=== PATIENT | male | born 1950 | race Caucasian/White ===

== ENCOUNTER 2019-12-26 14:22 | Outpatient (CLI) | payer MEDICARE, SELFPAY | END 2019-12-26 14:23 | disposition home or self-care (01) | LOC: RADWPI 14:38 | PROVIDERS: Family Provider Nurse Practitioner Family; PCP Family Medicine; Visit Provider Nurse Practitioner | DX: Z01.89 Encounter for other specified special examinations (principal) ==

== ENCOUNTER 2020-06-17 12:49 | Outpatient (CLI) | payer MEDICARE, SELFPAY ==
--- NOTE | 2020-06-17 12:54 | USCV_ITS ---
Phil Palumob Age: 70 Gender: M : 1950 Exam Date: 06/17/2020 12:53 Ordering Phys: Melissa Boswell MD Technologist: Bernardo Ayers Exam Location: [facility] [place] Indication: PVD RIGHT LEFT Brachial 134.00 mmHg Brachial 136.00 mmHg Pressure (mmHg) Waveform Pressure (mmHg) Waveform 121.00 LAB ANIMAL TECHNOLOGIST 136.00 112.00 DPA 131.00 0.89 Ankle/Brachial Index 1.00 78.00 Pre-Exercise Toe Pressure 89.00 0.57 Pre-Exercise Toe/Brachial Index 0.65 FINDINGS See measurements listed above. Normal resting LEENA on the left side with slightly diminished resting LEENA on the right side Mildly diminished resting TBI bilaterally CONCLUSIONS Mild peripheral artery disease on the left side. Mild peripheral artery disease, involving the distal vessels on the left side Dr Malika Souza MD [facility] (Electronically Signed) Final Date: 17 June 2020 19:01 S
== END 2020-06-17 12:50 | disposition home or self-care (01) ==
LOC: US 12:52
PROVIDERS: PCP Family Medicine; Visit Provider Family Medicine
DX: I73.89 Other specified peripheral vascular diseases (principal)
CPT/HCPCS: 93922

== ENCOUNTER 2020-07-02 14:39 | Outpatient (CLI) | payer MEDICARE, SELFPAY ==
--- NOTE | 2020-07-02 14:43 | XR_ITS ---
WS: [id number] DEXA (DUAL ENERGY X-RAY ABSORPTIOMETRY) Bone mineral density was performed using a Pict machine. HISTORY: AGE-RELATED OSTEOPOROSIS WITHOUT CURRENT PATHOLOGICAL FRACTURE, 70-YEAR-OLD MALE. COMPARISON: 09/01/2017 Lumbar spine BMD (L1-L4): 1.450 g/cm2 T score: 1.9 Z score: 2.7 Total hip BMD: Left: 0.793 g/cm2. T score: -2.1 Z score: -1.3 Right: 0.771 g/cm2. T score: -2.3 Z score: -1.5 10 year probability of a major osteoporotic fracture is 26%. Compared to the prior study from 09/01/2017. Lumbar spine bone mineral density has increased by 16.2%. Suspect falsely elevated due to scler osis. Bilateral hips bone mineral density has increased by 0.3%. XR/XR DEXA axial skeleton* [id number] IMPRESSION: OSTEOPENIA. Patient has significant increased risk for fracture. Compared to the prior study there is been a significant increase in bone minera l density of the lumbar spine. Suspect this is falsely elevated due to sclerosi s in the vertebral bodies and scoliosis. More accurate depiction of the bone mi neral density involves the hips consistent with osteopenia. Probably no signifi cant change.
== END 2020-07-02 14:40 | disposition home or self-care (01) ==
LOC: RADWPI 14:42
PROVIDERS: PCP Family Medicine; Visit Provider Nurse Practitioner
DX: M81.0 Age-related osteoporosis without current pathological fracture (principal)
CPT/HCPCS: 77080

== ENCOUNTER 2020-10-21 12:54 | Outpatient (CLI) | payer MEDICARE, SELFPAY | END 2020-10-21 12:55 | disposition home or self-care (01) | LOC: WOUND 12:55 | PROVIDERS: PCP Family Medicine; Visit Provider Nurse Practitioner Family | DX: E11.621 Type 2 diabetes mellitus with foot ulcer (principal); L97.511 Non-pressure chronic ulcer of other part of right foot limited to breakdown of skin | CPT/HCPCS: 11042; 87070; 87077; 87106; 87176; 87186; 87205; G0463; L3260 ==

== ENCOUNTER 2020-10-28 13:07 | Outpatient (CLI) | payer MEDICARE, SELFPAY | END 2020-10-28 13:08 | disposition home or self-care (01) | LOC: WOUND 13:07 | PROVIDERS: PCP Family Medicine; Visit Provider Thoracic Surgery (Cardiothoracic Vascular Surgery) | DX: E11.621 Type 2 diabetes mellitus with foot ulcer (principal); L97.518 Non-pressure chronic ulcer of other part of right foot with other specified severity | CPT/HCPCS: 11042 ==

== ENCOUNTER 2020-11-15 18:46 | Emergency (ER) | payer MEDICARE, SELFPAY ==
[2020-11-15 19:13] VITALS: BP 144/78; PULSE 70; RESP 14; TEMP 37; O2SAT 97; BMI 23.7
--- NOTE | 2020-11-15 19:51 | XR_ITS ---
WS: [id number] CHEST XRAY TECHNIQUE: Portable chest. CLINICAL INFORMATION: rib pain COMPARISON: July 12, 2015 FINDINGS: Heart: Normal cardiac silhouette. Tortuous thoracic aorta. Lungs: Moderate chronic emphysematous changes. Hyperinflation. No acute pulmonary infiltrates. No foc al pneumonia. Bones: Normal visualized bony structures. XR/XR chest 1V portable [id number] IMPRESSION: No acute chest findings
--- NOTE | 2020-11-15 19:51 | CTR_ITS ---
PROCEDURE INFORMATION: Exam: CT Head Without Contrast Exam date and time: 11/15/2020 8:55 PM Age: 70 years old Clinical indication: Injury or trauma; Blunt trauma (contusions or hematomas); Consciousness not specified; Patient HX: C/O frequent falls - abrasion to forehead; Additional info: Fall TECHNIQUE: Imaging protocol: Computed tomography of the head without contrast. Radiation optimization: All CT scans at this facility use at least one of these dose optimization techniques: automated exposure control; mA and/or kV adjustment per patient size (includes targeted exams where dose is matched to clinical indication); or iterative reconstruction. COMPARISON: No relevant prior studies available. RADIATION DOSE METRICS: Total DLP (mGy-cm): 736.4 FINDINGS: Brain: Mild diffuse white matter disease likely reflecting chronic microvascular ischemic changes. Benign bilateral basal ganglia calcifications. Cerebral ventricles: No ventriculomegaly. Bones/joints: Unremarkable. No acute fracture. Paranasal sinuses: Visualized sinuses are unremarkable. No fluid levels. Mastoid air cells: Visualized mastoid air cells are well aerated. Soft tissues: Unremarkable. CT/CT head wo con* [id number] IMPRESSION: Negative for intracranial hemorrhage or mass effect. Radiation Dose CTDIVOL = (mGy): DLP = 736.4 (mGy-cm)
--- NOTE | 2020-11-15 19:51 | ECG_ITS ---
[facility] Test Date: 2020-11-15 Pat Name: Phil Palumbo Department: Room: Gender: Male Legal File Clerk: : 1950 Requested By: Roberto Fajardo Order Number: [id number] Reading MD: SCOOTER NUNEZ Measurements Intervals Klemme Rate: 71 P: 57 NV: 130 QRS: 22 QRSD: 97 T: 78 QT: 405 QTc: 442 Interpretive Statements SINUS RHYTHM SEPTAL MYOCARDIAL INFARCTION , OF INDETERMINATE AGE [40+ ms Q WAVE IN V1/V2] POSSIBLE LATERAL MYOCARDIAL INFARCTION , OF INDETERMINATE AGE [30 ms Q WAVE IN I/aVL/V5/V6] Compared to ECG 07/12/2015 10:51:56 Short NV interval no longer present Left-axis deviation no longer present Myocardial infarct finding still present Electronically Signed On 11-16-2020 18:36:45 [employer] by SCOOTER NUNEZ [id number]
--- NOTE | 2020-11-15 20:11 | ED_ITS ---
HPI - Fall General: Chief Complaint: Fall Stated Complaint: FELL .18/SORE RIBS, SWELLING LEGS Time Seen by Provider: 11/15/20 20:04 Source: patient Mode of arrival: ambulatory Limitations: no limitations History of Present Illness: HPI Narrative: 70-year-old male that is concerned he may be taking too much of his oxycodone. States she has had a couple falls last fall happening Monday. He struck his right ribs and does have bruising to his right abdomen and ribs from that fall on Monday. He states he has pain in his ribs and abdomen he rates a 4 out of 10. He states he struck his head but had no loss consciousness. Patient is able answer all my questions appropriately here. Denies any worsening improving factors. Associated symptoms-after fall: Reports abdominal pain; Denies chest pain, headache(s) or neck pain Review of Systems Const: Denies: fever(s), chills, body aches or change in appetite Eyes: Denies: blurry vision or eye discomfort ENMT: Denies: throat pain or dental pain Card: Denies: chest pain Resp: Denies: dyspnea GI: Reports: abdominal pain; Denies: nausea, vomiting or diarrhea : Denies: dysuria Musc: Denies: neck pain or back pain Skin/Breast: Denies: rash Neuro: Denies: headache(s) Psych: Denies: depression Austin/Lymph: Denies: easy bruising All/Imm: Denies: urticaria Physical Exam Const: COMMON NORMALS: no acute distress, patient oriented x3 and healthy appearing HENMT: COMMON NORMALS: normocephalic and atraumatic HEAD & SCALP: normocephalic and atraumatic Eye: COMMON NORMALS: Equal, round and reactive pupils present and EOMs intact bilaterally PUPIL: Yes Equal, round and reactive pupils present Neck/C-Spine: COMMON NORMALS: full ROM and supple Chest: COMMONS NORMALS: normal inspection of the chest OTHER: Tenderness and bruising of her right chest Resp: COMMON NORMALS: normal respiratory effort, No retractions, No use of accessory muscles and clear to auscultation bilaterally AUSCULTATION: clear to auscultation bilaterally Cardio: COMMON NORMALS: regular rate, regular rhythm and No murmurs present (Cardio) RATE: regular rate RHYTHM: regular rhythm GI: COMMON NORMALS: Soft to palpation and no masses PALPATION: Yes Soft to palpation OTHER: Tenderness over right abdomen with bruising Extremity: COMMON NORMALS: normal to inspection and full ROM Neuro: COMMON NORMALS: patient oriented x3, moves all extremities and no focal motor deficits Psych: COMMON NORMALS: mental status grossly normal, Normal thought process present and cooperative THOUGHT PROCESS: Normal thought process present Skin: COMMON NORMALS: no rashes or lesions noted and no wounds GENERAL SKIN EXAM: no rashes or lesions noted Course Vital Signs: Vital signs: Vital Signs Temperature 98.6 F 11/15/20 19:13 Pulse Rate 74 11/15/20 22:46 Respiratory Rate 18 11/15/20 22:46 Blood Pressure 135/96 11/15/20 22:46 Pulse Oximetry 94 11/15/20 22:46 MDM - Fall MDM Narrative: Medical decision making narrative: Patient presents here after a fall. He does have a rib fracture but no signs of any major injuries. His head CT here is normal. He is awake and alert and able answer my questions appropriately. I did inform him his BUN and creatinine were high and he is likely dehydrated. Patient was given 1 L IV fluid here. I recommended more IV fluids be states he feels improved and he wants to go home now. I informed him he needs to drink plenty of water and follow-up his primary care doctor within a week to have his kidney levels rechecked. If he has any worsening symptoms he is to return immediately. He understands and agrees to this plan. Lab Data: Labs: Lab Results 11/15/20 11/15/20 Range/Units 20:20 20:20 WBC 5.4 (4.0-10.0) 10^3/ uL RBC 3.64 L (4.1-5.3) 10^6/u L Hgb 10.7 L (11.7-16.6) g/dL Hct 34.4 L (42.0-52.0) % MCV 94.5 H (80-94) fL MCH 29.4 (28.0-34.0) pg MCHC 31.1 (30.0-36.0) g/dL RDW 14.1 (12.1-15.1) % Plt Count 238 (130-400) 10^3/c mm MPV 10.3 (7.4-10.4) fL Neut % (Auto) 74.2 % Lymph % (Auto) 18.5 % Terrell % (Auto) 6.1 % Eos % (Auto) 0.2 % Baso % (Auto) 0.6 % Neut # (Auto) 4.02 (1.8-7.7) 10^3/u L Lymph # (Auto) 1.0 (0.8-4.8) 10^3/u L Terrell # (Auto) 0.3 (0.2-0.9) 10^3/u L Eos # (Auto) 0.0 (0.0-0.8) 10^3/u L Baso # (Auto) 0.0 (0.0-0.1) 10^3/u L Nucleated RBC % (a uto) 0 % Nucleated RBCs # 0.0 /100WBC Sodium 137 (136-145) mmol/L Potassium 4.2 (3.5-5.1) mmol/L Chloride 101 (98-107) mmol/L Carbon Dioxide 28 (22-29) mmol/L Anion Gap 12.2 (5-19) BUN 62 H (8-23) mg/dL Creatinine 2.5 H (0.7-1.2) mg/dL GFR Calculation 25.8 L (90-130) mL/min Glucose 166 H (65-115) mg/dL Calculated Osmolal ity 305 H (285-295) mOsm/k g Calcium 8.9 (8.5-10.5) mg/dL Total Bilirubin 0.3 (0.15-1.2) mg/dL AST 49 H (0-40) U/L ALT 39 (0-41) U/L Alkaline Phosphata se 162 H (40-130) IU/L Total Protein 6.2 L (6.6-8.7) g/dL Albumin 2.7 L (3.5-5.2) g/dL Globulin 3.5 (1.3-4.6) g/dL Imaging Data^: CT Head: Radiologist's impression: [address] [address] [address] Scan Report Signed Patient: Phil Palumbo Unit #: [id number] : 1950 Age/Sex: 70 / M ADM Date: 11/15/20 Loc: ER Room/Bed: Attending Dr: Ordering Provider/Ordering MD: Roberto Fajardo MD Date of Service: 11/15/20 Procedure(s): CT head wo con* [id number] Accession Number(s): [id number] Report Number: [id number] PROCEDURE INFORMATION: Exam: CT Head Without Contrast Exam date and time: 11/15/2020 8:55 PM Age: 70 years old Clinical indication: Injury or trauma; Blunt trauma (contusions or hematomas); Consciousness not specified; Patient HX: C/O frequent falls - abrasion to forehead; Additional info: Fall TECHNIQUE: Imaging protocol: Computed tomography of the head without contrast. Radiation optimization: All CT scans at this facility use at least one of these dose optimization techniques: automated exposure control; mA and/or kV adjustment per patient size (includes targeted exams where dose is matched to clinical indication); or iterative reconstruction. COMPARISON: No relevant prior studies available. RADIATION DOSE METRICS: Total DLP (mGy-cm): 736.4 FINDINGS: Brain: Mild diffuse white matter disease likely reflecting chronic microvascular ischemic changes. Benign bilateral basal ganglia calcifications. Cerebral ventricles: No ventriculomegaly. Bones/joints: Unremarkable. No acute fracture. Paranasal sinuses: Visualized sinuses are unremarkable. No fluid levels. Mastoid air cells: Visualized mastoid air cells are well aerated. Soft tissues: Unremarkable. CT/CT head wo con* [id number] IMPRESSION: Negative for intracranial hemorrhage or mass effect. CT Abd/Pel: Radiologist's impression: [address] [address] [address] Scan Report Signed Patient: Phil Palumbo Unit #: [id number] : 1950 Age/Sex: 70 / M ADM Date: 11/15/20 Loc: ER Room/Bed: Attending Dr: Ordering Provider/Ordering MD: Roberto Fajardo MD Date of Service: 11/15/20 Procedure(s): CT chest abd pel wo con Accession Number(s): [id number] Report Number: [id number] PROCEDURE INFORMATION: Exam: CT Chest Without Contrast; Diagnostic Exam date and time: 11/15/2020 8:55 PM Age: 70 years old Clinical indication: Injury or trauma; Generalized; Blunt trauma (contusions or hematomas); Patient HX: C/O R cp/rib/flank pain adter fall 8 days ago TECHNIQUE: Imaging protocol: Diagnostic computed tomography of the chest without contrast. Radiation optimization: All CT scans at this facility use at least one of these dose optimization techniques: automated exposure control; mA and/or kV adjustment per patient size (includes targeted exams where dose is matched to clinical indication); or iterative reconstruction. COMPARISON: CR XR chest 1V portable [id number] 11/15/2020 8:26 PM RADIATION DOSE METRICS: Total DLP (mGy-cm): 1272.71 FINDINGS: Lungs: There is moderate bilateral centrilobular emphysema with upper lobe predominance. There is some dependent atelectasis at the lung bases. Pleural space: There is a small right pleural effusion or hemothorax. No pneumothorax is identified. Heart: There is severe atherosclerotic calcification of the coronary arteries. Aorta: Unremarkable. No aortic aneurysm. Lymph nodes: There is no evidence of lymphadenopathy. Bones/joints: There is comminuted displaced fracture of the posterior right 12th rib and mildly displaced fracture of the posterior right 11th rib there is also nondisplaced fracture of the lateral aspect of the right 11th rib. There is mild compression of the superior endplate of L1 which is of uncertain age. There is severe compression deformity of the superior endplate of T12 with what appears to be recent transverse fracture. There is some retropulsion of posterior aspect of the vertebral body.The lumbar spine demonstrates moderate degenerative changes at multiple levels. Soft tissues: Unremarkable. Other findings: Correlation with clinical findings is suggested. IMPRESSION: 1. Right rib fractures. 2. Small right pleural effusion or hemothorax. 3. T12 compression fracture, likely recent. PROCEDURE INFORMATION: Exam: CT Abdomen And Pelvis Without Contrast Exam date and time: 11/15/2020 8:55 PM Age: 70 years old Clinical indication: Injury or trauma; Generalized; Blunt trauma (contusions or hematomas); Patient HX: C/O R cp/rib/flank pain adter fall 8 days ago TECHNIQUE: Imaging protocol: Computed tomography of the abdomen and pelvis without contrast. Radiation optimization: All CT scans at this facility use at least one of these dose optimization techniques: automated exposure control; mA and/or kV adjustment per patient size (includes targeted exams where dose is matched to clinical indication); or iterative reconstruction. COMPARISON: CR XR chest 1V portable [id number] 11/15/2020 8:26 PM RADIATION DOSE METRICS: Total DLP (mGy-cm): 1272.71 FINDINGS: Limitations: The absence of intravenous contrast lessens the sensitivity of this study for solid organ abnormalities. Liver: There is no focal abnormality within the liver. Gallbladder and bile ducts: The gallbladder is normal. Common bile duct is mildly dilated measuring 9-10 mm. Pancreas: The pancreas is normal. The pancreas is normal. Spleen: The spleen is normal. Adrenal glands: The adrenal glands are normal. Kidneys and ureters: There are calcifications in both kidneys which more likely represent vascular calcifications and stones. There is no evidence of hydronephrosis. There is no stone along the course of either ureter. Stomach and bowel: There is no evidence of colitis/diverticulitis. Appendix: A normal appendix is identified. Intraperitoneal space: There is no evidence of free intraperitoneal fluid. Vasculature: The aorta demonstrates severe atherosclerotic calcification with ectasia. There is no evidence of an abdominal aortic aneurysm. Lymph nodes: Unremarkable. No enlarged lymph nodes. Urinary bladder: Unremarkable as visualized. Reproductive: Unremarkable as visualized. Bones/joints: There is moderate S-shaped scoliosis of the thoracolumbar spine. Soft tissues: Unremarkable. CT/CT chest abd pel wo con IMPRESSION: No acute findings in the abdomen or pelvis. Radiation Dose CTDIVOL = (mGy): DLP = 1272.71 1272.71 (mGy-cm EKG Data^: EKG 1: Attestation: I personally reviewed and interpreted this EKG as follows: EKG interpretation date: 11/15/20 EKG interpretation time: 20:21 Interpretation: nsr hr [address] or t wave abnormalities qrs 97 qtc 428 Discharge Plan Discharge Patient Disposition: Home Clinical Impression: Fall, Dehydration Right rib fracture Qualifiers: Encounter type: initial encounter Rib fracture type: single rib Fracture type: closed Qualified Code(s): S22.31XA - Fracture of one rib, right side, initial encounter for closed fracture Condition: Stable Discharge Orders: Discharge ED (Routine); Ordered 11/15/20 Ordered By: Roberto Fajardo Referrals: Melissa Boswell MD [Primary Care Provider] - Discharge Diet: Advance as tolerated Discharge Activity: Resume usual activity Patient Instructions: Dehydration (ED), Rib Fracture (ED) Coding Level of Care Code ED Career Services Representative for Chg Fwd Exam Comprehensive
[2020-11-15 20:36] LABS: Basophils % 0.6 %; Eosinophils % 0.2 %; Hematocrit 34.4 % (42.0-52.0); Hemoglobin 10.7 g/dL (11.7-16.6); Lymphocytes % 18.5 %; Mean Corpuscular HGB Conc 31.1 g/dL (30.0-36.0); Mean Corpuscular Hemoglobin 29.4 pg (28.0-34.0); Mean Corpuscular Volume 94.5 fL (80-94); Mean Platelet Volume 10.3 fL (7.4-10.4); Monocytes # 0.3 10^3/uL (0.2-0.9); Monocytes % 6.1 %; Neutrophils # 4.02 10^3/uL (1.8-7.7); Neutrophils % 74.2 %; Nucleated Red Blood Cells % 0 %; Platelet Count 238 10^3/cmm (130-400); Red Blood Count 3.64 10^6/uL (4.1-5.3); Red Cell Distribution Width 14.1 % (12.1-15.1); White Blood Count 5.4 10^3/uL (4.0-10.0)
[2020-11-15 20:47] LABS: Alanine Aminotransferase 39 U/L (0-41); Albumin Level 2.7 g/dL (3.5-5.2); Alkaline Phosphatase 162 IU/L (40-130); Anion Gap 12.2 (5-19); Aspartate Amino Transferase 49 U/L (0-40); Blood Urea Nitrogen 62 mg/dL (8-23); Calcium 8.9 mg/dL (8.5-10.5); Carbon Dioxide 28 mmol/L (22-29); Chloride 101 mmol/L (98-107); Globulin 3.5 g/dL (1.3-4.6); Glomerular Filtration Rate 25.8 mL/min (90-130); Glucose 166 mg/dL (65-115); Osmolality Calculated 305 mOsm/kg (285-295); Potassium 4.2 mmol/L (3.5-5.1); Sodium 137 mmol/L (136-145); Total Bilirubin 0.3 mg/dL (0.15-1.2); Total Protein 6.2 g/dL (6.6-8.7)
[2020-11-15] MEDS: sodium chloride 0.9% 1,000 ML 999 ML IV (21:57)
[2020-11-15 22:46] VITALS: BP 135/96; PULSE 74; RESP 18; O2SAT 94
== END 2020-11-15 22:47 | disposition home or self-care (01) ==
PROVIDERS: Emergency Provider Emergency Medicine; PCP Family Medicine
DX: S22.31XA Fracture of one rib, right side, initial encounter for closed fracture (principal); E86.0 Dehydration; W19.XXXA Unspecified fall, initial encounter
CPT/HCPCS: 12345; 70450; 71045; 71250; 74176; 80053; 85025; 93005; 96360; 99283; J7030

== ENCOUNTER 2020-12-31 14:18 | Outpatient (CLI) | payer MEDICARE, SELFPAY | END 2020-12-31 14:19 | disposition home or self-care (01) | LOC: WOUND 14:19 | PROVIDERS: PCP Family Medicine; Visit Provider Thoracic Surgery (Cardiothoracic Vascular Surgery) | DX: E11.621 Type 2 diabetes mellitus with foot ulcer (principal); L97.512 Non-pressure chronic ulcer of other part of right foot with fat layer exposed | CPT/HCPCS: 11042; G0463 ==

== ENCOUNTER 2021-01-14 14:12 | Outpatient (CLI) | payer MEDICARE, SELFPAY ==
--- NOTE | 2021-01-14 15:31 | XR_ITS ---
WS: [id number] Exam: XR foot RT min 3V* [id number] Date/Time of Exam: 01/14/2021 3:59 PM Reason For Exam: RIGHT FOOT ULCER No fracture or dislocation. No bone destruction noted. There is soft tissue swelling along the latera l margin of the fifth MP joint. Mild degenerative changes of the foot. No soft tissue foreign bodies. XR/XR foot RT min 3V* [id number] IMPRESSION: 1. No fracture or dislocation. No bone destruction. 2. Mild degenerative changes. 3. Soft tissue swelling along the lateral margin of the fifth MP joint.
== END 2021-01-14 14:13 | disposition home or self-care (01) ==
PROVIDERS: PCP Family Medicine; Visit Provider Nurse Practitioner Family
DX: E11.621 Type 2 diabetes mellitus with foot ulcer (principal); L97.512 Non-pressure chronic ulcer of other part of right foot with fat layer exposed
CPT/HCPCS: 11042; 73630

== ENCOUNTER 2021-01-21 13:12 | Outpatient (CLI) | payer MEDICARE, SELFPAY | END 2021-01-21 13:13 | disposition home or self-care (01) | LOC: WOUND 13:13 | PROVIDERS: PCP Family Medicine; Visit Provider Thoracic Surgery (Cardiothoracic Vascular Surgery) | DX: E11.621 Type 2 diabetes mellitus with foot ulcer (principal); L97.512 Non-pressure chronic ulcer of other part of right foot with fat layer exposed; F17.210 Nicotine dependence, cigarettes, uncomplicated | CPT/HCPCS: 11042 ==

== ENCOUNTER 2021-02-03 14:18 | Outpatient (CLI) | payer MEDICARE, SELFPAY | END 2021-02-03 14:19 | disposition home or self-care (01) | LOC: WOUND 14:19 | PROVIDERS: PCP Family Medicine; Visit Provider Nurse Practitioner Family | DX: E11.621 Type 2 diabetes mellitus with foot ulcer (principal); L97.512 Non-pressure chronic ulcer of other part of right foot with fat layer exposed | CPT/HCPCS: 11042 ==

== ENCOUNTER 2021-05-05 08:12 | Observation (INO) | payer MEDICARE, SELFPAY ==
[2021-05-05] VITALS (8 sets, daily range): BP systolic 126–161; BP diastolic 69–78; PULSE 59–87; RESP 12–20; TEMP 36.7–37.1; O2SAT 92–98; BMI 19.5
--- NOTE | 2021-05-05 08:44 | CT_ITS ---
WS: [id number] CT ABDOMEN PELVIS TECHNIQUE: Noncontrast CT of the abdomen and pelvis with coronal and sagittal reformatted images. CLINICAL INFORMATION: L lower abdominal pain; N/V COMPARISON: November 15, 2020 DLP: 829.[address] scans at [facility] use at least one of these dose optimization techniques: automat ed exposure control; mA and/or kV adjustment per patient size (includes targeted exams where dose is matched to clinical indication); or iterative reconstruction. FINDINGS: Noncontrast liver is normal. Normal gallbladder. Noncontrast spleen is normal. Normal GE junction. Ch ronic emphysematous changes in the lung bases. Fibrosis in the right middle lobe. Fibrotic appearing infiltrates in the lingula. Multiple chronic posterior rib fractures with callus formation. Glands are normal. Tortuous slightly ectatic infrarenal abdominal aorta measuring 3.0 x 3.2 CM. AP by transverse. Adrenal glands are normal. No hydronephrosis in either kidney. Sigmoid constipation. Sigmoid colon ot herwise appears normal. Urine distended bladder. Prostate calcification. Air distended loops of dacia l caliber small bowel. Air-fluid level in the stomach. No evidence of high-grade obstruction. Bowel p attern is similar to previous. Chronic compression of anterior wedging T12 vertebral body. CT/CT abdomen pelvis wo con [id number] IMPRESSION: 1. No acute abdominal or pelvic findings. 2. Mild sigmoid constipation. 3. Air distended loops of normal caliber small and large bowel. No evidence of high-grade obstruction. Bowel gas pattern is similar to previous. 4. Air-fluid level in the stomach. 5. Slightly ectatic infrarenal abdominal aorta measuring 3.0 x 3.2 cm AP by tr ansverse. 6. No other significant changes from previous
--- NOTE | 2021-05-05 08:44 | ED_ITS ---
Documented by User: CONSTANTIN Mora 05/05/21 12:40 HPI - Abdominal Pain General: Chief Complaint: Abdominal Pain Stated Complaint: N/V, L leg pain Time Seen by Provider: 05/05/21 08:14 Source: patient Mode of arrival: ambulatory Limitations: no limitations History of Present Illness: HPI narrative: Patient is a 71-year-old male who presents to ED today with a complaint of nausea and vomiting every time I try to eat . He states symptoms have been present over the past 2 to 3 weeks. States he has now gotten to the point where he doesn't want to eat anything in fear of vomiting it up. He is complaining of some left lower abdominal pain. Notes a few episodes of non-bloody diarrhea. He has not been running fevers. States he seems to be urinating normally. MD elicited complaint: abdominal pain Pertinent past history: none Onset (ago): week(s) Pain Consistency: constant Location: LLQ Severity: moderate Quality: sharp Radiation: none Migration to: no migration Exacerbating factors: eating Relieving factors: nothing Associated Symptoms: Reports diarrhea, nausea and vomiting; Denies chills, coffee ground emesis, constipation, dysuria, fever(s), heartburn, hematochezia, hematemesis and melena Review of Systems Const: Denies: fever(s), chills, body aches, fatigue or malaise Eyes: Denies: change in vision ENMT: Denies: throat pain or odynophagia Card: Denies: chest pain Resp: Denies: dyspnea GI: Reports: abdominal pain, nausea, vomiting and diarrhea; Denies: hematemesis, coffee ground emesis, dysphagia, heartburn, constipation, pain on defecation, hematochezia or melena : Denies: flank pain, difficulty urinating, dysuria, urinary frequency, urinary urgency or urinary hesitancy Musc: Denies: neck pain, back pain, extremity pain or joint pain Skin/Breast: Denies: rash Neuro: Denies: headache(s) PFSH ED PFSH: Medical History Benign prostatic hyperplasia CHF (congestive heart failure) 2014, EF 40% with 2/4 diastolic dysfunction Chronic kidney disease Coronary artery disease Depression Diabetes mellitus Diabetic neuropathy Hyperlipidemia Hypertension Peripheral artery disease Tobacco dependency Surgical History History of angioplasty Family History Other CAD (coronary artery disease) Social History Smoking and tobacco status: current every day smoker Alcohol intake: never Physical Exam Const: COMMON NORMALS: no acute distress, patient oriented x3, no limitations and alert GENERAL APPEARANCE: cooperative and frail appearing ORIENTATI ON/CONSCIOUSNESS: Yes awake, Yes oriented to person, Yes oriented to place and Yes oriented to time HENMT: COMMON NORMALS: normocephalic and atraumatic HEAD & SCALP: normocephalic and atraumatic Resp: COMMON NORMALS: normal respiratory effort and clear to auscultation bilaterally AUSCULTATION: clear to auscultation bilaterally Cardio: COMMON NORMALS: regular rate and regular rhythm RATE: regular rate RHYTHM: regular rhythm GI: COMMON NORMALS: Normal to inspection, nondistended, normoactive bowel sounds present, Soft to palpation, No hepatosplenomegaly present and no masses AUSCULTATION: Yes normoactive bowel sounds PALPATION: Yes Soft to palpation, Yes Tenderness to palpation present (GI) (LLQ), No Guarding due to palpation present (GI), No Rigid due to palpation and Yes No hepatosplenomegaly present : PENIS: normal penis SCROTUM: Yes testes descended bilaterally OTHER: has rash to L inguinal fold; small tick noted to R scrotal tissue that was removed Extremity: COMMON NORMALS: normal to inspection Neuro: COMMON NORMALS: patient oriented x3 SENSORIUM/ORIENTATION: Yes alert, Yes oriented to person, Yes oriented to place and Yes oriented to time Course Vital Signs: Vital signs: Vital Signs Temperature 98.3 F 05/05/21 13:57 Pulse Rate 70 05/05/21 13:57 Respiratory Rate 16 05/05/21 13:57 Blood Pressure 130/73 05/05/21 13:57 Pulse Oximetry 98 05/05/21 13:57 MDM - Abdominal Pain MDM Narrative: Medical decision making narrative: Patient here with complaints of left lower abdominal pain, nausea, and vomiting. His vital signs are stable. CT scan showing no acute findings. He does have air distended loops of small and large bowel as well as an air-fluid level in the stomach but no evidence of high-grade obstruction. Kidney functions today appear worse than baseline. Mild elevations to LFTs that have been present previously. No evidence for hepatic or biliary disease on his CT scan. Spoke to Dr. De Los Santos for admission. Lab Data: Labs: Lab Results 05/05/21 05/05/21 05/05/21 Range/Units 08:52 08:52 08:52 WBC 3.5 L (4.0-10.0) 10^3/ uL RBC 3.85 L (4.1-5.3) 10^6/u L Hgb 11.3 L (11.7-16.6) g/dL Hct 35.7 L (42.0-52.0) % MCV 92.7 (80-94) fL MCH 29.4 (28.0-34.0) pg MCHC 31.7 (30.0-36.0) g/dL RDW 14.8 (12.1-15.1) % Plt Count 151 (130-400) 10^3/c mm MPV 10.1 (7.4-10.4) fL Neut % (Auto) 73.2 % Lymph % (Auto) 18.8 % [place] % (Auto) 7.4 % Eos % (Auto) 0.0 % Baso % (Auto) 0.3 % Neut # (Auto) 2.58 (1.8-7.7) 10^3/u L Lymph # (Auto) 0.7 L (0.8-4.8) 10^3/u L [place] # (Auto) 0.3 (0.2-0.9) 10^3/u L Eos # (Auto) 0.0 (0.0-0.8) 10^3/u L Baso # (Auto) 0.0 (0.0-0.1) 10^3/u L Nucleated RBC % (a uto) 0 % Nucleated RBCs # 0.0 /100WBC Sodium 137 (136-145) mmol/L Potassium 4.3 (3.5-5.1) mmol/L Chloride 99 (98-107) mmol/L Carbon Dioxide 23 (22-29) mmol/L Anion Gap 19.3 H (5-19) BUN 83 H* (8-23) mg/dL Creatinine 3.3 H (0.7-1.2) mg/dL GFR Calculation 18.7 L (90-130) mL/min Glucose 131 H (65-115) mg/dL Calculated Osmolal ity 311 H (285-295) mOsm/k g Calcium 8.2 L (8.5-10.5) mg/dL Total Bilirubin 0.3 (0.15-1.2) mg/dL AST 89 H (0-40) U/L ALT 60 H (0-41) U/L Alkaline Phosphata se 138 H (40-130) IU/L Creatine Kinase 502 H* (39-308) U/L Total Protein 6.9 (6.6-8.7) g/dL Albumin 3.1 L (3.5-5.2) g/dL Globulin 3.8 (1.3-4.6) g/dL Lipase 65 H (13-60) U/L TSH 1.13 (0.27-4.20) uIU/ mL Urine Color (Yellow) Urine Appearance (CLEAR) Urine pH (5-7) Ur Specific Gravit y (1.005-1.030) Urine Protein (Negative) Urine Glucose (UA) (Normal) Urine Ketones (Negative) Urine Blood (Negative) Urine Nitrate (Negative) Urine Bilirubin (Negative) Urine Urobilinogen (Negative) mg/dL Ur Leukocyte Anika ase (Negative) Urine RBC (0-2) /hpf Urine WBC (0-5) /hpf Ur Squamous Epith Cells (0-5) /hpf Amorphous Sediment Urine Bacteria (NONE) /hpf Hepatitis A IgM Ab (Nonreactive) Hep B Core IgM Ab (Nonreactive) 05/05/21 05/05/21 Range/Units 08:52 09:18 WBC (4.0-10.0) 10^3/ uL RBC (4.1-5.3) 10^6/u L Hgb (11.7-16.6) g/dL Hct (42.0-52.0) % MCV (80-94) fL MCH (28.0-34.0) pg MCHC (30.0-36.0) g/dL RDW (12.1-15.1) % Plt Count (130-400) 10^3/c mm MPV (7.4-10.4) fL Neut % (Auto) % Lymph % (Auto) % [place] % (Auto) % Eos % (Auto) % Baso % (Auto) % Neut # (Auto) (1.8-7.7) 10^3/u L Lymph # (Auto) (0.8-4.8) 10^3/u L [place] # (Auto) (0.2-0.9) 10^3/u L Eos # (Auto) (0.0-0.8) 10^3/u L Baso # (Auto) (0.0-0.1) 10^3/u L Nucleated RBC % (a uto) % Nucleated RBCs # /100WBC Sodium (136-145) mmol/L Potassium (3.5-5.1) mmol/L Chloride (98-107) mmol/L Carbon Dioxide (22-29) mmol/L Anion Gap (5-19) BUN (8-23) mg/dL Creatinine (0.7-1.2) mg/dL GFR Calculation (90-130) mL/min Glucose (65-115) mg/dL Calculated Osmolal ity (285-295) mOsm/k g Calcium (8.5-10.5) mg/dL Total Bilirubin (0.15-1.2) mg/dL AST (0-40) U/L ALT (0-41) U/L Alkaline Phosphata se (40-130) IU/L Creatine Kinase (39-308) U/L Total Protein (6.6-8.7) g/dL Albumin (3.5-5.2) g/dL Globulin (1.3-4.6) g/dL Lipase (13-60) U/L TSH (0.27-4.20) uIU/ mL Urine Color Yellow (Yellow) Urine Appearance Clear (CLEAR) Urine pH 5 (5-7) Ur Specific Gravit y 1.020 (1.005-1.030) Urine Protein 1+ H (Negative) Urine Glucose (UA) Norm (Normal) Urine Ketones Negative (Negative) Urine Blood 3+ H (Negative) Urine Nitrate Negative (Negative) Urine Bilirubin Neg (Negative) Urine Urobilinogen Norm (Negative) mg/dL Ur Leukocyte Anika ase Negative (Negative) Urine RBC 10-15 H (0-2) /hpf Urine WBC 0-4 H (0-5) /hpf Ur Squamous Epith Cells 10-15 H (0-5) /hpf Amorphous Sediment Not Reportable Urine Bacteria None (NONE) /hpf Hepatitis A IgM Ab Non-reactive (Nonreactive) Hep B Core IgM Ab Non-reactive (Nonreactive) Imaging Data ^: CT Abd/Pel: Radiologist's impression: [address] [id number] Scan ReportSigned Patient: Phil Palumboit #: [id number]: 1950cct#:[id number]/Sex: 71 / MADM Date: 05/05/21Loc: ERRoom/Bed:Attending Dr: Ordering Provider/Ordering MD: Marilyn Campos Date of Service: 05/05/21 Procedure(s): CT abdomen pelvis wo con [id number] Accession Number(s): [id number] Report Number: [id number] WS: [id number] CT ABDOMEN PELVIS TECHNIQUE: Noncontrast CT of the abdomen and pelvis with coronal and sagittal reformatted images. CLINICAL INFORMATION: L lower abdominal pain; N/V COMPARISON: November 15, 2020 DLP: 829.[address] scans at [facility] use at least one of these dose optimization techniques: automated exposure control; mA and/or kV adjustment per patient size (includes targeted exams where dose is matched to clinical indication); or iterative reconstruction. FINDINGS: Noncontrast liver is normal. Normal gallbladder. Noncontrast spleen is normal. Normal GE junction. Chronic emphysematous changes in the lung bases. Fibrosis in the right middle lobe. Fibrotic appearing infiltrates in the lingula. Multiple chronic posterior rib fractures with callus formation. Glands are normal. Tortuous slightly ectatic infrarenal abdominal aorta measuring 3.0 x 3.2 CM. AP by transverse. Adrenal glands are normal. No hydronephrosis in either kidney. Sigmoid constipation. Sigmoid colon otherwise appears normal. Urine distended bladder. Prostate calcification. Air distended loops of normal caliber small bowel. Air- fluid level in the stomach. No evidence of high-grade obstruction. Bowel pattern is similar to previous. Chronic compression of anterior wedging T12 vertebral body. CT/CT abdomen pelvis wo con [id number] IMPRESSION: 1. No acute abdominal or pelvic findings. 2. Mild sigmoid constipation. 3. Air distended loops of normal caliber small and large bowel. No evidence of high-grade obstruction. Bowel gas pattern is similar to previous. 4. Air-fluid level in the stomach. 5. Slightly ectatic infrarenal abdominal aorta measuring 3.0 x 3.2 cm AP by transverse. 6. No other significant changes from previous Dictated By:Thomas Cary MDSigned By:Thomas Cary MDSigned Date/Time:05/05/21 0958DD/ 0950 Discharge Plan Discharge Patient Disposition: Admitted As Inpatient Admit Provider: Sen Barnes Clinical Impression: Nausea & vomiting, Acute on chronic kidney failure, Bladder outlet obstruction, Benign prostatic hyperplasia, Diabetes mellitus, Diabetic gastroparesis Condition: Stable Coding Level of Care Code ED Wheel Braider for Chg Fwd Exam Detailed Documented by User: Arpit De Los Santos DO 05/05/21 16:45 HPI - Abdominal Pain General: Chief Complaint: Abdominal Pain Stated Complaint: N/V, L leg pain Time Seen by Provider: 05/05/21 08:14 History of Present Illness: HPI narrative: Patient initially seen by CONSTANTIN Mora. Agree with assessment and plan I seen the patient myself is in persistent nausea vomiting for the last several months with weight loss. He is diabetic. He denies any hematochezia melena hematemesis coffee-ground emesis. MD elicited complaint: abdominal pain Quality: cramping Exacerbating factors: nothing Relieving factors: nothing Associated Symptoms: Reports GI cramping, poor appetite and vomiting; Denies anorexia, belching, bloating, change in bowel habits, change in stool character, chills, coffee ground emesis, constipation, diarrhea, dyspepsia, dysuria, excessive flatus, fever(s), heartburn, hematochezia, hematuria, hematemesis, fecal incontinence, loose stools, melena, nausea and syncope Review of Systems Const: Denies: fever(s) or chills ENMT: Denies: throat pain, ear or mastoid pain, nasal discharge or nasal congestion Card: Denies: syncope Resp: Denies: dyspnea, productive cough or non-productive cough GI: Reports: vomiting and GI cramping; Denies: nausea, hematemesis, coffee ground emesis, heartburn, diarrhea, constipation, bloating, belching, excessive flatus, fecal incontinence, change in bowel habits, change in stool character, hematochezia or melena : Denies: dysuria or hematuria Skin/Breast: Denies: rash or pruritus PFSH ED PFSH: Medical History Benign prostatic hyperplasia CHF (congestive heart failure) 2014, EF 40% with 2/4 diastolic dysfunction Chronic kidney disease Coronary artery disease Depression Diabetes mellitus Diabetic neuropathy Hyperlipidemia Hypertension Peripheral artery disease Tobacco dependency Surgical History History of angioplasty Family History Other CAD (coronary artery disease) Social History Smoking and tobacco status: current every day smoker Alcohol intake: never Physical Exam Const: COMMON NORMALS: no acute distress GENERAL APPEARANCE: cooperative and comfortable ORIENTATION/CONSCIOUSNESS: Yes awake, Yes oriented to person, Yes oriented to place and Yes oriented to time HENMT: COMMON NORMALS: normocephalic and atraumatic HEAD & SCALP: normocephalic and atraumatic Neck/C-Spine: COMMON NORMALS: no JVD Resp: COMMON NORMALS: normal respiratory effort, No retractions, No use of accessory muscles and clear to auscultation bilaterally AUSCULTATION: clear to auscultation bilaterally Cardio: COMMON NORMALS: no JVD, regular rate, regular rhythm and No murmurs present (Cardio) RATE: regular rate RHYTHM: regular rhythm GI: COMMON NORMALS: No hepatosplenomegaly present AUSCULTATION: Yes normoactive bowel sounds PALPATION: Yes Tenderness to palpation present (GI), No Guarding due to palpation present (GI) and Yes No hepatosplenomegaly present Extremity: COMMON NORMALS: normal to inspection, capillary refill normal, no clubbing, cyanosis or edema, no calf tenderness and no pedal edema Neuro: SENSORIUM/ORIENTATION: Yes oriented to person, Yes oriented to place and Yes oriented to time Skin: COMMON NORMALS: no rashes or lesions noted GENERAL SKIN EXAM: no rashes or lesions noted Course Vital Signs: Vital signs: Vital Signs Temperature 98.3 F 05/05/21 13:57 Pulse Rate 70 05/05/21 13:57 Respiratory Rate 16 05/05/21 13:57 Blood Pressure 130/73 05/05/21 13:57 Pulse Oximetry 98 05/05/21 13:57 MDM - Abdominal Pain MDM Narrative: Medical decision making narrative: Reviewed the nurse practitioner seen the patient myself orders written discussed Dr. Dennis. Lab Data: Labs: Lab Results 05/05/21 05/05/21 05/05/21 Range/Units 08:52 08:52 08:52 WBC 3.5 L (4.0-10.0) 10^3/ uL RBC 3.85 L (4.1-5.3) 10^6/u L Hgb 11.3 L (11.7-16.6) g/dL Hct 35.7 L (42.0-52.0) % MCV 92.7 (80-94) fL MCH 29.4 (28.0-34.0) pg MCHC 31.7 (30.0-36.0) g/dL RDW 14.8 (12.1-15.1) % Plt Count 151 (130-400) 10^3/c mm MPV 10.1 (7.4-10.4) fL Neut % (Auto) 73.2 % Lymph % (Auto) 18.8 % [place] % (Auto) 7.4 % Eos % (Auto) 0.0 % Baso % (Auto) 0.3 % Neut # (Auto) 2.58 (1.8-7.7) 10^3/u L Lymph # (Auto) 0.7 L (0.8-4.8) 10^3/u L [place] # (Auto) 0.3 (0.2-0.9) 10^3/u L Eos # (Auto) 0.0 (0.0-0.8) 10^3/u L Baso # (Auto) 0.0 (0.0-0.1) 10^3/u L Nucleated RBC % (a uto) 0 % Nucleated RBCs # 0.0 /100WBC Sodium 137 (136-145) mmol/L Potassium 4.3 (3.5-5.1) mmol/L Chloride 99 (98-107) mmol/L Carbon Dioxide 23 (22-29) mmol/L Anion Gap 19.3 H (5-19) BUN 83 H* (8-23) mg/dL Creatinine 3.3 H (0.7-1.2) mg/dL GFR Calculation 18.7 L (90-130) mL/min Glucose 131 H (65-115) mg/dL Calculated Osmolal ity 311 H (285-295) mOsm/k g Calcium 8.2 L (8.5-10.5) mg/dL Total Bilirubin 0.3 (0.15-1.2) mg/dL AST 89 H (0-40) U/L ALT 60 H (0-41) U/L Alkaline Phosphata se 138 H (40-130) IU/L Creatine Kinase 502 H* (39-308) U/L Total Protein 6.9 (6.6-8.7) g/dL Albumin 3.1 L (3.5-5.2) g/dL Globulin 3.8 (1.3-4.6) g/dL Lipase 65 H (13-60) U/L TSH 1.13 (0.27-4.20) uIU/ mL Urine Color (Yellow) Urine Appearance (CLEAR) Urine pH (5-7) Ur Specific Gravit y (1.005-1.030) Urine Protein (Negative) Urine Glucose (UA) (Normal) Urine Ketones (Negative) Urine Blood (Negative) Urine Nitrate (Negative) Urine Bilirubin (Negative) Urine Urobilinogen (Negative) mg/dL Ur Leukocyte Anika ase (Negative) Urine RBC (0-2) /hpf Urine WBC (0-5) /hpf Ur Squamous Epith Cells (0-5) /hpf Amorphous Sediment Urine Bacteria (NONE) /hpf Hepatitis A IgM Ab (Nonreactive) Hep B Core IgM Ab (Nonreactive) 05/05/21 05/05/21 Range/Units 08:52 09:18 WBC (4.0-10.0) 10^3/ uL RBC (4.1-5.3) 10^6/u L Hgb (11.7-16.6) g/dL Hct (42.0-52.0) % MCV (80-94) fL MCH (28.0-34.0) pg MCHC (30.0-36.0) g/dL RDW (12.1-15.1) % Plt Count (130-400) 10^3/c mm MPV (7.4-10.4) fL Neut % (Auto) % Lymph % (Auto) % [place] % (Auto) % Eos % (Auto) % Baso % (Auto) % Neut # (Auto) (1.8-7.7) 10^3/u L Lymph # (Auto) (0.8-4.8) 10^3/u L [place] # (Auto) (0.2-0.9) 10^3/u L Eos # (Auto) (0.0-0.8) 10^3/u L Baso # (Auto) (0.0-0.1) 10^3/u L Nucleated RBC % (a uto) % Nucleated RBCs # /100WBC Sodium (136-145) mmol/L Potassium (3.5-5.1) mmol/L Chloride (98-107) mmol/L Carbon Dioxide (22-29) mmol/L Anion Gap (5-19) BUN (8-23) mg/dL Creatinine (0.7-1.2) mg/dL GFR Calculation (90-130) mL/min Glucose (65-115) mg/dL Calculated Osmolal ity (285-295) mOsm/k g Calcium (8.5-10.5) mg/dL Total Bilirubin (0.15-1.2) mg/dL AST (0-40) U/L ALT (0-41) U/L Alkaline Phosphata se (40-130) IU/L Creatine Kinase (39-308) U/L Total Protein (6.6-8.7) g/dL Albumin (3.5-5.2) g/dL Globulin (1.3-4.6) g/dL Lipase (13-60) U/L TSH (0.27-4.20) uIU/ mL Urine Color Yellow (Yellow) Urine Appearance Clear (CLEAR) Urine pH 5 (5-7) Ur Specific Gravit y 1.020 (1.005-1.030) Urine Protein 1+ H (Negative) Urine Glucose (UA) Norm (Normal) Urine Ketones Negative (Negative) Urine Blood 3+ H (Negative) Urine Nitrate Negative (Negative) Urine Bilirubin Neg (Negative) Urine Urobilinogen Norm (Negative) mg/dL Ur Leukocyte Anika ase Negative (Negative) Urine RBC 10-15 H (0-2) /hpf Urine WBC 0-4 H (0-5) /hpf Ur Squamous Epith Cells 10-15 H (0-5) /hpf Amorphous Sediment Not Reportable Urine Bacteria None (NONE) /hpf Hepatitis A IgM Ab Non-reactive (Nonreactive) Hep B Core IgM Ab Non-reactive (Nonreactive) Discharge Plan Discharge Patient Disposition: Admitted As Inpatient Admit Provider: Sen Barnes Clinical Impression: Nausea & vomiting, Acute on chronic kidney failure, Bladder outlet obstruction, Benign prostatic hyperplasia, Diabetes mellitus, Diabetic gastroparesis Condition: Stable Coding Level of Care Code ED Wheel Braider for Chg Fwd Exam Detailed
[2021-05-05 09:02] LABS: Basophils % 0.3 %; Hematocrit 35.7 % (42.0-52.0); Hemoglobin 11.3 g/dL (11.7-16.6); Lymphocytes # 0.7 10^3/uL (0.8-4.8); Lymphocytes % 18.8 %; Mean Corpuscular HGB Conc 31.7 g/dL (30.0-36.0); Mean Corpuscular Hemoglobin 29.4 pg (28.0-34.0); Mean Corpuscular Volume 92.7 fL (80-94); Mean Platelet Volume 10.1 fL (7.4-10.4); Monocytes # 0.3 10^3/uL (0.2-0.9); Monocytes % 7.4 %; Neutrophils # 2.58 10^3/uL (1.8-7.7); Neutrophils % 73.2 %; Nucleated Red Blood Cells % 0 %; Platelet Count 151 10^3/cmm (130-400); Red Blood Count 3.85 10^6/uL (4.1-5.3); Red Cell Distribution Width 14.8 % (12.1-15.1); White Blood Count 3.5 10^3/uL (4.0-10.0)
[2021-05-05 09:21] LABS: Alanine Aminotransferase 60 U/L (0-41); Albumin Level 3.1 g/dL (3.5-5.2); Alkaline Phosphatase 138 IU/L (40-130); Anion Gap 19.3 (5-19); Aspartate Amino Transferase 89 U/L (0-40); Calcium 8.2 mg/dL (8.5-10.5); Carbon Dioxide 23 mmol/L (22-29); Chloride 99 mmol/L (98-107); Globulin 3.8 g/dL (1.3-4.6); Glomerular Filtration Rate 18.7 mL/min (90-130); Glucose 131 mg/dL (65-115); Lipase 65 U/L (13-60); Osmolality Calculated 311 mOsm/kg (285-295); Potassium 4.3 mmol/L (3.5-5.1); Sodium 137 mmol/L (136-145); Total Bilirubin 0.3 mg/dL (0.15-1.2); Total Protein 6.9 g/dL (6.6-8.7)
[2021-05-05 09:26] LABS: Blood Urea Nitrogen 83 mg/dL (8-23)
[2021-05-05 10:14] LABS: Urine Appearance Clear (CLEAR); Urine Color Yellow (Yellow); pH Urine 5 (5-7)
[2021-05-05 10:15] LABS: Add Urine Microscopic? YES; Bilirubin Urine Neg (Negative); Blood Urine 3+ (Negative); Glucose Urine UA Norm (Normal); Ketones Urine Negative (Negative); Leukocyte Esterase Urine Negative (Negative); Nitrate Urine Negative (Negative); Protein Urine 1+ (Negative); Urobilinogen Urine Norm (Negative); WBC Urine 0-4 /hpf (0-5)
[2021-05-05] MEDS: sodium chloride 0.9% 1,000 ML 999 ML IV (10:20)
--- NOTE | 2021-05-05 10:35 | PC.PHAR ---
PT UNABLE TO VERIFY MEDICATIONS-PT STATES HIS TAKES CARE OF HIS MEDICATIONS-NO ANSWER [phone] SHAKILA/-MEDICATIONS ENTERED ARE MEDS THAT SHOW HAVE BEEN FILLED RECENTLY ON EXT MED HISTORY
--- NOTE | 2021-05-05 12:52 | P.HP_ITS ---
Providers/Chief Complaint Admitting Physician: Sen Barnes MD Primary Care Provider: Melissa Boswell MD Chief Complaint: N/V, L leg pain History of Present Illness Phil Palumbo is a 71 year old male who presents to the emergency department with lower abdominal discomfort, nausea, intermittent dry heaves, diminished food intake for the last 3 to 4 weeks. He denies any chest pain, shortness of breath, significant cough, fever. He reports he will occasionally have cons tipation but did have a bowel movement yesterday. States he urinates only a very small amount, frequently. He has a history of catheterization in the past where catheter had to be left for several weeks. Review of Systems General: Reports: 10 or more systems reviewed and unremarkable except in HPI and below Const: Reports: fatigue; Denies: fever(s) or chills Eyes: Denies: change in vision ENMT: Denies: throat pain Card: Denies: chest pain Resp: Denies: dyspnea GI: Reports: abdominal pain, nausea and vomiting : Denies: flank pain Musc: Denies: neck pain Skin/Breast: Denies: rash Neuro: Denies: headache(s) Psych: Denies: anxiety or depression Endo: Denies: polyuria [place]/Lymph: Denies: easy bruising All/Imm: Denies: urticaria Medications/Allergies Home Medications Medication Instructions Recorded Confirmed Last Taken Type atorvastatin 40 mg PO QPM 05/05/21 05/05/21 Unknown History citalopram 20 mg PO DAILY 05/05/21 05/05/21 Unknown History finasteride 5 mg PO DAILY 05/05/21 05/05/21 Unknown History insulin degludec [Tresiba 24 unit SUBCUT DAILY 05/05/21 05/05/21 Unknown History FlexTouch U-100] isosorbide mononitrate 30 mg PO QAM 05/05/21 05/05/21 Unknown History losartan 50 mg PO DAILY 05/05/21 05/05/21 Unknown History metoprolol tartrate 25 mg PO BID 05/05/21 05/05/21 Unknown History oxycodone-acetaminophen 1 tab PO Q4H PRN 05/05/21 05/05/21 Unknown History pramipexole 1.5 mg PO TID 05/05/21 05/05/21 Unknown History tamsulosin 0.4 mg PO DAILY 05/05/21 05/05/21 Unknown History torsemide 10 mg PO DAILY 05/05/21 05/05/21 Unknown History Allergies Allergy/AdvReac Type Severity Reaction Status Date / Time No Known Allergies Allergy Verified 05/05/21 08:44 PFSH Acute PFSH: Medical History (Updated 05/05/21 @ 13:01 by Sen Barnes MD) Benign prostatic hyperplasia CHF (congestive heart failure) 2014, EF 40% with 2/4 diastolic dysfunction Chronic kidney disease Coronary artery disease Depression Diabetes mellitus Diabetic neuropathy Hyperlipidemia Hypertension Peripheral artery disease Tobacco dependency Surgical History (Updated 05/05/21 @ 12:57 by Sen Barnes MD) History of angioplasty Family History (Updated 05/05/21 @ 12:58 by Sen Barnes MD) Other CAD (coronary artery disease) Social History (Updated 05/05/21 @ 12:58 by Sen Barnes MD) Smoking and tobacco status: current every day smoker Alcohol intake: never Vitals/I&O/Wt Last Vital Signs Temp 98.8 F 05/05/21 08:35 Pulse 87 05/05/21 12:40 Resp 16 05/05/21 12:40 BP 143/74 05/05/21 12:40 Pulse Ox 94 05/05/21 12:40 05/04/21 05/05/21 05/05/21 22:59 06:59 14:59 Intake Total 1000 / 1000 Balance 1000 / 1000 Weight last 48 hrs Weight 63.503 kg Physical Exam Narrative: EXAM NARRATIVE: General exam is a white male, conversant but hard of hearing. No distress HEENT: Atraumatic and normocephalic. Pupils equally round. Oropharynx clear. Neck is supple no lymphadenopathy or thyromegaly Cardiovascular regular rate and rhythm without murmur, no S3 or S4 Lungs are clear but with diminished breath sounds bilaterally Abdomen is soft nontender with positive bowel sounds. No obvious organomegaly exam is deferred Extremities no cyanosis clubbing or edema, cap refill brisk. Right great toe healing ulcer is noted with no evidence of surrounding erythema or drainage Skin see above Neuro no obvious focal deficits other than left facial palsy, minor and chronic Data : 05/05/21 08:52 05/05/21 08:52 A&P Assessment and plan (1) Acute on chronic kidney failure: May be secondary to decreased p.o. intake, or bladder outlet obstruction. Fluids, cautiously at 75 cc an hour monitoring for any fluid overload He has a distended bladder on CT scan. Place Riddle catheter. Continue Flomax, finasteride No evidence of hydroureters on CT Hold ARB, diuretic Check CK Avoid renal toxic medications. Status: Acute (2) Urinary retention: Place Riddle catheter Continue Flomax, finasteride Status: Acute (3) Anemia: Mild, continue to monitor Status: Acute (4) Transaminitis: Check hepatitis panel Repeat enzymes in the morning Status: Acute (5) Constipation: Suppository Stool softeners when p.o. initiated Status: Acute (6) CHF (congestive heart failure): Last EF 40% with diastolic dysfunction. Give fluids cautiously Consistent with chronic systolic heart failure. No acute component. This is secondary to ischemic heart disease and will continue his beta-alissa, statin, nitrate. Does not appear to be on aspirin at home but considering his renal dysfunction and GI symptomatology I will not initiate currently Status: Acute (7) Tobacco dependency: Counseling occurred, 3 to 5 minutes Status: Acute (8) Diabetes mellitus: Sliding scale insulin Status: Acute Additional A&P Information Nausea and vomiting. This could be due to renal dysfunction. Air-fluid level was noted in the stomach. Will address constipation, renal dysfunction, and then reinitiate feeding to see if problems persist. If so could consider EGD. Pepcid IV for now. TSH on blood in lab Multiple other medical problems as outlined in past medical history History of left facial palsy Full code Heparin for DVT prophylaxis PT consultation Attestations Medical Necessity Statement*: Will need greater than 2 midnight stay secondary to acute renal failure, urinary retention Time Spent in Patient Care: Greater than 35 minutes Coding Level of Care Code Acute College Scouting Coordinator for g Fwd Diagnoses Acute on chronic kidney failure N17.9; N18.9 Urinary retention R33.9 Anemia D64.9 Transaminitis R74.01 Constipation K59.00 CHF (congestive heart failure) I50.9 Tobacco dependency F17.200 Diabetes mellitus E11.9
--- NOTE | 2021-05-05 14:00 | PC.NURSE ---
elmore catheter placed using 18fr coude due to difficulty with 16fr elmore cath, aseptic technique used. patient tolerated fairly.
[2021-05-05 15:41] LABS: Thyroid Stimulating Hormone 1.13 uIU/mL (0.27-4.20)
[2021-05-05] MEDS: famotidine 20 mg/2 mL INJ IVP (15:47)
[2021-05-05] MEDS: heparin 5,000 unit/mL INJ 1 mL 5000 UNIT SUBCUT (15:47)
[2021-05-05] MEDS: glycerin adult supp 1 EACH PR (15:47)
[2021-05-05] MEDS: sodium chloride 0.9% 1,000 ML 75 ML IV (15:48)
[2021-05-05 15:52] LABS: Creatine Phosphokinase 502 U/L (39-308)
[2021-05-05 16:24] LABS: Hepatitis A Antibody IgM Non-Reactive (Nonreactive); Hepatitis B Core IgM Non-Reactive (Nonreactive)
[2021-05-05 17:15] LABS: Glucose Point of Care 113 mg/dL (70-110)
[2021-05-05] MEDS: atorvastatin 40 mg Tablet PO (17:30)
[2021-05-05] MEDS: metoprolol tartrate 25 mg Tablet PO (17:30)
[2021-05-05 20:39] LABS: Hepatitis C Virus Antibody Non-Reactive (Nonreactive)
[2021-05-05 20:53] LABS: Glucose Point of Care 97 mg/dL (70-110)
[2021-05-05 21:11] LABS: Hepatitis B Surface Antigen Non-Reactive (Nonreactive)
[2021-05-06] VITALS (9 sets, daily range): BP systolic 115–147; BP diastolic 64–77; PULSE 50–82; RESP 16–20; TEMP 36–37.8; O2SAT 92–96
[2021-05-06] MEDS: acetaminophen 325 mg Tablet 650 MG PO ×2 (01:08→06:32)
[2021-05-06] MEDS: heparin 5,000 unit/mL INJ 1 mL 5000 UNIT SUBCUT ×2 (01:09→13:38)
[2021-05-06] MEDS: famotidine 20 mg/2 mL INJ IVP ×2 (01:12→13:38)
[2021-05-06] MEDS: sodium chloride 0.9% 1,000 ML 75 ML IV ×3 (05:11→19:54)
[2021-05-06] MEDS: isosorbide mononitrate ER 30 mg Tablet PO (05:12)
[2021-05-06 06:34] LABS: Glucose Point of Care 83 mg/dL (70-110)
--- NOTE | 2021-05-06 06:39 | PC.NURSE ---
shift note patient slept most of this shift, requested pain med around 0100, continued monitoring, patient continue to rest with eyes closed, when awakened around 0630, patient c/o pain to left hip and requested pain meds that was given earlier, pain med administered. elmore patent with clear drainage pale yellow in color, scabs to bilat LE, none open, abrasion to left mid back, patient denied pain to area
[2021-05-06 07:18] LABS: Basophils % 0.3 %; Hematocrit 37.1 % (42.0-52.0); Hemoglobin 11.5 g/dL (11.7-16.6); Lymphocytes # 0.9 10^3/uL (0.8-4.8); Lymphocytes % 27.9 %; Mean Corpuscular Hemoglobin 28.6 pg (28.0-34.0); Mean Corpuscular Volume 92.3 fL (80-94); Mean Platelet Volume 10.3 fL (7.4-10.4); Monocytes # 0.2 10^3/uL (0.2-0.9); Monocytes % 5.6 %; Neutrophils # 2.22 10^3/uL (1.8-7.7); Neutrophils % 65.9 %; Nucleated Red Blood Cells % 0 %; Platelet Count 146 10^3/cmm (130-400); Red Blood Count 4.02 10^6/uL (4.1-5.3); Red Cell Distribution Width 14.6 % (12.1-15.1); White Blood Count 3.4 10^3/uL (4.0-10.0)
[2021-05-06 07:30] LABS: Alanine Aminotransferase 50 U/L (0-41); Albumin Level 2.4 g/dL (3.5-5.2); Alkaline Phosphatase 108 IU/L (40-130); Anion Gap 15.1 (5-19); Aspartate Amino Transferase 75 U/L (0-40); Blood Urea Nitrogen 64 mg/dL (8-23); Calcium 7.7 mg/dL (8.5-10.5); Carbon Dioxide 23 mmol/L (22-29); Chloride 106 mmol/L (98-107); Globulin 3.4 g/dL (1.3-4.6); Glucose 80 mg/dL (65-115); Osmolality Calculated 307 mOsm/kg (285-295); Potassium 4.1 mmol/L (3.5-5.1); Sodium 140 mmol/L (136-145); Total Bilirubin 0.2 mg/dL (0.15-1.2); Total Protein 5.8 g/dL (6.6-8.7)
[2021-05-06] MEDS: tamsulosin 0.4 mg Capsule PO (07:45)
[2021-05-06] MEDS: citalopram 20 mg Tablet PO (07:46)
[2021-05-06] MEDS: metoprolol tartrate 25 mg Tablet PO (07:46)
[2021-05-06] MEDS: finasteride 5 mg Tablet PO (07:46)
[2021-05-06 07:48] LABS: Magnesium 2.2 mg/dL (1.7-2.3)
[2021-05-06 07:51] LABS: Creatine Phosphokinase 463 U/L (39-308)
[2021-05-06 07:58] LABS: Slide Review Slide Review Perform
[2021-05-06] MEDS: oxyCODONE 5 mg IR Tab/Cap PO ×2 (08:47→13:41)
--- NOTE | 2021-05-06 11:27 | PC.CHAP ---
Pastoral Care Encounter/Spiritual Assessment Type of Contact [] Declined engine repairer production visit [] Patient/Family/Request visit [] Outpatient visit [] Follow-up visit [] Physician referral [] Code/Alert [] Routine visit [] Staff referral [] Actively dying [] Patient sleeping [] Family support [] [] Out of room [] Palliative care [] [] Receiving care in room [] Pre-surgical visit [] Trauma [] Long length of stay [] ICU visit [x] Other: he was not cohearant or able to communicate Relational/Emotional Strength [] Patient feels connected with others/family/visitors/staff [] Distress [] Loneliness/isolation [] Abandonment Spirituality of Patient [] Person of [place] [] Attends L[employer] of their [place] [] Believes in Prayer [] Reads Bible or Denominational materials [] There are Spiritual issues to be addressed Business Planning Analyst Interventions [] Prayer [] Active listening [] Non-anxious presence [] Spiritual/emotional support [] Crisis/trauma care [] Spiritual counseling [] Bereavement support [] Provided bereavement packet [] Provided Bible/devotional materials [] Provided toy/stuffed animal, coloring book to patient or family member [] Provided Communion [] Anointing/[place] [] Salvation [] Completed spiritual assessment [] Other: Impact on Illness or Injury [] Angry [] Fearful [] Anxious [] Often cries [] Exhaustion [] Unable to work [] Unable to attend baptism [] Unable to walk/stand [] Unable to read [] Unable to drive [] Unable to eat/drink [] Unable to sleep [] Unable to be with family [] Patient intubated [] Other: Summary he was not cohearant or able to communicate Time spent with patient 5 mins
[2021-05-06 11:46] LABS: Glucose Point of Care 356 mg/dL (70-110)
--- NOTE | 2021-05-06 14:13 | P.PN_ITS ---
Subjective Subjective: Interval history: Veryl reports he feels much better today. He wants to eat. Abdominal pain is gone away with placement of urinary catheter. From what nursing tells me there was about 500 cc of residual urine in his bladder. Medications: Reviewed: Yes Vitals/I&O/Wt Last Vital Signs Temp 96.8 F L 05/06/21 11:39 Pulse 50 L 05/06/21 11:39 Resp 18 05/06/21 13:41 BP 120/64 05/06/21 11:39 Pulse Ox 94 05/06/21 11:39 05/05/21 05/06/21 05/06/21 22:59 06:59 14:59 Intake Total 1000 / 2000 690 / 690 Output Total 775 / 775 Balance 225 / 1225 690 / 690 Weight last 48 hrs Weight 63.321 kg Weight 63.503 kg Physical Exam Narrative: EXAM NARRATIVE: General exam is a white male, no distress Neck is supple no lymphadenopathy or thyromegaly Cardiovascular regular rate and rhythm without murmur, no S3 or S4 Lungs are clear but with diminished breath sounds bilaterally Abdomen is soft nontender with positive bowel sounds. No obvious organomegaly exam Riddle Extremities no cyanosis clubbing or edema, cap refill brisk. Urinary Catheter Management^: Riddle: Cath Placed During This Visit: yes Reason for Continuing Indwelling Catheter: Other Urinary Catheter Date of Insertion: 05/05/21 Urinary Catheter Time of Insertion: 16:00 Data : 05/06/21 06:21 05/06/21 06:21 A&P Assessment and plan (1) Acute on chronic kidney failure: May be secondary to decreased p.o. intake, or bladder outlet obstruction. Renal function improved. Continue fluids Continue Riddle catheter. Continue Flomax, finasteride No evidence of hydroureters on CT Hold ARB, diuretic Has mild rhabdomyolysis. But CK improved. Statin on hold Avoid renal toxic medications. Status: Acute (2) Urinary retention: Continue Riddle catheter Continue Flomax, finasteride Status: Acute (3) Anemia: Mild, continue to monitor Status: Acute (4) Transaminitis: Hepatitis panel negative. LFTs slightly improved. Statin on hold Status: Acute (5) Constipation: Suppository given yesterday Initiate stool softeners Status: Acute (6) CHF (congestive heart failure): Last EF 40% with diastolic dysfunction. Give fluids cautiously Consistent with chronic systolic heart failure. No acute component. This is secondary to ischemic heart disease and will continue his beta-alissa, statin, nitrate. Does not appear to be on aspirin at home but considering his renal dysfunction and GI symptomatology I will not initiate currently Status: Acute (7) Tobacco dependency: Counseling occurred, 3 to 5 minutes Status: Acute (8) Diabetes mellitus: Sliding scale insulin Status: Acute Additional A&P Information Nausea and vomiting. This could be due to renal dysfunction. Air-fluid level was noted in the stomach. Will address constipation, renal dysfunction, and then reinitiate feeding to see if problems persist. If so could consider EGD. Change Pepcid to Protonix. TSH was checked and normal. Start diet today to see if he can tolerate it. Multiple other medical problems as outlined in past medical history History of left facial palsy Full code Heparin for DVT prophylaxis PT consultation Attestations Medical Necessity Statement*: Needs continued hospitalization for further hydration, close monitoring of acute kidney injury and rhabdomyolysis Coding Level of Care Code Acute Business Process Analyst for Chg Fwd Diagnoses Acute on chronic kidney failure N17.9; N18.9 Urinary retention R33.9 Anemia D64.9 Transaminitis R74.01 Constipation K59.00 CHF (congestive heart failure) I50.9 Tobacco dependency F17.200 Diabetes mellitus E11.9
[2021-05-06 16:46] LABS: Glucose Point of Care 70 mg/dL (70-110)
[2021-05-06] MEDS: pantoprazole DR 40 mg Tablet PO (17:16)
[2021-05-06] MEDS: polyethylene glycol 3350 Pkt 17 gm PO (17:21)
[2021-05-06 19:01] LABS: Glucose Point of Care 170 mg/dL (70-110)
--- NOTE | 2021-05-06 19:13 | PC.NURSE ---
PM NOTE NOTED SCATTERED ABRASIONS TO BLE - APPEAR TO BE HEALING - NO DRAINAGE NOTED TO ANY AREA -WILL MONITOR
[2021-05-06 20:27] LABS: Glucose Point of Care 132 mg/dL (70-110)
[2021-05-06] MEDS: ondansetron 2 mg/ML SDV 2 mL 4 MG IVP (20:44)
--- NOTE | 2021-05-06 22:25 | PC.NURSE ---
CONFUSION PT SITTING ON SIDE OF BED HOLDING IV TUBING THAT HE HAS SNAPPED IN HALF - BLOOD DRIPPING ONTO FLOOR AND PATIENT - PATIENT STATES WHERE IS MY CAR - IM GOING HOME ATTEMPTED REORIENTATION PER THIS NURSE - PT REPEATEDLY STATED IM IN THE HOSPITAL?' - RETURNED TO BED - BED CHECK SET - WILL MONITOR
--- NOTE | 2021-05-06 23:29 | PC.NURSE ---
OXYGEN 2330 VITAL SIGNS TAKEN - NOTED PT TO HAVE O2 SAT AT 88-89% - ENCOURAGED COUGH AND DEEP BREATH - SATS REMAIN AT 88% - 02 PLACED ON PT AT 2LNC - SATS UP TO 91-92% - PT AGAIN CONFUSED AND ATTEMPTING TO GET OUT OF BED PRIOR TO STARTING VITAL SIGNS - ATTEMPTED REORIENTATION - BED CHECK SET
[2021-05-07] MEDS: heparin 5,000 unit/mL INJ 1 mL 5000 UNIT SUBCUT (00:08)
[2021-05-07 03:09] VITALS: RESP 18
[2021-05-07] MEDS: oxyCODONE 5 mg IR Tab/Cap PO (03:09)
[2021-05-07 03:29] LABS: Glucose Point of Care 137 mg/dL (70-110)
[2021-05-07 03:51] VITALS: BP 150/74; PULSE 78; RESP 18; TEMP 36.9; O2SAT 91
--- NOTE | 2021-05-07 04:25 | PC.NURSE ---
END OF SHIFT SUMMARY PT HAS REMAINED CONFUSED MOST OF THIS SHIFT - ATTEMPTING TO GET OUT OF BED MULTIPLE TIMES THROUGHOUT THE SHIFT - PT REPEATEDLY STATES IM GOING HOME - WHERE IS MY CAR - IV REMAINS PATENT VIA PUMP TO LEFT AC - VSS - BED CHECK ON - WILL CONTINUE TO MONITOR
[2021-05-07] MEDS: sodium chloride 0.9% 1,000 ML 75 ML IV (05:36)
[2021-05-07] MEDS: isosorbide mononitrate ER 30 mg Tablet PO (05:37)
[2021-05-07 06:18] LABS: Glucose Point of Care 129 mg/dL (70-110)
[2021-05-07 06:48] LABS: Basophils % 0.2 %; Hemoglobin 11.7 g/dL (11.7-16.6); Lymphocytes # 0.7 10^3/uL (0.8-4.8); Lymphocytes % 15.6 %; Mean Corpuscular HGB Conc 31.6 g/dL (30.0-36.0); Mean Corpuscular Volume 91.8 fL (80-94); Monocytes # 0.2 10^3/uL (0.2-0.9); Monocytes % 4.5 %; Neutrophils # 3.36 10^3/uL (1.8-7.7); Neutrophils % 79.2 %; Nucleated Red Blood Cells % 0 %; Platelet Count 144 10^3/cmm (130-400); Red Blood Count 4.03 10^6/uL (4.1-5.3); Red Cell Distribution Width 14.5 % (12.1-15.1); White Blood Count 4.2 10^3/uL (4.0-10.0)
[2021-05-07 07:09] LABS: Alanine Aminotransferase 55 U/L (0-41); Albumin Level 2.7 g/dL (3.5-5.2); Alkaline Phosphatase 125 IU/L (40-130); Anion Gap 12.4 (5-19); Aspartate Amino Transferase 82 U/L (0-40); Blood Urea Nitrogen 57 mg/dL (8-23); Calcium 7.7 mg/dL (8.5-10.5); Carbon Dioxide 24 mmol/L (22-29); Chloride 109 mmol/L (98-107); Globulin 3.5 g/dL (1.3-4.6); Glomerular Filtration Rate 28.3 mL/min (90-130); Glucose 126 mg/dL (65-115); Osmolality Calculated 309 mOsm/kg (285-295); Potassium 4.4 mmol/L (3.5-5.1); Sodium 141 mmol/L (136-145); Total Bilirubin 0.3 mg/dL (0.15-1.2); Total Protein 6.2 g/dL (6.6-8.7)
[2021-05-07 08:00] VITALS: BP 138/71; PULSE 75; RESP 17; TEMP 37; O2SAT 90
--- NOTE | 2021-05-07 09:08 | PM.DCS ---
Discharge Providers Date of Admission: 05/05/21 11:31 Date of Discharge: May 07, 2021 Attending Provider at Admission: Sen Barnes MD Attending Provider at Discharge: Sen Barnes MD Primary Care Provider: Melissa Boswell MD Diagnoses at Discharge Discharge Diagnosis (1) Acute on chronic kidney failure: Status: Acute (2) Urinary retention: Status: Acute (3) Anemia: Status: Acute (4) Transaminitis: Status: Acute (5) Constipation: Status: Acute (6) CHF (congestive heart failure): Status: Acute Permanent problem details: 2014, EF 40% with 2/4 diastolic dysfunction (7) Tobacco dependency: Status: Acute (8) Diabetes mellitus: Status: Acute Reason for Visit Reason for Visit: N/V, L leg pain Hospital Course Hospital Course Phil presented to the hospital with nausea and vomiting, difficulty urinating, lower abdominal discomfort. He was found to be in acute on chronic renal failure. There was some air-fluid level noted in his stomach on CT scan. There was no evidence of hydronephrosis, but distended urinary bladder was noted. Presenting BUN and creatinine were 83 and 3.3 respectively. He was admitted to the hospital and IV fluids were started. ARB was held. A Riddle catheter was placed with approximately 500 cc of residual urine noted. No evidence of infection was present. Constipation was noted that was treated with MiraLAX. CK was checked and mildly elevated, decreasing the next day consistent with mild rhabdomyolysis. With the above treatment he greatly improved. Renal function returned to baseline with a creatinine of 2.3. He was able to eat without any nausea or vomiting. He wished to go home on May 07, and home health will be set up on discharge. Interestingly, he had some evidence of transaminitis on his laboratory. Acute hepatitis panel was negative. CT demonstrated no liver pathology but this will need to be rechecked as an outpatient. His statin will be held on discharge, pending follow-up. Physical Exam Narrative: EXAM NARRATIVE: General exam no apparent distress Neck is supple no lymphadenopathy or thyromegaly Cardiovascular regular rate and rhythm without murmur Lungs clear Abdomen is soft with positive bowel sounds Extremities no cyanosis clubbing or edema Urinary Catheter Management^: Riddle: Cath Placed During This Visit: yes Reason for Continuing Indwelling Catheter: Other Urinary Catheter Date of Insertion: 05/05/21 Urinary Catheter Time of Insertion: 16:00 Discharge Data Data Completed and Pending: Completed Studies During Hospitalization Category Date Time Status CT abdomen pelvis wo con [id number] Urge nt Cat Scan 05/05/21 08:44 Completed Labs from last 24 hours 05/07/21 05/07/21 05/07/21 06:12 06:12 06:07 WBC 4.2 RBC 4.03 L Hgb 11.7 Hct 37.0 L MCV 91.8 MCH 29.0 MCHC 31.6 RDW 14.5 Plt Count 144 MPV 10.0 Neut % (Auto) 79.2 Lymph % (Auto) 15.6 [place] % (Auto) 4.5 Eos % (Auto) 0.0 Baso % (Auto) 0.2 Neut # (Auto) 3.36 Lymph # (Auto) 0.7 L [place] # (Auto) 0.2 Eos # (Auto) 0.0 Baso # (Auto) 0.0 Nucleated RBC % (a uto) 0 Nucleated RBCs # 0.0 Sodium 141 Potassium 4.4 Chloride 109 H Carbon Dioxide 24 Anion Gap 12.4 BUN 57 H Creatinine 2.3 H GFR Calculation 28.3 L Glucose 126 H POC Glucose 129 H Calculated Osmolal ity 309 H Calcium 7.7 L Total Bilirubin 0.3 AST 82 H ALT 55 H Alkaline Phosphata se 125 Total Protein 6.2 L Albumin 2.7 L Globulin 3.5 05/07/21 05/06/21 05/06/21 03:08 20:22 18:45 WBC RBC Hgb Hct MCV MCH MCHC RDW Plt Count MPV Neut % (Auto) Lymph % (Auto) [place] % (Auto) Eos % (Auto) Baso % (Auto) Neut # (Auto) Lymph # (Auto) [place] # (Auto) Eos # (Auto) Baso # (Auto) Nucleated RBC % (a uto) Nucleated RBCs # Sodium Potassium Chloride Carbon Dioxide Anion Gap BUN Creatinine GFR Calculation Glucose POC Glucose 137 H 132 H 170 H Calculated Osmolal ity Calcium Total Bilirubin AST ALT Alkaline Phosphata se Total Protein Albumin Globulin 05/06/21 05/06/21 16:42 11:34 WBC RBC Hgb Hct MCV MCH MCHC RDW Plt Count MPV Neut % (Auto) Lymph % (Auto) [place] % (Auto) Eos % (Auto) Baso % (Auto) Neut # (Auto) Lymph # (Auto) [place] # (Auto) Eos # (Auto) Baso # (Auto) Nucleated RBC % (a uto) Nucleated RBCs # Sodium Potassium Chloride Carbon Dioxide Anion Gap BUN Creatinine GFR Calculation Glucose POC Glucose 70 356 H Calculated Osmolal ity Calcium Total Bilirubin AST ALT Alkaline Phosphata se Total Protein Albumin Globulin Vitals: Last Vital Signs Temp 98.6 F 05/07/21 08:00 Pulse 75 05/07/21 08:00 Resp 17 05/07/21 08:00 BP 138/71 05/07/21 08:00 Pulse Ox 90 05/07/21 08:00 Discharge Plan Discharge Patient Disposition: Home Health Service Condition: Stable Prescriptions: New pantoprazole 40 mg Tablet,Delayed Release (Dr/Ec) 40 mg PO DAILY Qty: 30 RF: 0 polyethylene glycol 3350 17 gram Powder In Packet 17 g PO BID Qty: 100 RF: 0 Continued isosorbide mononitrate 30 mg tablet extended release 24 hr 30 mg PO QAM RF: 0 torsemide 10 mg tablet 10 mg PO DAILY RF: 0 citalopram 20 mg tablet 20 mg PO DAILY RF: 0 oxycodone-acetaminophen 10-325 mg tablet 1 tab PO Q4H PRN (Reason: Pain) RF: 0 tamsulosin 0.4 mg capsule 0.4 mg PO DAILY RF: 0 pramipexole 1.5 mg tablet 1.5 mg PO TID RF: 0 finasteride 5 mg tablet 5 mg PO DAILY RF: 0 metoprolol tartrate 25 mg tablet 25 mg PO BID RF: 0 Tresiba FlexTouch U-100 100 unit/mL (3 mL) insulin pen 24 unit SUBCUT DAILY RF: 0 Discontinued losartan 50 mg tablet 50 mg PO DAILY RF: 0 atorvastatin 40 mg tablet 40 mg PO QPM RF: 0 Discharge Orders: Discharge Order (Routine); Ordered 05/07/21 Ordered By: Sen Barnes Referrals: Dakota Almazan MD [Physician] - 7-10 days (Urinary retention, follow-up after Riddle catheter placement) Melissa Boswell MD [Primary Care Provider] - 4-7 days (CMP on follow-up Follow-up for transaminitis. CT scan did not demonstrate any liver or gallbladder problems and hepatitis panel was negative) Patient Instructions: Opioid Safety Activity Restrictions/Additional Instructions: Leave Riddle catheter in at discharge Note that your losartan has been discontinued Keep follow-up with your primary care provider for recheck of your renal function and liver function Discharge Attestations Time Spent in Discharge Care*: greater than 30 min Quality Metrics Clinical Quality Measures During this hospital stay, did patient experience: None Coding Level of Care Code Acute Chg FW DC note Diagnoses Acute on chronic kidney failure N17.9; N18.9 Urinary retention R33.9 Anemia D64.9 Transaminitis R74.01 Constipation K59.00 CHF (congestive heart failure) I50.9 Tobacco dependency F17.200 Diabetes mellitus E11.9
[2021-05-07] MEDS: polyethylene glycol 3350 Pkt 17 gm PO (09:19)
[2021-05-07] MEDS: pantoprazole DR 40 mg Tablet PO (09:19)
[2021-05-07] MEDS: tamsulosin 0.4 mg Capsule PO (09:19)
[2021-05-07] MEDS: finasteride 5 mg Tablet PO (09:19)
[2021-05-07] MEDS: metoprolol tartrate 25 mg Tablet PO (09:20)
[2021-05-07] MEDS: citalopram 20 mg Tablet PO (09:20)
[2021-05-07 12:35] VITALS: BP 138/71; PULSE 75; RESP 17; TEMP 37; O2SAT 90
--- NOTE | 2021-05-10 18:38 | PC.RESP ---
SMOKING CESSATION INFORMATION SENT TO PATIENT.
== END 2021-05-07 12:15 | disposition home health service (06) ==
LOC: ER 11:24 → MEDSURG 13:36
PROVIDERS: Physician Assistant; Admitting Provider Internal Medicine; Emergency Provider Family Medicine; PCP Family Medicine; Visit Provider Internal Medicine
DX: N17.9 Acute kidney failure, unspecified (principal); N18.9 Chronic kidney disease, unspecified; R33.9 Retention of urine, unspecified; D64.9 Anemia, unspecified; R74.01 Elevation of levels of liver transaminase levels; K59.00 Constipation, unspecified; I50.9 Heart failure, unspecified; F17.210 Nicotine dependence, cigarettes, uncomplicated; E11.9 Type 2 diabetes mellitus without complications; N40.0 Benign prostatic hyperplasia without lower urinary tract symptoms; E11.42 Type 2 diabetes mellitus with diabetic polyneuropathy; E11.22 Type 2 diabetes mellitus with diabetic chronic kidney disease; I13.0 Hypertensive heart and chronic kidney disease with heart failure and stage 1 through stage 4 chronic kidney disease, or unspecified chronic kidney disease; I25.10 Atherosclerotic heart disease of native coronary artery without angina pectoris; E78.5 Hyperlipidemia, unspecified; Z82.49 Family history of ischemic heart disease and other diseases of the circulatory system
CPT/HCPCS: 36415; 36416; 51702; 74176; 80053; 80074; 81001; 82550; 82962; 83690; 83735; 84443; 85025; 96360; 96372; 97161; 97165; 97530; 99285; G0378; J1644; J1815; J2405; J3490; J7030

== ENCOUNTER 2021-05-15 17:11 | Emergency (ER) | payer MEDICARE, SELFPAY ==
--- NOTE | 2021-05-15 17:30 | XRR_ITS ---
PROCEDURE INFORMATION: Exam: XR Chest Exam date and time: 05/15/2021 5:30 PM Age: 71 years old Clinical indication: Cough and dyspnea; Additional info: Dyspnea/cough TECHNIQUE: Imaging protocol: XR of the chest. Views: 1 view. Total images: 2 COMPARISON: CT chest abd pel wo con 11/15/2020 9:01 PM FINDINGS: Lungs: No visible active interstitial or alveolar airspace disease. Advanced bullous emphysema. Mild senile fibrosis. Pleural spaces: No pleural effusion. No pneumothorax. Heart/Mediastinum: Cardiomegaly with arteriosclerosis. Tortuous thoracic aorta which can be seen in hypertensive cardiovascular disease. Bones/joints: Scoliosis. XR/XR chest 1V portable [id number] IMPRESSION: Nonacute.
[2021-05-15 17:44] VITALS: BP 164/81; PULSE 77; RESP 19; TEMP 37.2; O2SAT 96; BMI 18.8
--- NOTE | 2021-05-15 19:14 | ED_ITS ---
HPI - General Adult General: Chief complaint: General Medical Stated complaint: Cough/Congestion/Covid Exposure Time Seen by Provider: 05/15/21 19:12 History of Present Illness: HPI narrative: 71-year-old male patient comes in the emergency room for complaints of general malaise. Patient has a history of chronic kidney disease, diabetes mellitus, and urinary retention. Patient does have a indwelling catheter in place. Patient was released from the hospital on 07 May for a acute on chronic renal failure diagnosis. Patient is very hard of hearing and a poor historian. Patient appears chronically ill but not toxic. Patient appears in no pain. Triage had reported patient felt like he had the flu with body aches for 3 days. Associated symptoms: Reports malaise Review of Systems General: Reports: 10 or more systems reviewed and unremarkable except in HPI and below Const: Reports: malaise [facility] ED PFSH: Medical History Benign prostatic hyperplasia CHF (congestive heart failure) 2014, EF 40% with 2/4 diastolic dysfunction Chronic kidney disease Coronary artery disease Depression Diabetes mellitus Diabetic neuropathy Hyperlipidemia Hypertension Peripheral artery disease Tobacco dependency Surgical History History of angioplasty Family History Other CAD (coronary artery disease) Social History Smoking and tobacco status: current every day smoker Alcohol intake: never Physical Exam Const: COMMON NORMALS: no acute distress and patient oriented x3 GENERAL APPEARANCE: cooperative HENMT: COMMON NORMALS: normocephalic, TM's normal bilaterally and Normal external nose present HEAD & SCALP: normal to inspection and normocephalic NOSE: Normal external nose present TYMPANIC MEMBRANE: TM's normal bilaterally MOUTH: Normal oral and palatal mucosa present THROAT: posterior oropharynx normal Eye: GENERAL EYE: appearance normal, both eyes and all related structures Neck/C-Spine: COMMON NORMALS: full ROM Lymph: LYMPHATIC: no lymphadenopathy noted Chest: COMMONS NORMALS: normal inspection of the chest Resp: COMMON NORMALS: normal respiratory effort EFFORT & INSPECTION: Yes able to speak in complete sentences Cardio: COMMON NORMALS: regular rate and regular rhythm RATE: regular rate RHYTHM: regular rhythm GI: COMMON NORMALS: Soft to palpation and non-tender PALPATION: Yes Soft to palpation : COMMON NORMALS: Yes no CVA tenderness BLADDER/KIDNEY EXAM: Yes no CVA tenderness OTHER: Draining catheter with cloudy yellow urine. Back/Pelvis: COMMON NORMALS: no CVA tenderness and thoracic and lumbar spine normal to inspection Extremity: COMMON NORMALS: normal to inspection Neuro: COMMON NORMALS: patient oriented x3 and moves all extremities Psych: COMMON NORMALS: mental status grossly normal and cooperative Skin: COMMON NORMALS: no rashes or lesions noted GENERAL SKIN EXAM: no rashes or lesions noted Course Vital Signs: Vital signs: Vital Signs Temperature 99.0 F 05/15/21 17:44 Pulse Rate 70 05/15/21 20:30 Respiratory Rate 18 05/15/21 20:30 Blood Pressure 165/88 05/15/21 20:30 Pulse Oximetry 95 05/15/21 20:30 MDM - General Adult MDM Narrative: Medical decision making narrative: 71-year-old male patient comes in for feeling poorly. Patient reports general body aches and not feeling well for about 3 days. On exam patient is alert and oriented but very hard of hearing. Abdomen soft nontender. Bowel sounds are present. Lungs are clear to auscultation but decreased in the bases. Vital signs are normal except for some mild elevation in blood pressure with a systolic to 164. Differential diagnosis includes but not limited to urinary tract infection, chronic kidney disease, pneumonia, COVID-19. COVID-19 is negative. Chest x-ray was normal. Urinalysis had a large amount of white blood cells and nitrites. Remainder of labs were unremarkable when compared to previous labs. Believe the patient probably has a urinary tract infection. Patient was given 1 g of ceftriaxone IM and will be continued on cephalexin. I reviewed this with family who agreed to plan of care and need for follow-up or return to the ER for worsening symptoms. Lab Data: Labs: Lab Results 05/15/21 05/15/21 05/15/21 Range/Units 20:25 20:25 20:25 WBC 5.7 (4.0-10.0) 10^3/ uL RBC 3.70 L (4.1-5.3) 10^6/u L Hgb 10.8 L (11.7-16.6) g/dL Hct 33.5 L (42.0-52.0) % MCV 90.5 (80-94) fL MCH 29.2 (28.0-34.0) pg MCHC 32.2 (30.0-36.0) g/dL RDW 14.2 (12.1-15.1) % Plt Count 280 (130-400) 10^3/c mm MPV 9.9 (7.4-10.4) fL Neut % (Auto) 72.0 % Lymph % (Auto) 19.6 % [place] % (Auto) 6.5 % Eos % (Auto) 0.9 % Baso % (Auto) 0.5 % Neut # (Auto) 4.07 (1.8-7.7) 10^3/u L Lymph # (Auto) 1.1 (0.8-4.8) 10^3/u L [place] # (Auto) 0.4 (0.2-0.9) 10^3/u L Eos # (Auto) 0.1 (0.0-0.8) 10^3/u L Baso # (Auto) 0.0 (0.0-0.1) 10^3/u L Nucleated RBC % (a uto) 0 % Nucleated RBCs # 0.0 /100WBC Sodium 136 (136-145) mmol/L Potassium 4.3 (3.5-5.1) mmol/L Chloride 103 (98-107) mmol/L Carbon Dioxide 23 (22-29) mmol/L Anion Gap 14.3 (5-19) BUN 51 H (8-23) mg/dL Creatinine 1.8 H (0.7-1.2) mg/dL GFR Calculation 37.6 L (90-130) mL/min Glucose 164 H (65-115) mg/dL Calculated Osmolal ity 299 H (285-295) mOsm/k g Lactic Acid 0.8 (0.5-2.2) mmol/L Calcium 8.0 L (8.5-10.5) mg/dL Total Bilirubin 0.2 (0.15-1.2) mg/dL AST 38 (0-40) U/L ALT 49 H (0-41) U/L Alkaline Phosphata se 186 H (40-130) IU/L Total Protein 6.6 (6.6-8.7) g/dL Albumin 2.7 L (3.5-5.2) g/dL Globulin 3.9 (1.3-4.6) g/dL Urine Color (Yellow) Urine Appearance (CLEAR) Urine pH (5-7) Ur Specific Gravit y (1.005-1.030) Urine Protein (Negative) Urine Glucose (UA) (Normal) Urine Ketones (Negative) Urine Blood (Negative) Urine Nitrate (Negative) Urine Bilirubin (Negative) Urine Urobilinogen (Negative) mg/dL Ur Leukocyte Anika ase (Negative) Urine RBC (0-2) /hpf Urine WBC (0-5) /hpf Ur Squamous Epith Cells (0-5) /hpf Amorphous Sediment Urine Bacteria (NONE) /hpf SARS-CoV-2 Ag (Rap id) (Negative) 05/15/21 05/15/21 Range/Units 20:25 20:25 WBC (4.0-10.0) 10^3/ uL RBC (4.1-5.3) 10^6/u L Hgb (11.7-16.6) g/dL Hct (42.0-52.0) % MCV (80-94) fL MCH (28.0-34.0) pg MCHC (30.0-36.0) g/dL RDW (12.1-15.1) % Plt Count (130-400) 10^3/c mm MPV (7.4-10.4) fL Neut % (Auto) % Lymph % (Auto) % [place] % (Auto) % Eos % (Auto) % Baso % (Auto) % Neut # (Auto) (1.8-7.7) 10^3/u L Lymph # (Auto) (0.8-4.8) 10^3/u L [place] # (Auto) (0.2-0.9) 10^3/u L Eos # (Auto) (0.0-0.8) 10^3/u L Baso # (Auto) (0.0-0.1) 10^3/u L Nucleated RBC % (a uto) % Nucleated RBCs # /100WBC Sodium (136-145) mmol/L Potassium (3.5-5.1) mmol/L Chloride (98-107) mmol/L Carbon Dioxide (22-29) mmol/L Anion Gap (5-19) BUN (8-23) mg/dL Creatinine (0.7-1.2) mg/dL GFR Calculation (90-130) mL/min Glucose (65-115) mg/dL Calculated Osmolal ity (285-295) mOsm/k g Lactic Acid (0.5-2.2) mmol/L Calcium (8.5-10.5) mg/dL Total Bilirubin (0.15-1.2) mg/dL AST (0-40) U/L ALT (0-41) U/L Alkaline Phosphata se (40-130) IU/L Total Protein (6.6-8.7) g/dL Albumin (3.5-5.2) g/dL Globulin (1.3-4.6) g/dL Urine Color Straw (Yellow) Urine Appearance Cloudy (CLEAR) Urine pH 6 (5-7) Ur Specific Gravit y 1.010 (1.005-1.030) Urine Protein 2+ H (Negative) Urine Glucose (UA) Norm (Normal) Urine Ketones Negative (Negative) Urine Blood 3+ H (Negative) Urine Nitrate Positive H (Negative) Urine Bilirubin Neg (Negative) Urine Urobilinogen Norm (Negative) mg/dL Ur Leukocyte Anika ase 2+ H (Negative) Urine RBC 10-15 H (0-2) /hpf Urine WBC 40-55 H (0-5) /hpf Ur Squamous Epith Cells 0-4 H (0-5) /hpf Amorphous Sediment Not Reportable Urine Bacteria 4+ H (NONE) /hpf SARS-CoV-2 Ag (Rap id) Negative (Negative) Discharge Plan Discharge Patient Disposition: Home Clinical Impression: Acute UTI CKD (chronic kidney disease) Qualifiers: Chronic kidney disease stage: unspecified stage Qualified Code(s): N18.9 - Chronic kidney disease, unspecified Condition: Stable Prescriptions: New cephalexin 500 mg capsule 500 mg PO BID 7 Days Qty: 14 RF: 0 No Action isosorbide mononitrate 30 mg tablet extended release 24 hr 30 mg PO QAM RF: 0 torsemide 10 mg tablet 10 mg PO DAILY RF: 0 citalopram 20 mg tablet 20 mg PO DAILY RF: 0 oxycodone-acetaminophen 10-325 mg tablet 1 tab PO Q4H PRN (Reason: Pain) RF: 0 tamsulosin 0.4 mg capsule 0.4 mg PO DAILY RF: 0 pramipexole 1.5 mg tablet 1.5 mg PO TID RF: 0 finasteride 5 mg tablet 5 mg PO DAILY RF: 0 metoprolol tartrate 25 mg tablet 25 mg PO BID RF: 0 Tresiba FlexTouch U-100 100 unit/mL (3 mL) insulin pen 24 unit SUBCUT DAILY RF: 0 polyethylene glycol 3350 17 gram Powder In Packet 17 g PO BID Qty: 100 RF: 0 pantoprazole 40 mg Tablet,Delayed Release (Dr/Ec) 40 mg PO DAILY Qty: 30 RF: 0 Discharge Orders: Discharge ED (Routine); Ordered 05/15/21 Ordered By: Jerry Velásquez Referrals: Melissa Boswell MD [Primary Care Provider] - Discharge Diet: Usual diet Discharge Activity: Increase activity as tolerated Patient Instructions: Urinary Tract Infection in Men (ED), Opioid Safety Activity Restrictions/Additional Instructions: Encourage fluids to the recommended amount daily, unless otherwise restricted 1.5 L a day. Follow-up with primary care in 1 week for recheck. Return to the emergency department for worsening symptoms or new care. Outstanding COVID-19 PCR test is pending. COVID-19 antigen test was negative. Coding Level of Care Code ED Electric Sealing Machine Operator for Elisabeth Fwd Exam Comprehensive
[2021-05-15 20:00] VITALS: BP 160/83; PULSE 102; RESP 20; O2SAT 96
[2021-05-15 20:30] VITALS: BP 165/88; PULSE 70; RESP 18; O2SAT 95
[2021-05-15 21:03] LABS: Basophils % 0.5 %; Eosinophils # 0.1 10^3/uL (0.0-0.8); Eosinophils % 0.9 %; Hematocrit 33.5 % (42.0-52.0); Hemoglobin 10.8 g/dL (11.7-16.6); Lymphocytes # 1.1 10^3/uL (0.8-4.8); Lymphocytes % 19.6 %; Mean Corpuscular HGB Conc 32.2 g/dL (30.0-36.0); Mean Corpuscular Hemoglobin 29.2 pg (28.0-34.0); Mean Corpuscular Volume 90.5 fL (80-94); Mean Platelet Volume 9.9 fL (7.4-10.4); Monocytes # 0.4 10^3/uL (0.2-0.9); Monocytes % 6.5 %; Neutrophils # 4.07 10^3/uL (1.8-7.7); Nucleated Red Blood Cells % 0 %; Platelet Count 280 10^3/cmm (130-400); Red Cell Distribution Width 14.2 % (12.1-15.1); White Blood Count 5.7 10^3/uL (4.0-10.0)
[2021-05-15 21:21] LABS: Add Urine Microscopic? YES; Bilirubin Urine Neg (Negative); Blood Urine 3+ (Negative); Glucose Urine UA Norm (Normal); Ketones Urine Negative (Negative); Lactic Sepsis W/Reflex 0.8 mmol/L (0.5-2.2); Leukocyte Esterase Urine 2+ (Negative); Nitrate Urine Positive (Negative); Protein Urine 2+ (Negative); SARS Covid-2 Antigen Negative (Negative); Urine Appearance Cloudy (CLEAR); Urine Color Straw (Yellow); Urobilinogen Urine Norm (Negative); pH Urine 6 (5-7)
[2021-05-15 21:22] LABS: Alanine Aminotransferase 49 U/L (0-41); Albumin Level 2.7 g/dL (3.5-5.2); Alkaline Phosphatase 186 IU/L (40-130); Anion Gap 14.3 (5-19); Aspartate Amino Transferase 38 U/L (0-40); Bacteria Urine 4+ /hpf; Blood Urea Nitrogen 51 mg/dL (8-23); Carbon Dioxide 23 mmol/L (22-29); Chloride 103 mmol/L (98-107); Globulin 3.9 g/dL (1.3-4.6); Glomerular Filtration Rate 37.6 mL/min (90-130); Glucose 164 mg/dL (65-115); Osmolality Calculated 299 mOsm/kg (285-295); Potassium 4.3 mmol/L (3.5-5.1); Sodium 136 mmol/L (136-145); Squamous Epithelial Cell Urine 0-4 /hpf (0-5); Total Bilirubin 0.2 mg/dL (0.15-1.2); Total Protein 6.6 g/dL (6.6-8.7); WBC Urine 40-55 /hpf (0-5)
[2021-05-15 21:23] LABS: Add Urine Culture? Yes
[2021-05-15] MEDS: cefTRIAXone 1,000 MG in lidocaine 1% 2.1 ML 1 MG IM (21:31)
--- NOTE | 2021-05-15 21:36 | PC.NURSE ---
rocephin was given IM as ordered.
[2021-05-15 22:32] VITALS: BP 164/97; PULSE 80; RESP 16; O2SAT 99
[2021-05-18 08:29] LABS: Quest SARS-CoV-2 RNA DETECTED (NOT DETECTED)
--- NOTE | 2021-05-19 07:51 | PC.NURSE ---
attempted to give covid results via telephone. no answer
--- NOTE | 2021-05-20 12:42 | PC.NURSE ---
attempted to notify pt of positive covid results. no answer. letter sent
== END 2021-05-15 22:34 | disposition home or self-care (01) ==
PROVIDERS: Emergency Provider Nurse Practitioner Family; PCP Family Medicine
DX: N39.0 Urinary tract infection, site not specified (principal); I13.0 Hypertensive heart and chronic kidney disease with heart failure and stage 1 through stage 4 chronic kidney disease, or unspecified chronic kidney disease; N18.9 Chronic kidney disease, unspecified; I50.30 Unspecified diastolic (congestive) heart failure; E11.22 Type 2 diabetes mellitus with diabetic chronic kidney disease; E11.51 Type 2 diabetes mellitus with diabetic peripheral angiopathy without gangrene; E11.40 Type 2 diabetes mellitus with diabetic neuropathy, unspecified; I25.10 Atherosclerotic heart disease of native coronary artery without angina pectoris; E78.5 Hyperlipidemia, unspecified; F17.200 Nicotine dependence, unspecified, uncomplicated
CPT/HCPCS: 71045; 80053; 81001; 83605; 85025; 87077; 87086; 87186; 87426; 87635; 96372; 99283; J0696

== ENCOUNTER 2021-10-01 10:19 | Outpatient (CLI) | payer MEDICARE, SELFPAY | END 2021-10-01 10:20 | disposition home or self-care (01) | LOC: WOUND 10:20 | PROVIDERS: PCP Family Medicine; Visit Provider Nurse Practitioner Family | DX: I96 Gangrene, not elsewhere classified (principal); E11.621 Type 2 diabetes mellitus with foot ulcer; L97.512 Non-pressure chronic ulcer of other part of right foot with fat layer exposed; F17.210 Nicotine dependence, cigarettes, uncomplicated; M79.89 Other specified soft tissue disorders | CPT/HCPCS: 11042; 73630; G0463 ==

== ENCOUNTER 2021-10-01 11:52 | Outpatient (CLI) | payer MEDICARE, SELFPAY ==
--- NOTE | 2021-10-01 12:01 | XR_ITS ---
WS: [id number] Exam: XR foot RT min 3V* [id number] Date/Time of Exam: 10/01/2021 12:01 PM Reason For Exam: TYPE 2 DM W/FOOT ULCER Comparison 01/14/2021. No fracture or bone destruction noted. Degenerative changes at the first MP joint and the midfoot chato nts. There may be a skin ulceration along the plantar surface of the forefoot. XR/XR foot RT min 3V* [id number] IMPRESSION: 1. No fracture or bone destruction. Degenerative changes. 2. Soft tissue swelling and questionable skin ulceration along the plantar aspe ct of the forefoot.
== END 2021-10-01 11:53 | disposition home or self-care (01) ==
PROVIDERS: PCP Family Medicine; Visit Provider Nurse Practitioner Family
DX: E11.621 Type 2 diabetes mellitus with foot ulcer (principal); M79.89 Other specified soft tissue disorders
CPT/HCPCS: 73630

== ENCOUNTER 2021-10-08 10:00 | Outpatient (CLI) | payer MEDICARE, SELFPAY | END 2021-10-08 10:01 | disposition home or self-care (01) | LOC: WOUND 10:01 | PROVIDERS: PCP Family Medicine; Visit Provider Surgery | DX: I96 Gangrene, not elsewhere classified (principal); E11.621 Type 2 diabetes mellitus with foot ulcer; L97.514 Non-pressure chronic ulcer of other part of right foot with necrosis of bone; F17.210 Nicotine dependence, cigarettes, uncomplicated | CPT/HCPCS: 11044; 36415; 80053; 83036; 84134; 85025 ==

== ENCOUNTER 2021-10-08 10:56 | Outpatient (CLI) | payer MEDICARE, SELFPAY ==
[2021-10-08 12:00] LABS: Basophils % 0.6 %; Eosinophils # 0.1 10^3/uL (0.0-0.8); Eosinophils % 1.8 %; Hematocrit 33.2 % (42.0-52.0); Hemoglobin 10.6 g/dL (11.7-16.6); Lymphocytes # 1.1 10^3/uL (0.8-4.8); Lymphocytes % 21.6 %; Mean Corpuscular HGB Conc 31.9 g/dL (30.0-36.0); Mean Corpuscular Hemoglobin 28.3 pg (28.0-34.0); Mean Corpuscular Volume 88.8 fl (80-94); Mean Platelet Volume 10.3 fL (7.4-10.4); Monocytes # 0.4 10^3/uL (0.2-0.9); Monocytes % 7.1 %; Neutrophils # 3.49 10^3/uL (1.8-7.7); Neutrophils % 68.5 %; Nucleated Red Blood Cells % 0 %; Platelet Count 207 10^3/cmm (130-400); Red Blood Count 3.74 10^6/uL (4.1-5.3); Red Cell Distribution Width 14.7 % (12.1-15.1); White Blood Count 5.1 10^3/uL (4.0-10.0)
[2021-10-08 12:12] LABS: Alanine Aminotransferase 27 U/L (0-41); Albumin Level 2.9 g/dL (3.5-5.2); Alkaline Phosphatase 150 IU/L (40-130); Aspartate Amino Transferase 24 U/L (0-40); Blood Urea Nitrogen 71 mg/dL (8-23); Calcium 7.8 mg/dL (8.5-10.5); Carbon Dioxide 21 mmol/L (22-29); Chloride 105 mmol/L (98-107); Glomerular Filtration Rate 25.7 mL/min (90-130); Glucose 176 mg/dL (65-115); Osmolality Calculated 311 mOsm/kg (285-295); Sodium 138 mmol/L (136-145); Total Bilirubin 0.2 mg/dL (0.15-1.2); Total Protein 6.9 g/dL (6.6-8.7)
[2021-10-08 12:14] LABS: Prealbumin 15.1 mg/dL (20-40)
[2021-10-08 12:35] LABS: Estmated Average Glucose 183
== END 2021-10-08 10:57 | disposition home or self-care (01) ==
LOC: LAB 10:59
PROVIDERS: PCP Family Medicine; Visit Provider Surgery
DX: E11.621 Type 2 diabetes mellitus with foot ulcer (principal)
CPT/HCPCS: 36415; 80053; 83036; 84134; 85025

== ENCOUNTER 2021-10-14 13:19 | Outpatient (CLI) | payer MEDICARE, SELFPAY | END 2021-10-14 13:20 | disposition home or self-care (01) | LOC: WOUND 13:19 | PROVIDERS: PCP Family Medicine; Visit Provider Nurse Practitioner Family | DX: E11.621 Type 2 diabetes mellitus with foot ulcer (principal); L97.512 Non-pressure chronic ulcer of other part of right foot with fat layer exposed; F17.210 Nicotine dependence, cigarettes, uncomplicated | CPT/HCPCS: 11042 ==

== ENCOUNTER 2021-10-21 13:24 | Outpatient (CLI) | payer MEDICARE, SELFPAY | END 2021-10-21 13:25 | disposition home or self-care (01) | LOC: WOUND 13:26 | PROVIDERS: PCP Family Medicine; Visit Provider Nurse Practitioner Family | DX: E11.621 Type 2 diabetes mellitus with foot ulcer (principal); L97.519 Non-pressure chronic ulcer of other part of right foot with unspecified severity; F17.210 Nicotine dependence, cigarettes, uncomplicated | CPT/HCPCS: 99212 ==

== ENCOUNTER 2021-10-23 08:57 | Inpatient (IN) | payer MEDICARE, SELFPAY ==
[2021-10-23] VITALS (14 sets, daily range): BP systolic 122–169; BP diastolic 59–93; PULSE 61–159; RESP 17–28; TEMP 36.8–37.2; O2SAT 86–98; BMI 20.2
--- NOTE | 2021-10-23 09:16 | ED_ITS ---
HPI - SOB/Dyspnea General: Chief Complaint: Shortness of Breath/Dyspnea Stated Complaint: DIFF BREATHING Time Seen by Provider: 10/23/21 08:58 History of Present Illness: HPI Narrative: 71-year-old male presents emergency room complaining difficulty breathing. Patient has a longstanding history of smoking.Patient has untreated COPD. He does not usually use oxygen. He is 88 to 89% on room air. When he first arrived to have him on 4 L by nasal cannula. Concerned he was retaining CO2 so we took him on room air to establish room air O2 sat he dropped down to 8089% he was restarted on 1 L and he is holding in the upper 90s at this point. Patient does continue to smoke he denies any chest pain. He is also extremely kyphotic. Patient has had and April 2021. MD elicited complaint: shortness of breath and cough Pertinent past history: COPD Onset (ago): hour(s) Timing: constant Severity: moderate Exacerbating factors: exertion and coughing Relieving factors: oxygen and rest Known history of: COPD Associated symptoms: Reports chest congestion and cough; Deny abdominal pain, chest pain, diaphoresis, dizziness, extremity pain, fever(s), hemoptysis, lightheadedness, myalgias, nausea, orthopnea, palpitations, paresthesias, polydipsia, polyuria, rash, sense of impending doom, syncope or vomiting Treatment prior to arrival: oxygen Review of Systems Const: Denies: fever(s) or diaphoresis ENMT: Denies: throat pain, ear or mastoid pain, nasal discharge or nasal congestion Card: Denies: chest pain, palpitations, lightheadedness, syncope or orthopnea Resp: Reports: dyspnea, non-productive cough and chest congestion; Denies: hemoptysis GI: Denies: abdominal pain, nausea or vomiting : Denies: flank pain, dysuria, urinary frequency or urinary urgency Musc: Denies: extremity pain Skin/Breast: Denies: rash or pruritus Neuro: Denies: dizziness Endo: Denies: polyuria or polydipsia PFS ED PFSH: Medical History (Updated 10/25/21 @ 08:29 by Arpit De Los Santos DO) BPH loc w urin obs/LUTS CHF (congestive heart failure) 2014, EF 40% with 2/4 diastolic dysfunction Chronic kidney disease Coronary artery disease Depression Diabetes mellitus Diabetic gastroparesis Diabetic neuropathy Hyperlipidemia Hypertension Peripheral artery disease Tobacco dependency Surgical History History of angioplasty Family History Mother , in her 80's Parkinsons Father , at age 71 Epilepsy Other CAD (coronary artery disease) Social History Alcohol intake: never Marital status: Current occupational status: retired History of recent travel: No Physical Exam Const: GENERAL APPEARANCE: cooperative and comfortable ORIENTATION/CONSCIOUSNESS: Yes awake, Yes oriented to person, Yes oriented to place and Yes oriented to time HENMT: COMMON NORMALS: normocephalic, atraumatic and hearing grossly normal bilaterally HEAD & SCALP: normocephalic and atraumatic Neck/C-Spine: COMMON NORMALS: no JVD Resp: AUSCULTATION: rhonchi and wheezes Cardio: COMMON NORMALS: no JVD, regular rate, regular rhythm and No murmurs present (Cardio) RATE: regular rate RHYTHM: regular rhythm GI: COMMON NORMALS: Soft to palpation and No hepatosplenomegaly present AUSCULTATION: Yes normoactive bowel sounds PALPATION: Yes Soft to palpation, No Tenderness to palpation present (GI), No Guarding due to palpation present (GI) and Yes No hepatosplenomegaly present Extremity: COMMON NORMALS: normal to inspection, capillary refill normal, no clubbing, cyanosis or edema, no calf tenderness and no pedal edema Neuro: SENSORIUM/ORIENTATION: Yes oriented to person, Yes oriented to place and Yes oriented to time Skin: COMMON NORMALS: no rashes or lesions noted GENERAL SKIN EXAM: no rash es or lesions noted Course Vital Signs: Vital signs: Vital Signs Temperature 97.9 F 10/25/21 07:29 Pulse Rate 63 10/25/21 07:29 Respiratory Rate 16 10/25/21 07:29 Blood Pressure 119/62 10/25/21 07:29 Pulse Oximetry 94 10/25/21 07:29 MDM - SOB/Dyspnea MDM Narrative: Medical decision making narrative: Labs imaging and EKGs reviewed. Patient has multifactorial issues he has some underlying COPD and believe he is an acute pneumonia as well as some can history of heart failure is contributing to his issues as well. His chronic kidney disease which will make managing his heart failure somewhat difficult. Discussed with hospitalist orders written Lab Data: Labs: Lab Results 10/23/21 10/23/21 10/23/21 09:25 09:25 09:25 WBC 7.2 10^3/uL 10^3/ uL (4.0-10.0) RBC 4.16 10^6/uL 10^6 /uL (4.1-5.3) Hgb 11.5 g/dL L g/dL (11.7-16.6) Hct 37.1 % L % (42.0-52.0) MCV 89.2 fl fl (80-94) MCH 27.6 pg L pg (28.0-34.0) MCHC 31.0 g/dL g/dL (30.0-36.0) RDW 15.0 % % (12.1-15.1) Plt Count 227 10^3/cmm 10^3 /cmm (130-400) MPV 10.1 fL fL (7.4-10.4) Neut % (Auto) 69.9 % % Lymph % (Auto) 18.1 % % [place] % (Auto) 7.8 % % Eos % (Auto) 3.3 % % Baso % (Auto) 0.6 % % Neut # (Auto) 5.04 10^3/uL 10^3 /uL (1.8-7.7) Lymph # (Auto) 1.3 10^3/uL 10^3/ uL (0.8-4.8) [place] # (Auto) 0.6 10^3/uL 10^3/ uL (0.2-0.9) Eos # (Auto) 0.2 10^3/uL 10^3/ uL (0.0-0.8) Baso # (Auto) 0.0 10^3/uL 10^3/ uL (0.0-0.1) Nucleated RBC % (a uto) 0 % % Nucleated RBCs # 0.0 /100WBC /100W BC Specimen Type Sample Site ABG pH ABG pCO2 ABG pO2 ABG HCO3 ABG O2 Saturation ABG Base Excess Andrey Test A-a O2 Gradient Hematocrit Hgb O2 Saturation Carboxyhemoglobin Methemoglobin Total Hemoglobin Ionized Calcium O2 Delivery Device FiO2 Wireless Field Technician ID Sodium 136 mmol/L mmol/L (136-145) Potassium 4.8 mmol/L mmol/L (3.5-5.1) Chloride 101 mmol/L mmol/L (98-107) Carbon Dioxide 22 mmol/L mmol/L (22-29) Anion Gap 17.8 (5-19) BUN 59 mg/dL H mg/dL (8-23) Creatinine 2.3 mg/dL H mg/dL (0.7-1.2) GFR Calculation 28.3 mL/min L mL/ min (90-130) Glucose 199 mg/dL H mg/dL (65-115) Estimat Average Gl ucose Hemoglobin A1c Calculated Osmolal ity 304 mOsm/kg H mOs m/kg (285-295) Calcium 7.8 mg/dL L mg/dL (8.5-10.5) Magnesium 1.8 mg/dL mg/dL (1.7-2.3) Troponin T Baselin e 140 ng/L H* ng/L (0-15) NT-Pro-B Natriuret Pep 10/23/21 10/23/21 10/23/21 09:25 09:25 09:38 WBC RBC Hgb Hct MCV MCH MCHC RDW Plt Count MPV Neut % (Auto) Lymph % (Auto) [place] % (Auto) Eos % (Auto) Baso % (Auto) Neut # (Auto) Lymph # (Auto) [place] # (Auto) Eos # (Auto) Baso # (Auto) Nucleated RBC % (a uto) Nucleated RBCs # Specimen Type Arterial Sample Site Radial, left ABG pH 7.40 (7.35-7.45) ABG pCO2 39.0 mmHg mmHg (35-45) ABG pO2 58.9 mmHg L mmHg (80.0-100.0) ABG HCO3 24.3 mmol/L mmol/ L (22-26) ABG O2 Saturation 91.8 ABG Base Excess -0.3 mmol/L mmol/ L (-2.0-2.0) Andrey Test Pos A-a O2 Gradient 5.3 mmHg mmHg (5-10) Hematocrit 34.6 % L % (42-52) Hgb O2 Saturation 89.1 % L % (95-100) Carboxyhemoglobin 2.1 %THgb %THgb (0.4-20.1) Methemoglobin 0.9 % % (0.4-1.5) Total Hemoglobin 11.3 g/dL L g/dL (14-18) Ionized Calcium 1.2 mmol/L mmol/L (1.1-1.4) O2 Delivery Device Room air FiO2 21.0 % % Wireless Field Technician ID Monro Sodium 139.0 mmol/L mmol /L (131-143) Potassium 4.6 mmol/L mmol/L (3.5-5.0) Chloride Carbon Dioxide Anion Gap BUN Creatinine GFR Calculation Glucose 191.0 mg/dL H mg/ dL (70-115) Estimat Average Gl ucose 189 Hemoglobin A1c 8.2 % H % (4.0-6.0) Calculated Osmolal ity Calcium Magnesium Troponin T Baselin e NT-Pro-B Natriuret Pep 3067 pg/mL H pg/m L (0-125) Discharge Plan Discharge Patient Disposition: Admitted As Inpatient Admit Provider: Malik Donis Clinical Impression: Acute on chronic systolic heart failure, Chronic kidney disease, COPD exacer bation, CAD (coronary artery disease), Pneumonia, Diabetes mellitus Condition: Stable Coding Level of Care Code ED Nursing Educator for Chg Fwd Exam Comprehensive
--- NOTE | 2021-10-23 09:17 | XRR_ITS ---
PROCEDURE INFORMATION: Exam: XR Chest Exam date and time: 10/23/2021 9:17 AM Age: 71 years old Clinical indication: Pain; Other: Cough, SOB; Additional info: Dyspnea/cough TECHNIQUE: Imaging protocol: XR of the chest. Views: 1 view. Total images: 1 COMPARISON: CR XR chest 1V portable [id number] 05/15/2021 7:27 PM FINDINGS: Lungs: Nonspecific bibasilar opacities, favoring atelectasis or pneumonia. Pleural spaces: Unremarkable. No pleural effusion. No pneumothorax. Heart/Mediastinum: Heart size is stable when compared to the prior exam. Bones/joints: Osseous structures are unchanged from the prior exam. XR/XR chest 1V portable [id number] IMPRESSION: Nonspecific bibasilar opacities, favoring atelectasis or pneumonia.
--- NOTE | 2021-10-23 09:17 | ECG_ITS ---
[facility] Test Date: 2021-10-23 Pat Name: Phil Palumbo Department: Room: Gender: Male Branch Library Clerk: : 1950 Requested By: Arpit Garibay Order Number: [id number] Wes MD: Malika Souza M.D. Measurements Intervals [place] Rate: 74 P: 47 IN: 147 QRS: -45 QRSD: 92 T: 73 QT: 381 QTc: 424 Interpretive Statements SINUS RHYTHM LEFT ANTERIOR FASCICULAR BLOCK [QRS AXIS <= -45, QR IN I, RS IN II] ANTEROSEPTAL MYOCARDIAL INFARCTION , OF INDETERMINATE AGE [40+ ms Q WAVE IN V1-V4] Compared to ECG 11/15/2020 20:21:43 Left anterior fascicular block now present Myocardial infarct finding still present Electronically Signed On 10-23-2021 14:58:38 BOAT CLEANING SUPERVISOR by Malika Souza M.D. [id number]
[2021-10-23 09:39] LABS: Basophils % 0.6 %; Eosinophils # 0.2 10^3/uL (0.0-0.8); Eosinophils % 3.3 %; Hematocrit 37.1 % (42.0-52.0); Hemoglobin 11.5 g/dL (11.7-16.6); Lymphocytes # 1.3 10^3/uL (0.8-4.8); Lymphocytes % 18.1 %; Mean Corpuscular Hemoglobin 27.6 pg (28.0-34.0); Mean Corpuscular Volume 89.2 fl (80-94); Mean Platelet Volume 10.1 fL (7.4-10.4); Monocytes # 0.6 10^3/uL (0.2-0.9); Monocytes % 7.8 %; Neutrophils # 5.04 10^3/uL (1.8-7.7); Neutrophils % 69.9 %; Nucleated Red Blood Cells % 0 %; Platelet Count 227 10^3/cmm (130-400); Red Blood Count 4.16 10^6/uL (4.1-5.3); White Blood Count 7.2 10^3/uL (4.0-10.0)
[2021-10-23 09:51] LABS: Blood Gas Allen Test Pos; Blood Gas Operator Identificat MONRO; Blood Gas Sample Type Arterial; Carboxyhemoglobin 2.1 %THgb (0.4-20.1); Ionized Calcium Level - ABG 1.2 mmol/L (1.1-1.4); Methemoglobin 0.9 % (0.4-1.5); Oxygen Device ROOM AIR; Potassium Level - ABG 4.6 mmol/L (3.5-5.0)
[2021-10-23 09:53] LABS: Alveolar-Arterial Oxygen Gradi 5.3 mmHg (5-10); Arterial Blood Gas Hematocrit 34.6 % (42-52); Base Excess ABG -0.3 mmol/L (-2.0-2.0); Blood Gas Sample Site Radial, left; HCO3 ABG 24.3 mmol/L (22-26); HGB O2 Sat 89.1 % (95-100); Oxygen Saturation ABG 91.8; PO2 ABG 58.9 mmHg (80.0-100.0); Total Hemoglobin 11.3 g/dL (14-18)
[2021-10-23] MEDS: dexamethasone 10 mg/mL INJ IVP (10:15)
[2021-10-23] MEDS: ipratropium-albuterol 3 mL Neb INHALATION ×3 (11:10→19:23)
[2021-10-23] MEDS: levofloxacin-dextrose 5 % 750 MG/150 ML PREMIX 100 MG IV (11:32)
[2021-10-23 11:51] LABS: Anion Gap 17.8 (5-19); Blood Urea Nitrogen 59 mg/dL (8-23); Calcium 7.8 mg/dL (8.5-10.5); Carbon Dioxide 22 mmol/L (22-29); Chloride 101 mmol/L (98-107); Glomerular Filtration Rate 28.3 mL/min (90-130); Glucose 199 mg/dL (65-115); Magnesium 1.8 mg/dL (1.7-2.3); Osmolality Calculated 304 mOsm/kg (285-295); Potassium 4.8 mmol/L (3.5-5.1); Sodium 136 mmol/L (136-145)
--- NOTE | 2021-10-23 14:03 | PM.HP ---
Providers/Chief Complaint Primary Care Provider: Melissa Boswell MD Chief Complaint: DIFF BREATHING History of Present Illness Phil Palumbo is a 71 year old male with a past medical history of CAD, CHF systolic and diastolic, insulin-dependent type 2 diabetes mellitus, hypertension, hyperlipidemia, smoker, BPH, COPD, who presents to [facility] for increased shortness of breath, productive cough. Patient tells me that he is not been vaccinated for Covid. Has received flu vaccine. Denies any fevers. Denies any known exposure to COVID-19. He tells me that he has been experiencing increasingly short of breath, having increasingly productive cough, no chest pain, palpitations, lightheaded, dizziness. He has been smoking since he is 21 years old. Does not use any inhalers at home, denies any chest pain, he had a stent placed roughly 7 years ago, is not on any blood thinner, does not take a baby aspirin. Denies any lower extremity edema, denies any orthopnea, no paroxysmal nocturnal dyspnea Review of Systems Const: Reports: fatigue and malaise; Denies: fever(s), chills or body aches Eyes: Denies: change in vision or blurry vision ENMT: Denies: throat pain or nasal congestion Card: Denies: chest pain, edema, lightheadedness or syncope Resp: Reports: dyspnea, productive cough and wheezing; Denies: non-productive cough GI: Denies: abdominal pain, nausea, vomiting, hematemesis, diarrhea, constipation, hematochezia or melena : Denies: flank pain, difficulty urinating, dysuria or urinary frequency Musc: Denies: neck pain or back pain Skin/Breast: Denies: rash Neuro: Denies: headache(s), dizziness or vertigo Medications/Allergies Home Medications Medication Instructions Recorded Confirmed Last Taken Type Tresiba FlexTouch U-100 24 unit SUBCUT DAILY 05/05/21 10/23/21 Unknown History citalopram 20 mg PO DAILY 05/05/21 10/23/21 Unknown History finasteride 5 mg PO DAILY 05/05/21 10/23/21 Unknown History isosorbide mononitrate 30 mg PO QAM 05/05/21 10/23/21 Unknown History metoprolol tartrate 25 mg PO BID 05/05/21 10/23/21 Unknown History pramipexole 1.5 mg PO TID 05/05/21 10/23/21 Unknown History tamsulosin 0.4 mg PO DAILY 05/05/21 10/23/21 Unknown History torsemide 10 mg PO DAILY 05/05/21 10/23/21 Unknown History pantoprazole 40 mg PO DAILY #30 tab 05/07/21 10/23/21 Unknown Rx polyethylene glycol 3350 17 g PO BID #100 ea 05/07/21 10/23/21 Unknown Rx atorvastatin 40 mg PO DAILY 10/23/21 10/23/21 Unknown History oxycodone 5 mg PO Q6H PRN 10/23/21 10/23/21 Unknown History Allergies Allergy/AdvReac Type Severity Reaction Status Date / Time No Known Allergies Allergy Verified 05/24/21 09:03 PFSH Acute PFSH: Medical History BPH loc w urin obs/LUTS CHF (congestive heart failure) 2014, EF 40% with 2/4 diastolic dysfunction Chronic kidney disease Coronary artery disease Depression Diabetes mellitus Diabetic gastroparesis Diabetic neuropathy Hyperlipidemia Hypertension Peripheral artery disease Tobacco dependency Surgical History History of angioplasty Family History Mother , in her 80's Parkinsons Father , at age 71 Epilepsy Other CAD (coronary artery disease) Social History Alcohol intake: never Marital status: Current occupational status: retired History of recent travel: No Vitals/I&O/Wt Last Vital Signs Temp 98.6 F 10/23/21 09:10 Pulse 74 10/23/21 12:50 Resp 21 H 10/23/21 12:50 BP 147/75 10/23/21 12:50 Pulse Ox 91 10/23/21 12:50 Weight last 48 hrs Weight 65.771 kg Physical Exam Const: COMMON NORMALS: no acute distress and patient oriented x3 GENERAL APPEARANCE: cooperative and comfortable HENMT: COMMON NORMALS: normocephalic HEAD & SCALP: normocephalic Eye: COMMON NORMALS: Equal, round and reactive pupils present and EOMs intact bilaterally GENERAL EYE: appearance normal, both eyes and all related structures PUPIL: Yes Equal, round and reactive pupils present Neck/C-Spine: COMMON NORMALS: full ROM and no lymphadenopathy THYROID: Thyroid normal Lymph: LYMPHATIC: no lymphadenopathy noted Resp: COMMON NORMALS: normal respiratory effort, No retractions, No use of accessory muscles and clear to auscultation bilaterally AUSCULTATION: wheezes Cardio: COMMON NORMALS: regular rate, regular rhythm, S1 normal heart sound present, S2 normal heart sound present, No gallops present (Cardio), No clicks present (Cardio) and No murmurs present (Cardio) RATE: regular rate RHYTHM: regular rhythm HEART SOUNDS: S1 normal heart sound present and S2 normal heart sound present GI: COMMON NORMALS: Normal to inspection, nondistended, normoactive bowel sounds present, Soft to palpation, non-tender and No hepatosplenomegaly present PALPATION: Yes Soft to palpation and Yes No hepatosplenomegaly present Extremity: COMMON NORMALS: normal to inspection, full ROM and no pedal edema Neuro: COMMON NORMALS: patient oriented x3, CN's II-XII intact bilaterally, moves all extremities and no focal motor deficits Psych: COMMON NORMALS: mental status grossly normal, Normal thought process present and cooperative THOUGHT PROCESS: Normal thought process present Data : 10/23/21 09:25 10/23/21 09:25 Micro: Microbiology 10/23/21 11:36 Blood Culture - Preliminary Blood SPECIMEN COLLECTED 10/23/21 11:37 Blood Culture - Preliminary Blood SPECIMEN COLLECTED A&P Assessment and plan (1) COPD exacerbation: -Wheezing on exam, requiring 1 L, chest x-ray showing bilateral pneumonia lower lobe -Will start on Rocephin and azithromycin -Solu-Medrol 40 every 8 hours -Follow blood cultures, sputum cultures, Covid PCR, rapid flu -Monitor respiratory status closely -Continue DuoNeb Type 2 diabetes mellitus, Levemir 10 units twice daily, moderate dose sliding scale CAD, no chest pain complaints, BMP, serial troponin, serial EKGs CKD, creatinine at baseline at 2.3, does not look fluid overloaded, BMP pending Status: Acute (2) CHF (congestive heart failure): Status: Acute (3) Chronic kidney disease: Status: Acute (4) Diabetes mellitus: Status: Acute (5) CAD (coronary artery disease): Status: Acute (6) Pneumonia: Status: Acute Attestations Medical Necessity Statement*: Patient requires hospitalization, outpatient with observation, for COPD exacerbation, pneumonia Coding Level of Care Code Acute Access Clinician for [facility] Diagnoses COPD exacerbation J44.1 CHF (congestive heart failure) I50.9 Chronic kidney disease N18.9 Diabetes mellitus E11.9 CAD (coronary artery disease) I25.10 Pneumonia J18.9
[2021-10-23 15:11] LABS: NT Pro B Type Natriuretic Pept 3067 pg/mL (0-125)
[2021-10-23 15:49] LABS: Troponin(5th) Baseline 140 ng/L (0-15)
--- NOTE | 2021-10-23 16:20 | CTR_ITS ---
PROCEDURE INFORMATION: Exam: CT Chest Without Contrast; Diagnostic Exam date and time: 10/23/2021 4:20 PM Age: 71 years old Clinical indication: Shortness of breath; Additional info: SOB TECHNIQUE: Imaging protocol: Diagnostic computed tomography of the chest without contrast. Radiation optimization: All CT scans at this facility use at least one of these dose optimization techniques: automated exposure control; mA and/or kV adjustment per patient size (includes targeted exams where dose is matched to clinical indication); or iterative reconstruction. COMPARISON: CT chest abd pel wo con 11/15/2020 9:01 PM RADIATION DOSE METRICS: Total DLP (mGy-cm): 566.34 FINDINGS: Lungs: There is severe upper lung predominant centrilobular emphysema. 7 mm right lower lobe nodule on axial series 3 image 34. There is subsegmental atelectasis in the lung bases. Pleural spaces: There are trace bilateral pleural effusions. Heart: There is severe coronary artery calcification. Heart size is normal. There is left ventricular apical calcification suggesting sequelae of remote infarct. There is no pericardial effusion. Aorta: There is moderate aortic atherosclerotic disease. Lymph nodes: There is no mediastinal or hilar lymphadenopathy. Pancreas: There are scattered calcifications in the pancreatic parenchyma consistent with chronic pancreatitis. Bones/joints: There are chronic ununited fractures of the bilateral posterior 11th and right 12th ribs. Convex right upper lumbar and lower thoracic scoliosis. Comminuted T10 superior endplate compression fracture and nondisplaced pedicle fracture is new since 11/15/2020. There is a moderate T12 and mild L1 superior endplate compression fracture, stable since 11/15/2020. Soft tissues: Unremarkable. CT/CT chest wo con [id number] IMPRESSION: 1. No acute pulmonary abnormality. 2. Centrilobular emphysema. 3. Trace bilateral pleural effusions. 4. Fractures at T10 are new since 11/15/2020. 5. Stable T12 and L1 compression fractures. 6. 7 mm right lower lobe pulmonary nodule. For patients at low risk (minimal or absent history of smoking and of other known risk factors), recommend CT Chest at 6-12 months, then consider CT Chest at 18-24 months. For patients at high risk (history of smoking or of other known risk factors), recommend CT Chest at 6-12 months, then CT Chest at 18-24 months. (Reference: Abeba) 7. Incidental findings above. REFERENCES: Abeba Graham, et al. Guidelines for Management of Incidental Pulmonary Nodules Detected on CT Images: From the Fleischner Society 2017. Radiology. 2017;284(1):228-243.
--- NOTE | 2021-10-23 16:20 | ECG_ITS ---
[facility] Test Date: 2021-10-23 Pat Name: Phil Palumbo Department: Room: 253 Gender: Male Senior Microstrategy Developer: : 1950 Requested By: Malik Donis Order Number: [id number] Wes MD: Malika Souza M.D. Measurements Intervals [place] Rate: 74 P: 47 AZ: 151 QRS: -46 QRSD: 91 T: 78 QT: 410 QTc: 457 Interpretive Statements SINUS RHYTHM LEFT ANTERIOR FASCICULAR BLOCK [QRS AXIS <= -45, QR IN I, RS IN II] ANTEROSEPTAL MYOCARDIAL INFARCTION , OF INDETERMINATE AGE [40+ ms Q WAVE IN V1-V4] Compared to ECG 10/23/2021 09:34:37 No significant changes Electronically Signed On 10-24-2021 20:21:50 SERVICE BAR CASHIER by Malika Souza M.D. [id number]
[2021-10-23 17:29] LABS: Estmated Average Glucose 189; Hemoglobin A1C 8.2 % (4.0-6.0)
[2021-10-23 17:54] LABS: Influenza A by IFA Negative (Negative); Influenza B by IFA Negative (Negative)
[2021-10-23] MEDS: azithromycin 500 MG in sodium chloride 0.9% 250 ML 250 MG IV (19:02)
[2021-10-23] MEDS: FUROsemide 10 mg/mL SDV 4mL 40 MG IVP (19:03)
[2021-10-23] MEDS: metoprolol tartrate 25 mg Tablet PO (19:03)
[2021-10-23] MEDS: aspirin 81 mg EC Tablet PO (19:03)
[2021-10-23] MEDS: docusate sodium 100 mg Capsule PO (19:03)
[2021-10-23] MEDS: enoxaparin 100 mg/mL Syringe 70 MG SUBCUT (19:04)
[2021-10-23 19:10] LABS: Thyroid Stimulating Hormone 0.48 uIU/mL (0.27-4.20)
[2021-10-23 19:14] LABS: Troponin(5th) Baseline 135 ng/L (0-15)
[2021-10-23 19:23] LABS: Adenovirus Not Detected (NOT DETECT); Chlamydia Pneumoniae Not Detected (NOT DETECT); Coronavirus 229E,HKU1,NL63,OC4 Not Detected (NOT DETECT); Human Metapneumovirus Not Detected (NOT DETECT); Human Rhinovirus/Enterovirus Not Detected (NOT DETECT); Influenza A Not Detected (NOT DETECT); Influenza A H1 Not Detected (NOT DETECT); Influenza A H1-2009 Not Detected (NOT DETECT); Influenza A H3 Not Detected (NOT DETECT); Influenza B Not Detected (NOT DETECT); Mycoplasma Pneumoniae Not Detected (NOT DETECT); Parainfluenza Virus Type 1 Not Detected (NOT DETECT); Parainfluenza Virus Type 2 Not Detected (NOT DETECT); Parainfluenza Virus Type 3 Not Detected (NOT DETECT); Parainfluenza Virus Type 4 Not Detected (NOT DETECT); Respiratory Syncytial Virus A Not Detected (NOT DETECT); Respiratory Syncytial Virus B Not Detected (NOT DETECT); SARS-COV-2 Not Detected (NOT DETECT)
[2021-10-23] MEDS: budesonide 0.5 mg/2 mL Neb INHALATION (19:23)
[2021-10-23 19:35] LABS: Glucose Point of Care 335 mg/dL (70-110)
--- NOTE | 2021-10-23 19:59 | ECG_ITS ---
[facility] Test Date: 2021-11-16 Pat Name: Phil Palumbo Department: Room: 253 Gender: Male Lead Mechanic: : 1950 Requested By: Malik Donis Order Number: [id number] Wes MD: Rhonda Olea M.D. Measurements Intervals [place] Rate: 88 P: 65 VA: 188 QRS: 80 QRSD: 86 T: 86 QT: 335 QTc: 406 Interpretive Statements SINUS RHYTHM LOW QRS VOLTAGE IN EXTREMITY LEADS [QRS DEFLECTION < 0.5 mV IN LIMB LEADS] Compared to ECG 10/23/2021 16:27:35 Low QRS voltage now present ST (T wave) deviation now present Left anterior fascicular block no longer present Myocardial infarct finding still present Electronically Signed On 11-18-2021 22:37:52 COATING TECHNICIAN by Rhonda Olea M.D. [id number]
[2021-10-23 21:12] LABS: Glucose Point of Care 364 mg/dL (70-110)
[2021-10-23] MEDS: pramipexole 0.25 mg Tablet 1.5 MG PO (22:10)
[2021-10-23] MEDS: insulin lispro 100 unit/1 mL SUBCUT (22:10)
[2021-10-24] VITALS (14 sets, daily range): BP systolic 94–135; BP diastolic 53–68; PULSE 60–89; RESP 16–19; TEMP 36.5–37; O2SAT 90–100
[2021-10-24 00:54] LABS: Troponin 5 6HR Delta 10.7 ng/L (0-12)
[2021-10-24 01:03] LABS: Troponin 5 6HR 145.7 ng/L (0-15)
[2021-10-24 01:48] LABS: Glucose Point of Care 79 mg/dL (70-110)
[2021-10-24 02:26] LABS: Glucose Point of Care 104 mg/dL (70-110)
[2021-10-24 05:16] LABS: Basophils % 0.5 %; Eosinophils % 0.3 %; Hematocrit 31.9 % (42.0-52.0); Lymphocytes # 0.9 10^3/uL (0.8-4.8); Mean Corpuscular HGB Conc 31.3 g/dL (30.0-36.0); Mean Corpuscular Hemoglobin 27.4 pg (28.0-34.0); Mean Corpuscular Volume 87.4 fl (80-94); Mean Platelet Volume 10.3 fL (7.4-10.4); Monocytes # 0.5 10^3/uL (0.2-0.9); Monocytes % 8.3 %; Neutrophils # 4.57 10^3/uL (1.8-7.7); Neutrophils % 75.6 %; Nucleated Red Blood Cells % 0 %; Platelet Count 210 10^3/cmm (130-400); Red Blood Count 3.65 10^6/uL (4.1-5.3); Red Cell Distribution Width 14.6 % (12.1-15.1); White Blood Count 6.1 10^3/uL (4.0-10.0)
[2021-10-24 05:35] LABS: Magnesium 1.9 mg/dL (1.7-2.3)
[2021-10-24] MEDS: isosorbide mononitrate ER 30 mg Tablet PO (05:40)
[2021-10-24] MEDS: enoxaparin 100 mg/mL Syringe 70 MG SUBCUT ×2 (05:40→15:13)
[2021-10-24 05:42] LABS: NT Pro B Type Natriuretic Pept 5210 pg/mL (0-125)
[2021-10-24 05:54] LABS: Anion Gap 18.8 (5-19); Blood Urea Nitrogen 59 mg/dL (8-23); Calcium 7.2 mg/dL (8.5-10.5); Carbon Dioxide 20 mmol/L (22-29); Chloride 103 mmol/L (98-107); Glucose 104 mg/dL (65-115); Osmolality Calculated 301 mOsm/kg (285-295); Potassium 4.8 mmol/L (3.5-5.1); Sodium 137 mmol/L (136-145)
[2021-10-24 06:31] LABS: Glucose Point of Care 109 mg/dL (70-110)
[2021-10-24] MEDS: metoprolol tartrate 25 mg Tablet PO ×2 (08:21→17:39)
[2021-10-24] MEDS: finasteride 5 mg Tablet PO (08:21)
[2021-10-24] MEDS: docusate sodium 100 mg Capsule PO ×2 (08:21→17:39)
[2021-10-24] MEDS: polyethylene glycol 3350 Pkt 17 gm PO (08:21)
[2021-10-24] MEDS: pantoprazole DR 40 mg Tablet PO (08:22)
[2021-10-24] MEDS: cefTRIAXone 1,000 MG in sodium chloride 0.9% (plus) 50 ML 100 MG IV (08:22)
[2021-10-24] MEDS: citalopram 20 mg Tablet PO (08:22)
[2021-10-24] MEDS: aspirin 81 mg EC Tablet PO (08:22)
[2021-10-24] MEDS: tamsulosin 0.4 mg Capsule PO (08:22)
[2021-10-24] MEDS: atorvastatin 40 mg Tablet PO (08:22)
[2021-10-24] MEDS: budesonide 0.5 mg/2 mL Neb INHALATION ×2 (08:31→20:39)
[2021-10-24] MEDS: ipratropium-albuterol 3 mL Neb INHALATION ×3 (08:31→20:39)
[2021-10-24] MEDS: pramipexole 0.25 mg Tablet 1.5 MG PO ×3 (09:40→20:17)
[2021-10-24 11:19] LABS: Glucose Point of Care 223 mg/dL (70-110)
[2021-10-24] MEDS: insulin lispro 100 unit/1 mL SUBCUT ×3 (11:24→22:07)
--- NOTE | 2021-10-24 14:33 | PM.PN ---
Subjective Subjective: Interval history: Patient was seen this morning, denies any chest pain, shortness of breath, is feeling better, currently on 2 L Vitals/I&O/Wt Last Vital Signs Temp 98.6 F 10/24/21 12:20 Pulse 74 10/24/21 12:20 Resp 16 10/24/21 12:20 BP 94/59 10/24/21 12:20 Pulse Ox 96 10/24/21 12:20 10/23/21 10/24/21 10/24/21 22:59 06:59 14:59 Intake Total 820 / 820 1570 / 2390 290 / 290 Output Total 401 / 401 800 / 1201 375 / 375 Balance 419 / 419 770 / 1189 -85 / -85 Weight last 48 hrs Weight 65.771 kg Physical Exam Const: COMMON NORMALS: no acute distress and patient oriented x3 Resp: COMMON NORMALS: normal respiratory effort, No retractions, No use of accessory muscles and clear to auscultation bilaterally AUSCULTATION: clear to auscultation bilaterally Cardio: COMMON NORMALS: regular rate, regular rhythm, S1 normal heart sound present and S2 normal heart sound present RATE: regular rate RHYTHM: regular rhythm HEART SOUNDS: S1 normal heart sound present and S2 normal heart sound present GI: COMMON NORMALS: Normal to inspection, nondistended, normoactive bowel sounds present, Soft to palpation and non-tender PALPATION: Yes Soft to palpation Extremity: COMMON NORMALS: no pedal edema Neuro: COMMON NORMALS: patient oriented x3 Psych: COMMON NORMALS: mental status grossly normal Data : 10/24/21 04:33 10/24/21 04:33 Micro: Microbiology 10/23/21 11:36 Blood Culture - Preliminary Blood NEGATIVE TO DATE 10/23/21 11:37 Blood Culture - Preliminary Blood NEGATIVE TO DATE 10/23/21 17:00 MRSA Culture - Final Nose A&P Assessment and plan (1) COPD exacerbation: COPD exacerbation -Wheezing on exam, requiring 2 L , chest x-ray showing bilateral pneumonia lower lobe - coutinue Rocephin and azithromycin -Solu-Medrol 40 every 12 hours -Follow blood cultures, sputum cultures, Covid PCR, rapid flu -Monitor respiratory status closely -Continue DuoNeb Type 2 diabetes mellitus, Levemir 10 units twice daily, moderate dose sliding scale Diastolic CHF exacerbation, possible systolic -Elevated BNP, crackles on exam -Daily dose Lasix, creatinine 2.4 CAD, NSTEMI -No chest pain complaints -EKG shows left anterior fascicular block, Q waves in V1 to V4 -Baseline troponin 135 -6-hour 145, delta 10.7 -BNP over 5000 -Continue aspirin, statin, therapeutic Lovenox -Cardiac echocardiogram pending -Cardiology consulted CKD, creatinine at baseline at 2.3, does not look fluid overloaded, BMP pending Status: Acute (2) CHF (congestive heart failure): Status: Acute (3) Chronic kidney disease: Status: Acute (4) Diabetes mellitus: Status: Acute (5) CAD (coronary artery disease): Status: Acute (6) Pneumonia: Status: Acute (7) NSTEMI (non-ST elevated myocardial infarction): Status: Acute Attestations Medical Necessity Statement*: Patient requires hospitalization, inpatient, greater than 2 midnights for COPD exacerbation, NSTEMI, elevated troponins, shortness of breath CHF exacerbation Coding Level of Care Code Acute Rubber Boots And Shoes Repairer for [facility] Diagnoses COPD exacerbation J44.1 CHF (congestive heart failure) I50.9 Chronic kidney disease N18.9 Diabetes mellitus E11.9 CAD (coronary artery disease) I25.10 Pneumonia J18.9 NSTEMI (non-ST elevated myocardial infarction) I21.4
[2021-10-24] MEDS: azithromycin 500 MG in sodium chloride 0.9% 250 ML 250 MG IV (15:15)
--- NOTE | 2021-10-24 16:27 | USCV_ITS ---
Phil Palumbo Age: 71 Gender: M : 1950 Exam Date: 10/24/2021 08:48 Ordering Phys: Malik Donis MD Technologist: Rachel Foley [place] [facility] [place]: NSTEMI BP: 115 / 53 HR: 72 Rhythm: Sinus Technical Quality: Adequate MEASUREMENTS (Male / Female) Normal Values 2D ECHO LV Diastolic Diameter PLAX 4.9 cm 4.2 - 5.9 / 3.9 - 5.3 cm LV Systolic Diameter PLAX 2.8 cm LV Chamber Size 5.9 cm IVS Diastolic Thickness 1.2 cm 0.6 - 1.0 / 0.6 - 0.9 cm IVS Systolic Thickness 1.3 cm LVPW Diastolic Thickness 1.6 cm 0.6 - 1.0 / 0.6 - 0.9 cm LVPW Systolic Thickness 2.1 cm RV Chamber Size 4.5 cm LVOT Diameter 2.1 cm LV Ejection Fraction 2D Teich 72.9 % LA Diameter 3.6 cm LA Width 3.0 cm LA Height 4.7 cm RA Width 3.6 cm RA Height 5.3 cm Aorta at Sinotubular Diameter 3.9 cm M-MODE Aortic Annulus Diameter 4.2 cm LA Ao Ratio MM 0.9 DOPPLER AV Peak Velocity 125.0 cm/s LVOT Peak Velocity 89.0 cm/s AV Area Cont Eq vti 2.8 cm squared AV Area Cont Eq pk 2.5 cm squared MV Area PHT 4.6 cm squared Mitral E to A Ratio 1.1 MV E' Velocity 44.5 cm/s Mitral E to MV E' Ratio 12.2 Mitral E to LV E' Lateral Ratio 13.3 Mitral E to LV E' Septal Ratio 11.2 TR Peak Velocity 295.6 cm/s TR Peak Gradient 35.0 mmHg TR Mean Velocity 216.0 cm/s TR Mean Gradient 21.8 mmHg TR Velocity Time Integral 86.7 cm TV Peak E Velocity 52.0 cm/s Right Atrial Pressure 3.0 mmHg Pulmonary Artery Systolic Pressu 38.0 mmHg PV Peak Velocity 59.0 cm/s RV Acceleration Time 0.1 s RV Ejection Time 0.3 s RV AcT/ET 0.4 FINDINGS Left Ventricle Normal LV size with diminished ejection fraction of 45%. Diffuse hypokinesia of the mid and apical anteroseptal segments. Hypokinetic LV apex.mild left ventricular hypertrophy. Right Ventricle Normal right ventricular size and systolic function. Right Atrium The right atrium is normal in size. Left Atrium The left atrium is normal in size. Mitral Valve Thickened mitral valve. Mild mitral annular calcification. Systolic anterior motion of the mitral leaflet Aortic Valve Thickened aortic valve. Tricuspid Valve Trace to mild tricuspid valve regurgitation. Pulmonic Valve No gross abnormalities noted Pericardium No pericardial effusion. Aorta Normal aortic annulus size. CONCLUSIONS The size of the diminished ejection fraction of 45%.. Multiple wall motion normalities as mentioned above.Thickened mitral valve. Mild mitral annular calcification. Systolic anterior motion of the mitral leaflet. Trace to mild tricuspid valve regurgitation. Thickened aortic valve. There is no pericardial effusion. Estimated pulmonary artery peak systolic pressure 38 mmHg There is no pericardial effusion. Compared to the study from 06/19/2015, the left ventricular ejection fraction has slightly increased from 40 to 45% Dr Malika Souza MD [facility] (Electronically Signed) Final Date: 24 October 2021 18:06 S
--- NOTE | 2021-10-24 16:29 | USCV_ITS ---
Phil Palumbo Age: 71 Gender: M : 1950 Exam Date: 10/24/2021 12:40 Ordering Phys: Malik Donis MD Technologist: Rachel Foley Exam Location: [facility] [place] Indication: DVT HISTORY: Difficulty breathing PROCEDURES: The venous duplex Doppler examination of both lower extremities was performed in the standard fashion. The following venous structures were evaluated: common femoral vein, profunda vein, proximal portion of the greater saphenous vein, superficial femoral vein, and the popliteal vein. In addition, the posterior tibial and peroneal trunk were evaluated. Serial compression, augmentation maneuvers, and spectral Doppler flow evaluation were performed. FINDINGS: No DVT seen in any vessel examined There is wall debris at the Prox Rt. SFV junction. It is bright. The veins were found to be easily compressible with spontaneous blood flow. Non pulsatile flow pattern. CONCLUSIONS No evidence of DVT in the above-mentioned identifiable veins. 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
[2021-10-24 17:05] LABS: Glucose Point of Care 299 mg/dL (70-110)
--- NOTE | 2021-10-24 17:20 | PM.CONSULT ---
Providers/Reason For Consult Consulting Physician/Specialty*: Anu Souza MD/cardiology Reason for Consult*: Patient with evidence of heart failure and elevated troponin T Attending Physician: Malik Donis MD Primary Care Provider: Melissa Boswell MD History of Present Illness History of Present Illness Phil Palumbo is a 71 year old male with a history of coronary disease, status post PCI, COPD, presenting with increasing shortness of breath. He was found to have features of COPD exacerbation and possible bilateral pneumonia. He also was found to have elevated BNP and troponin T. He was started on IV diuretics and antibiotics. Symptomatically he is improving. Cardiology consult is requested for further cardiac evaluation recommendations. This patient is known to have coronary artery disease. In May 2015, he presented with acute history of myocardial infarction. He had a cardiac catheterization followed by primary PCI of the LAD. Following which, he had an episode of heart failure. He was treated with IV diuretics and other symptomatic measures. His LV ejection fraction was around 40% by echocardiogram in 2015. Since this event, he has generally been doing okay. He has not had any recent chest pain or any decompensated heart failure. He has a longstanding history of COPD and smoking abuse. For the last 2 months or so, he been having increasing shortness of breath and a cough. Did not have any fever or chills. No abdominal pain or dysuria. No other associated symptoms. He has a history of ventricular arrhythmia. He is not on any antiarrhythmic agents. Denies any other specific complaints. No hemoptysis. No chest pain or palpitations. No syncopal episodes. Patient has a history of diabetes, high blood pressure, dyslipidemia, chronic kidney disease, anemia and peripheral artery disease. He has a nonhealing ulcer on the plantar aspect of the right big toe. He is being followed up at the wound care clinic. Review of Systems Narrative: CONSTITUTIONAL: No fever or chills. EYES: No blurring of vision or other visual disturbances lately. ENT: No hoarseness of voice, auditory disturbances or sore throat. CARDIOVASCULAR: As mentioned above. RESPIRATORY: Shortness of breath and cough GASTROINTESTINAL: No hematemesis or melena. GENITOURINARY: History of chronic kidney disease INTEGUMENTARY: No skin rashes or history of skin cancer. NEURO: No transient ischemic attacks or amaurosis. PSYCHIATRIC: No history of psychosis or major depression. HEMATOLOGIC: No bleeding disorders or significant anemia. ENDOCRINE: History of type 2 diabetes MUSCULOSKELETAL: No recent joint pain or swelling. ALLERGY/IMMUNOLOGY: As mentioned above. Meds/Allergies Home Medications and Allergies Home Medications Medication Instructions Recorded Confirmed Last Taken Type Tresiba FlexTouch U-100 24 unit SUBCUT DAILY 05/05/21 10/23/21 Unknown History citalopram 20 mg PO DAILY 05/05/21 10/23/21 Unknown History finasteride 5 mg PO DAILY 05/05/21 10/23/21 Unknown History isosorbide mononitrate 30 mg PO QAM 05/05/21 10/23/21 Unknown History metoprolol tartrate 25 mg PO BID 05/05/21 10/23/21 Unknown History pramipexole 1.5 mg PO TID 05/05/21 10/23/21 Unknown History tamsulosin 0.4 mg PO DAILY 05/05/21 10/23/21 Unknown History torsemide 10 mg PO DAILY 05/05/21 10/23/21 Unknown History pantoprazole 40 mg PO DAILY #30 tab 05/07/21 10/23/21 Unknown Rx polyethylene glycol 3350 17 g PO BID #100 ea 05/07/21 10/23/21 Unknown Rx atorvastatin 40 mg PO DAILY 10/23/21 10/23/21 Unknown History oxycodone 5 mg PO Q6H PRN 10/23/21 10/23/21 Unknown History Allergies Allergy/AdvReac Type Severity Reaction Status Date / Time No Known Allergies Allergy Verified 05/24/21 09:03 Current Medications Current Medications Generic Name Dose Route Start Last Admin Trade Name Freq PRN Reason Stop Dose Admin Albuterol/Ipratropium 3 ml 10/23/21 16:20 10/24/21 15:04 Ipratropium-Albuterol 3 Ml Neb INHALATION 3 ml QID.RESPIRATORY ALAN Administration Aspirin 81 mg 10/23/21 16:30 10/24/21 08:22 Aspirin 81 Mg Ec Tablet PO 81 mg DAILY ALAN Administration Atorvastatin Calcium 40 mg 10/24/21 09:00 10/24/21 08:22 Atorvastatin 40 Mg Tablet PO 40 mg DAILY ALAN Administration Budesonide 0.5 mg 10/23/21 20:00 10/24/21 08:31 Budesonide 0.5 Mg/2 Ml Neb INHALATION 0.5 mg BID.RESPIRATORY ALAN Administration Citalopram Hydrobromide 20 mg 10/24/21 09:00 10/24/21 08:22 Citalopram 20 Mg Tablet PO 20 mg DAILY ALAN Administration Docusate Sodium 100 mg 10/23/21 18:00 10/24/21 08:21 Docusate Sodium 100 Mg Capsule PO 100 mg BID ALAN Administration Enoxaparin Sodium 70 mg 10/23/21 16:30 10/24/21 15:13 Enoxaparin 100 Mg/Ml Syringe 1 mg/kg (70 mg) 70 mg SUBCUT Administration Q12H ALAN Finasteride 5 mg 10/24/21 09:00 10/24/21 08:21 Finasteride 5 Mg Tablet PO 5 mg DAILY ALAN Administration Ceftriaxone Sodium 1,000 mg/ 50 mls @ 100 mls/hr 10/24/21 08:00 10/24/21 09:17 Sodium Chloride IV Infused Q24H ALAN Infusion Protocol Azithromycin 500 mg/ Sodium 250 mls @ 250 mls/hr 10/23/21 16:20 10/24/21 16:24 Chloride IV Infused Q24H ALAN Infusion Protocol Insulin Human Lispro 0 unit 10/23/21 18:00 10/24/21 11:24 Insulin Lispro 100 Unit/1 Ml SUBCUT 8 unit WM&BEDTIME ALAN Administration Protocol Isosorbide Mononitrate 30 mg 10/24/21 06:00 10/24/21 05:40 Isosorbide Mononitrate Er 30 Mg Tablet PO 30 mg QAM ALAN Administration Methylprednisolone Sodium Succinate 40 mg 10/24/21 14:30 10/24/21 15:06 Methylprednisolone Sod Succ 40 Mg/Ml Inj IVP 40 mg Q12H ALAN Administration Metoprolol Tartrate 25 mg 10/23/21 18:00 10/24/21 08:21 Metoprolol Tartrate 25 Mg Tablet PO 25 mg BID ALAN Administration Pantoprazole Sodium 40 mg 10/24/21 09:00 10/24/21 08:[address] 40 Mg Tablet PO 40 mg DAILY ALAN Administration Polyethylene Glycol 17 gm 10/23/21 18:00 10/24/21 08:21 Polyethylene Glycol 3350 Pkt 17 Gm PO 17 gm BID ALAN Administration Pramipexole Dihydrochloride 1.5 mg 10/23/21 21:00 10/24/21 14:07 Pramipexole 0.25 Mg Tablet PO 1.5 mg TID ALAN Administration Tamsulosin HCl 0.4 mg 10/24/21 09:00 10/24/21 08:22 Tamsulosin 0.4 Mg Capsule PO 0.4 mg DAILY ALAN Administration PFSH Acute PFSH: Medical History (Updated 10/24/21 @ 20:07 by Malika Souza MD) BPH loc w urin obs/LUTS CHF (congestive heart failure) 2014, EF 40% with 2/4 diastolic dysfunction Chronic kidney disease Coronary artery disease Depression Diabetes mellitus Diabetic gastroparesis Diabetic neuropathy Hyperlipidemia Hypertension Peripheral artery disease Tobacco dependency Surgical History History of angioplasty Family History Mother , in her 80's Parkinsons Father , at age 71 Epilepsy Other CAD (coronary artery disease) Social History Alcohol intake: never Marital status: Current occupational status: retired History of recent travel: No Vitals/I&O/Wt Last Vital Signs Temp 97.9 F 10/24/21 15:17 Pulse 70 10/24/21 15:17 Resp 16 10/24/21 15:17 BP 112/57 10/24/21 15:17 Pulse Ox 92 10/24/21 15:17 10/24/21 10/24/21 10/24/21 06:59 14:59 22:59 Intake Total 1570 / 2390 290 / 290 250 / 540 Output Total 800 / 1201 375 / 375 Balance 770 / 1189 -85 / -85 250 / 165 Weight last 48 hrs Weight 145 lb Physical Exam Narrative: EXAM NARRATIVE: GENERAL: The patient is alert and oriented times three. Not in any acute distress. Patient is very hard of hearing. Generalized wasting. According to him, he may have lost 100 pounds in the last 3 years HEENT: No significant pallor, icterus or lymphadenopathy. The pupils are reactant to light. Oral cavity: There are no mucous membrane lesions. Funduscopic examination: The disk margins appear to be sharp with no exudates or hemorrhages. NECK: Trachea appears to be central. No masses noted. No JVD or thyromegaly appreciated. No carotid bruit. RESPIRATORY: Chest is symmetrical. No intercostals muscle retraction or any accessory muscle activation. There is no chest wall tenderness. Breath sounds are heard bilaterally. Diminished intensity of breath sounds in the bases. BREASTS: Deferred. HEART: The PMI is in the 5th left intercostals space just inside the midclavicular line. No palpable precordial events. S1 and S2 are normal. No S3 or S4 heard. No pericardial rub or any click heard. ABDOMEN: No vessel pulsations or distention. No tenderness. No organomegaly appreciated. No abdominal bruit. Bowel sounds are normally heard. : Deferred. RECTAL: Deferred. LYMPHATIC: No lymphadenopathy noted in the neck or groin. EXTREMITIES: No edema or cyanosis. No clubbing. There is generalized wasting of muscles in both legs. The peripheral pulses are palpable but very weak bilaterally MUSCULOSKELETAL: No acute joint deformities or swelling SKIN: There are no significant scars or skin rash noted. There is ulceration in the plantar aspect of the right big toe with a fat layer of exposure NEUROPSYCHIATRIC: The patient is alert and oriented x3. Appears to be in a good mood. The higher functions are grossly within normal limits. No tremors or rigidity noted. Data Micro: Micro: Microbiology 10/23/21 11:36 Blood Culture - Pr eliminary Blood NEGATIVE TO ADRYAN E 10/23/21 11:37 Blood Culture - Pr eliminary Blood NEGATIVE TO ADRYAN E 10/23/21 17:00 MRSA Culture - Fin al Nose A&P Assessment and plan (1) Acute on chronic systolic heart failure: Patient seems to be getting compensated. May continue on careful IV diuresis. Also may need to optimize the afterload reducing agents Status: Acute (2) Atherosclerosis of coronary artery of [place] heart without angina pectoris: Possibility of coronary ischemia causing heart failure and non-ST relation myocardial infarction is a consideration. For further evaluation of the coronary status, a myocardial perfusion imaging would be appropriate. This was discussed with the patient detail which is understood well and consented to proceed. Status: Acute Qualifiers: Coronary Disease-Associated Artery/Lesion type: [place] artery Qualified Code(s): I25.10 - Atherosclerotic heart disease of [place] coronary artery without angina pectoris (3) Elevated troponin: Most likely type II [place]. A type I [place] also is a consideration. After reviewing the myocardial perfusion imaging, further recommendations will be made. Status: Acute (4) COPD exacerbation: Possibly precipitate the heart failure and? Pneumonia Status: Acute (5) Pneumonia: Management as per the primary care Status: Acute Qualifiers: Pneumonia type: due to unspecified organism Laterality: bilateral Lung location: lower lobe of lung Qualified Code(s): J18.9 - Pneumonia, unspecified organism (6) Tobacco dependency: Strongly advised to quit smoking Status: Acute (7) Peripheral artery disease: Clinically seems to be stable Status: Acute (8) Hyperlipidemia: May continue on the current medications. Status: Acute Qualifiers: Hyperlipidemia type: mixed hyperlipidemia Qualified Code(s): E78.2 - Mixed hyperlipidemia (9) Chronic kidney disease: Kidney function need to be closely monitored. Status: Acute Qualifiers: Chronic kidney disease stage: stage 3 (moderate) Chronic kidney disease stage 3 subtype: stage 3b (GFR 30-44) Qualified Code(s): N18.32 - Chronic kidney disease, stage 3b (10) Diabetes mellitus: Aggressive management of diabetes would be appropriate. Status: Acute Qualifiers: Diabetes mellitus type: type 2 Diabetes mellitus residential insulin use: without termite treater helper use Diabetes mellitus complication status: with hyperglycemia Qualified Code(s): E11.65 - Type 2 diabetes mellitus with hyperglycemia Additional A&P Information Based on the patient's clinical progress on the results of the above, further recommendations will be made. Thank you for the opportunity to evaluate this patient make these recommendations Consult Attestations Medical Necessity Statement: Deferred to the primary Coding Level of Care Code Acute Engine Builder for Kimberlymicheal Fwbirgit History Detailed Exam Detailed Medical Decision Making High Complexity Diagnoses Acute on chronic systolic heart failure I50.23 Atherosclerosis of coronary artery of [place] heart without angina pectoris I25.10 Coronary Disease-Associated Artery/Lesion type: [place] artery Elevated troponin R77.8 COPD exacerbation J44.1 Pneumonia J18.9 Pneumonia type: due to unspecified organism Laterality: bilateral Lung location: lower lobe of lung Tobacco dependency F17.200 Peripheral artery disease I73.9 Hyperlipidemia E78.2 Hyperlipidemia type: mixed hyperlipidemia Chronic kidney disease N18.32 Chronic kidney disease stage: stage 3 (moderate) Chronic kidney disease stage 3 subtype: stage 3b (GFR 30-44) Diabetes mellitus E11.65 Diabetes mellitus type: type 2 Diabetes mellitus residential insulin use: without termite treater helper use Diabetes mellitus complication status: with hyperglycemia
--- NOTE | 2021-10-24 19:30 | ECG_ITS ---
[facility] Test Date: 2021-10-25 Pat Name: Phil Palumbo Department: Room: 253 Gender: Male Artificial Teeth Inspector: Cassidy Lloyd : 1950 Requested By: Malika Souza Order Number: [id number] Wes MD: Malika Souza M.D. Interpretive Statements NAME OF STUDY: LEXISCAN SESTAMIBI STRESS TEST INDICATION: Sob/elevated trop, PROCEDURE: At the baseline, the EKG revealed normal sinus rhythm with a heart rate of 70 bpm. Poor R wave progression suggesting old anteroseptal myocardial infarction. Left axis deviation. Normal QRS duration. The baseline blood pressure was 119/91 mm Hg with a heart rate of 70 beats/min. Lexiscan was infused over a period of 20 seconds. A total of 0.4 milligrams of Lexiscan was infused. The stress phase was continued for a total of 5 minutes. Heart rate at the end of the stress phase was 84 with a blood pressure 121/82. The EKG at the peak infusion revealed no significant changes. Sestamibi was injected 20 seconds after the Lexiscan infusion. Blood pressure at the end of the recovery phase was 128/68 with a heart rate of 83 per minute. CONCLUSION: 1. No significant EKG changes with the LexiScan infusion 2. No LexiScan induced chest pain or cardiac arrhythmia 3. Normal blood pressure and heart rate response 4. Sestamibi/sestamibi perfusion scan pending; see separate report. Electronically Signed On 10-27-2021 23:55:55 STEEL SHOT HEADER OPERATOR by Malika Souza M.D. [id number]
[2021-10-24 21:16] LABS: Glucose Point of Care 279 mg/dL (70-110)
[2021-10-25] VITALS (14 sets, daily range): BP systolic 108–136; BP diastolic 50–72; PULSE 59–83; RESP 16–17; TEMP 36.5–36.9; O2SAT 90–98
[2021-10-25] MEDS: enoxaparin 100 mg/mL Syringe 70 MG SUBCUT (06:27)
[2021-10-25] MEDS: isosorbide mononitrate ER 30 mg Tablet PO (06:27)
[2021-10-25 06:47] LABS: Glucose Point of Care 140 mg/dL (70-110)
[2021-10-25 06:56] LABS: Basophils % 0.1 %; Hematocrit 34.3 % (42.0-52.0); Hemoglobin 10.5 g/dL (11.7-16.6); Lymphocytes # 0.6 10^3/uL (0.8-4.8); Lymphocytes % 7.2 %; Mean Corpuscular HGB Conc 30.6 g/dL (30.0-36.0); Mean Corpuscular Hemoglobin 27.6 pg (28.0-34.0); Mean Corpuscular Volume 90.3 fl (80-94); Mean Platelet Volume 10.4 fL (7.4-10.4); Monocytes # 0.2 10^3/uL (0.2-0.9); Monocytes % 2.3 %; Neutrophils # 7.06 10^3/uL (1.8-7.7); Neutrophils % 89.8 %; Nucleated Red Blood Cells % 0 %; Platelet Count 197 10^3/cmm (130-400); Red Cell Distribution Width 14.6 % (12.1-15.1); White Blood Count 7.9 10^3/uL (4.0-10.0)
[2021-10-25 07:15] LABS: Alanine Aminotransferase 25 U/L (0-41); Albumin Level 2.7 g/dL (3.5-5.2); Alkaline Phosphatase 150 IU/L (40-130); Anion Gap 15.4 (5-19); Aspartate Amino Transferase 27 U/L (0-40); Blood Urea Nitrogen 64 mg/dL (8-23); Calcium 7.2 mg/dL (8.5-10.5); Carbon Dioxide 22 mmol/L (22-29); Chloride 106 mmol/L (98-107); Globulin 3.8 g/dL (1.3-4.6); Glomerular Filtration Rate 24.6 mL/min (90-130); Glucose 125 mg/dL (65-115); Osmolality Calculated 308 mOsm/kg (285-295); Potassium 4.4 mmol/L (3.5-5.1); Sodium 139 mmol/L (136-145); Total Bilirubin 0.2 mg/dL (0.15-1.2); Total Protein 6.5 g/dL (6.6-8.7)
[2021-10-25 07:24] LABS: NT Pro B Type Natriuretic Pept 3260 pg/mL (0-125)
[2021-10-25] MEDS: regadenoson 0.4 Mg/5 ml Syringe IVP (08:39)
[2021-10-25] MEDS: aspirin 81 mg EC Tablet PO (10:19)
[2021-10-25] MEDS: citalopram 20 mg Tablet PO (10:19)
[2021-10-25] MEDS: docusate sodium 100 mg Capsule PO ×2 (10:19→17:26)
[2021-10-25] MEDS: finasteride 5 mg Tablet PO (10:19)
[2021-10-25] MEDS: pramipexole 0.25 mg Tablet 1.5 MG PO ×3 (10:19→21:52)
[2021-10-25] MEDS: metoprolol tartrate 25 mg Tablet PO ×2 (10:19→17:26)
[2021-10-25] MEDS: tamsulosin 0.4 mg Capsule PO (10:19)
[2021-10-25] MEDS: atorvastatin 40 mg Tablet PO (10:20)
[2021-10-25] MEDS: polyethylene glycol 3350 Pkt 17 gm PO (10:20)
[2021-10-25] MEDS: pantoprazole DR 40 mg Tablet PO (10:20)
[2021-10-25] MEDS: cefTRIAXone 1,000 MG in sodium chloride 0.9% (plus) 50 ML 100 MG IV (10:20)
[2021-10-25 11:40] LABS: Glucose Point of Care 191 mg/dL (70-110)
[2021-10-25] MEDS: insulin lispro 100 unit/1 mL SUBCUT ×2 (12:47→21:52)
[2021-10-25] MEDS: ipratropium-albuterol 3 mL Neb INHALATION ×3 (13:08→20:42)
--- NOTE | 2021-10-25 14:40 | PM.PN ---
Subjective Subjective: Interval history: Patient was seen and examined this morning, denies any shortness of breath, chest pain , palpitations.His other vitals and labs have been reviewed. Medications: Medication Review Details: Generic Name Dose Route Start Last Admin Trade Name Radha PRN Reason Stop Dose Admin Albuterol/Ipratrop ium 3 ml 10/23/21 16:20 10/25/21 16:16 Ipratropium-Albu terol 3 Ml Neb INHALATION Not Given QID.RESPIRATORY S CH Aspirin 81 mg 10/23/21 16:30 10/25/21 10:19 Aspirin 81 Mg Ec Tablet PO 81 mg DAILY ALAN Administration Atorvastatin Calci um 40 mg 10/24/21 09:00 10/25/21 10:20 Atorvastatin 40 Mg Tablet PO 40 mg DAILY ALAN Administration Budesonide 0.5 mg 10/23/21 20:00 10/25/21 16:16 Budesonide 0.5 M g/2 Ml Neb INHALATION Not Given BID.RESPIRATORY S CH Citalopram Hydrobr omide 20 mg 10/24/21 09:00 10/25/21 10:19 Citalopram 20 Mg Tablet PO 20 mg DAILY ALAN Administration Docusate Sodium 100 mg 10/23/21 18:00 10/25/21 17:26 Docusate Sodium 100 Mg Capsule PO 100 mg BID ALAN Administration Finasteride 5 mg 10/24/21 09:00 10/25/21 10:19 Finasteride 5 Mg Tablet PO 5 mg DAILY ALAN Administration Ceftriaxone Sodium 1,000 mg/ 50 mls @ 100 mls/ hr 10/24/21 08:00 10/25/21 10:52 Sodium Chloride IV Infused Q24H ALAN Infusion Protocol Azithromycin 500 m g/ Sodium 250 mls @ 250 mls /hr 10/23/21 16:20 10/25/21 17:08 Chloride IV Infused Q24H ALAN Infusion Protocol Insulin Detemir 15 unit 10/24/21 21:00 10/25/21 10:19 Insulin Detemir 100 Units/1 Ml SUBCUT 15 unit Q12H ALAN Administration Insulin Human Lisp ro 0 unit 10/23/21 18:00 10/25/21 17:20 Insulin Lispro 1 00 Unit/1 Ml SUBCUT Not Given WM&BEDTIME ALAN Protocol Isosorbide Mononit rate 30 mg 10/24/21 06:00 10/25/21 06:27 Isosorbide Rowe itrate Er 30 Mg Ta blet PO 30 mg QAM ALAN Administration Methylprednisolone Sodium Succinate 40 mg 10/24/21 14:30 10/25/21 12:47 Methylprednisolo ne Sod Succ 40 Mg/ Ml Inj IVP 40 mg Q12H ALAN Administration Metoprolol Tartrat e 25 mg 10/23/21 18:00 10/25/21 17:26 Metoprolol Tartr ate 25 Mg Tablet PO 25 mg BID [facility] Administration Pantoprazole Sodiu m 40 mg 10/24/21 09:00 10/25/21 10:[address] 40 Mg Tablet PO 40 mg DAILY [facility] Administration Polyethylene Glyco l 17 gm 10/23/21 18:00 10/25/21 17:26 Polyethylene Gly col 3350 Pkt 17 Gm PO Not Given BID [facility] Pramipexole Dihydr ochloride 1.5 mg 10/23/21 21:00 10/25/21 14:52 Pramipexole 0.25 Mg Tablet PO 1.5 mg TID [facility] Administration Tamsulosin HCl 0.4 mg 10/24/21 09:00 10/25/21 10:19 Tamsulosin 0.4 M g Capsule PO 0.4 mg DAILY [facility] Administration Vitals/I&O/Wt Last Vital Signs Temp 98.0 F 10/25/21 11:52 Pulse 70 10/25/21 13:13 Resp 16 10/25/21 13:13 BP 121/66 10/25/21 11:52 Pulse Ox 97 10/25/21 13:13 10/24/21 10/25/21 10/25/21 22:59 06:59 14:59 Intake Total 490 / 780 290 / 290 Output Total 200 / 575 900 / 1475 Balance 290 / 205 -900 / -695 290 / 290 Physical Exam Const: COMMON NORMALS: patient oriented x3 HENMT: COMMON NORMALS: normocephalic and atraumatic HEAD & SCALP: normocephalic and atraumatic Chest: CHEST: Yes Symmetrical chest wall rise Resp: COMMON NORMALS: clear to auscultation bilaterally EFFORT & INSPECTION: Yes symmetric chest movement AUSCULTATION: clear to auscultation bilaterally Cardio: COMMON NORMALS: regular rate, regular rhythm, S1 normal heart sound present, S2 normal heart sound present, No gallops present (Cardio), No murmurs present (Cardio), No rub (Cardio) and Peripheral pulses 2+ throughout RATE: regular rate RHYTHM: regular rhythm HEART SOUNDS: S1 normal heart sound present and S2 normal heart sound present PERIPHERAL PULSES: Peripheral pulses 2+ throughout GI: COMMON NORMALS: Normal to inspection, nondistended, normoactive bowel sounds present, Soft to palpation, non-tender, No hepatosplenomegaly present and no masses AUSCULTATION: Yes normoactive bowel sounds PALPATION: Yes Soft to palpation and Yes No hepatosplenomegaly present RECTAL EXAM: Yes deferred : COMMON NORMALS: Yes no CVA tenderness BLADDER/KIDNEY EXAM: Yes no CVA tenderness Back/Pelvis: COMMON NORMALS: no CVA tenderness Extremity: COMMON NORMALS: no clubbing, cyanosis or edema and no pedal edema Neuro: COMMON NORMALS: patient oriented x3 Data : 10/25/21 06:36 10/25/21 06:36 Micro: Microbiology 10/23/21 11:36 Blood Culture - Preliminary Blood NEGATIVE TO DATE 10/23/21 11:37 Blood Culture - Preliminary Blood NEGATIVE TO DATE 10/23/21 17:00 MRSA Culture - Final Nose A&P Assessment and plan (1) COPD exacerbation: COPD exacerbation -Wheezing on exam, requiring 2 L , chest x-ray showing bilateral pneumonia lower lobe - coutinue Rocephin and azithromycin -Solu-Medrol 40 every 12 hours -Follow blood cultures, sputum cultures, Covid PCR, rapid flu -Monitor respiratory status closely -Continue DuoNeb Type 2 diabetes mellitus, Levemir 10 units twice daily, moderate dose sliding scale Diastolic CHF exacerbation, possible systolic -Elevated BNP, crackles on exam -Lasix as needed. CAD, NSTEMI -No chest pain complaints -EKG shows left anterior fascicular block, Q waves in V1 to V4 -Baseline troponin 135 -6-hour 145, delta 10.7 -BNP over 5000 -Continue aspirin, statin, therapeutic Lovenox -Cardiac echocardiogram pending -Awaiting stress test -Cardiology consulted CKD, creatinine at baseline at 2.3 Monitor BMP Status: Acute (2) CHF (congestive heart failure): Status: Acute (3) Chronic kidney disease: Status: Acute (4) Diabetes mellitus: Status: Acute (5) CAD (coronary artery disease): Status: Acute (6) Pneumonia: Status: Acute (7) NSTEMI (non-ST elevated myocardial infarction): Status: Acute Attestations Medical Necessity Statement*: Still in hospital for management of NSTEMI. Coding Level of Care Code Acute Tire Groover for g Fwd Exam Comprehensive Diagnoses COPD exacerbation J44.1 CHF (congestive heart failure) I50.9 Chronic kidney disease N18.9 Diabetes mellitus E11.9 CAD (coronary artery disease) I25.10 Pneumonia J18.9 NSTEMI (non-ST elevated myocardial infarction) I21.4
[2021-10-25] MEDS: azithromycin 500 MG in sodium chloride 0.9% 250 ML 250 MG IV (16:07)
[2021-10-25 17:21] LABS: Glucose Point of Care 122 mg/dL (70-110)
--- NOTE | 2021-10-25 19:30 | NMCV_ITS ---
NM cr perf SPECT r/s* [id number] Phil Palumbo Age: 71 Gender: M : 1950 Exam Date: 10/25/2021 07:07 Ordering Phys: Malika Souza MD ([email or web address]) Technologist: GOYO Shabazz Exam Location: [facility] Indications: DIFF BREATHING STRESS TEST Please see separate stress test report in [facility] for full findings IMAGE PROTOCOL Rest/Stress 1 Lexiscan Day Radiopharmaceutical Dose (mCi) Administration Site Administered by Rest: Tc-99m 10.8 IV GOYO Lundberg Sestamibi Stress:Tc-99m 32.9 IV GOYO Shabazz Sestamicristhian Rest: 25-Oct-2021 60 Discovery 630 Stress: 25-Oct-2021 30 Discovery 630 0.4mg Lexiscan. Supine position only as patient was unable to lay prone. SPECT RESULTS Technical Quality: Good Raw Data Analysis: Normal Image Corrections: No attenuation or motion correction applied Summed Stress Score: 14 Summed Rest Score: 15 Summed Difference Score: 0 PERFUSION FINDINGS Moderate area of moderately decreased tracer uptake was noted in the basal, mid and apical inferior region, with no significant reversibility. Areas of severely decreased tracer uptake was noted in the apical septal, anterior, lateral and apex. No significant reversibility was noted in these regions. FUNCTIONAL RESULTS (calculated via Gated SPECT) Stress Image LV EF (%): 41 Stress EDV (mL):177 TID: 0.91 Stress ESV (mL):104 FUNCTIONAL FINDINGS: LV wall motion analysis revealing severe diffuse hypokinesis of the LV apex with mild hypokinesia of the inferior wall and the septum. IMPRESSIONS 1. Areas of persistent decreasesed tracer uptake in the inferior wall and apical segments suggesting myocardial scarring in the distribution of all the 3 coronary arteries with no significant ischemia. 2. Initial ejection fraction of 41%. 3. Multiple wall motion abnormalities as mentioned above. 4. Moderately dilated LV cavity with an end-systolic volume of 104 mL. No similar previous studies are available for comparison Dr Malika Souza MD [facility] (Electronically Signed) Final Date: 25 October 2021 13:44 S
--- NOTE | 2021-10-25 19:38 | P.PN_ITS ---
Subjective Subjective: Interval history: Patient is feeling better. He had a myocardial perfusion imaging today. He was found to have mild to moderate area of fixed defect in the apex and apical lateral region with a subtle area of reversibility.in the apex. Patient has no chest pain. No unusual shortness of breath. No other specific complaints. Medications: Reviewed: Yes Medication Review Details: Current Medications Acetaminophen (Acetaminophen 325 Mg Tablet) 650 mg PO Q6H PRN PRN Reason: Mild/Mod Pain Or Temp >/= 101 Albuterol/Ipratropium (Ipratropium-Albuterol 3 Ml Neb) 3 ml INHALATION QID.RESPIRATORY [facility] Last Admin: 10/25/21 16:16 Dose: Not Given Documented by: Aminophylline (Aminophylline 25 Mg/Ml Sdv 10 Ml) 25 mg IVP Q2M PRN PRN Reason: see dose instructions Stop: 10/26/21 06:36 Aspirin (Aspirin 81 Mg Ec Tablet) 81 mg PO DAILY [facility] Last Admin: 10/25/21 10:19 Dose: 81 mg Documented by: Atorvastatin Calcium (Atorvastatin 40 Mg Tablet) 40 mg PO DAILY [facility] Last Admin: 10/25/21 10:20 Dose: 40 mg Documented by: Budesonide (Budesonide 0.5 Mg/2 Ml Neb) 0.5 mg INHALATION BID.RESPIRATORY [facility] Last Admin: 10/25/21 16:16 Dose: Not Given Documented by: Citalopram Hydrobromide (Citalopram 20 Mg Tablet) 20 mg PO DAILY [facility] Last Admin: 10/25/21 10:19 Dose: 20 mg Documented by: Dextrose (Dextrose 50% Syringe 50 Ml) 25 ml IVP ONCE PRN; Protocol PRN Reason: hypoglycemia protocol Dextrose (Dextrose 50% Syringe 50 Ml) 50 ml IVP PRN PRN; Protocol PRN Reason: hypoglycemia protocol Docusate Sodium (Docusate Sodium 100 Mg Capsule) 100 mg PO BID [facility] Last Admin: 10/25/21 17:26 Dose: 100 mg Documented by: Enoxaparin Sodium (Enoxaparin 100 Mg/Ml Syringe) 70 mg 1 mg/kg (70 mg) SUBCUT Q24H [facility] Finasteride (Finasteride 5 Mg Tablet) 5 mg PO DAILY [facility] Last Admin: 10/25/21 10:19 Dose: 5 mg Documented by: Glucagon (Glucagon 1 Mg/Ml Inj 1 Ml) 1 mg IM ONCE PRN; Protocol PRN Reason: Adult Acute Hypoglycemia Prot. Ceftriaxone Sodium 1,000 mg/ (Sodium Chloride) 50 mls @ 100 mls/hr IV Q24H [facility]; Protocol Last Infusion: 10/25/21 10:52 Dose: Infused Documented by: Azithromycin 500 mg/ Sodium (Chloride) 250 mls @ 250 mls/hr IV Q24H [facility]; P rotocol Last Infusion: 10/25/21 17:08 Dose: Infused Documented by: Dextrose (D5w) 500 mls @ 100 mls/hr IV ONCE PRN; Protocol PRN Reason: Adult Acute Hypoglycemia Prot Insulin Detemir (Insulin Detemir 100 Units/1 Ml) 15 unit SUBCUT Q12H [facility] Last Admin: 10/25/21 10:19 Dose: 15 unit Documented by: Insulin Human Lispro (Insulin Lispro 100 Unit/1 Ml) 0 unit SUBCUT WM&BEDTIME [facility]; Protocol Last Admin: 10/25/21 17:20 Dose: Not Given Documented by: Isosorbide Mononitrate (Isosorbide Mononitrate Er 30 Mg Tablet) 30 mg PO QAM [facility] Last Admin: 10/25/21 06:27 Dose: 30 mg Documented by: Lactulose (Lactulose Oral Liq 20 Gm/30 Ml Udc) 10 gm PO DAILY PRN; Protocol PRN Reason: Constipation (see protocol) Methylprednisolone Sodium Succinate (Methylprednisolone Sod Succ 40 Mg/Ml Inj) 40 mg IVP Q12H [facility] Last Admin: 10/25/21 12:47 Dose: 40 mg Documented by: Metoprolol Tartrate (Metoprolol Tartrate 25 Mg Tablet) 25 mg PO BID [facility] Last Admin: 10/25/21 17:26 Dose: 25 mg Documented by: Naloxone HCl (Naloxone 0.4 Mg/Ml Sdv) 0.1 mg IVP Q2M PRN PRN Reason: OPIATERV Nitroglycerin (Nitroglycerin 0.4 Mg Sublingual Tablet) 0.4 mg SUBLINGUAL Q5M PRN PRN Reason: CHEST PAIN Stop: 10/26/21 06:36 Ondansetron HCl (Ondansetron 2 Mg/Ml Sdv 2 Ml) 4 mg IVP Q6H PRN PRN Reason: NAUSEA AND VOMITING Ondansetron HCl (Ondansetron 2 Mg/Ml Sdv 2 Ml) 4 mg IVP Q2M PRN PRN Reason: NAUSEA Oxycodone HCl (Oxycodone 5 Mg Ir Tab/Cap) 5 mg PO Q6H PRN PRN Reason: PAIN Pantoprazole Sodium (Pantoprazole Dr 40 Mg Tablet) 40 mg PO DAILY [facility] Last Admin: 10/25/21 10:20 Dose: 40 mg Documented by: Polyethylene Glycol (Polyethylene Glycol 3350 Pkt 17 Gm) 17 gm PO BID [facility] Last Admin: 10/25/21 17:26 Dose: Not Given Documented by: Pramipexole Dihydrochloride (Pramipexole 0.25 Mg Tablet) 1.5 mg PO TID [facility] Last Admin: 10/25/21 14:52 Dose: 1.5 mg Documented by: Tamsulosin HCl (Tamsulosin 0.4 Mg Capsule) 0.4 mg PO DAILY [facility] Last Admin: 10/25/21 10:19 Dose: 0.4 mg Documented by: Vitals/I&O/Wt Last Vital Signs Temp 98.5 F 10/25/21 15:43 Pulse 70 10/25/21 16:22 Resp 16 10/25/21 16:22 BP 108/50 10/25/21 15:43 Pulse Ox 96 10/25/21 16:22 10/25/21 10/25/21 10/25/21 06:59 14:59 22:59 Intake Total 290 / 290 490 / 780 Output Total 900 / 1475 Balance -900 / -695 290 / 290 490 / 780 Physical Exam Narrative: EXAM NARRATIVE: GENERAL: The patient is alert and oriented times three. Not in any acute distress. Patient is very hard of hearing. Generalized wasting. According to him, he may have lost 100 pounds in the last 3 years HEENT: No significant pallor, icterus or lymphadenopathy. Oral cavity: There are no mucous membrane lesions. NECK: Trachea appears to be central. No masses noted. No JVD or thyromegaly appreciated. No carotid bruit. RESPIRATORY: Chest is symmetrical. No intercostals muscle retraction or any accessory muscle activation. There is no chest wall tenderness. Breath sounds are heard bilaterally. Diminished intensity of breath sounds in the bases. BREASTS: Deferred. HEART: The PMI is in the 5th left intercostals space just in the midclavicular line. No palpable precordial events. S1 and S2 are normal. No S3 or S4 heard. No pericardial rub or any click heard. ABDOMEN: No vessel pulsations or distention. No tenderness. No organomegaly appreciated. No abdominal bruit. Bowel sounds are normally heard. : Deferred. RECTAL: Deferred. LYMPHATIC: No lymphadenopathy noted in the neck or groin. EXTREMITIES: No edema or cyanosis. No clubbing. MUSCULOSKELETAL: No acute joint deformities or swelling SKIN: There are no significant scars or skin rash noted. There is ulceration in the plantar aspect of the right big toe with a fat layer of exposure NEUROPSYCHIATRIC: The patient is alert and oriented x3. Appears to be in a good mood. The higher functions are grossly within normal limits. No tremors or rigidity noted. Data : 10/25/21 06:36 10/25/21 06:36 A&P Assessment and plan (1) Acute on chronic systolic heart failure: Patient seems to be getting compensated. The patient may benefit from Entresto. However since her kidney function is getting worse, I may hold off on this for the time being. I may discontinue the IV Lasix. Start him on torsemide 40 mg p.o. daily Status: Acute (2) Atherosclerosis of coronary artery of [place] heart without angina pectoris: The implications of the myocardial perfusion imaging results are discussed with the patient in detail. Since the area of ischemia is very small, and also in the absence of any chest pain, he may not require any cardiac catheterization at this point. We will try to optimize medical treatment. Status: Acute Qualifiers: Coronary Disease-Associated Artery/Lesion type: [place] artery Qualified Code(s): I25.10 - Atherosclerotic heart disease of [place] coronary artery without angina pectoris (3) Elevated troponin: Most likely type II [place]. May continue on the current medications for the time being. I may discontinue the Lovenox at this time. Keep him on prophylactic dose of Lovenox for DVT. Status: Acute (4) COPD exacerbation: Possibly precipitate the heart failure and? Pneumonia Status: Acute (5) Pneumonia: Management as per the primary care Status: Acute (6) Tobacco dependency: Strongly advised to quit smoking Status: Acute (7) Peripheral artery disease: Clinically seems to be stable Status: Acute (8) Hyperlipidemia: May continue on the current medications. Status: Acute Qualifiers: Hyperlipidemia type: mixed hyperlipidemia Qualified Code(s): E78.2 - Mixed hyperlipidemia (9) Chronic kidney disease: Kidney function need to be closely monitored. Status: Acute (10) Diabetes mellitus: Aggressive management of diabetes would be appropriate. Status: Acute Additional A&P Information Discontinue the therapeutic dose of Lovenox. Lovenox 40 mg subcu daily. Torsemide 40 mg daily Potassium 8 mEq daily Discontinue IV Lasix The patient continues remain stable, possible discharge home tomorrow Attestations Medical Necessity Statement*: Patient requires continued hospital stay for close monitoring and further management Coding Level of Care Code Acute Silo Filler for Kimberlyg Fwd History Detailed Exam Detailed Medical Decision Making Moderate Complexity Diagnoses Acute on chronic systolic heart failure I50.23 Atherosclerosis of coronary artery of teller heart without angina pectoris I25.10 Coronary Disease-Associated Artery/Lesion type: [place] artery Elevated troponin R77.8 COPD exacerbation J44.1 Pneumonia J18.9 Tobacco dependency F17.200 Peripheral artery disease I73.9 Hyperlipidemia E78.2 Hyperlipidemia type: mixed hyperlipidemia Chronic kidney disease N18.9 Diabetes mellitus E11.9
[2021-10-25] MEDS: budesonide 0.5 mg/2 mL Neb INHALATION (20:42)
[2021-10-25 21:27] LABS: Glucose Point of Care 258 mg/dL (70-110)
[2021-10-25 21:36] LABS: Potassium 4.9 mmol/L (3.5-5.1)
[2021-10-25] MEDS: enoxaparin 30 mg/0.3 mL Syringe SUBCUT (21:52)
[2021-10-26] VITALS (9 sets, daily range): BP systolic 126–147; BP diastolic 68–79; PULSE 60–89; RESP 16; TEMP 36.6–36.7; O2SAT 85–93
[2021-10-26] MEDS: isosorbide mononitrate ER 30 mg Tablet PO (05:31)
[2021-10-26 06:03] LABS: Basophils % 0.1 %; Hematocrit 31.2 % (42.0-52.0); Hemoglobin 9.9 g/dL (11.7-16.6); Lymphocytes # 0.5 10^3/uL (0.8-4.8); Lymphocytes % 7.4 %; Mean Corpuscular HGB Conc 31.7 g/dL (30.0-36.0); Mean Corpuscular Volume 88.4 fl (80-94); Mean Platelet Volume 10.2 fL (7.4-10.4); Monocytes # 0.2 10^3/uL (0.2-0.9); Monocytes % 2.9 %; Neutrophils # 6.47 10^3/uL (1.8-7.7); Neutrophils % 88.9 %; Nucleated Red Blood Cells % 0 %; Platelet Count 176 10^3/cmm (130-400); Red Blood Count 3.53 10^6/uL (4.1-5.3); Red Cell Distribution Width 14.8 % (12.1-15.1); White Blood Count 7.3 10^3/uL (4.0-10.0)
[2021-10-26 06:42] LABS: Alanine Aminotransferase 30 U/L (0-41); Albumin Level 2.6 g/dL (3.5-5.2); Alkaline Phosphatase 131 IU/L (40-130); Anion Gap 15.3 (5-19); Aspartate Amino Transferase 32 U/L (0-40); Blood Urea Nitrogen 58 mg/dL (8-23); Calcium 7.1 mg/dL (8.5-10.5); Carbon Dioxide 21 mmol/L (22-29); Chloride 105 mmol/L (98-107); Globulin 3.5 g/dL (1.3-4.6); Glomerular Filtration Rate 28.3 mL/min (90-130); Glucose 57 mg/dL (65-115); Osmolality Calculated 298 mOsm/kg (285-295); Potassium 4.3 mmol/L (3.5-5.1); Sodium 137 mmol/L (136-145); Total Bilirubin 0.2 mg/dL (0.15-1.2); Total Protein 6.1 g/dL (6.6-8.7)
[2021-10-26 06:44] LABS: Magnesium 2.1 mg/dL (1.7-2.3); Phosphorus 2.5 mg/dL (2.5-4.5)
[2021-10-26 06:45] LABS: Glucose Point of Care 90 mg/dL (70-110)
[2021-10-26 06:46] LABS: NT Pro B Type Natriuretic Pept 3773 pg/mL (0-125)
[2021-10-26] MEDS: ipratropium-albuterol 3 mL Neb INHALATION ×2 (08:18→13:00)
[2021-10-26] MEDS: budesonide 0.5 mg/2 mL Neb INHALATION (08:18)
[2021-10-26] MEDS: pramipexole 0.25 mg Tablet 1.5 MG PO ×2 (08:20→16:02)
[2021-10-26] MEDS: docusate sodium 100 mg Capsule PO (08:20)
[2021-10-26] MEDS: finasteride 5 mg Tablet PO (08:20)
[2021-10-26] MEDS: TORSEmide 20 mg Tablet 40 MG PO (08:20)
[2021-10-26] MEDS: metoprolol tartrate 25 mg Tablet PO (08:20)
[2021-10-26] MEDS: atorvastatin 40 mg Tablet PO (08:20)
[2021-10-26] MEDS: citalopram 20 mg Tablet PO (08:20)
[2021-10-26] MEDS: aspirin 81 mg EC Tablet PO (08:20)
[2021-10-26] MEDS: tamsulosin 0.4 mg Capsule PO (08:20)
[2021-10-26] MEDS: cefTRIAXone 1,000 MG in sodium chloride 0.9% (plus) 50 ML 100 MG IV (08:21)
[2021-10-26] MEDS: potassium chloride ER 10 mEq Tablet PO (08:22)
[2021-10-26] MEDS: pantoprazole DR 40 mg Tablet PO (08:22)
--- NOTE | 2021-10-26 09:20 | PC.SOCIAL ---
IMM Update pg 2 of IMM updated and reviewed w/ patient. Copy provided.
--- NOTE | 2021-10-26 09:35 | P.PN_ITS ---
Subjective Subjective: Interval history: The patient is feeling okay. No chest pain or chest tightness. No shortness of breath. Vital signs remained stable. The kidney function also seems to be stable. Medications: Reviewed: Yes Medication Review Details: Current Medications Acetaminophen (Acetaminophen 325 Mg Tablet) 650 mg PO Q6H PRN PRN Reason: Mild/Mod Pain Or Temp >/= 101 Albuterol/Ipratropium (Ipratropium-Albuterol 3 Ml Neb) 3 ml INHALATION QID.RESPIRATORY [facility] Last Admin: 10/25/21 20:42 Dose: 3 ml Documented by: Aspirin (Aspirin 81 Mg Ec Tablet) 81 mg PO DAILY [facility] Last Admin: 10/26/21 08:20 Dose: 81 mg Documented by: Atorvastatin Calcium (Atorvastatin 40 Mg Tablet) 40 mg PO DAILY [facility] Last Admin: 10/26/21 08:20 Dose: 40 mg Documented by: Budesonide (Budesonide 0.5 Mg/2 Ml Neb) 0.5 mg INHALATION BID.RESPIRATORY [facility] Last Admin: 10/25/21 20:42 Dose: 0.5 mg Documented by: Citalopram Hydrobromide (Citalopram 20 Mg Tablet) 20 mg PO DAILY [facility] Last Admin: 10/26/21 08:20 Dose: 20 mg Documented by: Dextrose (Dextrose 50% Syringe 50 Ml) 25 ml IVP ONCE PRN; Protocol PRN Reason: hypoglycemia protocol Dextrose (Dextrose 50% Syringe 50 Ml) 50 ml IVP PRN PRN; Protocol PRN Reason: hypoglycemia protocol Docusate Sodium (Docusate Sodium 100 Mg Capsule) 100 mg PO BID [facility] Last Admin: 10/26/21 08:20 Dose: 100 mg Documented by: Enoxaparin Sodium (Enoxaparin 30 Mg/0.3 Ml Syringe) 30 mg SUBCUT Q24H [facility] Last Admin: 10/25/21 21:52 Dose: 30 mg Documented by: Finasteride (Finasteride 5 Mg Tablet) 5 mg PO DAILY [facility] Last Admin: 10/26/21 08:20 Dose: 5 mg Documented by: Glucagon (Glucagon 1 Mg/Ml Inj 1 Ml) 1 mg IM ONCE PRN; Protocol PRN Reason: Adult Acute Hypoglycemia Prot. Ceftriaxone Sodium 1,000 mg/ (Sodium Chloride) 50 mls @ 100 mls/hr IV Q24H [facility]; Protocol Last Infusion: 10/26/21 08:52 Dose: Infused Documented by: Azithromycin 500 mg/ Sodium (Chloride) 250 mls @ 250 mls/hr IV Q24H [facility]; Protocol Last Infusion: 10/25/21 17:08 Dose: Infused Documented by: Dextrose (D5w) 500 mls @ 100 mls/hr IV ONCE PRN; Protocol PRN Reason: Adult Acute Hypoglycemia Prot Insulin Detemir (Insulin Detemir 100 Units/1 Ml) 15 unit SUBCUT Q12H [facility] Last Admin: 10/26/21 08:21 Dose: 15 unit Documented by: Insulin Human Lispro (Insulin Lispro 100 Unit/1 Ml) 0 unit SUBCUT WM&BEDTIME [facility]; Protocol Last Admin: 10/26/21 07:32 Dose: Not Given Documented by: Isosorbide Mononitrate (Isosorbide Mononitrate Er 30 Mg Tablet) 30 mg PO QAM [facility] Last Admin: 10/26/21 05:31 Dose: 30 mg Documented by: Lactulose (Lactulose Oral Liq 20 Gm/30 Ml Udc) 10 gm PO DAILY PRN; Protocol PRN Reason: Constipation (see protocol) Methylprednisolone Sodium Succinate (Methylprednisolone Sod Succ 40 Mg/Ml Inj) 40 mg IVP Q12H [facility] Last Admin: 10/26/21 01:45 Dose: 40 mg Documented by: Metoprolol Tartrate (Metoprolol Tartrate 25 Mg Tablet) 25 mg PO BID [facility] Last Admin: 10/26/21 08:20 Dose: 25 mg Documented by: Naloxone HCl (Naloxone 0.4 Mg/Ml Sdv) 0.1 mg IVP Q2M PRN PRN Reason: OPIATERV Ondansetron HCl (Ondansetron 2 Mg/Ml Sdv 2 Ml) 4 mg IVP Q6H PRN PRN Reason: NAUSEA AND VOMITING Ondansetron HCl (Ondansetron 2 Mg/Ml Sdv 2 Ml) 4 mg IVP Q2M PRN PRN Reason: NAUSEA Oxycodone HCl (Oxycodone 5 Mg Ir Tab/Cap) 5 mg PO Q6H PRN PRN Reason: PAIN Pantoprazole Sodium (Pantoprazole Dr 40 Mg Tablet) 40 mg PO DAILY [facility] Last Admin: 10/26/21 08:22 Dose: 40 mg Documented by: Polyethylene Glycol (Polyethylene Glycol 3350 Pkt 17 Gm) 17 gm PO BID [facility] Last Admin: 10/26/21 08:22 Dose: Not Given Documented by: Potassium Chloride (Potassium Chloride Er 10 Meq Tablet) 10 meq PO DAILY [facility] Last Admin: 10/26/21 08:22 Dose: 10 meq Documented by: Pramipexole Dihydrochloride (Pramipexole 0.25 Mg Tablet) 1.5 mg PO TID [facility] Last Admin: 10/26/21 08:20 Dose: 1.5 mg Documented by: Tamsulosin HCl (Tamsulosin 0.4 Mg Capsule) 0.4 mg PO DAILY [facility] Last Admin: 10/26/21 08:20 Dose: 0.4 mg Documented by: Torsemide (Torsemide 20 Mg Tablet) 40 mg PO 0800 [facility] Last Admin: 10/26/21 08:20 Dose: 40 mg Documented by: Vitals/I&O/Wt Last Vital Signs Temp 97.9 F 10/26/21 07:37 Pulse 68 10/26/21 07:37 Resp 16 10/26/21 07:37 BP 129/70 10/26/21 07:37 Pulse Ox 92 10/26/21 07:37 10/25/21 10/26/21 10/26/21 22:59 06:59 14:59 Intake Total 810 / 1100 480 / 1580 290 / 290 Output Total 420 / 420 760 / 1180 400 / 400 Balance 390 / 680 -280 / 400 -110 / -110 Physical Exam Narrative: EXAM NARRATIVE: GENERAL: The patient is alert and oriented times three. Not in any acute distress. Patient is very hard of hearing. Generalized wasting. According to him, he may have lost 100 pounds in the last 3 years HEENT: No significant pallor, icterus or lymphadenopathy. Oral cavity: There are no mucous membrane lesions. NECK: Trachea appears to be central. No masses noted. No JVD or thyromegaly appreciated. No carotid bruit. RESPIRATORY: Chest is symmetrical. No intercostals muscle retraction or any accessory muscle activation. There is no chest wall tenderness. Breath sounds are heard bilaterally. Diminished intensity of breath sounds in the bases. BREASTS: Deferred. HEART: The PMI is in the 5th left intercostals space just in the midclavicular line. No palpable precordial events. S1 and S2 are normal. No S3 or S4 heard. No pericardial rub or any click heard. ABDOMEN: No vessel pulsations or distention. No tenderness. No organomegaly appreciated. No abdominal bruit. Bowel sounds are normally heard. : Deferred. RECTAL: Deferred. LYMPHATIC: No lymphadenopathy noted in the neck or groin. EXTREMITIES: No edema or cyanosis. No clubbing. MUSCULOSKELETAL: No acute joint deformities or swelling SKIN: There are no significant scars or skin rash noted. There is ulceration in the plantar aspect of the right big toe with a fat layer of exposure NEUROPSYCHIATRIC: The patient is alert and oriented x3. Appears to be in a good mood. The higher functions are grossly within normal limits. No tremors or rigidity noted. Data : 10/26/21 04:51 10/26/21 04:51 Other Labs: Laboratory Last Values WBC 7.3 10^3/uL (4.0-10.0) 10/26/21 04:51 RBC 3.53 10^6/uL (4.1-5.3) L 10/26/21 04:51 Hgb 9.9 g/dL (11.7-16.6) L 10/26/21 04:51 Hct 31.2 % (42.0-52.0) L 10/26/21 04:51 MCV 88.4 fl (80-94) 10/26/21 04:51 MCH 28.0 pg (28.0-34.0) 10/26/21 04:51 MCHC 31.7 g/dL (30.0-36.0) 10/26/21 04:51 RDW 14.8 % (12.1-15.1) 10/26/21 04:51 Plt Count 176 10^3/cmm (130-400) 10/26/21 04:51 MPV 10.2 fL (7.4-10.4) 10/26/21 04:51 Neut % (Auto) 88.9 % 10/26/21 04:51 Lymph % (Auto) 7.4 % 10/26/21 04:51 [place] % (Auto) 2.9 % 10/26/21 04:51 Eos % (Auto) 0.0 % 10/26/21 04:51 Baso % (Auto) 0.1 % 10/26/21 04:51 Neut # (Auto) 6.47 10^3/uL (1.8-7.7) 10/26/21 04:51 Lymph # (Auto) 0.5 10^3/uL (0.8-4.8) L 10/26/21 04:51 [place] # (Auto) 0.2 10^3/uL (0.2-0.9) 10/26/21 04:51 Eos # (Auto) 0.0 10^3/uL (0.0-0.8) 10/26/21 04:51 Baso # (Auto) 0.0 10^3/uL (0.0-0.1) 10/26/21 04:51 Nucleated RBC % (auto) 0 % 10/26/21 04:51 Nucleated RBCs # 0.0 /100WBC 10/26/21 04:51 Specimen Type Arterial 10/23/21 09:38 Sample Site Radial, left 10/23/21 09:38 ABG pH 7.40 (7.35-7.45) 10/23/21 09:38 ABG pCO2 39.0 mmHg (35-45) 10/23/21 09:38 ABG pO2 58.9 mmHg (80.0-100.0) L 10/23/21 09:38 ABG HCO3 24.3 mmol/L (22-26) 10/23/21 09:38 ABG O2 Saturation 91.8 10/23/21 09:38 ABG Base Excess -0.3 mmol/L (-2.0-2.0) 10/23/21 09:38 Andrey Test Pos 10/23/21 09:38 A-a O2 Gradient 5.3 mmHg (5-10) 10/23/21 09:38 Hematocrit 34.6 % (42-52) L 10/23/21 09:38 Hgb O2 Saturation 89.1 % (95-100) L 10/23/21 09:38 Carboxyhemoglobin 2.1 %THgb (0.4-20.1) 10/23/21 09:38 Methemoglobin 0.9 % (0.4-1.5) 10/23/21 09:38 Total Hemoglobin 11.3 g/dL (14-18) L 10/23/21 09:38 Sodium 139.0 mmol/L (131-143) 10/23/21 09:38 Potassium 4.6 mmol/L (3.5-5.0) 10/23/21 09:38 Glucose 191.0 mg/dL (70-115) H 10/23/21 09:38 Ionized Calcium 1.2 mmol/L (1.1-1.4) 10/23/21 09:38 O2 Delivery Device Room air 10/23/21 09:38 FiO2 21.0 % 10/23/21 09:38 Branch Director ID [place] 10/23/21 09:38 Sodium 137 mmol/L (136-145) 10/26/21 04:51 Potassium 4.3 mmol/L (3.5-5.1) 10/26/21 04:51 Chloride 105 mmol/L (98-107) 10/26/21 04:51 Carbon Dioxide 21 mmol/L (22-29) L 10/26/21 04:51 Anion Gap 15.3 (5-19) 10/26/21 04:51 BUN 58 mg/dL (8-23) H 10/26/21 04:51 Creatinine 2.3 mg/dL (0.7-1.2) H 10/26/21 04:51 GFR Calculation 28.3 mL/min (90-130) L 10/26/21 04:51 Glucose 57 mg/dL (65-115) L 10/26/21 04:51 POC Glucose 90 mg/dL (70-110) 10/26/21 06:32 Estimat Average Glucose 189 10/23/21 09:25 Hemoglobin A1c 8.2 % (4.0-6.0) H 10/23/21 09:25 Calculated Osmolality 298 mOsm/kg (285-295) H 10/26/21 04:51 Calcium 7.1 mg/dL (8.5-10.5) L 10/26/21 04:51 Phosphorus 2.5 mg/dL (2.5-4.5) 10/26/21 04:51 Magnesium 2.1 mg/dL (1.7-2.3) 10/26/21 04:51 Total Bilirubin 0.2 mg/dL (0.15-1.2) 10/26/21 04:51 AST 32 U/L (0-40) 10/26/21 04:51 ALT 30 U/L (0-41) 10/26/21 04:51 Alkaline Phosphatase 131 IU/L (40-130) H 10/26/21 04:51 Troponin T Baseline 135 ng/L (0-15) H* 10/23/21 18:03 Troponin T 120 Minute 126.0 ng/L (0-15) H 10/23/21 20:07 Delta Troponin T -9.0 ABS# (0-10) L 10/23/21 20:07 Troponin T Hi Sens 6Hr 145.7 ng/L (0-15) H 10/24/21 00:20 Troponin T Hi Sens 6Hr Delta 10.7 ng/L (0-12) 10/24/21 00:20 NT-Pro-B Natriuret Pep 3773 pg/mL (0-125) H 10/26/21 04:51 Total Protein 6.1 g/dL (6.6-8.7) L 10/26/21 04:51 Albumin 2.6 g/dL (3.5-5.2) L 10/26/21 04:51 Globulin 3.5 g/dL (1.3-4.6) 10/26/21 04:51 Procalcitonin 0.10 ng/mL (0-0.5) 10/24/21 04:33 TSH 0.48 uIU/mL (0.27-4.20) 10/23/21 18:03 Coronavirus 229E (PCR) Not detected (NOT DETECT) 10/23/21 17:00 Influenza Type A Ag Negative (Negative) 10/23/21 17:00 Influenza Type B Ag Negative (Negative) 10/23/21 17:00 SARS-CoV-2 (PCR) Not detected (NOT DETECT) 10/23/21 17:00 A&P Assessment and plan (1) Acute on chronic systolic heart failure: Patient seems to be getting compensated. The patient may benefit from Entresto. However since his kidney function is getting worse, I may hold off on this for the time being. Patient may be cut back on the dose of torsemide to 20 mg p.o. daily Status: Acute (2) Atherosclerosis of coronary artery of [place] heart without angina pectoris: The implications of the myocardial perfusion imaging results are discussed with the patient in detail. Since the area of ischemia is very small, and also in the absence of any chest pain, he may not require any cardiac catheterization at this point. We will try to optimize medical treatment. Status: Acute Qualifiers: Coronary Disease-Associated Artery/Lesion type: [place] artery Qualified Code(s): I25.10 - Atherosclerotic heart disease of [place] coronary artery without angina pectoris (3) Elevated troponin: Most likely type II [place]. May continue on the current medications for the time being. I may discontinue the Lovenox at this time. Keep him on prophylactic dose of Lovenox for DVT. Status: Acute (4) COPD exacerbation: Possibly precipitate the heart failure and? Patient is afebrile. May benefit from home O2 evaluation. Status: Acute (5) Pneumonia: Management as per the primary care Status: Acute (6) Tobacco dependency: Strongly advised to quit smoking Status: Acute (7) Peripheral artery disease: Clinically seems to be stable Status: Acute (8) Hyperlipidemia: May continue on the current medications. Status: Acute Qualifiers: Hyperlipidemia type: mixed hyperlipidemia Qualified Code(s): E78.2 - Mixed hyperlipidemia (9) Chronic kidney disease: The BUN/creatinine level seems to be getting stabilized. Status: Acute (10) Diabetes mellitus: Aggressive management of diabetes would be appropriate. Status: Acute Additional A&P Information Discontinue the therapeutic dose of Lovenox. Lovenox 40 mg subcu daily. Torsemide 40 mg daily Potassium 8 mEq daily Discontinue IV Lasix The patient continues remain stable, possible discharge home tomorrow Attestations Medical Necessity Statement*: The patient continues remain stable, may be discharged home today. Appointment the [facility] to be seen by nurse practitioner next week. Appointment with me in the office in [address] Peck Coding Level of Care Code Acute Lumber Buyer for Elisabeth Krishnamurthy History Detailed Exam Detailed Medical Decision Making Moderate Complexity Diagnoses Acute on chronic systolic heart failure I50.23 Atherosclerosis of coronary artery of [place] heart without angina pectoris I25.10 Coronary Disease-Associated Artery/Lesion type: [place] artery Elevated troponin R77.8 COPD exacerbation J44.1 Pneumonia J18.9 Tobacco dependency F17.200 Peripheral artery disease I73.9 Hyperlipidemia E78.2 Hyperlipidemia type: mixed hyperlipidemia Chronic kidney disease N18.9 Diabetes mellitus E11.9
[2021-10-26 11:00] LABS: Glucose Point of Care 284 mg/dL (70-110)
--- NOTE | 2021-10-26 11:35 | PM.DCS ---
Discharge Providers Date of Admission: 10/23/21 12:36 Date of Discharge: October 26, 2021 Attending Provider at Admission: Malik Donis MD Attending Provider at Discharge: Henry Peck MD Primary Care Provider: Melissa Boswell MD Diagnoses at Discharge Discharge Diagnosis (1) Acute on chronic systolic heart failure: Status: Acute (2) Atherosclerosis of coronary artery of [place] heart without angina pectoris: Status: Acute Qualifiers: Coronary Disease-Associated Artery/Lesion type: [place] artery Qualified Code(s): I25.10 - Atherosclerotic heart disease of [place] coronary artery without angina pectoris (3) Elevated troponin: Status: Acute (4) COPD exacerbation: Status: Acute (5) Pneumonia: Status: Acute (6) Tobacco dependency: Status: Acute (7) Peripheral artery disease: Status: Acute (8) Hyperlipidemia: Status: Acute Qualifiers: Hyperlipidemia type: mixed hyperlipidemia Qualified Code(s): E78.2 - Mixed hyperlipidemia (9) Chronic kidney disease: Status: Acute (10) Diabetes mellitus: Status: Acute Reason for Visit Reason for Visit: DIFF BREATHING Hospital Course Hospital Course 71 year old male with a past medical history of CAD, CHF systolic and diastolic, insulin-dependent type 2 diabetes mellitus, hypertension, hyperlipidemia, smoker, BPH, COPD, who presents to [facility] for increased shortness of breath, productive cough. During the hospital stay he was managed for COPD exacerbation, NSTEMI type II, decompensated heart failure, As well as pneumonia. He was kept on IV antibiotics, IV steroids , IV diuresis, aspirin statin and therapeutic anticoagulation, duo nebs, supplemental oxygen as needed, 2D echo was done during the hospital stay: Which showed, Normal LV size with diminished ejection fraction of 45%. Diffuse hypokinesia of the mid and apical anteroseptal segments. Hypokinetic LV apex.mild left ventricular hypertrophy.Mild mitral annular calcification. Systolic anterior motion of the mitral leaflet. Trace to mild tricuspid valve regurgitation. Thickened aortic valve. There is no pericardial effusion. Estimated pulmonary artery peak systolic pressure 38 mmHg. Patient also underwent nuclear stress test: LV wall motion analysis revealing severe diffuse hypokinesis of the LV apex with mild hypokinesia of the inferior wall and the septum.Areas of persistent decreasesed tracer uptake in the inferior wall and apical segments suggesting myocardial scarring in the distribution of all the 3 coronary arteries with no significant ischemia. Initial ejection fraction of 41%. Moderately dilated LV cavity with an end-systolic volume of 104 mL. Cardiology was on board, patient was chest pain-free during the hospital stay, plan is to continue with optimum medical management.lower Extremity Doppler vein was also done during the hospital stay to rule out DVT. CT chest without contrast done: During the hospital stay: Showed:No acute pulmonary abnormality. Centrilobular emphysema. Trace bilateral pleural effusions. 7 mm right lower lobe pulmonary nodule. Blood cultures were negative, MRSA culture was negative, at the time of discharge patient qualified for 2 L home oxygen on exertion, he was discharged on prednisone 40 mg p.o. daily for additional 7 days, torsemide 20 mg p.o. daily, albuterol and Advair inhaler has been started. Patient will follow with cardiology as well as, primary care and pulmonary medicine as an outpatient. Patient responded well to above medical management and is being discharged in stable condition to home. Physical Exam Const: COMMON NORMALS: patient oriented x3 HENMT: COMMON NORMALS: normocephalic and atraumatic HEAD & SCALP: normocephalic and atraumatic Chest: CHEST: Yes Symmetrical chest wall rise Resp: COMMON NORMALS: clear to auscultation bilaterally EFFORT & INSPECTION: Yes symmetric chest movement AUSCULTATION: clear to auscultation bilaterally Cardio: COMMON NORMALS: regular rate, regular rhythm, S1 normal heart sound present, S2 normal heart sound present, No gallops present (Cardio), No murmurs present (Cardio), No rub (Cardio) and Peripheral pulses 2+ throughout RATE: regular rate RHYTHM: regular rhythm HEART SOUNDS: S1 normal heart sound present and S2 normal heart sound present PERIPHERAL PULSES: Peripheral pulses 2+ throughout GI: COMMON NORMALS: Normal to inspection, nondistended, normoactive bowel sounds present, Soft to palpation, non-tender, No hepatosplenomegaly present and no masses AUSCULTATION: Yes normoactive bowel sounds PALPATION: Yes Soft to palpation and Yes No hepatosplenomegaly present RECTAL EXAM: Yes deferred : COMMON NORMALS: Yes no CVA tenderness BLADDER/KIDNEY EXAM: Yes no CVA tenderness Back/Pelvis: COMMON NORMALS: no CVA tenderness Extremity: COMMON NORMALS: no clubbing, cyanosis or edema and no pedal edema Neuro: COMMON NORMALS: patient oriented x3 Discharge Data Data Completed and Pending: Completed Studies During Hospitalization Category Date Time Status CT chest wo con 7 [id number] Urgent Cat Scan 10/23/21 16:20 Completed Sestamibi Stress Test Request Routi ne Exams 10/24/21 19:30 Draft XR chest 1V cesar ble [id number] Stat Exams 10/23/21 09:17 Completed NM cr perf SPECT r/s* [id number] Routin e Nuc Med 10/25/21 19:30 [place] [id number] Routin e Ultrasound 10/24/21 16:29 Completed CV. echo complete * [id number] Routine Ultrasound 10/24/21 16:27 Completed Pending at discharge Category Date Time Status Blood Culture Sta t Lab 10/23/21 11:36 Results Complete Blood Co unt w/Auto AM LABS Lab 10/27/21 04:00 Ordered Comprehensive Met abolic Panel AM LA BS Lab 10/27/21 04:00 Ordered Sputum Culture an d Gram Stain Stat Lab 10/23/21 10:46 Uncollected Labs from last 24 hours 10/26/21 10/26/21 10/26/21 10:54 06:32 04:51 WBC RBC Hgb Hct MCV MCH MCHC RDW Plt Count MPV Neut % (Auto) Lymph % (Auto) Early % (Auto) Eos % (Auto) Baso % (Auto) Neut # (Auto) Lymph # (Auto) Early # (Auto) Eos # (Auto) Baso # (Auto) Nucleated RBC % (a uto) Nucleated RBCs # Sodium Potassium Chloride Carbon Dioxide Anion Gap BUN Creatinine GFR Calculation Glucose POC Glucose 284 H 90 Calculated Osmolal ity Calcium Phosphorus Magnesium Total Bilirubin AST ALT Alkaline Phosphata se NT-Pro-B Natriuret Pep 3773 H Total Protein Albumin Globulin 10/26/21 10/26/21 10/26/21 04:51 04:51 04:51 WBC 7.3 RBC 3.53 L Hgb 9.9 L Hct 31.2 L MCV 88.4 MCH 28.0 MCHC 31.7 RDW 14.8 Plt Count 176 MPV 10.2 Neut % (Auto) 88.9 Lymph % (Auto) 7.4 Early % (Auto) 2.9 Eos % (Auto) 0.0 Baso % (Auto) 0.1 Neut # (Auto) 6.47 Lymph # (Auto) 0.5 L Early # (Auto) 0.2 Eos # (Auto) 0.0 Baso # (Auto) 0.0 Nucleated RBC % (a uto) 0 Nucleated RBCs # 0.0 Sodium 137 Potassium 4.3 Chloride 105 Carbon Dioxide 21 L Anion Gap 15.3 BUN 58 H Creatinine 2.3 H GFR Calculation 28.3 L Glucose 57 L POC Glucose Calculated Osmolal ity 298 H Calcium 7.1 L Phosphorus 2.5 Magnesium 2.1 Total Bilirubin 0.2 AST 32 ALT 30 Alkaline Phosphata se 131 H NT-Pro-B Natriuret Pep Total Protein 6.1 L Albumin 2.6 L Globulin 3.5 10/25/21 10/25/21 10/25/21 21:12 20:53 17:18 WBC RBC Hgb Hct MCV MCH MCHC RDW Plt Count MPV Neut % (Auto) Lymph % (Auto) Early % (Auto) Eos % (Auto) Baso % (Auto) Neut # (Auto) Lymph # (Auto) Early # (Auto) Eos # (Auto) Baso # (Auto) Nucleated RBC % (a uto) Nucleated RBCs # Sodium Potassium 4.9 Chloride Carbon Dioxide Anion Gap BUN Creatinine GFR Calculation Glucose POC Glucose 258 H 122 H Calculated Osmolal ity Calcium Phosphorus Magnesium Total Bilirubin AST ALT Alkaline Phosphata se NT-Pro-B Natriuret Pep Total Protein Albumin Globulin 10/25/21 11:35 WBC RBC Hgb Hct MCV MCH MCHC RDW Plt Count MPV Neut % (Auto) Lymph % (Auto) Early % (Auto) Eos % (Auto) Baso % (Auto) Neut # (Auto) Lymph # (Auto) Early # (Auto) Eos # (Auto) Baso # (Auto) Nucleated RBC % (a uto) Nucleated RBCs # Sodium Potassium Chloride Carbon Dioxide Anion Gap BUN Creatinine GFR Calculation Glucose POC Glucose 191 H Calculated Osmolal ity Calcium Phosphorus Magnesium Total Bilirubin AST ALT Alkaline Phosphata se NT-Pro-B Natriuret Pep Total Protein Albumin Globulin Vitals: Last Vital Signs Temp 97.9 F 10/26/21 07:37 Pulse 68 10/26/21 07:37 Resp 16 10/26/21 07:37 BP 129/70 10/26/21 07:37 Pulse Ox 92 10/26/21 07:37 Discharge Plan Discharge Patient Disposition: Home Condition: Stable Prescriptions: New potassium chloride 10 mEq Tablet Extended Release 10 meq PO DAILY 30 Days Qty: 30 RF: 1 prednisone 20 mg tablet 40 mg PO DAILY 7 Days Qty: 14 RF: 0 ProAir HFA 90 mcg/actuation HFA aerosol inhaler 1 inh inhalation Q6H PRN (Reason: shortness of breath or wheezing) Qty: 8.5 RF: 1 Advair HFA 115-21 mcg/actuation HFA aerosol inhaler 2 inh inhalation BID Qty: 12 RF: 1 Continued isosorbide mononitrate 30 mg tablet extended release 24 hr 30 mg PO QAM RF: 0 citalopram 20 mg tablet 20 mg PO DAILY RF: 0 tamsulosin 0.4 mg capsule 0.4 mg PO DAILY RF: 0 pramipexole 1.5 mg tablet 1.5 mg PO TID RF: 0 finasteride 5 mg tablet 5 mg PO DAILY RF: 0 metoprolol tartrate 25 mg tablet 25 mg PO BID RF: 0 Tresiba FlexTouch U-100 100 unit/mL (3 mL) insulin pen 24 unit SUBCUT DAILY RF: 0 polyethylene glycol 3350 17 gram Powder In Packet 17 g PO BID Qty: 100 RF: 0 pantoprazole 40 mg Tablet,Delayed Release (Dr/Ec) 40 mg PO DAILY Qty: 30 RF: 0 atorvastatin 40 mg Tablet 40 mg PO DAILY RF: 0 oxycodone 5 mg Tablet 5 mg PO Q6H PRN (Reason: PAIN) RF: 0 Changed torsemide 10 mg tablet 20 mg PO DAILY 30 Days Qty: 30 RF: 0 Discharge Orders: Discharge Order (Routine); Ordered 10/26/21 Ordered By: Henry Peck Other Ambulatory Orders: DME: Oxygen (Order) Location: None Selected Ordered By: Henry Peck Referrals: [facility] [Outside] DatarHilario MD [Physician] - 11/22/21 8:30 am Malika Souza MD [Physician] - 12/13/21 10:30 am Melissa Boswell MD [Primary Care Provider] - 11/02/21 8:45 am Discharge Diet: Cardiac Discharge Activity: Resume usual activity and Increase activity as tolerated Patient Instructions: Albuterol (By mouth), Prednisone (By mouth), Potassium Chloride (By mouth), Fluticasone/Salmeterol (By breathing), Opioid Safety Discharge Attestations Time Spent in Discharge Care*: less than 30 min Specific Discharge Activities: educating patient, educating and/or supporting family/caregiver, discussing with pcp/other providers, discussing with upper caser/social workers/dc planners, documenting/other paperwork and evaluating patient/reviewing data Time Spent in Smoking Cessation: more than 10 minutes Status at Discharge: Cognitive status at discharge: cognitively intact, Behavioral status at discharge: cooperative, Functional status at discharge: independent ambulation Overall status at discharge: patient is back to baseline Quality Metrics Clinical Quality Measures During this hospital stay, did patient experience: None Coding Level of Care Code Acute Chg FW DC note Diagnoses Acute on chronic systolic heart failure I50.23 Atherosclerosis of coronary artery of [place] heart without angina pectoris I25.10 Coronary Disease-Associated Artery/Lesion type: [place] artery Elevated troponin R77.8 COPD exacerbation J44.1 Pneumonia J18.9 Tobacco dependency F17.200 Peripheral artery disease I73.9 Hyperlipidemia E78.2 Hyperlipidemia type: mixed hyperlipidemia Chronic kidney disease N18.9 Diabetes mellitus E11.9
[2021-10-26] MEDS: insulin lispro 100 unit/1 mL SUBCUT (13:03)
[2021-10-26] MEDS: azithromycin 250 mg Tablet 500 MG PO (16:00)
[2021-10-26 17:16] LABS: Glucose Point of Care 157 mg/dL (70-110)
--- NOTE | 2021-10-26 18:13 | PC.NURSE ---
DISCHARGE INSTRUCTIONS REVIEWED WITH PATIENT AND BROTHER, BOTH VERBALIZED UNDERSTANDING. IV REMOVED, TIP INTACT, PATIENT TOLERATED WELL. PATIENT TAKEN TO PRIVATE VEHICLE IN ON PORTABLE OXYGEN .
== END 2021-10-26 17:30 | disposition home health service (06) | DRG 190 ==
LOC: ER 13:54 → MEDSURG 14:13
PROVIDERS: Internal Medicine Cardiovascular Disease; Admitting Provider Family Medicine; Emergency Provider Family Medicine; PCP Family Medicine; Visit Provider Internal Medicine
DX: J44.1 Chronic obstructive pulmonary disease with (acute) exacerbation (principal); I50.43 Acute on chronic combined systolic (congestive) and diastolic (congestive) heart failure; I21.A1 Myocardial infarction type 2; J18.9 Pneumonia, unspecified organism; I13.0 Hypertensive heart and chronic kidney disease with heart failure and stage 1 through stage 4 chronic kidney disease, or unspecified chronic kidney disease; J44.0 Chronic obstructive pulmonary disease with (acute) lower respiratory infection; N18.32 Chronic kidney disease, stage 3b; E11.22 Type 2 diabetes mellitus with diabetic chronic kidney disease; E11.65 Type 2 diabetes mellitus with hyperglycemia; F17.210 Nicotine dependence, cigarettes, uncomplicated; Z86.16 Personal history of COVID-19; N40.1 Benign prostatic hyperplasia with lower urinary tract symptoms; I25.10 Atherosclerotic heart disease of native coronary artery without angina pectoris; Z95.5 Presence of coronary angioplasty implant and graft; F32.A Depression, unspecified; E78.2 Mixed hyperlipidemia; D63.1 Anemia in chronic kidney disease; Z79.891 Long term (current) use of opiate analgesic; Z79.4 Long term (current) use of insulin; E11.621 Type 2 diabetes mellitus with foot ulcer; L97.519 Non-pressure chronic ulcer of other part of right foot with unspecified severity
CPT/HCPCS: 36415; 36416; 36600; 71045; 71250; 78452; 80048; 80051; 80053; 82330; 82805; 82962; 83036; 83735; 83880; 84100; 84132; 84145; 84443; 84484; 85025; 87040; 87635; 87641; 87804; 93005; 93017; 93306; 93970; 94640; 94664; 96365; 96372; 96375; 97116; 97161; 97165; 97530; 99212; 99285; A9500; J0456; J0696; J1100; J1650; J1815; J1940; J1956; J2785; J2920; J7050; J7626; Q0144

== ENCOUNTER → 2021-12-13 11:45 | Outpatient (BNVA) | payer MEDICARE, SELFPAY | PROVIDERS: PCP Family Medicine; Visit Provider Internal Medicine Cardiovascular Disease | DX: R06.02 Shortness of breath (principal); I50.23 Acute on chronic systolic (congestive) heart failure; I50.33 Acute on chronic diastolic (congestive) heart failure | CPT/HCPCS: 80048; 83880 ==

== ENCOUNTER → 2022-06-01 14:20 | Outpatient (BNVA) | payer MEDICARE, SELFPAY | PROVIDERS: PCP Family Medicine; Visit Provider Nurse Practitioner Family | DX: I11.0 Hypertensive heart disease with heart failure (principal); I50.23 Acute on chronic systolic (congestive) heart failure; I25.10 Atherosclerotic heart disease of native coronary artery without angina pectoris; R94.31 Abnormal electrocardiogram [ECG] [EKG]; R00.1 Bradycardia, unspecified | CPT/HCPCS: 80048; 83880; 85025; 93005; 99214 ==

== ENCOUNTER → 2022-06-20 14:33 | Outpatient (BNVA) | payer MEDICARE, SELFPAY | PROVIDERS: PCP Family Medicine; Visit Provider Internal Medicine Pulmonary Disease | DX: J43.9 Emphysema, unspecified (principal); Z09 Encounter for follow-up examination after completed treatment for conditions other than malignant neoplasm; R06.00 Dyspnea, unspecified; R91.1 Solitary pulmonary nodule; I25.10 Atherosclerotic heart disease of native coronary artery without angina pectoris; F17.210 Nicotine dependence, cigarettes, uncomplicated | CPT/HCPCS: 99214 ==

== ENCOUNTER 2022-06-29 08:12 | Outpatient (CLI) | payer MEDICARE, SELFPAY ==
--- NOTE | 2022-06-29 08:37 | US_ITS ---
WS: [id number] Limited abdomen ultrasound, LEFT lower quadrant. HISTORY: LEFT lower quadrant mass. COMPARISON: None. Ultrasound is directed to the LEFT lower quadrant by the patient. There is a large amount shadowing f rom GI tract content. No discrete mass or displacement of the bowel loops. No free fluid is identifie d. US/US abdomen limited [id number] IMPRESSION: Unremarkable LEFT lower quadrant ultrasound. No mass identified.
--- NOTE | 2022-06-29 09:50 | PFTS_ITS ---
Date of Study:06/29/22 Date of Dictation: MECHANICS: Forced vital capacity (FVC) is . Forced expiratory volume in one second (FEV1) is . FEV1/FVC is . FLOW VOLUME LOOP: . LUNG VOLUMES: Total lung capacity (TLC) is . Residual volume (RV) is . DIFFUSING CAPACITY FOR CARBON MONOXIDE: . INTERPRETATION: The pulmonary function tests are . mechanics and lung volumes. Gas exchange (DLCO) is . MTDD
== END 2022-06-29 08:13 | disposition home or self-care (01) ==
LOC: RAD 08:16
PROVIDERS: PCP Family Medicine; Visit Provider Internal Medicine Pulmonary Disease
DX: R19.00 Intra-abdominal and pelvic swelling, mass and lump, unspecified site (principal); J44.9 Chronic obstructive pulmonary disease, unspecified
CPT/HCPCS: 76705; 94060; 94618; J7611

== ENCOUNTER 2022-07-18 14:22 | Outpatient (CLI) | payer MEDICARE, SELFPAY ==
[2022-06-29 10:07] VITALS: BP 137/85; BP 138/89
--- NOTE | 2022-07-18 14:30 | CT_ITS ---
WS: [id number] CT CHEST WITHOUT INTRAVENOUS CONTRAST HISTORY: 6 month f/u lung nodule TECHNIQUE: Contiguous 5 mm axial imaging performed on the thorax. Coronal and sagittal reformats are submitted. All CT scans at [facility] use at least one of these dose optimization techniques: automated exposure control; mA and/or kV adjustment per patient size (includes targeted exams where dose is matched to clinical indication); or iterative reconstruction. CONTRAST: None DLP: 1289.46 mGy.cm COMPARISON: 10/23/2019 and 11/15/2020 Lungs and central airway: Moderate elevation of the LEFT hemidiaphragm. Study is limited by motion ar tifact. There is evidence for centrilobular emphysema. Poorly defined 6 mm nodule at the azygoesophag eal recess is reidentified. No change in size since 11/15/2020. Compressive atelectasis at the LEFT juancarlos ng base due to the elevated diaphragm. Pleura: No effusions. Heart and pericardium: Mild cardiomegaly with severe coronary artery calcifications. Mediastinum and shania: Lymph nodes would be difficult to exclude without IV contrast. Vessels: Moderate atherosclerosis aorta. Calcification continues into the proximal great vessels. Chest wall and lower neck: Mild substernal goiter. Upper abdomen: Elevated LEFT hemidiaphragm. Calcifications in the splenic artery and suprarenal aorta . Remote nonhealed rib fractures inferior lateral LEFT thorax. Severe RIGHT curvature thoracic spine. T 12 and L1 and T10 compression fractures. Progression of fracture at the T10 level. CT/CT chest wo con [id number] IMPRESSION: 1. No change in size of the 6 mm ill-defined nodule in the RIGHT azygoesophage al recess. Stable since 11/15/2020. Consider 12 month follow-up CT. 2. Chronic elevated LEFT hemidiaphragm. 3. Severe coronary artery calcifications. 4. Chronic emphysema. 5. Chronic compression fractures at T10, T12 and L1 with progression of the fr acture at T10.
== END 2022-07-18 14:23 | disposition home or self-care (01) ==
LOC: RAD 14:23
PROVIDERS: PCP Family Medicine; Visit Provider Internal Medicine Pulmonary Disease
DX: R91.1 Solitary pulmonary nodule (principal); J98.6 Disorders of diaphragm; I25.10 Atherosclerotic heart disease of native coronary artery without angina pectoris; J43.9 Emphysema, unspecified; S22.080A Wedge compression fracture of T11-T12 vertebra, initial encounter for closed fracture; S32.010A Wedge compression fracture of first lumbar vertebra, initial encounter for closed fracture; S22.070A Wedge compression fracture of T9-T10 vertebra, initial encounter for closed fracture; X58.XXXA Exposure to other specified factors, initial encounter
CPT/HCPCS: 71250; 94618

== ENCOUNTER 2022-07-27 14:51 | Outpatient (CLI) | payer MEDICARE, SELFPAY ==
--- NOTE | 2022-07-27 14:59 | XR_ITS ---
WS: [id number] DEXA (DUAL ENERGY X-RAY ABSORPTIOMETRY) Bone mineral density was performed using a [employer] machine. HISTORY: OSTEOPOROSIS W/O CURRENT PATHOLOGICAL FX COMPARISON: 07/02/2020 Lumbar spine BMD (L1-L4): 1.485 T score: 2.0 Z score: 3.1 Total hip BMD: Left: 0.738 g/cm2. T score: -2.5 Z score: -1.5 Right: 0.705 g/cm2. T score: -2.7 Z score: -1.7 10 year probability of a major osteoporotic fracture is 30%. Compared to the prior study from 07/02/2020. Lumbar spine bone mineral density has decrease by 1.5%. Bilateral hips bone mineral density has decreased by 7.7%. RIGHT curvature lumbar spine. XR/XR DEXA axial skeleton* [id number] IMPRESSION: OSTEOPOROSIS based upon the WHO classification for females. Significant decrease in bone mineral density within the hips since the prior .
== END 2022-07-27 14:52 | disposition home or self-care (01) ==
LOC: RAD 14:52
PROVIDERS: PCP Family Medicine; Visit Provider Nurse Practitioner
DX: M81.0 Age-related osteoporosis without current pathological fracture (principal)
CPT/HCPCS: 77080

== ENCOUNTER 2022-08-08 09:05 | Outpatient (CLI) | payer MEDICARE, SELFPAY ==
--- NOTE | 2022-08-08 09:30 | USCV_ITS ---
Phil Palumbo Age: 72 Gender: M : 1950 Exam Date: 08/08/2022 09:52 Ordering Phys: Nicole Villagomez Technologist: Edelmira Barry [place] [facility] [place]: Systolic CHF, worsening dyspnea BP: 129 / 82 HR: 59 Rhythm: Sinus Technical Quality: Adequate MEASUREMENTS (Male / Female) Normal Values 2D ECHO LV Diastolic Diameter PLAX 3.8 cm 4.2 - 5.9 / 3.9 - 5.3 cm LV Systolic Diameter PLAX 3.0 cm IVS Diastolic Thickness 1.3 cm 0.6 - 1.0 / 0.6 - 0.9 cm IVS Systolic Thickness 1.2 cm LVPW Diastolic Thickness 1.3 cm 0.6 - 1.0 / 0.6 - 0.9 cm LVPW Systolic Thickness 1.5 cm LVOT Diameter 2.2 cm LV Ejection Fraction 2D Teich 44.2 % LV Ejection Fraction MOD 2C 58.8 % LV Ejection Fraction 2C AL 58.6 % LA Diameter 2.6 cm LA Width 3.4 cm LA Height 4.8 cm RA Width 3.2 cm RA Height 4.7 cm Aorta at Sinotubular Diameter 3.4 cm IVC Diameter 1.1 cm DOPPLER AV Peak Velocity 86.0 cm/s LVOT Peak Velocity 69.0 cm/s AV Area Cont Eq vti 3.0 cm squared AV Area Cont Eq pk 3.0 cm squared MV Peak Velocity 110.0 cm/s MV Area PHT 2.4 cm squared Mitral E to A Ratio 0.5 MV E' Velocity 26.0 cm/s Mitral E to MV E' Ratio 13.1 Mitral E to LV E' Lateral Ratio 16.8 Mitral E to LV E' Septal Ratio 10.8 TR Peak Velocity 68.0 cm/s TR Peak Gradient 1.8 mmHg Right Atrial Pressure 3.0 mmHg Pulmonary Artery Systolic Pressu 4.8 mmHg PV Peak Velocity 78.0 cm/s RV Acceleration Time 0.1 s RV Ejection Time 0.3 s RV AcT/ET 0.3 FINDINGS Left Ventricle Normal left ventricular cavity size. Mildly decreased left ventricular systolic function. Left ventricular ejection fraction is estimated at 45%. There is hypokinesis of mid to apical anteroseptal, apical inferior and apical cote. Grade I diastolic dysfunction (abnormal relaxation filling pattern), normal to mildly elevated filling pressures. Right Ventricle Normal right ventricular size and systolic function. Right Atrium Normal right atrial size. Left Atrium Normal left atrial size. Mitral Valve Mild mitral annular calcification. Mildly thickened mitral valve. Redundant chordae. No mitral valve stenosis. Trace mitral valve regurgitation. Aortic Valve Mildly thickened trileaflet aortic valve. No aortic valve stenosis. No aortic valve regurgitation. Tricuspid Valve Structurally normal tricuspid valve. No tricuspid valve stenosis. Mild tricuspid valve regurgitation. Pulmonic Valve Pulmonic valve not well visualized. Pericardium No pericardial effusion. Aorta Normal size aortic root and proximal ascending aorta. IVC Normal IVC dimension with >50% respiratory change of the inferior vena cava. CONCLUSIONS 1. This is a technically difficult study. 2. Normal left ventricular cavity size. Mildly decreased left ventricular systolic function. Left ventricular ejection fraction is estimated at 45%. There is hypokinesis of mid to apical anteroseptal, apical inferior and apical cote. Grade I diastolic dysfunction (abnormal relaxation filling pattern), normal to mildly elevated filling pressures. 3. Mildly thickened mitral valve. Redundant chordae. Trace mitral valve regurgitation. 4. Mild tricuspid valve regurgitation. 5. There may not have been any significant change when compared to study dated 10/24/2021. Rhonda Olea MD (Electronically Signed) Final Date: 11 August 2022 13:28 S
== END 2022-08-08 09:06 | disposition home or self-care (01) ==
LOC: RAD 09:05
PROVIDERS: PCP Family Medicine; Visit Provider Nurse Practitioner Family
DX: I50.23 Acute on chronic systolic (congestive) heart failure (principal); I10 Essential (primary) hypertension; I25.10 Atherosclerotic heart disease of native coronary artery without angina pectoris; I08.1 Rheumatic disorders of both mitral and tricuspid valves
CPT/HCPCS: 93306

== ENCOUNTER 2022-09-22 16:13 | Inpatient (IN) | payer MEDICARE, SELFPAY ==
[2022-09-22] VITALS (11 sets, daily range): BP systolic 87–132; BP diastolic 54–78; PULSE 66–86; RESP 12–19; TEMP 36.5; O2SAT 86–100
[2022-09-22 18:16] LABS: Basophils % 0.4 %; Eosinophils % 0.4 %; Hematocrit 41.2 % (42.0-52.0); Hemoglobin 13.2 g/dL (11.7-16.6); Lymphocytes # 1.1 10^3/uL (0.8-4.8); Mean Corpuscular Volume 96.7 fl (80-94); Mean Platelet Volume 10.2 fL (7.4-10.4); Monocytes # 0.7 10^3/uL (0.2-0.9); Monocytes % 6.7 %; Neutrophils # 8.61 10^3/uL (1.8-7.7); Nucleated Red Blood Cells % 0 %; Platelet Count 144 10^3/cmm (130-400); Red Blood Count 4.26 10^6/uL (4.1-5.3); Red Cell Distribution Width 14.9 % (12.1-15.1); White Blood Count 10.5 10^3/uL (4.0-10.0)
[2022-09-22 18:36] LABS: Alanine Aminotransferase 32 U/L (0-41); Albumin Level 3.1 g/dL (3.5-5.2); Alkaline Phosphatase 123 U/L (40-130); Anion Gap 14.3 (5-19); Aspartate Amino Transferase 28 U/L (0-40); Calcium 10.3 mg/dL (8.5-10.5); Carbon Dioxide 27 mmol/L (22-29); Chloride 99 mmol/L (98-107); Globulin 4.3 g/dL (1.3-4.6); Glucose 126 mg/dL (65-115); Osmolality Calculated 310 mOsm/kg (285-295); Potassium 4.3 mmol/L (3.5-5.1); Sodium 136 mmol/L (136-145); Total Bilirubin 0.6 mg/dL (0.15-1.2); Total Protein 7.4 g/dL (6.6-8.7)
[2022-09-22 18:40] LABS: Blood Urea Nitrogen 87 mg/dL (8-23)
--- NOTE | 2022-09-22 18:53 | XRR_ITS ---
PROCEDURE INFORMATION: Exam: XR Chest Exam date and time: 09/22/2022 7:13 PM Age: 72 years old Clinical indication: Other: UTI; Additional info: Weakness TECHNIQUE: Imaging protocol: Radiologic exam of the chest. Views: 1 view. COMPARISON: CT chest con [id number] 07/18/2022 2:31 PM FINDINGS: Lungs: Lung volumes are low. There is mild fine reticular a platelike opacity in both lung bases, greater on the left. There is no consolidation. Pleural spaces: There is no pleural effusion or pneumothorax. Heart/Mediastinum: The cardiac silhouette is partially obscured by the left diaphragm. Diaphragm: There is mild asymmetric elevation of the left hemidiaphragm. Bones/joints: Bones are unremarkable. XR/XR chest 1V portable [id number] IMPRESSION: Opacity in the lung bases likely represents subsegmental atelectasis.
--- NOTE | 2022-09-22 19:07 | PC.NURSE ---
report given to sanjeev contreras assumed care.
--- NOTE | 2022-09-22 19:24 | ED_ITS ---
HPI - Weakness General: Chief complaint: Weakness Stated complaint: Bad UTI kidney is hurting Time Seen by Provider: 09/22/22 18:52 Source: patient Mode of arrival: ambulatory Limitations: no limitations History of Present Illness: 72-year-old is here with family states has been having increased urination along with some flank pain and generalized weakness. They are concerned that he may have a urinary tract infection believe that he is also dehydrated. He has had a decreased appetite has had no diarrhea he is afebrile here his pain has been cramping in nature. Associated symptoms: Denies chest pain, chills, dysuria, easy bruising, fever(s), headache(s), nausea or vomiting Review of Systems Const: Denies: fever(s), chills, body aches or change in appetite Eyes: Denies: blurry vision or eye discomfort ENMT: Denies: throat pain or dental pain Card: Denies: chest pain Resp: Denies: dyspnea GI: Denies: abdominal pain, nausea, vomiting or diarrhea : Denies: dysuria Musc: Denies: neck pain or back pain Skin/Breast: Denies: rash Neuro: Denies: headache(s) Psych: Denies: depression [place]/Lymph: Denies: easy bruising All/Imm: Denies: urticaria PFSH ED PFSH: Medical History Acute on chronic systolic heart failure Atherosclerosis of coronary artery of [place] heart without angina pectoris BPH loc w urin obs/LUTS CAD (coronary artery disease) CHF (congestive heart failure) 2014, EF 40% with 2/4 diastolic dysfunction Chronic kidney disease COPD exacerbation Coronary artery disease Depression Diabetes mellitus Diabetic gastroparesis Diabetic neuropathy Elevated troponin Hyperlipidemia Hypertension NSTEMI (non-ST elevated myocardial infarction) Peripheral artery disease Pneumonia Tobacco dependency Surgical History History of angioplasty Family History Mother , in her 80's Parkinsons Father , at age 71 Epilepsy Brother CAD (coronary artery disease) [place] x 2, early 60's Diabetes Lung disease Sister Dementia Diabetes Denies family history of Clotting disorder Chronic kidney disease (CKD) Suicide Anesthesia complication Bleeding disorder Cancer Hypertension Stroke Social History Smoking and tobacco status: current every day smoker cigarettes Packs smoked per day: 2 Years cigarettes smoked: 50 Alcohol intake: never Marital status: Current occupational status: retired History of recent travel: No Physical Exam Const: COMMON NORMALS: patient oriented x3 HENMT: COMMON NORMALS: normocephalic and atraumatic HEAD & SCALP: normocephalic and atraumatic Eye: COMMON NORMALS: Equal, round and reactive pupils present and EOMs intact bilaterally PUPIL: Yes Equal, round and reactive pupils present Neck/C-Spine: COMMON NORMALS: full ROM and supple Chest: COMMONS NORMALS: normal inspection of the chest and normal palpation of entire chest wall Resp: COMMON NORMALS: normal respiratory effort, No retractions, No use of accessory muscles and clear to auscultation bilaterally AUSCULTATION: clear to auscultation bilaterally Cardio: COMMON NORMALS: regular rate, regular rhythm and No murmurs present (Cardio) RATE: regular rate RHYTHM: regular rhythm GI: COMMON NORMALS: Normal to inspection, nondistended, normoactive bowel sounds present, Soft to palpation, non-tender and no masses PALPATION: Yes Soft to palpation Extremity: COMMON NORMALS: normal to inspection and full ROM Neuro: COMMON NORMALS: patient oriented x3, moves all extremities and no focal motor deficits Psych: COMMON NORMALS: mental status grossly normal, Normal thought process present and cooperative THOUGHT PROCESS: Normal thought process present Skin: COMMON NORMALS: no rashes or lesions noted and no wounds GENERAL SKIN EXAM: no rashes or lesions noted Course Vital Signs: Vital signs: Vital Signs Temperature 97.7 F 09/22/22 16:19 Pulse Rate 76 09/22/22 21:07 Respiratory Rate 16 09/22/22 21:07 Blood Pressure 123/71 09/22/22 21:07 Pulse Oximetry 100 09/22/22 21:07 Oxygen Delivery Me thod 09/22/22 21:07 Fraction of Inspir ed Oxygen 45 09/22/22 20:58 MDM - Weakness Medical Decision Making Patient presents here with weakness and confusion is found to have a urinary tract infection likely causing this he also has some hypercapnia on his ABG will place him on BiPAP spoke to the hospitalist and will admit here. Lab Data 09/22/22 18:05 09/22/22 18:05 Radiology Impressions Chest X-Ray 09/22/22 18:53 IMPRESSION: Opacity in the lung bases likely represents subsegmental atelectasis. Laboratory Results WBC 10.5 10^3/uL (4.0-10.0) H 09/22/22 18:05 RBC 4.26 10^6/uL (4.1-5.3) 09/22/22 18:05 Hgb 13.2 g/dL (11.7-16.6) 09/22/22 18:05 Hct 41.2 % (42.0-52.0) L 09/22/22 18:05 MCV 96.7 fl (80-94) H 09/22/22 18:05 MCH 31.0 pg (28.0-34.0) 09/22/22 18:05 MCHC 32.0 g/dL (30.0-36.0) 09/22/22 18:05 RDW 14.9 % (12.1-15.1) 09/22/22 18:05 Plt Count 144 10^3/cmm (130-400) 09/22/22 18:05 MPV 10.2 fL (7.4-10.4) 09/22/22 18:05 Neut % (Auto) 82.0 % 09/22/22 18:05 Lymph % (Auto) 10.0 % 09/22/22 18:05 [place] % (Auto) 6.7 % 09/22/22 18:05 Eos % (Auto) 0.4 % 09/22/22 18:05 Baso % (Auto) 0.4 % 09/22/22 18:05 Neut # (Auto) 8.61 10^3/uL (1.8-7.7) H 09/22/22 18:05 Lymph # (Auto) 1.1 10^3/uL (0.8-4.8) 09/22/22 18:05 [place] # (Auto) 0.7 10^3/uL (0.2-0.9) 09/22/22 18:05 Eos # (Auto) 0.0 10^3/uL (0.0-0.8) 09/22/22 18:05 Baso # (Auto) 0.0 10^3/uL (0.0-0.1) 09/22/22 18:05 Nucleated RBC % (auto) 0 % 09/22/22 18:05 Nucleated RBCs # 0.0 /100WBC 09/22/22 18:05 Specimen Type Arterial 09/22/22 20:26 Sample Site Radial, left 09/22/22 20:26 ABG pH 7.23 (7.35-7.45) L 09/22/22 20: ABG pCO2 59.2 mmHg (35-45) H 09/22/22 20: ABG pO2 33.5 mmHg (80.0-100.0) L* 09/22/22 20: ABG HCO3 25.4 mmol/L (22-26) 09/22/22: ABG Base Excess -2.8 mmol/L (-2.0-2.0) L 09/22/22 20:26 Andrey Test Pos 09/22/22 20:26 Hematocrit 35.8 % (42-52) L 09/22/22 20:26 O2 Delivery Device None 09/22/22 20:26 FiO2 21.0 % 09/22/22 20:26 Building Insulation Installer ID [place] 09/22/22 20:26 Sodium 136 mmol/L (136-145) 09/22/22 18:05 Potassium 4.3 mmol/L (3.5-5.1) 09/22/22 18:05 Chloride 99 mmol/L (98-107) 09/22/22 18:05 Carbon Dioxide 27 mmol/L (22-29) 09/22/22 18:05 Anion Gap 14.3 (5-19) 09/22/22 18:05 BUN 87 mg/dL (8-23) H* 09/22/22 18:05 Creatinine 3.1 mg/dL (0.7-1.2) H 09/22/22 18:05 GFR Calculation 20.0 mL/min (90-130) L 09/22/22 18:05 Glucose 126 mg/dL (65-115) H 09/22/22 18:05 Calculated Osmolality 310 mOsm/kg (285-295) H 09/22/22 18:05 Calcium 10.3 mg/dL (8.5-10.5) 09/22/22 18:05 Total Bilirubin 0.6 mg/dL (0.15-1.2) 09/22/22 18:05 AST 28 U/L (0-40) 09/22/22 18:05 ALT 32 U/L (0-41) 09/22/22 18:05 Alkaline Phosphatase 123 U/L (40-130) 09/22/22 18:05 Ammonia 20 umol/L (16-60) 09/22/22 19:27 Total Protein 7.4 g/dL (6.6-8.7) 09/22/22 18:05 Albumin 3.1 g/dL (3.5-5.2) L 09/22/22 18:05 Globulin 4.3 g/dL (1.3-4.6) 09/22/22 18:05 Urine Color Yellow (Yellow) 09/22/22 19:46 Urine Appearance Sl hazy (CLEAR) A 09/22/22 19:46 Urine pH 5 (5-7) 09/22/22 19:46 Ur Specific [place] 1.015 (1.005-1.030) 09/22/22 19:46 Urine Protein 1+ (Negative) H 09/22/22 19:46 Urine Glucose (UA) Norm (Normal) 09/22/22 19:46 Urine Ketones Negative (Negative) 09/22/22 19:46 Urine Blood 3+ (Negative) H 09/22/22 19:46 Urine Nitrate Negative (Negative) 09/22/22 19:46 Urine Bilirubin Neg (Negative) 09/22/22 19:46 Urine Urobilinogen Norm mg/dL (Negative) 09/22/22 19:46 Ur Leukocyte Esterase 2+ (Negative) H 09/22/22 19:46 Urine RBC Too numerous to cnt /hpf (0-2) H 09/22/22 19:46 Urine WBC Too numerous to cnt /hpf (0-5) H 09/22/22 19:46 Ur Squamous Epith Cells 0-4 /hpf (0-5) H 09/22/22 19:46 Amorphous Sediment Not Reportable 09/22/22 19:46 Urine Bacteria 2+ /hpf (NONE) H 09/22/22 19:46 Influenza Type A Ag negative (Negative) 09/22/22 19:42 Influenza Type B Ag negative (Negative) 09/22/22 19:42 Discharge Plan Discharge Patient Disposition: Admitted As Inpatient Clinical Impression: Acute cystitis without hematuria, Hypercapnia, Altered mental status Condition: Stable Prescriptions: No Action Trelegy Ellipta 100-62.5-25 mcg blister with device 1 inh inhalation DAILY Qty: 60 3RF fluticasone propionate [Flonase Allergy Relief] 50 mcg/actuation spray,suspension 2 spray intranasal DAILY Qty: 16 5RF Rx Instructions: administer into each nostril isosorbide mononitrate 30 mg tablet extended release 24 hr 30 mg PO QAM citalopram 20 mg tablet 20 mg PO DAILY tamsulosin 0.4 mg capsule 0.4 mg PO DAILY pramipexole 1.5 mg tablet 1.5 mg PO TID finasteride 5 mg tablet 5 mg PO DAILY metoprolol tartrate 25 mg tablet 25 mg PO BID Tresiba FlexTouch U-100 100 unit/mL (3 mL) insulin pen 24 unit SUBCUT DAILY polyethylene glycol 3350 17 gram Powder In Packet 17 g PO BID Qty: 100 0RF pantoprazole 40 mg Tablet,Delayed Release (Dr/Ec) 40 mg PO DAILY Qty: 30 0RF atorvastatin 40 mg Tablet 40 mg PO DAILY oxycodone 5 mg Tablet 5 mg PO Q6H PRN (Reason: PAIN) torsemide 10 mg tablet 20 mg PO DAILY 30 Days Qty: 30 0RF ProAir HFA 90 mcg/actuation HFA aerosol inhaler 1 inh inhalation Q6H PRN (Reason: shortness of breath or wheezing) Qty: 8.5 1RF Advair HFA 115-21 mcg/actuation HFA aerosol inhaler 2 inh inhalation BID Qty: 12 1RF Rx Instructions: administer with spacer Referrals: Melissa Boswell MD [Primary Care Provider] - Coding Level of Care Code ED [employer] for Chg Fwd Exam Comprehensive
[2022-09-22] MEDS: sodium chloride 0.9% 500 ML 999 ML IV ×2 (19:40→20:28)
[2022-09-22] MEDS: ondansetron 2 mg/ML SDV 2 mL 4 MG IVP (19:44)
[2022-09-22 20:02] LABS: Ammonia 20 umol/L (16-60)
[2022-09-22 20:15] LABS: Influenza A by IFA negative (Negative); Influenza B by IFA negative (Negative)
[2022-09-22 20:37] LABS: ABG PCO2 59.2 mmHg (35-45); Blood Gas Allen Test Pos; Blood Gas Operator Identificat WALCI; Blood Gas Sample Type Arterial
[2022-09-22 20:43] LABS: ABG PH Result 7.23 (7.35-7.45); Arterial Blood Gas Hematocrit 35.8 % (42-52); Base Excess ABG -2.8 mmol/L (-2.0-2.0); Blood Gas Sample Site Radial, left; HCO3 ABG 25.4 mmol/L (22-26); PO2 ABG 33.5 mmHg (80.0-100.0)
[2022-09-22 20:49] LABS: Urine Color Yellow (Yellow)
[2022-09-22 20:50] LABS: Add Urine Culture? Yes; Add Urine Microscopic? YES; Bacteria Urine 2+ /hpf; Bilirubin Urine Neg (Negative); Blood Urine 3+ (Negative); Glucose Urine UA Norm (Normal); Ketones Urine Negative (Negative); Leukocyte Esterase Urine 2+ (Negative); Nitrate Urine Negative (Negative); Protein Urine 1+ (Negative); RBC Urine TOO NUMEROUS TO CNT /hpf (0-2); Specific Gravity, Urine 1.015 (1.005-1.030); Squamous Epithelial Cell Urine 0-4 /hpf (0-5); Urine Appearance SL Hazy (CLEAR); Urobilinogen Urine Norm (Negative); WBC Urine TOO NUMEROUS TO CNT /hpf (0-5); pH Urine 5 (5-7)
--- NOTE | 2022-09-22 21:13 | PM.HP ---
Providers/Chief Complaint Primary Care Provider: Melissa Boswell MD Chief Complaint: Bad UTI kidney is hurting History of Present Illness Phil Palumbo is a 72 year old male who has multiple comorbid condition presented with chief complaint of generalized fatigue, UTI and confusion. Patient lives with his son, he was prescribed oxygen in the past for his COPD however he has been noncompliant, does smoke on and off, presented to the hospital for chief complaint of confusion and urinary incontinence. Son is stating that his symptoms started roughly a week ago with urinary incontinence and then he became very fatigued and lethargic and confused,. No recent falls but he has been complaining of neck pain and back pain however that is a chronic issue for him. Family has not noticed any fever, patient today after lunch started coughing aggressively and then had 1 episode of vomiting they are not sure whether he aspirated today. Patient has chronic kidney disease, his urine output has decreased in last few days because he has not eaten well because of confusion as per the family. In the ER he was diagnosed with UTI, fatigue lethargy hypercapnic respite failure left hemidiaphragm he is extremely fatigued and lethargic however able to comprehend and answer appropriately He is currently on BiPAP settings 14/6 FiO2 40% respiratory 12 He has received ceftriaxone in the ER along with IV fluid hydration Review of Systems Const: Reports: chills, body aches and fatigue Eyes: Denies: change in vision ENMT: Denies: throat pain Card: Denies: chest pain Resp: Reports: dyspnea and non-productive cough GI: Denies: abdominal pain : Denies: flank pain Musc: Denies: neck pain Skin/Breast: Denies: rash Neuro: Denies: headache(s) Psych: Reports: anxiety Endo: Denies: polyuria [place]/Lymph: Denies: easy bruising All/Imm: Denies: urticaria Medications/Allergies Home Medications Medication Instructions Recorded Confirmed Last Taken Type citalopram 20 mg tablet 20 mg PO DAILY 05/05/21 06/20/22 Unknown History finasteride 5 mg tablet 5 mg PO DAILY 05/05/21 06/20/22 Unknown History insulin degludec 100 unit/mL (3 24 unit SUBCUT DAILY 05/05/21 06/20/22 Unknown History mL) subcutaneous pen (Tresiba FlexTouch U-100 insulin) isosorbide mononitrate 30 mg 30 mg PO QAM 05/05/21 06/20/22 Unknown History tablet,extended release 24 hr metoprolol tartrate 25 mg tablet 25 mg PO BID 05/05/21 06/20/22 Unknown History pramipexole 1.5 mg tablet 1.5 mg PO TID 05/05/21 06/20/22 Unknown History tamsulosin 0.4 mg capsule 0.4 mg PO DAILY 05/05/21 06/20/22 Unknown History pantoprazole 40 mg tablet,delayed 40 mg PO DAILY #30 tabs 05/07/21 06/20/22 Unknown Rx release polyethylene glycol 3350 17 gram 17 g PO BID #100 ea 05/07/21 06/20/22 Unknown Rx oral powder packet atorvastatin 40 mg tablet 40 mg PO DAILY 10/23/21 06/20/22 Unknown History oxycodone 5 mg tablet 5 mg PO Q6H PRN PAIN 10/23/21 06/20/22 Unknown History albuterol sulfate 90 mcg/actuation 1 inh inhalation Q6H PRN shortness 10/26/21 06/20/22 Unknown Rx aerosol inhaler (ProAir HFA) of breath or wheezing #8.5 grams fluticasone propionate 115 2 inh inhalation BID #12 grams 10/26/21 06/20/22 Unknown Rx mcg-salmeterol 21 mcg/actuation HFA inhaler (Advair HFA) torsemide 10 mg tablet 20 mg PO DAILY 30 days #30 tabs 10/26/21 06/20/22 Unknown Rx fluticasone fur. 100 mcg-umeclid 1 inh inhalation DAILY #60 ea 11/22/21 06/20/22 Unknown Rx 62.5 mcg-vilant 25 mcg inhalat.powder (Trelegy Ellipta) fluticasone propionate 50 2 spray intranasal DAILY #16 grams 06/20/22 06/20/22 Unknown Rx mcg/actuation nasal spray,suspension (Flonase Allergy Relief) Allergies Allergy/AdvReac Type Severity Reaction Status Date / Time No Known Allergies Allergy Verified 06/20/22 14:38 PFSH Acute PFSH: Medical History Acute on chronic systolic heart failure Atherosclerosis of coronary artery of [place] heart without angina pectoris BPH loc w urin obs/LUTS CAD (coronary artery disease) CHF (congestive heart failure) 2014, EF 40% with 2/4 diastolic dysfunction Chronic kidney disease COPD exacerbation Coronary artery disease Depression Diabetes mellitus Diabetic gastroparesis Diabetic neuropathy Elevated troponin Hyperlipidemia Hypertension NSTEMI (non-ST elevated myocardial infarction) Peripheral artery disease Pneumonia Tobacco dependency Surgical History History of angioplasty Family History Mother , in her 80's Parkinsons Father , at age 71 Epilepsy Brother CAD (coronary artery disease) [place] x 2, early 60's Diabetes Lung disease Sister Dementia Diabetes Denies family history of Clotting disorder Chronic kidney disease (CKD) Suicide Anesthesia complication Bleeding disorder Cancer Hypertension Stroke Social History Smoking and tobacco status: current every day smoker cigarettes Packs smoked per day: 2 Years cigarettes smoked: 50 Alcohol intake: never Marital status: Current occupational status: retired History of recent travel: No Vitals/I&O/Wt Last Vital Signs Temp 97.7 F 09/22/22 16:19 Pulse 76 09/22/22 21:07 Resp 16 09/22/22 21:07 BP 123/71 09/22/22 21:07 Pulse Ox 100 09/22/22 21:07 O2 Del Method 09/22/22 21:07 FiO2 45 09/22/22 20:58 09/22/22 09/22/22 09/22/22 06:59 14:59 22:59 Intake Total 1000 / 1000 Balance 1000 / 1000 Weight last 48 hrs Weight 57.153 kg Physical Exam Narrative: Elderly male Cachectic, malnourished Nonfocal neuro exam Very hard of hearing Currently on BiPAP Hemodynamically stable Family at the bedside Abdomen soft Dorsum to no edema Multiple decub bruises on lower extremities Insulin injection site granulation noted Abdomen is soft Bilateral assisted breath sounds S1, S2 Data 09/22/22 18:05 09/22/22 18:05 A&P Assessment and plan (1) Hypercapnia: (2) Altered mental status: (3) COPD exacerbation: (4) Exertional dyspnea: (5) Smoker: (6) Emphysema lung: (7) Acute cystitis without hematuria: (8) BPH loc w urin obs/LUTS: Plan Metabolic encephalopathy related to UTI Hypercapnic respiratory failure Patient has history of COPD Left hemidiaphragm evident on chest x-ray Patient is complaining of neck pain as well To rule out phrenic nerve injury I will request MRI of cervical spine We will give him ceftriaxone for UTI at Possibility for aspiration pneumonia however he is afebrile no signs of sepsis Request PT evaluation, family is not sure whether they will opt for half-way placement if needed He is full code Currently on BiPAP Start consistent carb diet in the morning, check A1c level He looks lethargic, fatigued and malnourished Mild protein calorie malnourishment Chronic kidney disease: Creatinine seems around baseline he does history of bladder outlet obstruction, will do bladder scan on as needed basis Attestations Medical Necessity Statement*: Anticipating more than 2 midnights for management of metabolic encephalopathy related to UTI and hypercapnia Time Spent in Patient Care: 40 Coding Level of Care Code Acute Operating Theatre Technician for [facility] Fwd Diagnoses Hypercapnia R06.89 Altered mental status R41.82 COPD exacerbation J44.1 Exertional dyspnea R06.00 Smoker F17.200 Emphysema lung J43.9 Acute cystitis without hematuria N30.00 BPH loc w urin obs/LUTS N40.1
[2022-09-22] MEDS: cefTRIAXone 1,000 MG in sodium chloride 0.9% (plus) 50 ML 100 MG IV (21:14)
[2022-09-22 21:46] LABS: Procalcitonin 5.02 ng/mL (0-0.5)
[2022-09-22 21:57] LABS: Phosphorus 4.2 mg/dL (2.5-4.5)
--- NOTE | 2022-09-22 21:57 | PC.NURSE ---
gave report to Lucía Santos
[2022-09-22] MEDS: sodium chloride 0.9% 1,000 ML 999 ML IV (22:12)
[2022-09-22 22:29] LABS: D Dimer 2.61 ug/mIFEU (0-0.59)
[2022-09-22 23:14] LABS: Lactic Sepsis W/Reflex 0.7 mmol/L (0.5-2.2)
[2022-09-22 23:33] LABS: Estmated Average Glucose 151; Hemoglobin A1C 6.9 % (4.0-6.0)
--- NOTE | 2022-09-22 23:51 | PC.NURSE ---
Patient is currently on BIPAP, Respiratory therapist at bedside.
[2022-09-23] VITALS (16 sets, daily range): BP systolic 99–122; BP diastolic 57–66; PULSE 63–81; RESP 15–21; TEMP 36.4–37.4; O2SAT 91–100
[2022-09-23] MEDS: heparin 5,000 unit/mL INJ 1 mL 5000 UNIT SUBCUT ×3 (00:22→23:11)
--- NOTE | 2022-09-23 00:28 | PC.NURSE ---
contacted to clarify order of 500ml saline bolus order. Dr English wants the order discontinued.
[2022-09-23 01:01] LABS: Vitamin B12 867 pg/mL (232-1245)
[2022-09-23 03:43] LABS: ABG PCO2 49.5 mmHg (35-45); ABG PH Result 7.29 (7.35-7.45); Arterial Blood Gas Hematocrit 44.3 % (42-52); Base Excess ABG -3.6 mmol/L (-2.0-2.0); Blood Gas Allen Test Pos; Blood Gas Operator Identificat JB; Blood Gas Sample Site Brachial, right; Blood Gas Sample Type Arterial; HCO3 ABG 23.5 mmol/L (22-26); Oxygen Device BIPAP
[2022-09-23 04:51] LABS: Basophils % 0.2 %; Hematocrit 38.3 % (42.0-52.0); Hemoglobin 12.1 g/dL (11.7-16.6); Mean Corpuscular HGB Conc 31.6 g/dL (30.0-36.0); Mean Corpuscular Hemoglobin 31.2 pg (28.0-34.0); Mean Corpuscular Volume 98.7 fl (80-94); Mean Platelet Volume 10.6 fL (7.4-10.4); Monocytes # 0.5 10^3/uL (0.2-0.9); Monocytes % 5.8 %; Neutrophils # 6.85 10^3/uL (1.8-7.7); Neutrophils % 81.8 %; Nucleated Red Blood Cells % 0 %; Platelet Count 139 10^3/cmm (130-400); Red Blood Count 3.88 10^6/uL (4.1-5.3); White Blood Count 8.4 10^3/uL (4.0-10.0)
[2022-09-23 05:15] LABS: Anion Gap 11.4 (5-19); C Reactive Protein 246.3 mg/L (0.0-4.9); Calcium 9.7 mg/dL (8.5-10.5); Carbon Dioxide 27 mmol/L (22-29); Chloride 106 mmol/L (98-107); Glucose 78 mg/dL (65-115); Magnesium 2.4 mg/dL (1.7-2.3); Osmolality Calculated 314 mOsm/kg (285-295); Potassium 4.4 mmol/L (3.5-5.1); Sodium 140 mmol/L (136-145)
[2022-09-23] MEDS: isosorbide mononitrate ER 30 mg Tablet PO (05:38)
[2022-09-23 05:54] LABS: Blood Urea Nitrogen 84 mg/dL (8-23)
--- NOTE | 2022-09-23 05:57 | PC.NURSE ---
recieved critical lab: BUN [id number], reported to patients nurse KATHLEEN Santos.
[2022-09-23 06:31] LABS: Glucose Point of Care 75 mg/dL (70-110)
[2022-09-23] MEDS: azithromycin 250 mg Tablet 500 MG PO (09:01)
[2022-09-23] MEDS: sennosides-docusate Tablet 1 TAB PO (09:01)
[2022-09-23] MEDS: finasteride 5 mg Tablet PO (09:01)
[2022-09-23] MEDS: TORSEmide 20 mg Tablet PO (09:01)
[2022-09-23] MEDS: tamsulosin 0.4 mg Capsule PO (09:01)
--- NOTE | 2022-09-23 09:10 | PC.PHAR ---
pts tayla [phone] verified pts medications-states the pt uses tresiba flextouch u-100 18 units hs ext med history shows last filled 09/05/22 62d/s 24 units daily-notes are made in the pharmacy comments
[2022-09-23] MEDS: cefTRIAXone 1,000 MG in sodium chloride 0.9% (plus) 50 ML 100 MG IV (09:45)
[2022-09-23 09:53] LABS: ABG PCO2 53.1 mmHg (35-45); ABG PH Result 7.26 (7.35-7.45); Arterial Blood Gas Hematocrit 34.9 % (42-52); Base Excess ABG -3.6 mmol/L (-2.0-2.0); Blood Gas Operator Identificat AMH; Blood Gas Sample Site Brachial, right; Blood Gas Sample Type Arterial; Carboxyhemoglobin 1.6 %THgb (0.4-20.1); HCO3 ABG 23.8 mmol/L (22-26); HGB O2 Sat 92.3 % (95-100); Ionized Calcium Level - ABG 1.3 mmol/L (1.1-1.4); Oxygen Device BIPAP; Oxygen Saturation ABG 94.8; PO2 ABG 72.5 mmHg (80.0-100.0); Potassium Level - ABG 4.1 mmol/L (3.5-5.0); Total Hemoglobin 11.4 g/dL (14-18)
--- NOTE | 2022-09-23 10:25 | PC.CHAP ---
Pastoral Care Encounter/Spiritual Assessment Type of Contact [] Declined digital sales assistant visit [] Patient/Family/Request visit [] Outpatient visit [] Follow-up visit [] Physician referral [] Code/Alert [x] Routine visit [] Staff referral [] Actively dying [] Patient sleeping [] Family support [] [] Out of room [] Palliative care [] [x] Receiving care in room [] Pre-surgical visit [] Trauma [] Long length of stay [] ICU visit [] Other: Relational/Emotional Strength [] Patient feels connected with others/family/visitors/staff [] Distress [] Loneliness/isolation [] Abandonment Spirituality of Patient [x] Person of [place] [] Attends Latter Day of their [place] [x] Believes in Prayer [] Reads Bible or Jehovah'S Witness materials [] There are Spiritual issues to be addressed License Registration Examiner Interventions [x] Prayer [] Active listening [] Non-anxious presence [] Spiritual/emotional support [] Crisis/trauma care [] Spiritual counseling [] Bereavement support [] Provided bereavement packet [] Provided Bible/devotional materials [] Provided toy/stuffed animal, coloring book to patient or family member [] Provided Communion [] Anointing/[place] [] Salvation [x] Completed spiritual assessment [] Other: Impact on Illness or Injury [] Angry [] Fearful [] Anxious [] Often cries [] Exhaustion [] Unable to work [] Unable to attend advent [] Unable to walk/stand [] Unable to read [] Unable to drive [] Unable to eat/drink [] Unable to sleep [] Unable to be with family [] Patient intubated [] Other: Summary Time spent with patient 5 min
[2022-09-23 11:18] LABS: Glucose Point of Care 63 mg/dL (70-110)
--- NOTE | 2022-09-23 11:19 | CT_ITS ---
WS: [id number] CT CHEST, ABDOMEN, AND PELVIS TECHNIQUE: Noncontrast CT of the chest, abdomen, and pelvis with coronal and sagittal reformatted chris ges. CLINICAL INFORMATION: sob COMPARISON: None. DLP: 685.[address] scans at [facility] use at least one of these dose optimization techniques: automated e xposure control; mA and/or kV adjustment per patient size (includes targeted exams where dose is matc hed to clinical indication); or iterative reconstruction. CT CHEST, ABDOMEN, AND PELVIS: Chronic emphysematous changes. Small LEFT greater than RIGHT pleural effusions with bibasilar patchy infiltrates LEFT greater than RIGHT suspicious for pneumonia. Volume loss LEFT lower lobe with elevat ion LEFT hemidiaphragm. Marked thoracolumbar scoliosis. Mild aortic calcification. Normal caliber tho racic aorta. Coronary calcification. Fluid distended stomach with food products Multiple healing LEFT lower rib fractures with callus formation. This involves the LEFT 11th, 10th, 9 th, 8th ribs. Some of these are present on the prior CT July 18, 2022 with a more acute appearan ce at that time. Surrounding low-attenuation fluid collection in this region involving the LEFT later al abdominal wall musculature in the oblique muscles. This measures approximately 9.4 x 7.8 x 12.0 cm with encapsulated thick wall. Suggestion of a small amount of mineralization. This most likely repre sents partially liquefied hematoma. Infection less likely. Mild edema in the surrounding soft tissues . No intraluminal air. This was partially visualized on prior CT chest July 18, 2022. Noncontrast liver is normal. Gallbladder appears contracted. Cortical atrophy both kidneys. No hydron ephrosis. Vascular calcification. No obstructing renal or ureteral calculi. Mild diffuse bladder wall thickening suspicious for chronic cystitis. Diverticulosis. No evidence of acute diverticulitis. Chronic appearing anterior wedging and compressi on of the T10, T12, and L1 vertebral bodies unchanged CT/[place] [id number] IMPRESSION: 1. Small LEFT and tiny RIGHT pleural effusions. Patchy infiltrates in the LEFT greater than RIGHT lung bases. Recommend correlation for pneumonia. 2. Elevation of the LEFT hemidiaphragm with volume loss LEFT lower lobe appear s progressed compared to previous. 3. Multiple LEFT lateral lower rib fractures some with callus formation and ev idence of healing. This involves the 8th, 9th 10th and 11th ribs laterally. Alexander rounding low-attenuation collection in the lateral oblique muscles about the ri b fractures suspicious for partially liquefied hematoma. This appears well enca psulated. No evidence of intraluminal air. Abscess is less likely. This was par tially visualized prior CT chest July 18, 2022 4. Advanced thoracolumbar scoliosis. 5. Slightly aneurysmal infrarenal abdominal aorta appears unchanged measuring 2.8 x 3.6 cm. 6. Mild diffuse bladder wall thickening likely due to chronic cystitis. No hyd ronephrosis in either kidney. 7. No other acute findings. Notified Del Casillas MD at 09/23/2022 4:39 PM.
[2022-09-23 12:01] LABS: Iron 14 ug/dL (59-158); Percent Saturation 7.5 % (20-50); Total Iron Binding Capacity 185 mcg/dl; Unsaturated Iron Binding 171 ug/dL (112-347)
[2022-09-23 12:06] LABS: Potassium, Radom Urine 45 mmol/L
[2022-09-23 12:08] LABS: Urine Random Chloride 18 mmol/L; Urine Random Sodium 19 mmol/L
[2022-09-23 12:12] LABS: Thyroid Stimulating Hormone 2.23 uIU/mL (0.27-4.20)
[2022-09-23 12:21] LABS: Folate Level 17.6 ng/mL (4.5-32.2)
[2022-09-23 12:30] LABS: Glucose Point of Care 114 mg/dL (70-110)
--- NOTE | 2022-09-23 13:22 | PC.NURSE ---
1115 pt blood sugar is 63. 8oz orange juice given per protocol. 1215 pt blood sugar increased to 114. Pt also switched from BIPAP to oxygen via NC with oversight of respiratory therapy and MD. Pt stable, sats at 90-94%, enjoying snack at this time.
[2022-09-23 14:23] LABS: Adenovirus Not Detected (NOT DETECT); Chlamydia Pneumoniae Not Detected (NOT DETECT); Coronavirus 229E,HKU1,NL63,OC4 Not Detected (NOT DETECT); Human Metapneumovirus Not Detected (NOT DETECT); Human Rhinovirus/Enterovirus Not Detected (NOT DETECT); Influenza A Not Detected (NOT DETECT); Influenza A H1 Not Detected (NOT DETECT); Influenza A H1-2009 Not Detected (NOT DETECT); Influenza A H3 Not Detected (NOT DETECT); Influenza B Not Detected (NOT DETECT); Mycoplasma Pneumoniae Not Detected (NOT DETECT); Parainfluenza Virus Type 1 Not Detected (NOT DETECT); Parainfluenza Virus Type 2 Not Detected (NOT DETECT); Parainfluenza Virus Type 3 Not Detected (NOT DETECT); Parainfluenza Virus Type 4 Not Detected (NOT DETECT); Respiratory Syncytial Virus A Not Detected (NOT DETECT); Respiratory Syncytial Virus B Not Detected (NOT DETECT); SARS-COV-2 Not Detected (NOT DETECT)
--- NOTE | 2022-09-23 14:44 | PM.PN ---
Subjective Subjective: Admitted overnight. H&P and labs appreciated. Seen multiple times of the day. At first patient was on BiPAP, slightly drowsy. Repeat ABG was done which patient continued to remain in hypercapnic respiratory distress with respiratory acidosis. Also was found to be having hypoglycemia. Later patient was transitioned over to nasal cannula and was saturating well on 3 L. Patient was awake and alert. Complaining of back and cervical pain. Has remained hemodynamically stable and afebrile. Vitals/I&O/Wt Last Vital Signs Temp 98 F 09/23/22 12:04 Pulse 66 09/23/22 14:32 Resp 18 09/23/22 12:04 BP 116/66 09/23/22 12:04 Pulse Ox 96 09/23/22 14:32 O2 Del Method 09/23/22 11:42 O2 Flow Rate 5 09/23/22 11:42 FiO2 30 09/23/22 14:32 09/22/22 09/23/22 09/23/22 22:59 06:59 14:59 Intake Total 1050 / 1050 1120 / 2170 50 / 50 Output Total 375 / 375 100 / 100 Balance 1050 / 1050 745 / 1795 -50 / -50 Weight last 48 hrs Weight 57.153 kg Physical Exam Narrative: Elderly male, no acute distress, Cachectic, malnourished Nonfocal neuro exam,Very hard of hearing Abdomen soft, hematoma present in left upper quadrant, tender Multiple decub bruises on lower extremities Insulin injection site granulation noted Cardiac: S1-S2 regular, no tachycardia Pulmonary: Bilateral bronchial breath sounds, rhonchi over the lung gutiérrez, decreased air entry left lower zone. Data 09/23/22 04:10 09/23/22 04:10 Micro: Microbiology 09/22/22 19:46 Legionella Urinary Antigen - Final Unknown Source 09/22/22 19:46 Bacterial Antigens - Final Urine Kidney A&P Assessment and plan (1) Hypercapnia: Acute on chronic hypoxic and hypercapnic respiratory failure. Most likely secondary COPD exacerbation. Check COVID-19 swab, sputum culture. Less concerns for pneumonia currently. DuoNebs every 6 hour, budesonide twice daily. Start on Solu-Medrol 60 mg every 8 hourly after 125 mg stat. Wean off oxygen supplementation keeping saturation over 88%. BiPAP as needed. Check CT chest without contrast. There is concern for left hemidiaphragm. Hold off on MRI for now. Continue with IV ceftriaxone for now. Will help with UTI as well. (2) COPD exacerbation: As above. (3) Altered mental status: Most likely secondary to combination of uremia, hypoglycemia and hypercapnia. Resolved now. (4) Acute cystitis without hematuria: Follow-up urine cultures. Continue with ceftriaxone as above. (5) Acute on chronic systolic heart failure: Last echocardiogram from 2 months ago appreciated. So far seems compensated. Hold off on torsemide for now. (6) Chronic kidney disease: Creatinine baseline seems to be 2.4-2.6. Currently 3.1. Uremia as well. Hold off on torsemide. Medical reconciliation done for nephrotoxic drugs. Riddle catheter. Patient has a history of urinary retention from bladder outlet obstruction (7) Urinary retention: (8) Emphysema lung: (9) Smoker: (10) BPH loc w urin obs/LUTS: (11) Acute on chronic respiratory failure with hypoxia and hypercapnia: Plan Left abdominal wall hematoma/left-sided hemidiaphragm: Patient gives history of trauma and fall. Check CT chest, abdominal pelvis. Will continue to follow. Carb consistent cardiac diet. Protonix for PUD prophylaxis Heparin for DVT prophylaxis. Attestations Medical Necessity Statement*: Further hospitalization for management of hypercapnic hypoxic respiratory failure Time Spent in Patient Care: Greater than 35 minutes Coding Level of Care Code Acute Feller Machine Operator for g [facility] Diagnoses Hypercapnia R06.89 COPD exacerbation J44.1 Altered mental status R41.82 Acute cystitis without hematuria N30.00 Acute on chronic systolic heart failure I50.23 Chronic kidney disease N18.9 Urinary retention R33.9 Emphysema lung J43.9 Smoker F17.200 BPH loc w urin obs/LUTS N40.1 Acute on chronic respiratory failure with hypoxia and hypercapnia J96.21; J96.22
[2022-09-23 17:15] LABS: Glucose Point of Care 301 mg/dL (70-110)
[2022-09-23] MEDS: insulin lispro 100 unit/1 mL SUBCUT ×2 (17:33→21:30)
[2022-09-23 20:50] LABS: Glucose Point of Care 249 mg/dL (70-110)
--- NOTE | 2022-09-23 21:33 | PC.NURSE ---
PT CARE Care of pt assumed at this time. No c/o with sliding scale insulin given. Is quite [place]
[2022-09-23] MEDS: budesonide 0.5 mg/2 mL Neb INHALATION (21:43)
[2022-09-23] MEDS: ipratropium-albuterol 3 mL Neb INHALATION (21:43)
[2022-09-23] MEDS: pramipexole 0.25 mg Tablet 1.5 MG PO (23:34)
[2022-09-24] VITALS (11 sets, daily range): BP systolic 101–124; BP diastolic 50–71; PULSE 62–82; RESP 16–20; TEMP 36.3–36.7; O2SAT 89–100
[2022-09-24 05:08] LABS: Basophils % 0.2 %; Hematocrit 33.6 % (42.0-52.0); Hemoglobin 10.6 g/dL (11.7-16.6); Lymphocytes # 0.3 10^3/uL (0.8-4.8); Lymphocytes % 5.2 %; Mean Corpuscular HGB Conc 31.5 g/dL (30.0-36.0); Mean Corpuscular Hemoglobin 30.7 pg (28.0-34.0); Mean Corpuscular Volume 97.4 fl (80-94); Mean Platelet Volume 11.1 fL (7.4-10.4); Monocytes # 0.1 10^3/uL (0.2-0.9); Monocytes % 1.3 %; Neutrophils # 5.49 10^3/uL (1.8-7.7); Neutrophils % 92.6 %; Nucleated Red Blood Cells % 0 %; Platelet Count 110 10^3/cmm (130-400); Red Blood Count 3.45 10^6/uL (4.1-5.3); Red Cell Distribution Width 14.6 % (12.1-15.1); White Blood Count 5.9 10^3/uL (4.0-10.0)
[2022-09-24 05:36] LABS: Alanine Aminotransferase 31 U/L (0-41); Albumin Level 2.4 g/dL (3.5-5.2); Alkaline Phosphatase 122 U/L (40-130); Anion Gap 11.9 (5-19); Aspartate Amino Transferase 29 U/L (0-40); Carbon Dioxide 26 mmol/L (22-29); Chloride 95 mmol/L (98-107); Chol HDL Ratio 2.03 mg/dL (1.0-5.00); Cholesterol 61 mg/dL (0-200); Globulin 3.6 g/dL (1.3-4.6); Glucose 202 mg/dL (65-115); HDL Cholesterol 30 mg/dL (60-100); LDL Cholesterol Calculated 18 mg/dL (50-129); Osmolality Calculated 301 mOsm/kg (285-295); Potassium 4.9 mmol/L (3.5-5.1); Sodium 128 mmol/L (136-145); Total Bilirubin 0.2 mg/dL (0.15-1.2); Triglycerides 64 mg/dL (0-150); VLDL Cholestrol Calculation 13 mg/dL (0-30)
[2022-09-24] MEDS: aspirin 81 mg EC Tablet PO (05:38)
[2022-09-24] MEDS: citalopram 20 mg Tablet PO (05:38)
[2022-09-24 06:00] LABS: Blood Urea Nitrogen 95 mg/dL (8-23)
[2022-09-24 06:20] LABS: Glucose Point of Care 289 mg/dL (70-110)
[2022-09-24] MEDS: budesonide 0.5 mg/2 mL Neb INHALATION ×2 (07:36→20:03)
[2022-09-24] MEDS: ipratropium-albuterol 3 mL Neb INHALATION ×2 (07:36→20:03)
[2022-09-24] MEDS: insulin lispro 100 unit/1 mL SUBCUT ×4 (08:30→21:26)
[2022-09-24] MEDS: pramipexole 0.25 mg Tablet 1.5 MG PO ×3 (08:31→21:26)
[2022-09-24] MEDS: pantoprazole DR 40 mg Tablet PO ×2 (08:31→17:17)
[2022-09-24] MEDS: atorvastatin 40 mg Tablet PO (08:31)
[2022-09-24] MEDS: finasteride 5 mg Tablet PO (08:31)
[2022-09-24] MEDS: azithromycin 250 mg Tablet 500 MG PO (08:31)
[2022-09-24] MEDS: cefTRIAXone 1,000 MG in sodium chloride 0.9% (plus) 50 ML 100 MG IV (08:32)
[2022-09-24] MEDS: sennosides-docusate Tablet 1 TAB PO (08:32)
[2022-09-24] MEDS: tamsulosin 0.4 mg Capsule PO (08:32)
--- NOTE | 2022-09-24 10:16 | P.PN_ITS ---
Subjective Subjective: States that overall he is doing all right. States that he is coughing, coughing up some phlegm. Denies pain or discomfort. He states that he is not hurting quite as bad in his left side chest/back as he was before. Does not remember how he may have injured himself, does not remember falling do wn or hitting himself on anything. Knows she is in the hospital, cannot tell me the year. States that sometimes when he coughs a lot he vomits. Denies any blood in there. Denies any blood or dark black stools. Vitals/I&O/Wt Last Vital Signs Temp 97.4 F L 09/24/22 07:23 Pulse 64 09/24/22 07:36 Resp 16 09/24/22 07:36 BP 103/50 09/24/22 07:23 Pulse Ox 91 09/24/22 07:36 O2 Del Method 09/24/22 07:36 O2 Flow Rate 2 09/24/22 07:36 FiO2 30 09/24/22 04:47 09/23/22 09/24/22 09/24/22 22:59 06:59 14:59 Intake Total 610 / 660 1290 / 1950 350 / 350 Output Total 500 / 600 Balance 610 / 560 790 / 1350 350 / 350 Weight last 48 hrs Weight 57.153 kg Physical Exam Narrative: [place] Const: COMMON NORMALS: patient oriented x3 and alert GENERAL APPEARANCE: cooperative ORIENTATION/CONSCIOUSNESS: Yes awake HENMT: COMMON NORMALS: oropharynx normal Neck/C-Spine: COMMON NORMALS: no JVD Resp: COMMON NORMALS: normal respiratory effort and clear to auscultation bilaterally AUSCULTATION: clear to auscultation bilaterally Cardio: COMMON NORMALS: no JVD, regular rhythm, S1 normal heart sound present, S2 normal heart sound present and No murmurs present (Cardio) RHYTHM: regular rhythm HEART SOUNDS: S1 normal heart sound present and S2 normal heart sound present GI: COMMON NORMALS: Normal to inspection, nondistended, normoactive bowel sounds present, Soft to palpation and non-tender PALPATION: Yes Soft to palpation Extremity: COMMON NORMALS: no joint enlargement and no pedal edema Neuro: COMMON NORMALS: patient oriented x3 and moves all extremities SENSORIUM/ORIENTATION: Yes alert Skin: COMMON NORMALS: no rashes or lesions noted GENERAL SKIN EXAM: no rashes or lesions noted Urinary Catheter Management: Riddle: Cath Placed During This Visit: yes Reason for Continuing Indwelling Catheter: Acute Urinary Retention or Obstruction Urinary Catheter Date of Insertion: 09/23/22 Urinary Catheter Time of Insertion: 15:57 Data 09/24/22 04:04 09/24/22 04:04 Micro: Microbiology 09/23/22 12:25 MRSA Culture - Final Nose 09/22/22 19:46 Legionella Urinary Antigen - Final Unknown Source 09/22/22 19:46 Bacterial Antigens - Final Urine Kidney A&P Assessment and plan (1) Pneumonia: Continue ceftriaxone, azithromycin. Oxygen support. Wean down as tolerating. Obtain sputum culture. MRSA PCR negative. Urine bacterial antigens negative. COVID-19 negative. (2) Macrocytic anemia: B12 867. Folic acid 17.6. Consider follow-up MMA. Does have iron deficiency, iron saturation 7.5. Initially worsening anemia hemoglobin down to 10.6. Rising BUN, up to 95. Stop heparin. SCD. Decrease Solu-Medrol dose. Increase PPI to twice daily. Check Hemoccult. (3) Elevated BUN: As above. (4) Acute cystitis without hematuria: Follow-up urine cultures. Continue with ceftriaxone as above. (5) Hypercapnia: Decrease Solu-Medrol dose to 20 mg every 8. Continue ceftriaxone. Azithromycin. Obtain sputum culture. Acute on chronic hypoxic and hypercapnic respiratory failure. Most likely secondary COPD exacerbation. Check COVID-19 swab, sputum culture. Less concerns for pneumonia currently. DuoNebs every 6 hour, budesonide twice daily. Start on Solu-Medrol 60 mg every 8 hourly after 125 mg stat. Wean off oxygen supplementation keeping saturation over 88%. BiPAP as needed. Check CT chest without contrast. There is concern for left hemidiaphragm. Hold off on MRI for now. Continue with IV ceftriaxone for now. Will help with UTI as well. (6) COPD exacerbation: As above. (7) Altered mental status: Resolved. Most likely secondary to combination of uremia, hypoglycemia and hypercapnia. (8) Acute on chronic systolic heart failure: Last echocardiogram from 2 months ago appreciated. So far seems compensated. Hold off on torsemide for now. (9) Chronic kidney disease: Creatinine baseline seems to be 2.4-2.6. Currently 3.1. Uremia as well. Hold off on torsemide. Medical reconciliation done for nephrotoxic drugs. Riddle catheter. Patient has a history of urinary retention from bladder outlet obstruction No hydronephrosis. (10) Urinary retention: (11) Emphysema lung: (12) Smoker: (13) BPH loc w urin obs/LUTS: (14) Acute on chronic respiratory failure with hypoxia and hypercapnia: Plan Left abdominal wall hematoma/left-sided hemidiaphragm: Patient gives history of trauma and fall. Multiple rib fractures in various stages of healing. Carb consistent cardiac diet. Protonix for PUD prophylaxis SCD for DVT prophylaxis. Attestations Medical Necessity Statement*: Continue admission for assessment and management of pneumonia, COPD exacerbation, acute anemia. Coding Level of Care Code Acute Legal Editor for [facility] Diagnoses Pneumonia J18.9 Macrocytic anemia D53.9 Elevated BUN R79.9 Acute cystitis without hematuria N30.00 Hypercapnia R06.89 COPD exacerbation J44.1 Altered mental status R41.82 Acute on chronic systolic heart failure I50.23 Chronic kidney disease N18.9 Urinary retention R33.9 Emphysema lung J43.9 Smoker F17.200 BPH loc w urin obs/LUTS N40.1 Acute on chronic respiratory failure with hypoxia and hypercapnia J96.21; J96 .22
[2022-09-24 11:09] LABS: Glucose Point of Care 351 mg/dL (70-110)
[2022-09-24 17:07] LABS: Glucose Point of Care 213 mg/dL (70-110)
--- NOTE | 2022-09-24 17:54 | PC.NURSE ---
Patient resting in bed throughout out shift, OOBTC and bsc. AAOx4 but extremely [place], VSS remaining on oxygen per nasal canula. No c/o pain or discomfort and is looking forward to being discharged home. Patient turns self frequently in bed, room is clean and clutter free with call light in reach. NO new events or needs at this time. All questions and concerns addressed throughout shift, spoke on phone with and Shannan Palumbo both of which on patients PHI. Good UOP, tolerating diet, will continue to monitor until nurse handoff.
[2022-09-24 20:46] LABS: Glucose Point of Care 187 mg/dL (70-110)
--- NOTE | 2022-09-24 21:07 | PC.NURSE ---
Tom RN informed this nurse that patient's O2 was in the low 80s. Patient assessed, resting in bed with O2 nasal cannula pulled off. Cannula re-applied and patient educated to keep cannula for safety. Patient decided to go to bed for evening, so Bipap applied. Patient stated that he disliked the bipap and it wasn't his fault if it gets messed up. Patient resting in bed with both side rails up, bed locked in lowest position and call light within reach. O2 saturations back in the 90s. Patient stated no further needs at this time.
--- NOTE | 2022-09-24 21:53 | PC.NURSE ---
Patient educated to keep BiPap on to keep O2 levels up. Patient requires reinforcement.
--- NOTE | 2022-09-24 21:56 | PC.NURSE ---
Patient attempted repeatedly to take bipap off. Patient educated to keep it on due to levels of O2 in the low 90s. Patient stated you aren't listening to me, are you? Patient educated again as to why it is important to keep BiPap on and not to mess with BiPap. Patient resting in bed, locked in lowest position, with both side rails up and call light within reach.
--- NOTE | 2022-09-24 22:39 | PC.NURSE ---
Patient uncompliant with BiPap. Patient took off his mask, threw it on the bed and stated I ain't wearing it. Nasal cannula applied to patient, on 3L, satting in high 80s. Dr English and respiratory therapy notified of situation, vitals, and current state of patient.
[2022-09-25] VITALS (12 sets, daily range): BP systolic 122–149; BP diastolic 70–87; PULSE 69–95; RESP 16–22; TEMP 36.4–36.7; O2SAT 82–98
--- NOTE | 2022-09-25 03:26 | PC.NURSE ---
Patient rounded on, patient had taken off oxygen sensor from finger. Sensor reapplied, patient educated to keep it on in order to monitor oxygen levels. Patient resting in bed, locked in lowest position with side rails up and call light within reach.
[2022-09-25 05:14] LABS: Basophils % 0.1 %; Hemoglobin 10.4 g/dL (11.7-16.6); Lymphocytes # 0.3 10^3/uL (0.8-4.8); Lymphocytes % 3.4 %; Mean Corpuscular HGB Conc 32.5 g/dL (30.0-36.0); Mean Corpuscular Hemoglobin 30.7 pg (28.0-34.0); Mean Corpuscular Volume 94.4 fl (80-94); Mean Platelet Volume 11.2 fL (7.4-10.4); Monocytes # 0.2 10^3/uL (0.2-0.9); Monocytes % 2.5 %; Neutrophils # 6.74 10^3/uL (1.8-7.7); Neutrophils % 92.1 %; Nucleated Red Blood Cells % 0 %; Platelet Count 126 10^3/cmm (130-400); Red Blood Count 3.39 10^6/uL (4.1-5.3); Red Cell Distribution Width 14.6 % (12.1-15.1); White Blood Count 7.3 10^3/uL (4.0-10.0)
[2022-09-25 05:38] LABS: Anion Gap 16.5 (5-19); Carbon Dioxide 23 mmol/L (22-29); Chloride 96 mmol/L (98-107); Glomerular Filtration Rate 23.5 mL/min (90-130); Glucose 180 mg/dL (65-115); Osmolality Calculated 307 mOsm/kg (285-295); Potassium 4.5 mmol/L (3.5-5.1); Sodium 131 mmol/L (136-145)
[2022-09-25 05:50] LABS: Blood Urea Nitrogen 99 mg/dL (8-23)
--- NOTE | 2022-09-25 05:57 | PC.NURSE ---
Critical BUN level of [address] English via telephone
[2022-09-25] MEDS: aspirin 81 mg EC Tablet PO (06:07)
[2022-09-25] MEDS: citalopram 20 mg Tablet PO (06:07)
--- NOTE | 2022-09-25 06:13 | PC.NURSE ---
Patient rounded on and patient had oxygen cannula off in order to blow his nose. O2 saturation was in the mid 70s. Patient educated to keep O2 on and not remove it, and importance of it. O2 reapplied on patient. O2 sats back up in the 90s. Patient resting in bed, locked in lowest position, with both side rails up and call light within reach.
[2022-09-25 06:30] LABS: Glucose Point of Care 259 mg/dL (70-110)
[2022-09-25] MEDS: insulin lispro 100 unit/1 mL SUBCUT ×4 (08:19→21:24)
[2022-09-25] MEDS: azithromycin 250 mg Tablet 500 MG PO (08:20)
[2022-09-25] MEDS: finasteride 5 mg Tablet PO (08:20)
[2022-09-25] MEDS: atorvastatin 40 mg Tablet PO (08:21)
[2022-09-25] MEDS: sennosides-docusate Tablet 1 TAB PO (08:21)
[2022-09-25] MEDS: pramipexole 0.25 mg Tablet 1.5 MG PO ×2 (08:21→20:42)
[2022-09-25] MEDS: pantoprazole DR 40 mg Tablet PO ×2 (08:21→17:33)
[2022-09-25] MEDS: tamsulosin 0.4 mg Capsule PO (08:22)
[2022-09-25] MEDS: cefTRIAXone 1,000 MG in sodium chloride 0.9% (plus) 50 ML 100 MG IV (08:24)
--- NOTE | 2022-09-25 08:44 | XRR_ITS ---
PROCEDURE INFORMATION: Exam: XR Chest Exam date and time: 09/25/2022 1:47 PM Age: 72 years old Clinical indication: Shortness of breath; Additional info: Hypoxia TECHNIQUE: Imaging protocol: Radiologic exam of the chest. Views: 1 view. COMPARISON[place] [id number] 09/23/2022 3:18 PM FINDINGS: Lungs: Atelectasis at the left lung base. Pleural spaces: Unremarkable. No pleural effusion. No pneumothorax. Heart/Mediastinum: Unremarkable. No cardiomegaly. Bones/joints: Unremarkable. Intraperitoneal space: Large amount of air in the left upper quadrant. XR/XR chest 1V portable [id number] IMPRESSION: Large amount of air in the left upper quadrant. Differential includes a large gastric bubble. Free air can not be excluded. Mild atelectasis at the left lung base.
[2022-09-25] MEDS: ipratropium-albuterol 3 mL Neb INHALATION ×2 (09:08→20:29)
[2022-09-25] MEDS: budesonide 0.5 mg/2 mL Neb INHALATION ×2 (09:09→20:29)
[2022-09-25] MEDS: levofloxacin-dextrose 5 % 750 MG/150 ML PREMIX 100 MG IV (09:10)
--- NOTE | 2022-09-25 11:16 | PC.NURSE ---
Resumed care of patient this AM, patient found resting in bed with oxygen in nares. Appeared to be resting comfortably. During morning assessment patient remained AAOx4 with VSS on oxygen needs. Room cleaned up and clutter free with call light in reach and patient sitting on side of bed dangling feet. 1117: patient sitting at side of bed trying to remove elmore catheter but easily redirected. Patient encouraged to lie back down for a little to rest. Patient cooperative however removed telemetry unit and refused to have it reapplied. Room cleaned again as there were dirty tissues all over floor and on bedding. Patient more confused than previously but redirectable. Patient stating he does not want his insulin shot, this nurse will readdress soon as patient BG is elevated and patient is eating entire tray plus snacks. Will continue to monitor.
[2022-09-25 11:17] LABS: Glucose Point of Care 317 mg/dL (70-110)
--- NOTE | 2022-09-25 11:24 | PC.SOCIAL ---
IMM Update pg 2 of IMM updated and reviewed w/ patient. Copy provided and Copy dated, initialed and placed in chart.
--- NOTE | 2022-09-25 15:51 | XRR_ITS ---
PROCEDURE INFORMATION: Exam: XR Abdomen Exam date and time: 09/25/2022 4:16 PM Age: 72 years old Clinical indication: Abdominal tenderness; Additional info: L lateral decub to exclude subdiaphragmatic free air, vs large gastric bubble TECHNIQUE: Imaging protocol: Radiologic exam of the abdomen. Views: Frontal supine view of the abdomen. 1 View. COMPARISON: [place] [id number] 09/23/2022 3:18 PM FINDINGS: Gastrointestinal tract: Moderate stool in the colon and rectum. Scattered gas within the small bowel. Air-fluid level in the stomach. Bones/joints: Thoracolumbar scoliosis and degenerative changes. Other findings: No free peritoneal air visualized. XR/XR abdomen 1V* [id number] IMPRESSION: 1. No free peritoneal air.
--- NOTE | 2022-09-25 15:55 | P.PN_ITS ---
Subjective Subjective: Overnight and this morning requiring more oxygen. Overnight he was started on BiPAP, but was taking of the mask. This morning was transitioned to high flow nasal cannula, but again found to take it off. On and off some confusion, although during my visit napping, wakes up easily, is pleasant, c ooperative. Tells me he has been coughing more. Denies pain or discomfort. Vitals/I&O/Wt Last Vital Signs Temp 98.1 F 09/25/22 14:52 Pulse 84 09/25/22 15:31 Resp 18 09/25/22 15:31 BP 138/75 09/25/22 14:52 Pulse Ox 92 09/25/22 15:31 O2 Del Method 09/25/22 15:31 O2 Flow Rate 7 09/25/22 15:31 FiO2 40 09/25/22 12:57 09/25/22 09/25/22 09/25/22 06:59 14:59 22:59 Intake Total 820 / 2630 680 / 680 Output Total 900 / 1700 875 / 875 Balance -80 / 930 -195 / -195 Physical Exam Narrative: [place] Const: COMMON NORMALS: patient oriented x3 and alert GENERAL APPEARANCE: cooperative ORIENTATION/CONSCIOUSNESS: Yes awake HENMT: COMMON NORMALS: oropharynx normal Neck/C-Spine: COMMON NORMALS: no JVD Resp: COMMON NORMALS: normal respiratory effort AUSCULTATION: diminished lung sounds on the left in the lower lung gutiérrez Cardio: COMMON NORMALS: no JVD, regular rhythm, S1 normal heart sound present, S2 normal heart sound present and No murmurs present (Cardio) RHYTHM: regular rhythm HEART SOUNDS: S1 normal heart sound present and S2 normal heart sound present GI: COMMON NORMALS: Normal to inspection, nondistended, normoactive bowel sounds present, Soft to palpation and non-tender PALPATION: Yes Soft to palpation Extremity: COMMON NORMALS: no joint enlargement and no pedal edema Neuro: COMMON NORMALS: patient oriented x3 and moves all extremities SENSORIUM/ORIENTATION: Yes alert Skin: COMMON NORMALS: no rashes or lesions noted GENERAL SKIN EXAM: no rashes or lesions noted Urinary Catheter Management: Riddle: Cath Placed During This Visit: yes Reason for Continuing Indwelling Catheter: Acute Urinary Retention or Obstruction Urinary Catheter Date of Insertion: 09/23/22 Urinary Catheter Time of Insertion: 15:57 Data 09/25/22 04:13 09/25/22 04:13 Micro: Microbiology 09/24/22 15:53 Gram Stain - Final Sputum - Expectorated Sputum 09/22/22 19:46 Urine Culture - Preliminary Urine,Clean Catch Enterococcus species A&P Assessment and plan (1) Pneumonia: Acute on chronic hypoxic and hypercapnic respiratory failure. Worsening hypoxia overnight, this morning up to 10 L nasal cannula on high flow cannula. Currently slightly better down to 7 L. Broaden his antibiotic with Levaquin. Additionally requested repeat chest x-ray. Repeat x-ray came back with possibly large gastric bubble, cannot exclude subdiaphragmatic free air. Discussed with radiology. Repeat x-ray with left lateral decubitus for additional assessment. Continue ceftriaxone, azithromycin. Levaquin. Oxygen support. Wean down as tolerating. Follow-up sputum culture. Noted gram-positive cocci. MRSA PCR negative. Urine bacterial antigens negative. COVID-19 negative. Steroids may be contributing to encephalopathy as well. Cut down further, decrease to 10 mg Solu-Medrol every 8 hours. (2) Macrocytic anemia: So far hemoglobin remaining at 10.4. Heparin has been held. Hemoccult pending. Cutting down steroid. B12 867. Folic acid 17.6. Consider follow-up MMA. Does have iron deficiency, iron saturation 7.5. Stop heparin. SCD. Decrease Solu-Medrol dose. Increase PPI to twice daily. Check Hemoccult. (3) Elevated BUN: As above. Possible contribution from left abdominal wall hematoma. (4) Acute cystitis without hematuria: History of UTI, Enterococcus species. Possibly contributing to his acute ence phalopathy. Unknown confusion/delirium. Follow-up urine cultures. Continue with ceftriaxone as above. Follow-up ID and sensitivity. (5) Hypercapnia: Decrease Solu-Medrol dose to 20 mg every 8. Continue ceftriaxone. Azithromycin. Obtain sputum culture. Acute on chronic hypoxic and hypercapnic respiratory failure. Most likely secondary COPD exacerbation. Negative COVID-19 swab DuoNebs every 6 hour, budesonide twice daily. Wean off oxygen supplementation keeping saturation over 88%. BiPAP as needed. Check CT chest without contrast. There is concern for left hemidiaphragm. Hold off on MRI for now. Continue with IV ceftriaxone for now. Will help with UTI as well. (6) COPD exacerbation: As above. Further cut down steroid dose. (7) Altered mental status: Again on and off confusion. Also pulling off BiPAP overnight, pulling off oxygen during the day. May be combination also secondary to UTI, as well as p ossible metabolic encephalopathy with steroids. Antibiotic broadened with Levaquin. Continue current dose steroids. One-to-one sitter. Most likely secondary to combination of uremia, hypoglycemia and hypercapnia. (8) Acute on chronic systolic heart failure: Last echocardiogram from 2 months ago appreciated. So far seems compensated. Hold off on torsemide for now. (9) Chronic kidney disease: NAIN on CKD, creatinine appears improving, down to 2.7. Creatinine baseline seems to be 2.4-2.6. Hold off on torsemide. Medical reconciliation done for nephrotoxic drugs. Riddle catheter. Patient has a history of urinary retention from bladder outlet obstruction No hydronephrosis. (10) Urinary retention: (11) Emphysema lung: (12) Smoker: (13) BPH loc w urin obs/LUTS: (14) Acute on chronic respiratory failure with hypoxia and hypercapnia: Plan Left abdominal wall hematoma/left-sided hemidiaphragm: Patient gives history of trauma and fall. Multiple rib fractures in various stages of healing. Carb consistent cardiac diet. Protonix for PUD prophylaxis SCD for DVT prophylaxis. Attestations Medical Necessity Statement*: Continue admission for assessment management of hypoxic respiratory failure, pneumonia, COPD exacerbation, acute encephalopathy, UTI, anemia. Coding Level of Care Code Acute Telephone Assembler for [facility] Diagnoses Pneumonia J18.9 Macrocytic anemia D53.9 Elevated BUN R79.9 Acute cystitis without hematuria N30.00 Hypercapnia R06.89 COPD exacerbation J44.1 Altered mental status R41.82 Acute on chronic systolic heart failure I50.23 Chronic kidney disease N18.9 Urinary retention R33.9 Emphysema lung J43.9 Smoker F17.200 BPH loc w urin obs/LUTS N40.1 Acute on chronic respiratory failure with hypoxia and hypercapnia J96.21; J96.22
[2022-09-25 17:13] LABS: Glucose Point of Care 191 mg/dL (70-110)
[2022-09-25 21:03] LABS: Glucose Point of Care 155 mg/dL (70-110)
--- NOTE | 2022-09-25 21:19 | PC.NURSE ---
Nadine from CT called and explained that the patient has a CT angio chest to check for PEs but patient's powder coater was 2.7 and GFR was 21.5. Dr English notified via telephone.
--- NOTE | 2022-09-25 22:58 | PC.NURSE ---
Patient attempted to get out of bed. Bed alarm re-set, patient resting in bed, locked in lowest position and call light within reach. Patient educated to press call light if he needed anything, and to keep oxygen on.
--- NOTE | 2022-09-25 23:08 | PC.NURSE ---
Patient stated that he felt nervous and showed the nurse his hands were shaking. Dr English notified and order put in for ativan one time dose.
[2022-09-25] MEDS: LORazepam 0.5 mg Tablet PO (23:10)
[2022-09-26] VITALS (79 sets, daily range): BP systolic 97–168; BP diastolic 63–111; PULSE 57–129; RESP 9–28; TEMP 36.4–36.8; O2SAT 73–100
--- NOTE | 2022-09-26 00:10 | PC.NURSE ---
Patient rounded on, oxygen had been removed by patient and O2 saturations in mid 80s. Oxygen re-applied to patient, and nurse educated patient to keep O2 on. Patient verbalized understanding but reinforcement teaching required. Patient stated no further needs at this time.
--- NOTE | 2022-09-26 01:29 | PC.NURSE ---
Patient found attempting to get out of bed and oxygen off. Patient helped back into bed, bed alarm reset and patient educated to use call light if he needed anything and to not remove oxygen. Three side rails up, bed locked in lowest position and call light within reach.
--- NOTE | 2022-09-26 01:39 | PC.NURSE ---
Patient attempted to get out of bed again. Helped back into bed, bed alarm reset with three side rails up and call light within reach. Patient educated to press call light if he needed anything, and to not get out of bed.
[2022-09-26] MEDS: lanolin oint 7 gm 1 APPLIC TOPICAL (02:02)
--- NOTE | 2022-09-26 02:06 | PC.NURSE ---
Patient rounded on, oxygen sensor had been removed by patient and attempts to remove IV had occurred. Patient educated to keep oxygen on, to not remove IV, to use call light if patient needed anything.
--- NOTE | 2022-09-26 02:08 | PC.NURSE ---
Patient's O2 saturations staying in low 90s, occasionally dropped to 89. Respiratory therapy informed.
--- NOTE | 2022-09-26 03:12 | PC.NURSE ---
Patient rounded on, on all fours and trying to stand up in bed. Patient redirected to lie down and educated not to take off oxygen, to stay in bed, and to use call light. Bed locked in lowest position with three rails up, call light within reach and bed alarm reset.
--- NOTE | 2022-09-26 04:06 | PC.NURSE ---
This tech entered the room to sit with Mr. Palumbo. JAMAL Troy was moving Mr. Palumbo to the chair. Sydni then left the room after assisting Mr. Palumbo to a safe sitting position in the chair. Mr. Palumbo then began to throw all items on his bedside table onto the bed. Afterwards, Mr. Palumbo shoved the table away from him and began to stand up, stating I'm going to get out of this place! The patient is very restless and cannot sit still. He continues to pull at the elmore catheter, oxygen tubing, and pulse oximetry monitor.
[2022-09-26] MEDS: ziprasidone 20 mg/mL SDV 10 MG IM (05:42)
[2022-09-26 05:46] LABS: Basophils % 0.2 %; Hematocrit 35.2 % (42.0-52.0); Hemoglobin 11.2 g/dL (11.7-16.6); Lymphocytes # 0.3 10^3/uL (0.8-4.8); Lymphocytes % 3.9 %; Mean Corpuscular HGB Conc 31.8 g/dL (30.0-36.0); Mean Corpuscular Hemoglobin 30.5 pg (28.0-34.0); Mean Corpuscular Volume 95.9 fl (80-94); Mean Platelet Volume 11.1 fL (7.4-10.4); Monocytes # 0.2 10^3/uL (0.2-0.9); Monocytes % 2.6 %; Neutrophils # 5.99 10^3/uL (1.8-7.7); Nucleated Red Blood Cells % 0 %; Platelet Count 132 10^3/cmm (130-400); Red Blood Count 3.67 10^6/uL (4.1-5.3); Red Cell Distribution Width 14.6 % (12.1-15.1); White Blood Count 6.4 10^3/uL (4.0-10.0)
--- NOTE | 2022-09-26 06:08 | PC.NURSE ---
Patient's agitation increased, pushing and pulling on sitter and nurse. Dr English notified and order for 10mg Geodon IM once given. Geodon administered to patient. Patient now in bed, locked in lowest position with three side rails up and sitter at bedside.
--- NOTE | 2022-09-26 06:09 | PC.NURSE ---
Patient refused AM dose of aspirin and celexa. Dr English notified.
[2022-09-26 06:10] LABS: Anion Gap 14.2 (5-19); Calcium 9.1 mg/dL (8.5-10.5); Carbon Dioxide 22 mmol/L (22-29); Chloride 101 mmol/L (98-107); Glomerular Filtration Rate 29.7 mL/min (90-130); Glucose 160 mg/dL (65-115); Osmolality Calculated 308 mOsm/kg (285-295); Potassium 4.2 mmol/L (3.5-5.1); Sodium 133 mmol/L (136-145)
[2022-09-26 06:29] LABS: Blood Urea Nitrogen 92 mg/dL (8-23)
[2022-09-26] MEDS: acetaminophen 500 mg Tablet PO (06:35)
[2022-09-26 06:46] LABS: Glucose Point of Care 310 mg/dL (70-110)
[2022-09-26] MEDS: pramipexole 0.25 mg Tablet 1.5 MG PO (07:59)
[2022-09-26] MEDS: insulin lispro 100 unit/1 mL SUBCUT ×2 (08:08→22:14)
[2022-09-26 08:23] LABS: ABG PCO2 43.1 mmHg (35-45); ABG PH Result 7.34 (7.35-7.45); Alveolar-Arterial Oxygen Gradi 6.3 mmHg (5-10); Arterial Blood Gas Hematocrit 39.5 % (42-52); Base Excess ABG -2.6 mmol/L (-2.0-2.0); Blood Gas Allen Test Pos; Blood Gas Operator Identificat AMH; Blood Gas Sample Site Radial, left; Blood Gas Sample Type Arterial; Carboxyhemoglobin 1.2 %THgb (0.4-20.1); HCO3 ABG 23.2 mmol/L (22-26); HGB O2 Sat 80.5 % (95-100); Ionized Calcium Level - ABG 1.3 mmol/L (1.1-1.4); Methemoglobin 0.6 % (0.4-1.5); Oxygen Device OXY MASK; PO2 ABG 48.2 mmHg (80.0-100.0); Total Hemoglobin 12.9 g/dL (14-18)
[2022-09-26] MEDS: ipratropium-albuterol 3 mL Neb INHALATION ×2 (08:32→20:28)
[2022-09-26] MEDS: budesonide 0.5 mg/2 mL Neb INHALATION ×2 (08:32→20:28)
[2022-09-26] MEDS: OLANZapine 10 mg VIAL 5 MG IM ×3 (09:55→13:20)
[2022-09-26] MEDS: azithromycin 250 mg Tablet 500 MG PO (09:55)
[2022-09-26] MEDS: finasteride 5 mg Tablet PO (09:55)
[2022-09-26] MEDS: sennosides-docusate Tablet 1 TAB PO (09:55)
[2022-09-26] MEDS: cefTRIAXone 1,000 MG in sodium chloride 0.9% (plus) 50 ML 100 MG IV (09:56)
[2022-09-26] MEDS: pantoprazole DR 40 mg Tablet PO (09:56)
[2022-09-26] MEDS: tamsulosin 0.4 mg Capsule PO (09:57)
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
[2022-09-26 12:00] LABS: Glucose Point of Care 130 mg/dL (70-110)
[2022-09-26] MEDS: dexmedetomidine 400 MCG in sodium chloride 0.9% (100 ml) 100 ML IV (14:05)
--- NOTE | 2022-09-26 14:08 | PC.NURSE ---
Report called to Arielle in ICU, patient remained on soft restraints BUE and BLE. Daughter at bedside, patient calling out for his mom. Patient continues to fight restraints and oxygen tubing.
--- NOTE | 2022-09-26 14:23 | PC.NURSE ---
Patient continues to be combative with staff and self. Precedex running per protocol and MAR
[2022-09-26 17:05] LABS: Glucose Point of Care 154 mg/dL (70-110)
[2022-09-26] MEDS: pantoprazole 40 mg SDV IVP (17:10)
[2022-09-26] MEDS: morphine 4 mg/mL SDV 1 mL 2 MG IVP (17:10)
[2022-09-26] MEDS: PHENobarbital 130 mg/mL SDV 1 mL 30 MG IV (17:53)
--- NOTE | 2022-09-26 18:10 | PC.NURSE ---
Patient resting in room. Precedex running per DEC. Patient been combative all shift and finally resting at this point. Morphine given per DEC.
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
--- NOTE | 2022-09-26 20:04 | CTR_ITS ---
PROCEDURE INFORMATION: Exam: CTA Chest With Contrast Exam date and time: 09/27/2022 3:36 AM Age: 72 years old Clinical indication: Shortness of breath; Prior surgery; Surgery type: Coronary stents; Patient HX: Persistent hypoxia. History of chf and copd. ; Additional info: Assess for pe TECHNIQUE: Imaging protocol: Computed tomographic angiography of the chest with contrast. 3D rendering (Not supervised by radiologist): MIP and/or 3D reconstructed images were created by the technologist. Radiation optimization: All CT scans at this facility use at least one of these dose optimization techniques: automated exposure control; mA and/or kV adjustment per patient size (includes targeted exams where dose is matched to clinical indication); or iterative reconstruction. Contrast material: OMNI 350; Contrast volume: 85 ml; Contrast route: INTRAVENOUS (IV); COMPARISON: [place] [id number] 09/23/2022 3:18 PM RADIATION DOSE METRICS: Total DLP (mGy-cm): 356.82 FINDINGS: Pulmonary arteries: No pulmonary emboli. Aorta: Atherosclerotic changes of the aorta. Lungs: There is persistent elevation of the left hemidiaphragm. Biapical emphysematous changes. Bilateral lower lobe atelectasis or other infiltrate such as pneumonia. Pleural spaces: Bilateral pleural effusions. Heart: Cardiomegaly. Coronary arteries: There are coronary artery calcifications. Lymph nodes: Unremarkable. No enlarged lymph nodes. Bones/joints: Redemonstration of chronic changes of the superior endplate of T10, no change. Compression fractures in the lower thoracic spine, no change. Multiple chronic appearing rib fractures. Soft tissues: Redemonstration of a partially imaged left lateral upper abdominal wall collection. CT/CT angio chest PE protcl [id number] IMPRESSION: 1. No pulmonary emboli. 2. Bilateral lower lobe atelectasis or other infiltrate such as pneumonia. Bilateral pleural effusions. 3. Redemonstration of a partially imaged left lateral upper abdominal wall collection.
[2022-09-26 22:06] LABS: Glucose Point of Care 236 mg/dL (70-110)
[2022-09-26] MEDS: heparin 5,000 unit/mL INJ 1 mL 5000 UNIT SUBCUT (22:13)
[2022-09-27] VITALS (26 sets, daily range): BP systolic 85–135; BP diastolic 50–88; PULSE 48–96; RESP 13–21; TEMP 35.8–36.3; O2SAT 88–100
[2022-09-27] MEDS: morphine 4 mg/mL SDV 1 mL 2 MG IVP ×2 (02:38→23:00)
[2022-09-27 03:29] LABS: Basophils % 0.1 %; Hematocrit 36.3 % (42.0-52.0); Hemoglobin 11.3 g/dL (11.7-16.6); Lymphocytes # 0.6 10^3/uL (0.8-4.8); Lymphocytes % 8.9 %; Mean Corpuscular HGB Conc 31.1 g/dL (30.0-36.0); Mean Corpuscular Hemoglobin 30.7 pg (28.0-34.0); Mean Corpuscular Volume 98.6 fl (80-94); Mean Platelet Volume 10.8 fL (7.4-10.4); Monocytes # 0.7 10^3/uL (0.2-0.9); Monocytes % 9.2 %; Neutrophils # 5.72 10^3/uL (1.8-7.7); Neutrophils % 81.2 %; Nucleated Red Blood Cells % 0 %; Platelet Count 157 10^3/cmm (130-400); Red Blood Count 3.68 10^6/uL (4.1-5.3); Red Cell Distribution Width 14.8 % (12.1-15.1); White Blood Count 7.1 10^3/uL (4.0-10.0)
[2022-09-27] MEDS: iohexol 350 mg/mL 500 mL Btl (per mL) IV (03:46)
[2022-09-27 03:56] LABS: Alanine Aminotransferase 55 U/L (0-41); Albumin Level 2.6 g/dL (3.5-5.2); Alkaline Phosphatase 112 U/L (40-130); Anion Gap 10.9 (5-19); Aspartate Amino Transferase 68 U/L (0-40); Calcium 9.5 mg/dL (8.5-10.5); Carbon Dioxide 30 mmol/L (22-29); Chloride 112 mmol/L (98-107); Globulin 3.3 g/dL (1.3-4.6); Glomerular Filtration Rate 29.7 mL/min (90-130); Glucose 65 mg/dL (65-115); Osmolality Calculated 330 mOsm/kg (285-295); Potassium 4.9 mmol/L (3.5-5.1); Sodium 148 mmol/L (136-145); Total Bilirubin 0.4 mg/dL (0.15-1.2); Total Protein 5.9 g/dL (6.6-8.7)
[2022-09-27 04:33] LABS: Blood Urea Nitrogen 84 mg/dL (8-23)
[2022-09-27] MEDS: pantoprazole 40 mg SDV IVP ×2 (05:42→17:54)
[2022-09-27] MEDS: ipratropium-albuterol 3 mL Neb INHALATION ×2 (08:11→19:46)
[2022-09-27] MEDS: budesonide 0.5 mg/2 mL Neb INHALATION ×2 (08:11→19:46)
[2022-09-27] MEDS: finasteride 5 mg Tablet PO (09:16)
[2022-09-27] MEDS: pramipexole 0.25 mg Tablet 1.5 MG PO ×2 (09:16→21:35)
[2022-09-27] MEDS: sennosides-docusate Tablet 1 TAB PO (09:16)
[2022-09-27] MEDS: azithromycin 250 mg Tablet 500 MG PO (09:17)
[2022-09-27] MEDS: tamsulosin 0.4 mg Capsule PO (09:17)
[2022-09-27] MEDS: atorvastatin 40 mg Tablet PO (09:17)
[2022-09-27] MEDS: cefTRIAXone 1,000 MG in sodium chloride 0.9% (plus) 50 ML 100 MG IV (09:18)
[2022-09-27] MEDS: dextrose 50% syringe 50 mL IVP (09:19)
[2022-09-27 09:29] LABS: Glucose Point of Care 201 mg/dL (70-110)
[2022-09-27 09:29] LABS: Glucose Point of Care 54 mg/dL (70-110)
[2022-09-27] MEDS: dextrose 5% 1,000 ML 30 ML IV (10:04)
[2022-09-27] MEDS: heparin 5,000 unit/mL INJ 1 mL 5000 UNIT SUBCUT ×2 (10:24→22:46)
[2022-09-27] MEDS: levofloxacin-dextrose 5 % 750 MG/150 ML PREMIX 100 MG IV (10:24)
[2022-09-27 11:34] LABS: Sodium 144 mmol/L (136-145)
[2022-09-27 12:57] LABS: Glucose Point of Care 135 mg/dL (70-110)
[2022-09-27] MEDS: sodium chloride 0.9% 250 ML IV (13:05)
--- NOTE | 2022-09-27 13:22 | PC.SOCIAL ---
IMM Update pg 2 of IMM updated and reviewed w/ patient's Ara. Copy provided and Copy dated, initialed and placed in chart.
[2022-09-27] MEDS: vancomycin 1,000 MG in sodium chloride 0.9% 250 ML 250 MG IV (13:34)
--- NOTE | 2022-09-27 16:08 | PM.PN ---
Subjective Subjective: This morning he is doing better. He is more lucid, calm, cooperative. He has been sleeping this morning. This morning episode of hypoglycemia, blood glucose 65. Shortly prior to that also concern for aspiration drinking water. Vitals/I&O/Wt Last Vital Signs Temp 97.4 F L 09/27/22 12:00 Pulse 70 09/27/22 12:00 Resp 16 09/27/22 12:00 BP 94/50 09/27/22 12:00 Pulse Ox 97 09/27/22 12:00 O2 Del Method 09/27/22 12:00 O2 Flow Rate 6 09/27/22 12:00 FiO2 40 09/27/22 06:00 09/27/22 09/27/22 09/27/22 06:59 14:59 22:59 Intake Total 23.383 / 228.109 9990 / 1400 500 / 1900 Output Total 0 / 2100 Balance 23.383 / -0264.336 5946 / 1400 500 / 1900 Physical Exam Narrative: [facility] Const: GENERAL APPEARANCE: cooperative OTHER: Shifting around in bed. Lifting his legs up in the air. Sleeping, wakes up to voice. Hard of hearing. HENMT: COMMON NORMALS: oropharynx normal Neck/C-Spine: COMMON NORMALS: no JVD Resp: COMMON NORMALS: normal respiratory effort and clear to auscultation bilaterally AUSCULTATION: clear to auscultation bilaterally and diminished lung sounds on the left in the lower lung gutiérrez Cardio: COMMON NORMALS: no JVD, regular rhythm, S1 normal heart sound present, S2 normal heart sound present and No murmurs present (Cardio) RHYTHM: regular rhythm HEART SOUNDS: S1 normal heart sound present and S2 normal heart sound present GI: COMMON NORMALS: Normal to inspection, nondistended, normoactive bowel sounds present, Soft to palpation and non-tender PALPATION: Yes Soft to palpation Extremity: COMMON NORMALS: no joint enlargement and no pedal edema Neuro: COMMON NORMALS: moves all extremities Skin: COMMON NORMALS: no rashes or lesions noted GENERAL SKIN EXAM: no rashes or lesions noted Urinary Catheter Management: Riddle: Cath Placed During This Visit: yes Reason for Continuing Indwelling Catheter: Accurate Measurement of Urinary Output in Critically Ill Patients Urinary Catheter Date of Insertion: 09/23/22 Urinary Catheter Time of Insertion: 15:57 Data 09/27/22 02:27 09/27/22 11:04 Micro: Microbiology 09/24/22 15:53 Gram Stain - Final Sputum - Expectorated Sputum Sputum Culture - Final A&P Assessment and plan (1) Altered mental status: This morning doing much better. Weaned off Precedex. Blood pressure soft, bradycardia, but anticipate should resolve with Precedex getting out of her system. Transiently Levophed needed to maintain blood pressure. Given small bolus 250 mL. Additionally this morning noted to have some aspiration drinking water, ST evaluation requested. Morphine as needed for pain or opiate withdrawal symptoms. Steroids discontinued. One-to-one sitter likely can be stopped today. Suspected component of underlying dementia. (2) Pneumonia: Steroid discontinued. CT angiogram without PE. Bilateral lower lobe pneumonia. Concern for aspiration while drinking water this morning. Speech therapy evaluation requested. Continue ceftriaxone, azithromycin. Levaquin. Oxygen support. Wean down as tolerating. Unrevealing sputum culture. Noted gram-positive cocci on gram stain, normal zelalem on culture. MRSA PCR negative. Urine bacterial antigens negative. COVID-19 negative. (3) Macrocytic anemia: Repeat hemoglobin today around 11. Resume prophylactic heparin but pending additional assessment for possible PE. Hemoccult pending. Wean off steroid. B12 867. Folic acid 17.6. Consider follow-up MMA. Does have iron deficiency, iron saturation 7.5. PPI to twice daily. (4) Elevated BUN: Today with some improvement down to 84. Hemoglobin steady at 11.3. As above. Possible contribution from left abdominal wall hematoma but cannot exclude possibility of GI bleeding as well, although has not had any melanotic stools, hematochezia or really any stool so far. (5) Acute cystitis without hematuria: UTI, possibly with encephalopathy, given persistent bisacodyl brought in antibiotics with vancomycin. On culture growing Enterococcus species. Continue Levaquin. (6) Hypercapnia: Weaned off steroid. ABG 12/ CO2 43. Continue ceftriaxone. Azithromycin. And reviewing sputum culture. Acute on chronic hypoxic and hypercapnic respiratory failure. Most likely secondary COPD exacerbation. Negative COVID-19 swab DuoNebs every 6 hour, budesonide twice daily. Wean off oxygen supplementation keeping saturation over 88%. BiPAP as needed. Check CT chest without contrast. There is concern for left hemidiaphragm. Hold off on MRI for now. Continue with IV ceftriaxone for now. Will help with UTI as well. (7) COPD exacerbation: As above. Further cut down steroid dose. (8) Acute on chronic systolic heart failure: Last echocardiogram from 2 months ago appreciated. So far seems compensated. Hold off on torsemide for now. (9) Chronic kidney disease: NAIN on CKD, improving, came down to 2.2. Hold off on torsemide. Medical reconciliation done for nephrotoxic drugs. Riddle catheter. Patient has a history of urinary retention from bladder outlet obstruction No hydronephrosis. (10) Urinary retention: Riddle. Yesterday bladder scan was done less than 50 cc in bladder. (11) Emphysema lung: (12) Smoker: (13) BPH loc w urin obs/LUTS: (14) Acute on chronic respiratory failure with hypoxia and hypercapnia: Plan Left abdominal wall hematoma/left-sided hemidiaphragm: Patient gives history of trauma and fall. Multiple rib fractures in various stages of healing. Underlying dementia suspected. Carb consistent cardiac diet. Protonix for PUD prophylaxis SCD for DVT prophylaxis. Attestations Medical Necessity Statement*: Continue admission for assessment management of pneumonia, hypoxic respiratory failure, acute encephalopathy. Critical Care Time: The high probability of a clinically significant, sudden or life threatening deterioration of the patient's hemodynamic, neurologic system(s) required my full and direct attention, intervention and personal management. The critical care time is as shown. This time is in addition to time spent performing any reported procedures but includes the following: x Data and vital sign review and interpretation x Patient assessment, examination and intervention x Documentation x Medication orders and management Critical Care Time (min): 40 Coding Level of Care Code Acute Software Development Coordinator for [facility] Fwd Diagnoses Altered mental status R41.82 Pneumonia J18.9 Macrocytic anemia D53.9 Elevated BUN R79.9 Acute cystitis without hematuria N30.00 Hypercapnia R06.89 COPD exacerbation J44.1 Acute on chronic systolic heart failure I50.23 Chronic kidney disease N18.9 Urinary retention R33.9 Emphysema lung J43.9 Smoker F17.200 BPH loc w urin obs/LUTS N40.1 Acute on chronic respiratory failure with hypoxia and hypercapnia J96.21; J96.22
[2022-09-27 17:51] LABS: Glucose Point of Care 164 mg/dL (70-110)
[2022-09-27] MEDS: insulin lispro 100 unit/1 mL SUBCUT (22:42)
[2022-09-27 22:44] LABS: Glucose Point of Care 224 mg/dL (70-110)
[2022-09-28] VITALS (59 sets, daily range): BP systolic 80–179; BP diastolic 46–100; PULSE 60–132; RESP 7–23; TEMP 36.2–36.8; O2SAT 86–100
[2022-09-28 03:01] LABS: Basophils % 0.1 %; Eosinophils % 0.4 %; Hematocrit 35.5 % (42.0-52.0); Hemoglobin 11.1 g/dL (11.7-16.6); Lymphocytes # 1.1 10^3/uL (0.8-4.8); Lymphocytes % 13.8 %; Mean Corpuscular HGB Conc 31.3 g/dL (30.0-36.0); Mean Corpuscular Hemoglobin 30.6 pg (28.0-34.0); Mean Corpuscular Volume 97.8 fl (80-94); Mean Platelet Volume 10.2 fL (7.4-10.4); Monocytes # 0.8 10^3/uL (0.2-0.9); Monocytes % 9.8 %; Neutrophils # 5.92 10^3/uL (1.8-7.7); Neutrophils % 75.4 %; Nucleated Red Blood Cells % 0 %; Platelet Count 177 10^3/cmm (130-400); Red Blood Count 3.63 10^6/uL (4.1-5.3); White Blood Count 7.9 10^3/uL (4.0-10.0)
[2022-09-28 03:32] LABS: Alanine Aminotransferase 49 U/L (0-41); Albumin Level 2.4 g/dL (3.5-5.2); Alkaline Phosphatase 105 U/L (40-130); Anion Gap 12.3 (5-19); Aspartate Amino Transferase 35 U/L (0-40); Blood Urea Nitrogen 66 mg/dL (8-23); Calcium 8.9 mg/dL (8.5-10.5); Carbon Dioxide 26 mmol/L (22-29); Chloride 107 mmol/L (98-107); Globulin 3.1 g/dL (1.3-4.6); Glomerular Filtration Rate 29.7 mL/min (90-130); Glucose 91 mg/dL (65-115); Osmolality Calculated 311 mOsm/kg (285-295); Potassium 4.3 mmol/L (3.5-5.1); Sodium 141 mmol/L (136-145); Total Bilirubin 0.4 mg/dL (0.15-1.2); Total Protein 5.5 g/dL (6.6-8.7)
[2022-09-28] MEDS: pantoprazole 40 mg SDV IVP ×2 (06:08→18:35)
[2022-09-28] MEDS: aspirin 81 mg EC Tablet PO (06:08)
[2022-09-28] MEDS: budesonide 0.5 mg/2 mL Neb INHALATION ×2 (08:10→19:51)
[2022-09-28 08:37] LABS: Glucose Point of Care 80 mg/dL (70-110)
[2022-09-28] MEDS: azithromycin 250 mg Tablet 500 MG PO (09:29)
[2022-09-28] MEDS: atorvastatin 40 mg Tablet PO (09:29)
[2022-09-28] MEDS: finasteride 5 mg Tablet PO (09:30)
[2022-09-28] MEDS: pramipexole 0.25 mg Tablet 1.5 MG PO ×3 (09:30→20:26)
[2022-09-28] MEDS: cefTRIAXone 1,000 MG in sodium chloride 0.9% (plus) 50 ML 100 MG IV (09:30)
[2022-09-28] MEDS: tamsulosin 0.4 mg Capsule PO (09:31)
[2022-09-28] MEDS: sennosides-docusate Tablet 1 TAB PO (09:31)
[2022-09-28] MEDS: acetaminophen 500 mg Tablet PO (09:49)
[2022-09-28 11:31] LABS: Glucose Point of Care 229 mg/dL (70-110)
[2022-09-28] MEDS: heparin 5,000 unit/mL INJ 1 mL 5000 UNIT SUBCUT (11:37)
[2022-09-28] MEDS: insulin lispro 100 unit/1 mL SUBCUT ×2 (11:38→20:37)
[2022-09-28 15:32] LABS: Glucose Point of Care 169 mg/dL (70-110)
--- NOTE | 2022-09-28 16:29 | PM.PN ---
Subjective Subjective: He is calm today, sleeping, wakes up easily. Hard of hearing. Asking if he has any pain or discomfort he states his only discomfort is having to stay in bed. Discussed with him regarding hypotension, and certainly we want to get him mobilized soon as his blood pressure is improved. Does not have chest pain or pressure. Does not feel difficulty breathing. Vitals/I&O/Wt Last Vital Signs Temp 97.6 F 09/28/22 14:00 Pulse 77 09/28/22 14:00 Resp 16 09/28/22 14:00 BP 100/66 09/28/22 14:00 Pulse Ox 92 09/28/22 14:00 O2 Del Method 09/28/22 14:00 O2 Flow Rate 5 09/28/22 14:00 FiO2 40 09/28/22 14:00 09/28/22 09/28/22 09/28/22 06:59 14:59 22:59 Intake Total 250 / 2640 170 / 170 Output Total 700 / 2350 Balance -450 / 290 170 / 170 Physical Exam Narrative: [place] Const: COMMON NORMALS: alert GENERAL APPEARANCE: cooperative ORIENTATION/CONSCIOUSNESS: Yes awake OTHER: Calm HENMT: COMMON NORMALS: oropharynx normal OTHER: Dry MM Neck/C-Spine: COMMON NORMALS: no JVD Resp: COMMON NORMALS: normal respiratory effort and clear to auscultation bilaterally AUSCULTATION: clear to auscultation bilaterally and diminished lung sounds on the left in the lower lung gutiérrez Cardio: COMMON NORMALS: no JVD, regular rhythm, S1 normal heart sound present, S2 normal heart sound present and No murmurs present (Cardio) RHYTHM: regular rhythm HEART SOUNDS: S1 normal heart sound present and S2 normal heart sound present GI: COMMON NORMALS: Normal to inspection, nondistended, normoactive bowel sounds present, Soft to palpation and non-tender PALPATION: Yes Soft to palpation OTHER: Left side abdominal fluid collection, bruising. Extremity: COMMON NORMALS: no joint enlargement and no pedal edema Neuro: COMMON NORMALS: moves all extremities SENSORIUM/ORIENTATION: Yes alert Skin: COMMON NORMALS: no rashes or lesions noted GENERAL SKIN EXAM: no rashes or lesions noted Urinary Catheter Management: Riddle: Cath Placed During This Visit: yes Reason for Continuing Indwelling Catheter: Acute Urinary Retention or Obstruction Urinary Catheter Date of Insertion: 09/23/22 Urinary Catheter Time of Insertion: 15:57 Data 09/28/22 02:17 09/28/22 02:17 Micro: Microbiology 09/24/22 15:53 Gram Stain - Final Sputum - Expectorated Sputum Sputum Culture - Final A&P Assessment and plan (1) Hypotension: Requiring small amount of Levophed, but having hard time weaning off. Does appear somewhat dry on exam, although with history of low ejection fraction, will check NICOM, may be responsive to fluid boluses to help him wean off pressor. Do suspect that this is rather hypovolemic given poor oral intake in the last several days while encephalopathic. Does not appear to otherwise show signs of sepsis. May have had component of uremia given very elevated BUN which was likely secondary to hematoma, which now appears to be improving, BUN down to 66. Assess limited TTE (2) Altered mental status: Mental status has improved. He remains calm. He would like to mobilize, although blood pressure has been low. Continue dysphagia diet. Aspiration precautions. ST follow-up. Morphine as needed for pain or opiate withdrawal symptoms. Steroids discontinued. One-to-one stopped. Suspected component of underlying dementia. (3) Pneumonia: Steroid discontinued. Oxygenation somewhat better, although continuing to require 5 L nasal cannula oxygen. CT angiogram without PE. Bilateral lower lobe pneumonia. Concern for aspiration while drinking water this morning. Dysphagia diet. Aspiration precautions. Continue ceftriaxone, azithromycin. Levaquin. Oxygen support. Wean down as tolerating. Unrevealing sputum culture. Noted gram-positive cocci on gram stain, normal zelalem on culture. MRSA PCR negative. Urine bacterial antigens negative. COVID-19 negative. (4) Macrocytic anemia: Repeat hemoglobin today around 11. Continue prophylactic heparin but pending additional assessment for possible PE. Hemoccult pending. Wean off steroid. B12 867. Folic acid 17.6. Consider follow-up MMA. Does have iron deficiency, iron saturation 7.5. PPI twice daily. (5) Elevated BUN: Continue to improve. Hemoglobin steady at 11.3. As above. Suspected from left abdominal wall hematoma but cannot exclude possibility of GI bleeding as well, although has not had any melanotic stools, hematochezia or really any stool so far. (6) Acute cystitis without hematuria: UTI, possibly with encephalopathy, given persistent bisacodyl brought in antibiotics with vancomycin. On culture growing Enterococcus species. Continue Levaquin. (7) Hypercapnia: Weaned off steroid. ABG 12/5 CO2 43. Continue ceftriaxone. Azithromycin. And reviewing sputum culture. Acute on chronic hypoxic and hypercapnic respiratory failure. Most likely secondary COPD exacerbation. Negative COVID-19 swab DuoNebs every 6 hour, budesonide twice daily. Wean off oxygen supplementation keeping saturation over 88%. BiPAP as needed. Check CT chest without contrast. There is concern for left hemidiaphragm. Hold off on MRI for now. Continue with IV ceftriaxone for now. Will help with UTI as well. (8) COPD exacerbation: As above. Still discontinued. (9) Acute on chronic systolic heart failure: Currently appears compensated, in fact probably somewhat on the dry side. Diuretic on hold. Last echocardiogram from 2 months ago appreciated. So far seems compensated. Hold off on torsemide for now. (10) Chronic kidney disease: NAIN on CKD, improving, came down to 2.2. Hold off on torsemide. Medical reconciliation done for nephrotoxic drugs. Riddle catheter. Patient has a history of urinary retention from bladder outlet obstruction No hydronephrosis. (11) Urinary retention: Riddle (12) Emphysema lung: (13) Smoker: (14) BPH loc w urin obs/LUTS: (15) Acute on chronic respiratory failure with hypoxia and hypercapnia: (16) Hypernatremia: Received low rate D5 infusion 30 mL/h. Improved. Stop D5. Plan Left abdominal wall hematoma/left-sided hemidiaphragm: Patient gives history of trauma and fall. Multiple rib fractures in various stages of healing. Underlying dementia suspected. Constipation: Add MiraLAX Carb consistent cardiac diet. Protonix for PUD prophylaxis SCD for DVT prophylaxis. Attestations Medical Necessity Statement*: Continue admission for assessment management of hypotension and gentleman with underlying CHF, pneumonia, hypoxic respiratory failure, acute encephalopathy. Critical Care Time: The high probability of a clinically significant, sudden or life threatening deterioration of the patient's hemodynamic, respiratory, cardiac system(s) required my full and direct attention, intervention and personal management. The critical care time is as shown. 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
--- NOTE | 2022-09-28 16:46 | USCV_ITS ---
Phil Palumbo Age: 72 Gender: M : 1950 Exam Date: 09/28/2022 17:09 Ordering Phys: Oh Mercedes MD Technologist: Jamal Vasquez [place] [facility] [place]: hypotension, hypoxia BP: 131 / 68 HR: 85 Rhythm: Sinus Technical Quality: Adequate MEASUREMENTS (Male / Female) Normal Values 2D ECHO LV Diastolic Diameter PLAX 3.2 cm 4.2 - 5.9 / 3.9 - 5.3 cm LV Systolic Diameter PLAX 2.4 cm IVS Diastolic Thickness 0.8 cm 0.6 - 1.0 / 0.6 - 0.9 cm IVS Systolic Thickness 0.9 cm LVPW Diastolic Thickness 1.3 cm 0.6 - 1.0 / 0.6 - 0.9 cm LVPW Systolic Thickness 1.6 cm LVOT Diameter 2.0 cm LV Ejection Fraction 2D Teich 54.4 % LV Ejection Fraction MOD 2C 55.9 % LV Ejection Fraction 2C AL 56.9 % LA Diameter 3.3 cm LA Width 3.5 cm LA Height 5.0 cm RA Width 4.1 cm RA Height 4.7 cm Aorta at Sinotubular Diameter 2.7 cm IVC Diameter 2.0 cm M-MODE Aortic Annulus Diameter 3.3 cm LA Ao Ratio MM 1.0 MV E Point Septal Separation 1.0 cm DOPPLER Right Atrial Pressure 3.0 mmHg FINDINGS Left Ventricle Right Ventricle Right Atrium Left Atrium Mitral Valve Aortic Valve Tricuspid Valve Pulmonic Valve Pericardium Aorta IVC CONCLUSIONS This is a limited echocardiogram performed to assess LV systolic function. Limited quality echocardiogram because of poor ultrasonic windows. LV systolic function is grossly 40 to 45%. Regional wall motion abnormalities cannot accurately be assessed because of poor ultrasonic windows Compared to prior echocardiogram from 08/08/2022, no significant change are seen Heladio Lin MD (Electronically Signed) Final Date: 28 September 2022 18:06 S
--- NOTE | 2022-09-28 16:58 | PC.NURSE ---
1630 Cheetah Challenge done as ask by Dr. Soni. Patient awake and no complaints. Tolerated the challenge well, but results showed he is not fluid responsive with a SVI of 4.6%. Called these results to Dr. Soni. New orders for troponin and EKG series. Also noted a 12 beat run of Vtach at 1625 while patient was sitting up in bed before cheetah challenge strarted. VSS, and asymptomatic. Reported this vtach run to doctor also.
[2022-09-28 17:45] LABS: Glucose Point of Care 126 mg/dL (70-110)
--- NOTE | 2022-09-28 18:19 | ECG_ITS ---
[facility] Test Date: 2022-09-28 Pat Name: Phil Palumbo Department: Room: ICU07 Gender: Male Operations [place]: : 1950 Requested By: Oh Mercedes Order Number: [id number] Wes MD: Heladio Lin M.D. Measurements Intervals [place] Rate: 77 P: -7 OR: 116 QRS: -38 QRSD: 107 T: 70 QT: 398 QTc: 450 Interpretive Statements SINUS RHYTHM WITH SHORT OR INTERVAL LEFT AXIS DEVIATION [QRS AXIS < -30] SEPTAL MYOCARDIAL INFARCTION , PROBABLY OLD [40+ ms Q WAVE IN V1/V2] Compared to ECG 11/16/2021 13:24:56 Short OR interval now present Left-axis deviation now present Myocardial infarct finding now present Electronically Signed On 09-29-2022 10:15:41 ARTIST COLOR SEPARATION by Heladio Lin M.D. [id number]
[2022-09-28] MEDS: polyethylene glycol 3350 Pkt 17 gm PO (18:38)
[2022-09-28 19:29] LABS: Troponin(5th) Baseline 174 ng/L (0-15)
[2022-09-28] MEDS: ipratropium-albuterol 3 mL Neb INHALATION (19:51)
[2022-09-28] MEDS: heparin drip 25,000 UNIT/500 ML PREMIX 16 UNIT IV (19:59)
[2022-09-28 20:09] LABS: Glucose Point of Care 202 mg/dL (70-110)
[2022-09-28] MEDS: clopidogrel 300 mg Tablet PO (20:36)
[2022-09-28] MEDS: heparin 5,000 unit/mL INJ 1 mL IV (20:37)
[2022-09-28 20:48] LABS: Platelet Count 149 10^3/cmm (130-400)
[2022-09-28 21:17] LABS: Troponin 5 2HR 172.3 ng/L (0-15); Troponin 5 2HR Delta -1.7 ABS# (0-10)
--- NOTE | 2022-09-28 23:33 | ECG_ITS ---
[facility] Test Date: 2022-09-29 Pat Name: Phil Palumbo Department: Room: [facility] Gender: Male Sider: : 1950 Requested By: Oh Mercedes Order Number: [id number] Wes MD: Heladio Lin M.D. Measurements Intervals [place] Rate: 104 P: -10 AK: 126 QRS: -47 QRSD: 94 T: 90 QT: 332 QTc: 438 Interpretive Statements SINUS TACHYCARDIA POSSIBLE LEFT ATRIAL ENLARGEMENT [-0.1mV P-WAVE IN V1/V2] LEFT ANTERIOR FASCICULAR BLOCK [QRS AXIS <= -45, QR IN I, RS IN II] ANTEROSEPTAL MYOCARDIAL INFARCTION , OF INDETERMINATE AGE [40+ ms Q WAVE IN V1-V4] Compared to ECG 09/28/2022 18:19:34 Left anterior fascicular block now present Sinus rhythm no longer present Short AK interval no longer present Left-axis deviation no longer present Myocardial infarct finding still present Electronically Signed On 09-29-2022 10:16:02 RETORT OPERATOR by Heladio Lin M.D. [id number]
[2022-09-29] VITALS (63 sets, daily range): BP systolic 75–155; BP diastolic 44–96; PULSE 63–144; RESP 13–28; TEMP 35.9–36.6; O2SAT 90–100
[2022-09-29 00:43] LABS: Troponin 5 6HR Delta -8.2 ng/L (0-12)
[2022-09-29 00:56] LABS: Troponin 5 6HR 165.8 ng/L (0-15)
[2022-09-29] MEDS: vancomycin 1,000 MG in sodium chloride 0.9% 250 ML 250 MG IV (01:57)
[2022-09-29] MEDS: polyethylene glycol 3350 Pkt 17 gm PO ×2 (02:01→09:04)
[2022-09-29] MEDS: sennosides-docusate Tablet 1 TAB PO ×2 (02:08→09:03)
[2022-09-29 02:42] LABS: Basophils % 0.1 %; Eosinophils # 0.2 10^3/uL (0.0-0.8); Eosinophils % 1.4 %; Hemoglobin 12.7 g/dL (11.7-16.6); Lymphocytes # 1.8 10^3/uL (0.8-4.8); Lymphocytes % 16.3 %; Mean Corpuscular Hemoglobin 29.9 pg (28.0-34.0); Mean Corpuscular Volume 96.5 fl (80-94); Mean Platelet Volume 10.2 fL (7.4-10.4); Monocytes # 0.7 10^3/uL (0.2-0.9); Monocytes % 6.3 %; Neutrophils # 8.49 10^3/uL (1.8-7.7); Neutrophils % 75.5 %; Nucleated Red Blood Cells % 0 %; Platelet Count 207 10^3/cmm (130-400); Red Blood Count 4.25 10^6/uL (4.1-5.3); Red Cell Distribution Width 14.5 % (12.1-15.1); White Blood Count 11.2 10^3/uL (4.0-10.0)
[2022-09-29 03:03] LABS: Partial Thromboplastin Time 80.3 SECONDS (23.9-36.7)
[2022-09-29 03:05] LABS: Alanine Aminotransferase 55 U/L (0-41); Albumin Level 2.6 g/dL (3.5-5.2); Alkaline Phosphatase 124 U/L (40-130); Anion Gap 14.1 (5-19); Aspartate Amino Transferase 37 U/L (0-40); Blood Urea Nitrogen 70 mg/dL (8-23); Calcium 8.9 mg/dL (8.5-10.5); Carbon Dioxide 25 mmol/L (22-29); Chloride 103 mmol/L (98-107); Globulin 3.9 g/dL (1.3-4.6); Glomerular Filtration Rate 29.7 mL/min (90-130); Glucose 139 mg/dL (65-115); Osmolality Calculated 309 mOsm/kg (285-295); Potassium 4.1 mmol/L (3.5-5.1); Sodium 138 mmol/L (136-145); Total Bilirubin 0.4 mg/dL (0.15-1.2); Total Protein 6.5 g/dL (6.6-8.7)
--- NOTE | 2022-09-29 06:11 | PC.NURSE ---
Pt refused aspirin and protonix. pt educated on their purpose. protonix wasted in sink.
[2022-09-29] MEDS: budesonide 0.5 mg/2 mL Neb INHALATION ×2 (08:06→19:50)
[2022-09-29 08:29] LABS: Glucose Point of Care 100 mg/dL (70-110)
[2022-09-29 08:40] LABS: Partial Thromboplastin Time 78.8 SECONDS (23.9-36.7)
[2022-09-29] MEDS: clopidogrel 75 mg Tablet PO (09:02)
[2022-09-29] MEDS: azithromycin 250 mg Tablet 500 MG PO (09:02)
[2022-09-29] MEDS: cefTRIAXone 1,000 MG in sodium chloride 0.9% (plus) 50 ML 100 MG IV (09:02)
[2022-09-29] MEDS: atorvastatin 40 mg Tablet PO (09:02)
[2022-09-29] MEDS: pramipexole 0.25 mg Tablet 1.5 MG PO ×3 (09:03→20:28)
[2022-09-29] MEDS: finasteride 5 mg Tablet PO (09:04)
[2022-09-29] MEDS: tamsulosin 0.4 mg Capsule PO (09:04)
[2022-09-29] MEDS: acetaminophen 500 mg Tablet PO (09:13)
--- NOTE | 2022-09-29 10:20 | PM.PN ---
Subjective Subjective: Phil reports he is doing okay. He is wondering when he might go home. No chest pain. Reports his breathing is okay on oxygen. Believes he is supposed to use about 3 L at home. Medications: Reviewed: Yes Vitals/I&O/Wt Last Vital Signs Temp 97.8 F 09/29/22 07:00 Pulse 80 09/29/22 09:45 Resp 15 09/29/22 09:45 BP 102/61 09/29/22 09:45 Pulse Ox 97 09/29/22 09:45 O2 Del Method 09/29/22 08:00 O2 Flow Rate 5 09/29/22 08:00 FiO2 40 09/28/22 18:00 09/28/22 09/29/22 09/29/22 22:59 06:59 14:59 Intake Total 458.633 / 628.633 362.267 / 990.900 455.35 / 455.35 Output Total 1900 / 1900 800 / 2700 Balance -1441.367 / -1271.367 -437.733 / -1709.100 455.35 / 455.35 Physical Exam Narrative: General exam no distress Neck is supple Cardiovascular regular rate and rhythm, heart sounds distant Lungs diminished breath sounds bilaterally but clear Abdomen is soft with positive bowel sounds. Hematoma left lateral chest wall exam demonstrates Riddle Extremities no cyanosis clubbing or edema. Urinary Catheter Management: Riddle: Cath Placed During This Visit: yes Reason for Continuing Indwelling Catheter: Accurate Measurement of Urinary Output in Critically Ill Patients Urinary Catheter Date of Insertion: 09/23/22 Urinary Catheter Time of Insertion: 15:57 Data 09/29/22 02:15 09/29/22 02:15 A&P Assessment and plan (1) Hypotension: Now off norepinephrine Appears to be doing better Continue to hold diuretics, metoprolol Limited echo demonstrates EF 40 to 45%, unchanged from previous Assess limited TTE (2) Altered mental status: Improved Morphine as needed for pain or opiate withdrawal symptoms. Steroids discontinued. Suspect underlying dementia, TSH and B12 are normal Check CT head. (3) Pneumonia: Wean oxygen as tolerated CT demonstrated no pulmonary embolism Dysphagia diet Continue ceftriaxone, Zithromax, Levaquin PCR MRSA negative, COVID-negative (4) Macrocytic anemia: Hemoglobin stable Does have iron deficiency, iron saturation 7.5. PPI twice daily. (5) Elevated BUN: Evidence acute kidney injury Continue to monitor for improvement (6) Acute cystitis without hematuria: UTI, continue antibiotics. Urine culture grew enteric coccus (7) Hypercapnia: Improved Continue pulmonary toilet (8) COPD exacerbation: As above. (9) Acute on chronic systolic heart failure: Appears compensated Hold torsemide EF unchanged (10) Chronic kidney disease: NAIN on CKD, improving, but now stagnated Continue Riddle No evidence of hydronephrosis (11) Urinary retention: Riddle (12) Emphysema lung: (13) Smoker: Encourage abstinence (14) BPH loc w urin obs/LUTS: (15) Acute on chronic respiratory failure with hypoxia and hypercapnia: (16) Hypernatremia: Resolved Plan Left abdominal wall hematoma/left-sided hemidiaphragm: Patient gives history of trauma and fall. Multiple rib fractures in various stages of healing. Hold Plavix Elevated troponin, flat, no evidence of myocardial infarction and patient without symptomatology. Discontinue heparin. Underlying dementia suspected. Constipation, continue MiraLAX Carb consistent cardiac diet. Protonix for PUD prophylaxis SCD for DVT prophylaxis. 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
--- NOTE | 2022-09-29 10:27 | CT_ITS ---
WS: [id number] CT HEAD NONCONTRAST HISTORY: confusion TECHNIQUE: Contiguous axial imaging performed through the brain in 2.5 mm imaging. Bone and soft tiss ue windows. Sagittal and coronal reformats reviewed. All CT scans at [facility] use at least one of these dose optimization techniques: automated exposure control; mA and/or kV adjustment per pa tient size (includes targeted exams where dose is matched to clinical indication); or iterative recon struction. DLP: 1081.54 mGy.cm COMPARISON: 11/15/2020 No acute intracranial hemorrhage, midline shift or mass effect. Mild atrophy with moderate small vessel ischemic disease throughout the white matter. No focal area o f sulcal effacement or edema. Benign bilateral basal ganglia calcifications. Small lacunar infarcts a long the external capsules. Mild cerebellar atrophy. Ventricles: Normal size with no hydrocephalus. Paranasal sinuses: As visualized are clear. Mastoid air cells: Well pneumatized. Calvarium and scalp: Skull is intact with no soft tissue edema or swelling. CT/CT head wo con* 60910 IMPRESSION: 1. No acute intracranial hemorrhage or edema. 2. Moderate small vessel ischemic changes. Small lacunar infarcts along the ex ternal capsules. 3. Mild atrophy.
[2022-09-29] MEDS: levofloxacin-dextrose 5 % 750 MG/150 ML PREMIX 100 MG IV (11:16)
[2022-09-29 12:02] LABS: Glucose Point of Care 198 mg/dL (70-110)
[2022-09-29] MEDS: insulin lispro 100 unit/1 mL SUBCUT ×2 (13:02→17:54)
[2022-09-29 17:27] LABS: Glucose Point of Care 163 mg/dL (70-110)
[2022-09-29] MEDS: pantoprazole 40 mg SDV IVP (17:54)
[2022-09-29 20:28] LABS: Glucose Point of Care 61 mg/dL (70-110)
[2022-09-29] MEDS: ondansetron 2 mg/ML SDV 2 mL 4 MG IVP (20:30)
[2022-09-29 21:11] LABS: Glucose Point of Care 135 mg/dL (70-110)
[2022-09-29] MEDS: morphine 4 mg/mL SDV 1 mL 2 MG IVP (21:21)
[2022-09-30] VITALS (22 sets, daily range): BP systolic 79–140; BP diastolic 51–94; PULSE 68–95; RESP 13–22; TEMP 36.1–36.7; O2SAT 91–99
[2022-09-30 02:44] LABS: Basophils % 0.2 %; Eosinophils # 0.1 10^3/uL (0.0-0.8); Eosinophils % 2.1 %; Hematocrit 31.9 % (42.0-52.0); Lymphocytes # 0.8 10^3/uL (0.8-4.8); Lymphocytes % 13.3 %; Mean Corpuscular HGB Conc 31.3 g/dL (30.0-36.0); Mean Corpuscular Hemoglobin 30.7 pg (28.0-34.0); Mean Corpuscular Volume 97.9 fl (80-94); Mean Platelet Volume 10.6 fL (7.4-10.4); Monocytes # 0.3 10^3/uL (0.2-0.9); Monocytes % 4.6 %; Neutrophils % 79.3 %; Nucleated Red Blood Cells % 0 %; Platelet Count 152 10^3/cmm (130-400); Red Blood Count 3.26 10^6/uL (4.1-5.3); Red Cell Distribution Width 14.3 % (12.1-15.1); White Blood Count 6.3 10^3/uL (4.0-10.0)
[2022-09-30 03:02] LABS: Alanine Aminotransferase 42 U/L (0-41); Albumin Level 2.1 g/dL (3.5-5.2); Alkaline Phosphatase 106 U/L (40-130); Anion Gap 9.5 (5-19); Aspartate Amino Transferase 25 U/L (0-40); Blood Urea Nitrogen 61 mg/dL (8-23); Calcium 8.2 mg/dL (8.5-10.5); Carbon Dioxide 26 mmol/L (22-29); Chloride 106 mmol/L (98-107); Globulin 3.2 g/dL (1.3-4.6); Glomerular Filtration Rate 33.2 mL/min (90-130); Glucose 171 mg/dL (65-115); Osmolality Calculated 305 mOsm/kg (285-295); Potassium 4.5 mmol/L (3.5-5.1); Sodium 137 mmol/L (136-145); Total Bilirubin 0.3 mg/dL (0.15-1.2); Total Protein 5.3 g/dL (6.6-8.7)
[2022-09-30] MEDS: aspirin 81 mg EC Tablet PO (06:13)
[2022-09-30] MEDS: pantoprazole 40 mg SDV IVP ×2 (06:13→17:44)
[2022-09-30 07:23] LABS: Glucose Point of Care 196 mg/dL (70-110)
[2022-09-30] MEDS: budesonide 0.5 mg/2 mL Neb INHALATION (07:47)
[2022-09-30] MEDS: finasteride 5 mg Tablet PO (09:00)
[2022-09-30] MEDS: azithromycin 250 mg Tablet 500 MG PO (09:00)
[2022-09-30] MEDS: cefTRIAXone 1,000 MG in sodium chloride 0.9% (plus) 50 ML 100 MG IV (09:00)
[2022-09-30] MEDS: pramipexole 0.25 mg Tablet 1.5 MG PO ×3 (09:00→20:29)
[2022-09-30] MEDS: atorvastatin 40 mg Tablet PO (09:00)
[2022-09-30] MEDS: tamsulosin 0.4 mg Capsule PO (09:01)
[2022-09-30 11:32] LABS: Glucose Point of Care 179 mg/dL (70-110)
[2022-09-30] MEDS: acetaminophen 500 mg Tablet PO (13:00)
[2022-09-30 13:04] LABS: Vancomycin Trough 9.9 ug/mL (10-15)
[2022-09-30] MEDS: vancomycin 1,000 MG in sodium chloride 0.9% 250 ML 250 MG IV (13:15)
--- NOTE | 2022-09-30 13:28 | P.PN_ITS ---
Subjective Subjective: He states he is feeling better. Denies chest pain. Denies trouble breathing. He is not lightheaded. He states that he is feeling much better and is looking forward to going home soon. Medications: Reviewed: Yes Vitals/I&O/Wt Last Vital Signs Temp 97.8 F 09/30/22 07:00 Pulse 83 09/30/22 12:00 Resp 15 09/30/22 12:00 BP 95/59 09/30/22 12:00 Pulse Ox 96 09/30/22 12:00 O2 Del Method 09/30/22 07:50 O2 Flow Rate 4 09/30/22 07:50 FiO2 40 09/28/22 18:00 09/29/22 09/30/22 09/30/22 22:59 06:59 14:59 Intake Total 420 / 1225.35 360 / 1585.35 350 / 350 Output Total 600 / 1000 725 / 1725 Balance -180 / 225.35 -365 / -139.65 350 / 350 Weight last 48 hrs Weight 65.9 kg Physical Exam Narrative: [place] Const: COMMON NORMALS: patient oriented x3 and alert GENERAL APPEARANCE: cooperative ORIENTATION/CONSCIOUSNESS: Yes awake OTHER: Calm HENMT: COMMON NORMALS: oropharynx normal Neck/C-Spine: COMMON NORMALS: no JVD Resp: COMMON NORMALS: normal respiratory effort and clear to auscultation bilaterally AUSCULTATION: clear to auscultation bilaterally and diminished lung sounds on the left in the lower lung gutiérrez Cardio: COMMON NORMALS: no JVD, regular rhythm, S1 normal heart sound present, S2 normal heart sound present and No murmurs present (Cardio) RHYTHM: regular rhythm HEART SOUNDS: S1 normal heart sound present and S2 normal heart sound present GI: COMMON NORMALS: Normal to inspection, nondistended, normoactive bowel sounds present, Soft to palpation and non-tender PALPATION: Yes Soft to palpation OTHER: Left side abdominal collection, bruising. Extremity: COMMON NORMALS: no joint enlargement and no pedal edema Neuro: COMMON NORMALS: patient oriented x3 and moves all extremities SENSORIUM/ORIENTATION: Yes alert Skin: COMMON NORMALS: no rashes or lesions noted GENERAL SKIN EXAM: no hal hes or lesions noted Urinary Catheter Management: Riddle: Cath Placed During This Visit: yes Reason for Continuing Indwelling Catheter: Accurate Measurement of Urinary Output in Critically Ill Patients Urinary Catheter Date of Insertion: 09/23/22 Urinary Catheter Time of Insertion: 15:57 Data 09/30/22 02:17 09/30/22 02:17 Micro: Microbiology 09/29/22 12:40 Occult Blood (FIT) - Final Stool - Stool Aspirate A&P Assessment and plan (1) Hypotension: Last night blood pressure down to as low as 79/51, but overnight and this morning doing better. Transfer out from ICU. Will additionally assess blood pressure tonight. Mobilize with therapy. If continues to do well, possibly may be able to discharge tomorrow. Continue to hold diuretics, metoprolol Limited echo demonstrates EF 40 to 45%, unchanged from previous (2) Pneumonia: Wean oxygen as tolerated CT demonstrated no pulmonary embolism Dysphagia diet Continue ceftriaxone, Zithromax, Levaquin PCR MRSA negative, COVID-negative (3) Altered mental status: Improved Morphine as needed for pain or opiate withdrawal symptoms. Steroids discontinued. Suspect underlying dementia, TSH and B12 are normal Check CT head. (4) Macrocytic anemia: Hemoglobin stable Does have iron deficiency, iron saturation 7.5. PPI twice daily. (5) Elevated BUN: Improving. (6) Acute cystitis without hematuria: UTI, continue antibiotics. Urine culture grew enteric coccus (7) Hypercapnia: Improved Continue pulmonary toilet (8) COPD exacerbation: As above. (9) Acute on chronic systolic heart failure: Appears compensated Hold torsemide EF unchanged (10) Chronic kidney disease: NAIN on CKD, improving, but now stagnated Continue Riddle No evidence of hydronephrosis (11) Urinary retention: Riddle (12) Emphysema lung: (13) Smoker: Encourage abstinence (14) BPH loc w urin obs/LUTS: (15) Acute on chronic respiratory failure with hypoxia and hypercapnia: (16) Hypernatremia: Resolved Plan Left abdominal wall hematoma/left-sided hemidiaphragm: Patient gives history of trauma and fall. Multiple rib fractures in various stages of healing. Hold P lavix Elevated troponin, flat, no evidence of myocardial infarction and patient without symptomatology. Discontinue heparin. Underlying dementia suspected. Constipation, continue MiraLAX Carb consistent cardiac diet. Protonix for PUD prophylaxis SCD for DVT prophylaxis. Attestations Medical Necessity Statement*: Continue admission for assessment of blood pressures with improving hypotension, treatment of pneumonia, post discharge planning. 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
[2022-09-30] MEDS: polyethylene glycol 3350 Pkt 17 gm PO (17:44)
[2022-09-30] MEDS: ondansetron 2 mg/ML SDV 2 mL 4 MG IVP (20:35)
--- NOTE | 2022-09-30 20:44 | PC.NURSE ---
Patient spit up pills and vomited directly after administration.
--- NOTE | 2022-09-30 20:46 | PC.NURSE ---
Patient spit up pills and vomited directly after administration of Mirapex.
[2022-09-30 21:21] LABS: Glucose Point of Care 227 mg/dL (70-110)
[2022-10-01] VITALS (9 sets, daily range): BP systolic 120–136; BP diastolic 64–68; PULSE 69–83; RESP 16–18; TEMP 36.4–37; O2SAT 87–98
[2022-10-01] MEDS: morphine 4 mg/mL SDV 1 mL 2 MG IVP (03:12)
[2022-10-01] MEDS: pantoprazole 40 mg SDV IVP (05:07)
[2022-10-01] MEDS: aspirin 81 mg EC Tablet PO (05:07)
[2022-10-01 05:29] LABS: Basophils % 0.1 %; Eosinophils # 0.1 10^3/uL (0.0-0.8); Eosinophils % 1.3 %; Hematocrit 33.1 % (42.0-52.0); Hemoglobin 10.2 g/dL (11.7-16.6); Lymphocytes # 0.7 10^3/uL (0.8-4.8); Lymphocytes % 10.6 %; Mean Corpuscular HGB Conc 30.8 g/dL (30.0-36.0); Mean Corpuscular Hemoglobin 30.7 pg (28.0-34.0); Mean Corpuscular Volume 99.7 fl (80-94); Mean Platelet Volume 10.9 fL (7.4-10.4); Monocytes # 0.4 10^3/uL (0.2-0.9); Monocytes % 5.6 %; Neutrophils # 5.56 10^3/uL (1.8-7.7); Nucleated Red Blood Cells % 0 %; Platelet Count 141 10^3/cmm (130-400); Red Blood Count 3.32 10^6/uL (4.1-5.3); Red Cell Distribution Width 14.1 % (12.1-15.1); White Blood Count 6.8 10^3/uL (4.0-10.0)
[2022-10-01 05:49] LABS: Alanine Aminotransferase 37 U/L (0-41); Albumin Level 2.2 g/dL (3.5-5.2); Alkaline Phosphatase 109 U/L (40-130); Anion Gap 10.6 (5-19); Aspartate Amino Transferase 23 U/L (0-40); Blood Urea Nitrogen 54 mg/dL (8-23); Calcium 8.2 mg/dL (8.5-10.5); Carbon Dioxide 24 mmol/L (22-29); Chloride 104 mmol/L (98-107); Globulin 3.3 g/dL (1.3-4.6); Glomerular Filtration Rate 37.5 mL/min (90-130); Glucose 166 mg/dL (65-115); Osmolality Calculated 297 mOsm/kg (285-295); Potassium 4.6 mmol/L (3.5-5.1); Sodium 134 mmol/L (136-145); Total Bilirubin 0.3 mg/dL (0.15-1.2); Total Protein 5.5 g/dL (6.6-8.7)
[2022-10-01 06:34] LABS: Glucose Point of Care 209 mg/dL (70-110)
[2022-10-01] MEDS: budesonide 0.5 mg/2 mL Neb INHALATION (07:34)
[2022-10-01] MEDS: ipratropium-albuterol 3 mL Neb INHALATION (07:34)
[2022-10-01] MEDS: cefTRIAXone 1,000 MG in sodium chloride 0.9% (plus) 50 ML 100 MG IV (08:55)
[2022-10-01] MEDS: azithromycin 250 mg Tablet 500 MG PO (08:55)
[2022-10-01] MEDS: polyethylene glycol 3350 Pkt 17 gm PO (08:55)
[2022-10-01] MEDS: finasteride 5 mg Tablet PO (08:55)
[2022-10-01] MEDS: tamsulosin 0.4 mg Capsule PO (08:56)
[2022-10-01] MEDS: pramipexole 0.25 mg Tablet 1.5 MG PO (08:56)
[2022-10-01] MEDS: atorvastatin 40 mg Tablet PO (08:56)
[2022-10-01] MEDS: sennosides-docusate Tablet 1 TAB PO (08:56)
--- NOTE | 2022-10-01 09:40 | PC.SOCIAL ---
IMM update IMM updated with patient. Verbalized an understanding. Copy Pg 2 provided. Initialled, dated, timed, and placed in chart.
[2022-10-01] MEDS: levofloxacin-dextrose 5 % 750 MG/150 ML PREMIX 100 MG IV (09:45)
[2022-10-01 11:40] LABS: Glucose Point of Care 169 mg/dL (70-110)
--- NOTE | 2022-10-01 14:48 | PM.DCS ---
Discharge Providers Date of Admission: 09/22/22 21:13 Date of Discharge: October 01, 2022 Attending Provider at Admission: Abel English MD Attending Provider at Discharge: Guillaume Olsen Primary Care Provider: Melissa Boswell MD Diagnoses at Discharge Discharge Diagnosis (1) Hypotension: Status: Acute (2) Pneumonia: Status: Acute (3) Altered mental status: Status: Acute (4) Macrocytic anemia: Status: Acute (5) Elevated BUN: Status: Acute (6) Acute cystitis without hematuria: Status: Acute (7) Hypercapnia: Status: Deleted (8) COPD exacerbation: Status: Acute (9) Acute on chronic systolic heart failure: Status: Acute Permanent problem details: Echocardiogram from 08/13 shows EF of 45%, regional wall motion abnormality, grade 1 diastolic dysfunction (10) Chronic kidney disease: Status: Acute (11) Urinary retention: Status: Acute (12) Emphysema lung: Status: Acute (13) Smoker: Status: Acute (14) BPH loc w urin obs/LUTS: Status: Acute (15) Acute on chronic respiratory failure with hypoxia and hypercapnia: Status: Acute (16) Hypernatremia: Status: Acute Reason for Visit Reason for Visit: Bad UTI kidney is hurting Hospital Course Hospital Course Pleasant 72-year-old gentleman with history of COPD, CAD, CHF, systolic dysfunction, BPH, DM2, HTN, HLD, PAD, smoking addiction history of hypercapnia, was admitted after presenting with metabolic encephalopathy with hypercapnia, with NAIN, BUN elevation of 27, hypoxic and hypercapnic respiratory failure from COPD exacerbation. Influenza and COVID were negative. His diuretics were held. On presentation with urinary retention, Riddle catheter was placed with history of bladder outlet obstruction. Also found to have left abdominal wall hematoma/collection with history of fall. He was also complaining of productive cough, with imaging findings suggestive of possible pneumonia. Was empirically treated with ceftriaxone and azithromycin. Also found to have urinary tract infection eventually growing Enterococcus. Antibiotics were broadened with Levaquin as he was also developing progressive hypoxic respiratory failure, requiring up to 12 oxygen supplementation, and also with progressive encephalopathy/confusion despite resolution of hypercapnia antibiotic were also broadened with vancomycin. For COPD decerebration/hypercapnia treated with antibiotic, as well as Solu-Medrol. Neb treatments. Oxygen support. Due to progressive encephalopathy steroids were tapered off and discontinued. As he also takes oxycodone at home, additionally received morphine doses for possible withdrawal contributing to his encephalopathy. Required transient treatment in the intensive care unit due to degree of hypoxia and encephalopathy. Transiently required Levophed support due to hypotension. His metoprolol remains on hold as his torsemide. Transiently required one-to-one sitter. Also with rising BUN, suspected secondary to hematoma, although renal function otherwise remained stable and at baseline. Also noted to have iron deficiency anemia. Encephalopathy gradually improved and resolved. Hypoxia has been continually improving. He is currently down to requiring 3 L nasal cannula oxygen on home O2 evaluation. He has completed a course of antibiotic for enterococcal UTI. He will complete 1 more day of antibiotic for pneumonia. Please follow-up with him for resolution, continued weaning of oxygen support as tolerating. He was also assessed by speech therapy during hospitalization due to dysphagia, his dysphagia has improved, he is recommended to continue moist and minced diet. Please reassess. Please continue to encourage to stop smoking. Please follow-up renal function, while hospitalized also transient hypercalcemia which resolved, please follow-up calcium, follow-up sodium. Please follow-up regarding iron deficiency anemia, consider additional endoscopic evaluation if he has not had any recently. BUN has been coming down. He continues on aspirin. Has been no further expansion of the left abdominal wall hematoma. Please follow-up for gradual resolution. Follow-up BPH, reassess for any symptoms of urinary retention. Follow-up renal function, consider referral to nephrology. Consider referral to cardiology due to chronic hearing loss. Physical Exam Narrative: [facility] Const: COMMON NORMALS: patient oriented x3 and alert GENERAL APPEARANCE: cooperative ORIENTATION/CONSCIOUSNESS: Yes awake OTHER: Calm, in good spirits. States he is feeling very well, wants to go home. HENMT: COMMON NORMALS: oropharynx normal Neck/C-Spine: COMMON NORMALS: no JVD Resp: COMMON NORMALS: normal respiratory effort and clear to auscultation bilaterally AUSCULTATION: clear to auscultation bilaterally Cardio: COMMON NORMALS: no JVD, regular rhythm, S1 normal heart sound present, S2 normal heart sound present and No murmurs present (Cardio) RHYTHM: regular rhythm HEART SOUNDS: S1 normal heart sound present and S2 normal heart sound present GI: COMMON NORMALS: Normal to inspection, nondistended, normoactive bowel sounds present, Soft to palpation and non-tender PALPATION: Yes Soft to palpation OTHER: Left side abdominal collection, bruising coming down. No erythema, warmth or tenderness. Extremity: COMMON NORMALS: no joint enlargement and no pedal edema Neuro: COMMON NORMALS: patient oriented x3 and moves all extremities SENSORIUM/ORIENTATION: Yes alert Skin: COMMON NORMALS: no rashes or lesions noted GENERAL SKIN EXAM: no rashes or lesions noted Urinary Catheter Management: Riddle: Cath Placed During This Visit: yes Reason for Continuing Indwelling Catheter: Acute Urinary Retention or Obstruction Urinary Catheter Date of Insertion: 09/23/22 Urinary Catheter Time of Insertion: 15:57 Discharge Data Studies Completed and Pending Completed Studies During Hospitalization Category Date Time Status CT angio chest PE protcl 19402 Routine Cat Scan 09/26/22 20:[address] [place] [address]/[id number] Routine Cat Scan 09/23/22 11:[address] head wo con* [id number] Routine Cat Scan 09/29/22 10:27 Completed CXRP [XR chest 1V portable [id number]] Routine Exams 09/25/22 08:44 Completed CXRP [XR chest 1V portable [id number]] Stat Exams 09/22/22 18:53 Completed XR abdomen 1V* [id number] Stat Exams 09/25/22 15:51 Completed CV. echo limited [id number] Routine Ultrasound 09/28/22 16:46 Completed Pending at discharge Category Date Time Status Complete Blood Count w/Auto AM LABS Lab 10/02/22 04:00 Ordered Complete Blood Count w/Auto AM LABS Lab 10/03/22 04:00 Ordered Comprehensive Metabolic Panel AM LABS Lab 10/02/22 04:00 Ordered Comprehensive Metabolic Panel AM LABS Lab 10/03/22 04:00 Ordered Radiology Impressions Chest/Abdomen/Pelvis CT 09/23/22 11:19 IMPRESSION: 1. Small LEFT and tiny RIGHT pleural effusions. Patchy infiltrates in the LEFT greater than RIGHT lung bases. Recommend correlation for pneumonia. 2. Elevation of the LEFT hemidiaphragm with volume loss LEFT lower lobe appears progressed compared to previous. 3. Multiple LEFT lateral lower rib fractures some with callus formation and evidence of healing. This involves the 8th, 9th 10th and 11th ribs laterally. Surrounding low-attenuation collection in the lateral oblique muscles about the rib fractures suspicious for partially liquefied hematoma. This appears well encapsulated. No evidence of intraluminal air. Abscess is less likely. This was partially visualized prior CT chest July 18, 2022 4. Advanced thoracolumbar scoliosis. 5. Slightly aneurysmal infrarenal abdominal aorta appears unchanged measuring 2.8 x 3.6 cm. 6. Mild diffuse bladder wall thickening likely due to chronic cystitis. No hydronephrosis in either kidney. 7. No other acute findings. Notified Del Casillas MD at 09/23/2022 4:39 PM. Chest X-Ray 09/25/22 08:44 IMPRESSION: Large amount of air in the left upper quadrant. Differential includes a large gastric bubble. Free air can not be excluded. Mild atelectasis at the left lung base. ADDENDUM: 09/25/22 [id number] THIS REPORT CONTAINS FINDINGS THAT MAY BE CRITICAL TO PATIENT CARE. The findings were verbally communicated via telephone conference with GUILLAUME OLSEN at 3:51 PM HUMAN RELATIONS PROFESSOR on 09/25/2022. The findings were acknowledged and understood. Abdomen X-Ray 09/25/22 15:51 IMPRESSION: 1. No free peritoneal air. Chest CTA 09/26/22 20:04 IMPRESSION: 1. No pulmonary emboli. 2. Bilateral lower lobe atelectasis or other infiltrate such as pneumonia. Bilateral pleural effusions. 3. Redemonstration of a partially imaged left lateral upper abdominal wall collection. Head CT 09/29/22 10:27 IMPRESSION: 1. No acute intracranial hemorrhage or edema. 2. Moderate small vessel ischemic changes. Small lacunar infarcts along the external capsules. 3. Mild atrophy. Laboratory Results WBC 6.8 10^3/uL (4.0-10.0) 10/01/22 05:00 RBC 3.32 10^6/uL (4.1-5.3) L 10/01/22 05:00 Hgb 10.2 g/dL (11.7-16.6) L 10/01/22 05:00 Hct 33.1 % (42.0-52.0) L 10/01/22 05:00 MCV 99.7 fl (80-94) H 10/01/22 05:00 MCH 30.7 pg (28.0-34.0) 10/01/22 05:00 MCHC 30.8 g/dL (30.0-36.0) 10/01/22 05:00 RDW 14.1 % (12.1-15.1) 10/01/22 05:00 Plt Count 141 10^3/cmm (130-400) 10/01/22 05:00 MPV 10.9 fL (7.4-10.4) H 10/01/22 05:00 Neut % (Auto) 82.0 % 10/01/22 05:00 Lymph % (Auto) 10.6 % 10/01/22 05:00 [place] % (Auto) 5.6 % 10/01/22 05:00 Eos % (Auto) 1.3 % 10/01/22 05:00 Baso % (Auto) 0.1 % 10/01/22 05:00 Neut # (Auto) 5.56 10^3/uL (1.8-7.7) 10/01/22 05:00 Lymph # (Auto) 0.7 10^3/uL (0.8-4.8) L 10/01/22 05:00 [place] # (Auto) 0.4 10^3/uL (0.2-0.9) 10/01/22 05:00 Eos # (Auto) 0.1 10^3/uL (0.0-0.8) 10/01/22 05:00 Baso # (Auto) 0.0 10^3/uL (0.0-0.1) 10/01/22 05:00 Nucleated RBC % (auto) 0 % 10/01/22 05:00 Nucleated RBCs # 0.0 /100WBC 10/01/22 05:00 APTT 78.8 SECONDS (23.9-36.7) H 09/29/22 08:12 D-Dimer 2.61 ug/mIFEU (0-0.59) H 09/22/22 21:16 Specimen Type Arterial 09/26/22 08:11 Sample Site Radial, left 09/26/22 08:11 ABG pH 7.34 (7.35-7.45) L 09/26/22 08:11 ABG pCO2 43.1 mmHg (35-45) 09/26/22 08:11 ABG pO2 48.2 mmHg (80.0-100.0) L 09/26/22 08:11 ABG HCO3 23.2 mmol/L (22-26) 09/26/22 08:11 ABG O2 Saturation 82.0 09/26/22 08:11 ABG Base Excess -2.6 mmol/L (-2.0-2.0) L 09/26/22 08:11 Andrey Test Pos 09/26/22 08:11 A-a O2 Gradient 6.3 mmHg (5-10) 09/26/22 08:11 Hematocrit 39.5 % (42-52) L 09/26/22 08:11 Hgb O2 Saturation 80.5 % (95-100) L 09/26/22 08:11 Carboxyhemoglobin 1.2 %THgb (0.4-20.1) 09/26/22 08:11 Methemoglobin 0.6 % (0.4-1.5) 09/26/22 08:11 Total Hemoglobin 12.9 g/dL (14-18) L 09/26/22 08:11 Sodium 139.0 mmol/L (131-143) 09/26/22 08:11 Potassium 4.0 mmol/L (3.5-5.0) 09/26/22 08:11 Glucose 321.0 mg/dL (70-115) H 09/26/22 08:11 Ionized Calcium 1.3 mmol/L (1.1-1.4) 09/26/22 08:11 O2 Delivery Device Oxy mask 09/26/22 08:11 O2 Liters/Min 8.0 % 09/26/22 08:11 FiO2 30.0 % 09/23/22 09:42 Inspector Final Assembly Mechanical ID Amh 09/26/22 08:11 Sodium 134 mmol/L (136-145) L 10/01/22 05:00 Potassium 4.6 mmol/L (3.5-5.1) 10/01/22 05:00 Chloride 104 mmol/L (98-107) 10/01/22 05:00 Carbon Dioxide 24 mmol/L (22-29) 10/01/22 05:00 Anion Gap 10.6 (5-19) 10/01/22 05:00 BUN 54 mg/dL (8-23) H 10/01/22 05:00 Creatinine 1.8 mg/dL (0.7-1.2) H 10/01/22 05:00 GFR Calculation 37.5 mL/min (90-130) L 10/01/22 05:00 Glucose 166 mg/dL (65-115) H 10/01/22 05:00 POC Glucose 169 mg/dL (70-110) H 10/01/22 11:38 Estimat Average Glucose 151 09/22/22 18:05 Hemoglobin A1c 6.9 % (4.0-6.0) H 09/22/22 18:05 Calculated Osmolality 297 mOsm/kg (285-295) H 10/01/22 05:00 Lactic Acid 0.7 mmol/L (0.5-2.2) 09/22/22 22:45 Calcium 8.2 mg/dL (8.5-10.5) L 10/01/22 05:00 Phosphorus 4.2 mg/dL (2.5-4.5) 09/22/22 21:16 Magnesium 2.4 mg/dL (1.7-2.3) H 09/23/22 04:10 Iron 14 ug/dL (59-158) L 09/22/22 21:16 TIBC 185 mcg/dl 09/22/22 21:16 % Saturation 7.5 % (20-50) L 09/22/22 21:16 Unsat Iron Binding 171 ug/dL (112-347) 09/22/22 21:16 Total Bilirubin 0.3 mg/dL (0.15-1.2) 10/01/22 05:00 AST 23 U/L (0-40) 10/01/22 05:00 ALT 37 U/L (0-41) 10/01/22 05:00 Alkaline Phosphatase 109 U/L (40-130) 10/01/22 05:00 Ammonia 20 umol/L (16-60) 09/22/22 19:27 Troponin T Baseline 174 ng/L (0-15) H* 09/28/22 18:25 Troponin T 120 Minute 172.3 ng/L (0-15) H 09/28/22 20:35 Delta Troponin T -1.7 ABS# (0-10) L 09/28/22 20:35 Troponin T Hi Sens 6Hr 165.8 ng/L (0-15) H 09/28/22 23:45 Troponin T Hi Sens 6Hr Delta -8.2 ng/L (0-12) L 09/28/22 23:45 C-Reactive Protein 246.3 mg/L (0.0-4.9) H 09/23/22 04:10 Total Protein 5.5 g/dL (6.6-8.7) L 10/01/22 05:00 Albumin 2.2 g/dL (3.5-5.2) L 10/01/22 05:00 Globulin 3.3 g/dL (1.3-4.6) 10/01/22 05:00 Triglycerides 64 mg/dL (0-150) 09/24/22 04:04 Triglycerides Cancelled 09/24/22 04:04 Cholesterol 61 mg/dL (0-200) 09/24/22 04:04 Cholesterol Cancelled 09/24/22 04:04 LDL Cholesterol, Calc 18 mg/dL (50-129) L 09/24/22 04:04 LDL Cholesterol, Calc Cancelled 09/24/22 04:04 Total VLDL Cholesterol 13 mg/dL (0-30) 09/24/22 04:04 Total VLDL Cholesterol Cancelled 09/24/22 04:04 HDL Cholesterol 30 mg/dL (60-100) L 09/24/22 04:04 HDL Cholesterol Cancelled 09/24/22 04:04 Cholesterol/HDL Ratio 2.03 mg/dL (1.0-5.00) 09/24/22 04:04 Cholesterol/HDL Ratio Cancelled 09/24/22 04:04 Vitamin B12 867 pg/mL (232-1245) 09/22/22 21:16 Vitamin B12 Cancelled 09/22/22 21:16 Folate 17.6 ng/mL (4.5-32.2) 09/23/22 04:10 Procalcitonin 5.02 ng/mL (0-0.5) H 09/22/22 21:16 Procalcitonin Cancelled 09/22/22 21:16 TSH 2.23 uIU/mL (0.27-4.20) 09/22/22 21:16 Urine Color Yellow (Yellow) 09/22/22 19:46 Urine Appearance Sl hazy (CLEAR) A 09/22/22 19:46 Urine pH 5 (5-7) 09/22/22 19:46 Ur Specific [place] 1.015 (1.005-1.030) 09/22/22 19:46 Urine Protein 1+ (Negative) H 09/22/22 19:46 Urine Glucose (UA) Norm (Normal) 09/22/22 19:46 Urine Ketones Negative (Negative) 09/22/22 19:46 Urine Blood 3+ (Negative) H 09/22/22 19:46 Urine Nitrate Negative (Negative) 09/22/22 19:46 Urine Bilirubin Neg (Negative) 09/22/22 19:46 Urine Urobilinogen Norm mg/dL (Negative) 09/22/22 19:46 Ur Leukocyte Esterase 2+ (Negative) H 09/22/22 19:46 Urine RBC Too numerous to cnt /hpf (0-2) H 09/22/22 19:46 Urine WBC Too numerous to cnt /hpf (0-5) H 09/22/22 19:46 Ur Squamous Epith Cells 0-4 /hpf (0-5) H 09/22/22 19:46 Amorphous Sediment Not Reportable 09/22/22 19:46 Urine Bacteria 2+ /hpf (NONE) H 09/22/22 19:46 Ur Random Sodium 19 mmol/L 09/22/22 19:46 Ur Random Potassium 45 mmol/L 09/22/22 19:46 Ur Random Chloride 18 mmol/L 09/22/22 19:46 Vancomycin Trough 9.9 ug/mL (10-15) L 09/30/22 12:32 Coronavirus 229E (PCR) Not detected (NOT DETECT) 09/23/22 12:25 Influenza Type A Ag negative (Negative) 09/22/22 19:42 Influenza Type B Ag negative (Negative) 09/22/22 19:42 SARS-CoV-2 (PCR) Not detected (NOT DETECT) 09/23/22 12:25 Vitals Last Vital Signs Temp 98.0 F 10/01/22 12:00 Pulse 69 10/01/22 14:00 Resp 16 10/01/22 12:00 BP 136/68 10/01/22 12:00 Pulse Ox 87 L 10/01/22 13:26 O2 Del Method 10/01/22 14:00 O2 Flow Rate 3 10/01/22 13:26 FiO2 4 09/30/22 20:00 Discharge Plan Discharge Patient Disposition: Home Condition: Stable Prescriptions: New levofloxacin 750 mg tablet 750 mg PO DAILY 1 Days Qty: 1 0RF Continued Trelegy Ellipta 100-62.5-25 mcg blister with device 1 inh inhalation DAILY Qty: 60 3RF citalopram 20 mg tablet 20 mg PO QAM tamsulosin 0.4 mg capsule 0.4 mg PO DAILY pramipexole 1.5 mg tablet 1.5 mg PO TID atorvastatin 40 mg Tablet 40 mg PO DAILY albuterol sulfate 90 mcg/actuation HFA aerosol inhaler 2 puff INHALATION Q4H PRN (Reason: Shortness Of Breath) fluticasone propionate 50 mcg/actuation [place],Suspension 2 spray INTRANASAL DAILY PRN (Reason: Allergy Symptoms) Rx Instructions: administer into each nostril multivitamin Tablet 1 tab PO DAILY calcium carbonate-vitamin D3 600 mg-5 mcg (200 unit) Tablet 1 tab PO DAILY aspirin 81 mg Tablet,Delayed Release (Dr/Ec) 81 mg PO QAM Vitamin D3 125 mcg (5,000 unit) Tablet 125 mcg PO DAILY Discontinued metoprolol tartrate 25 mg tablet 25 mg PO BID Tresiba FlexTouch U-100 100 unit/mL (3 mL) insulin pen 18 unit SUBCUT BEDTIME oxycodone 5 mg Tablet 5 mg PO Q6H PRN (Reason: PAIN) torsemide 10 mg tablet 10 mg PO QAM Discharge Orders: Discharge Order (Routine); Ordered 10/01/22 Ordered By: Guillaume Olsen Other Ambulatory Orders: DME: Oxygen (Order) Location: None Selected Ordered By: Guillaume Olsen Physical Therapy Eval and Treat Outpatient (Order) Timeframe: 3 Weeks Facility: [facility] - Location: Physical Therapy Ordered By: Guillaume Olsen Referrals: [facility] [Other] (Your orders have been faxed to the [facility] to arrange outpatient therapy for you at the [facility]. If you don't hear from them by 10/04/22 please contact them at [phone].) Melissa Boswell MD [Primary Care Provider] - 1 week (Please call primary care provider Monday morning to schedule a hospital follow-up appointment within 1 week. ) Discharge Diet: As Directed Discharge Activity: Increase activity as tolerated, Use walker/crutches as instructed, As per PT/OT instructions and Oxygen as instructed Activity Restrictions/Additional Instructions: Complete 1 more day of antibiotic with Levaquin Use oxygen 3 L as per home oxygen evaluation. Continue dysphagia level 5 diet, minced and moist. Maintain aspiration precautions. In case you develop trouble urinating contact your doctor. In case you are unable to produce any urine seek medical attention immediately. Have your primary doctor reassess left abdominal wall hematoma to make sure it is resolving. Avoid falls at all costs. Use your walker at all times. Due to low blood glucose values in the hospital your insulin Tresiba is discontinued. Please monitor glucose at home 3 times daily, write down values to bring to your appointment for consideration whether smaller dose will need to be resumed. Please hold metoprolol and torsemide for now until reassessment by her primary provider determine if these may be safely resumed if blood pressure remains normal/not low. Measure blood pressure 3 times daily. In case blood pressure is lower than 100 mmHg top number or millimeters mercury bottom number, please do not take metoprolol or torsemide, or any other medication that may lower your blood pressure. Follow-up with your primary doctor for further work-up and management of anemia. Iron deficiency anemia, discuss with your primary doctor additional assessment by endoscopy. Negative primary doctor follow-up your kidney function due to chronic kidney disease. Consider referral to kidney specialist. Follow-up with your primary doctor for reassessment after resolution of UTI, reassessment of BPH. Follow-up with primary doctor for reassessment of calcium which was transiently high during this hospitalization although improved. Follow-up with your primary doctor regarding other chronic conditions including congestive heart failure, emphysema. Follow-up with your primary doctor regarding slightly aneurysmal infrarenal abdominal aorta, 2.8 x 3.6 cm. Please stop smoking. Discharge Attestations Time Spent in Discharge Care*: greater than 30 min Status at Discharge: Cognitive status at discharge: cognitively intact, Behavioral status at discharge: cooperative, Quality Metrics Clinical Quality Measures [ No reported AMI, CVA or VTE this stay] Coding Level of Care Code Acute g [facility] note Diagnoses Hypotension I95.9 Pneumonia J18.9 Altered mental status R41.82 Macrocytic anemia D53.9 Elevated BUN R79.9 Acute cystitis without hematuria N30.00 Hypercapnia R06.89 COPD exacerbation J44.1 Acute on chronic systolic heart failure I50.23 Chronic kidney disease N18.9 Urinary retention R33.9 Emphysema lung J43.9 Smoker F17.200 BPH loc w urin obs/LUTS N40.1 Acute on chronic respiratory failure with hypoxia and hypercapnia J96.21; J96.22 Hypernatremia E87.0
== END 2022-10-01 15:44 | disposition home or self-care (01) | DRG 689 ==
LOC: ER 21:27 → MEDSURG 21:38 → ICU 09-26 13:44 → MEDSURG 09-30 15:44
PROVIDERS: Emergency Medicine; Internal Medicine; Student in an Organized Health Care Education/Training Program; Admitting Provider Internal Medicine; Emergency Provider Emergency Medicine; PCP Family Medicine; Visit Provider Internal Medicine
DX: N30.00 Acute cystitis without hematuria (principal); G93.41 Metabolic encephalopathy; J96.22 Acute and chronic respiratory failure with hypercapnia; J96.21 Acute and chronic respiratory failure with hypoxia; J18.9 Pneumonia, unspecified organism; I13.0 Hypertensive heart and chronic kidney disease with heart failure and stage 1 through stage 4 chronic kidney disease, or unspecified chronic kidney disease; I50.22 Chronic systolic (congestive) heart failure; N17.9 Acute kidney failure, unspecified; E44.1 Mild protein-calorie malnutrition; J43.9 Emphysema, unspecified; Z99.81 Dependence on supplemental oxygen; Z91.199 Patient's noncompliance with other medical treatment and regimen due to unspecified reason; F17.210 Nicotine dependence, cigarettes, uncomplicated; E11.22 Type 2 diabetes mellitus with diabetic chronic kidney disease; N18.9 Chronic kidney disease, unspecified; I25.10 Atherosclerotic heart disease of native coronary artery without angina pectoris; N40.1 Benign prostatic hyperplasia with lower urinary tract symptoms; N13.8 Other obstructive and reflux uropathy; R33.8 Other retention of urine; F32.A Depression, unspecified; E11.40 Type 2 diabetes mellitus with diabetic neuropathy, unspecified; E11.51 Type 2 diabetes mellitus with diabetic peripheral angiopathy without gangrene; E11.65 Type 2 diabetes mellitus with hyperglycemia; E78.2 Mixed hyperlipidemia; I25.2 Old myocardial infarction; Z87.01 Personal history of pneumonia (recurrent); B95.2 Enterococcus as the cause of diseases classified elsewhere; F03.90 Unspecified dementia, unspecified severity, without behavioral disturbance, psychotic disturbance, mood disturbance, and anxiety; S30.1XXA Contusion of abdominal wall, initial encounter; W19.XXXA Unspecified fall, initial encounter; D50.9 Iron deficiency anemia, unspecified; Z68.20 Body mass index [BMI] 20.0-20.9, adult
CPT/HCPCS: 36415; 36416; 36600; 51702; 70450; 71045; 71250; 71275; 74018; 74176; 80048; 80051; 80053; 80061; 80202; 81001; 82140; 82274; 82330; 82436; 82607; 82746; 82803; 82805; 82962; 83036; 83540; 83550; 83605; 83735; 84100; 84133; 84145; 84295; 84300; 84443; 84484; 85025; 85049; 85378; 85730; 86140; 86403; 87070; 87077; 87086; 87186; 87205; 87449; 87635; 87641; 87804; 92523; 92526; 92610; 93005; 93308; 94640; 94660; 94664; 94760; 96361; 96372; 96374; 97110; 97116; 97161; 97530; 99291; A4570; C9113; J0696; J1644; J1815; J1956; J2270; J2405; J2560; J2920; J2930; J3370; J3486; J3490; J7030; J7040; J7050; J7060; J7070; J7626; Q0144; Q9967

== ENCOUNTER 2022-10-26 06:00 | Outpatient (RCR) | payer MEDICARE, SELFPAY | END 2022-11-22 23:59 | disposition home or self-care (01) | LOC: MPT 06:00 | PROVIDERS: PCP Family Medicine; Visit Provider Internal Medicine | DX: J96.21 Acute and chronic respiratory failure with hypoxia (principal); J96.22 Acute and chronic respiratory failure with hypercapnia; R53.1 Weakness | CPT/HCPCS: 97110; 97116; 97162 ==

== ENCOUNTER 2022-11-23 06:00 | Outpatient (RCR) | payer MEDICARE, SELFPAY | END 2022-12-20 23:59 | disposition home or self-care (01) | LOC: MPT 06:00 | PROVIDERS: PCP Family Medicine; Visit Provider Internal Medicine | DX: I50.23 Acute on chronic systolic (congestive) heart failure (principal); J96.21 Acute and chronic respiratory failure with hypoxia; J96.22 Acute and chronic respiratory failure with hypercapnia; R53.1 Weakness | CPT/HCPCS: 97110 ==

== ENCOUNTER → 2022-12-21 14:07 | Outpatient (BNVA) | payer MEDICARE, SELFPAY | PROVIDERS: PCP Family Medicine; Visit Provider Nurse Practitioner Family | DX: I13.0 Hypertensive heart and chronic kidney disease with heart failure and stage 1 through stage 4 chronic kidney disease, or unspecified chronic kidney disease (principal); E11.22 Type 2 diabetes mellitus with diabetic chronic kidney disease; F17.210 Nicotine dependence, cigarettes, uncomplicated; N18.9 Chronic kidney disease, unspecified; I50.23 Acute on chronic systolic (congestive) heart failure; Z79.84 Long term (current) use of oral hypoglycemic drugs; I25.10 Atherosclerotic heart disease of native coronary artery without angina pectoris | CPT/HCPCS: 99214 ==

== ENCOUNTER → 2022-12-21 15:01 | Outpatient (BNVA) | payer MEDICARE, SELFPAY | PROVIDERS: PCP Family Medicine; Visit Provider Nurse Practitioner Family | DX: F17.200 Nicotine dependence, unspecified, uncomplicated (principal); J43.9 Emphysema, unspecified; R06.00 Dyspnea, unspecified; R91.1 Solitary pulmonary nodule; I50.23 Acute on chronic systolic (congestive) heart failure | CPT/HCPCS: 71046 ==

== ENCOUNTER 2023-01-08 15:05 | Emergency (ER) | payer MEDICARE, SELFPAY ==
[2023-01-08] VITALS (7 sets, daily range): BP systolic 147–178; BP diastolic 71–81; PULSE 70–88; RESP 16–20; TEMP 36.4; O2SAT 88–94; BMI 19.5
--- NOTE | 2023-01-08 15:37 | ED_ITS ---
HPI - Abdominal Pain General: Chief Complaint: Abdominal Pain Stated Complaint: Lower Right hand abd/back pain Time Seen by Provider: 01/08/23 15:36 Limitations: altered mental status History of Present Illness: Mr. Palumbo is a 72-year-old gentleman with history of CKD, COPD with chronic hypoxic respiratory failure, dementia presenting to the emergency department for concern over back and abdominal pain. He has difficulty characterizing many of the symptoms however initially this started a number of months ago and has worsened recently. Family provides assistance with clinical history. No other significant changes in health or falls. No other specific changes in health, exacerbating, or alleviating factors identified. Onset (ago): day(s) Pain Consistency: constant Severity: moderate Quality: aching and sharp Radiation: none Migration to: no migration Associated Symptoms: Reports no associated symptoms Review of Systems General: Reports: 10 or more systems reviewed and unremarkable except in HPI and below PFSH ED PFSH: Medical History Acute on chronic systolic heart failure Echocardiogram from 08/13 shows EF of 45%, regional wall motion abnormality, grade 1 diastolic dysfunction Atherosclerosis of coronary artery of [place] heart without angina pectoris BPH loc w urin obs/LUTS CAD (coronary artery disease) CHF (congestive heart failure) 2014, EF 40% with 2/4 diastolic dysfunction Chronic kidney disease COPD exacerbation Coronary artery disease Depression Diabetes mellitus Diabetic gastroparesis Diabetic neuropathy Elevated troponin Hyperlipidemia Hypertension NSTEMI (non-ST elevated myocardial infarction) Peripheral artery disease Pneumonia Tobacco dependency Surgical History History of angioplasty Family History Mother , in her 80's Parkinsons Father , at age 71 Epilepsy Brother CAD (coronary artery disease) [place] x 2, early 60's Diabetes Lung disease Sister Dementia Diabetes Denies family history of Clotting disorder Chronic kidney disease (CKD) Suicide Anesthesia complication Bleeding disorder Cancer Hypertension Stroke Social History Smoking and tobacco status: current every day smoker cigarettes Packs smoked per day: 2 Years cigarettes smoked: 50 Alcohol intake: never Marital status: Current occupational status: retired Physical Exam Const: COMMON NORMALS: alert GENERAL APPEARANCE: cooperative and well developed HENMT: COMMON NORMALS: normocephalic and atraumatic HEAD & SCALP: normocephalic and atraumatic THROAT: posterior oropharynx normal Eye: COMMON NORMALS: conjunctivae normal CONJUNCTIVA: Yes conjunctivae normal SCLERA: sclerae normal Neck/C-Spine: COMMON NORMALS: supple GENERAL: Yes trachea midline Resp: COMMON NORMALS: clear to auscultation bilaterally EFFORT & INSPECTION: Yes able to speak in complete sentences AUSCULTATION: clear to auscultation bilaterally Cardio: COMMON NORMALS: regular rate and regular rhythm RATE: regular rate RHYTHM: regular rhythm GI: COMMON NORMALS: Soft to palpation PALPATION: Yes Soft to palpation, Yes Tenderness to palpation present (GI), No Guarding due to palpation present (GI) and No Rigid due to palpation : COMMON NORMALS: Yes no CVA tenderness BLADDER/KIDNEY EXAM: Yes no CVA tenderness Back/Pelvis: COMMON NORMALS: no CVA tenderness and no thoracic nor lumbar tenderness Extremity: GENERAL: Yes normal exam except as noted and No edema Neuro: COMMON NORMALS: moves all extremities SENSORIUM/ORIENTATION: Yes alert and No Orientation impaired Psych: COMMON NORMALS: mental status grossly normal and Normal thought process present THOUGHT PROCESS: Normal thought process present Course Vital Signs: Vital signs: Vital Signs Temperature 97.5 F L 01/08/23 15:26 Pulse Rate 80 01/08/23 19:55 Respiratory Rate 20 H 01/08/23 19:55 Blood Pressure 147/71 01/08/23 19:55 Pulse Oximetry 93 01/08/23 19:55 Oxygen Delivery Me thod 01/08/23 19:01 MDM - Abdominal Pain Medical Decision Making 72-year-old gentleman presenting due to abdominal and back pain. Patient is a poor historian though no focal neurologic deficits appreciated. Patient is nontoxic and there is no evidence of acute surgical abdomen. EKG notable for sinus rhythm with nonspecific interventricular conduction delay, left axis deviation, nonspecific ST segment abnormalities with no evidence of STEMI. Labs with no leukocytosis or other significant hematologic abnormality. Metabolic panel with elevation in creatinine though patient does have baseline CKD and recent comparison is months ago. Initial troponin elevated with negative range 2-hour delta. Hematuria present without evidence of urinary tract infection. CT imaging identifies prior hematoma which is decreased in size, on clinical exam this does not appear to be infected and patient does not report pain at this site. There is constipation and other incidental findings were discussed with the patient. Patient feels improved with IV fluids, analgesia, RT treatment. Most likely etiology of patient's symptoms is unspecified abdominal and back pain with mild dehydration. The results of ED evaluation were discussed with the patient including prescriptions and/or symptomatic cares (if applicable) including appropriate and responsible use, followup plan, and return precautions. The patient verbalized understanding and felt safe for discharge. Medical Records I reviewed the patient's medical records. Lab Data I reviewed the patient's lab results. 01/08/23 16:01 01/08/23 16:01 Labs/Radiology: Radiology Impressions Chest/Abdomen/Pelvis CT 01/08/23 17:11 IMPRESSION: 1. No acute cardiopulmonary process. 2. No acute cardiopulmonary process. 3. Stable moderate/severe compression deformities of T10 and T12. 4. Stable degenerative changes in the spine. 5. Stable mild left lateral subluxation of T9 with respect to T10 that may be due to ligamentous laxity. 6. Stable moderate dextroscoliosis in the spine with the apex at T12. 7. Incidental/nonacute findings are listed in the report. IMPRESSION: 1. A loculated fluid collection in the fascial planes between the left external oblique and internal oblique musculature has decreased in size. There are now areas of increased density within the fluid collection however. . Findings could represent interval hemorrhage within a seroma. Evaluation for active bleeding cannot be performed without intravenous contrast. CT scan with intravenous contrast may be obtained for further evaluation as clinically indicated. 2. Stable diffuse, mild wall thickening of the bladder. In the correct clinical setting, this may suggest cystitis. Recommend correlation with laboratory findings. Alternatively, this may be secondary to chronic outlet obstruction. 3. Increased fecal content in the colon. 4. Stable mild to moderate body wall edema, particularly over the left lateral abdomen. 5. Stable moderate dextroscoliosis in the spine with the apex at T12. 6. Stable old, mild compression deformity of L1. 7. Mild spinal canal stenosis at L1-L2 through L5-S1. Multilevel foraminal stenosis of varying severity in the lumbar spine. 8. Incidental/nonacute findings are listed in the report. Laboratory Results WBC 5.9 10^3/uL (4.0-10.0) 01/08/23 16:01 RBC 4.23 10^6/uL (4.1-5.3) 01/08/23 16:01 Hgb 11.7 g/dL (11.7-16.6) 01/08/23 16:01 Hct 37.7 % (42.0-52.0) L 01/08/23 16:01 MCV 89.1 fl (80-94) 01/08/23 16:01 MCH 27.7 pg (28.0-34.0) L 01/08/23 16:01 MCHC 31.0 g/dL (30.0-36.0) 01/08/23 16:01 RDW 15.7 % (12.1-15.1) H 01/08/23 16:01 Plt Count 225 10^3/cmm (130-400) 01/08/23 16:01 MPV 10.1 fL (7.4-10.4) 01/08/23 16:01 Neut % (Auto) 73.3 % 01/08/23 16:01 Lymph % (Auto) 16.7 % 01/08/23 16:01 [place] % (Auto) 7.9 % 01/08/23 16:01 Eos % (Auto) 1.3 % 01/08/23 16:01 Baso % (Auto) 0.5 % 01/08/23 16:01 Neut # (Auto) 4.34 10^3/uL (1.8-7.7) 01/08/23 16:01 Lymph # (Auto) 1.0 10^3/uL (0.8-4.8) 01/08/23 16:01 [place] # (Auto) 0.5 10^3/uL (0.2-0.9) 01/08/23 16:01 Eos # (Auto) 0.1 10^3/uL (0.0-0.8) 01/08/23 16:01 Baso # (Auto) 0.0 10^3/uL (0.0-0.1) 01/08/23 16:01 Nucleated RBC % (auto) 0 % 01/08/23 16:01 Nucleated RBCs # 0.0 /100WBC 01/08/23 16:01 Sodium 137 mmol/L (136-145) 01/08/23 16:01 Potassium 4.5 mmol/L (3.5-5.1) 01/08/23 16:01 Chloride 100 mmol/L (98-107) 01/08/23 16:01 Carbon Dioxide 28 mmol/L (22-29) 01/08/23 16:01 Anion Gap 13.5 (5-19) 01/08/23 16:01 BUN 67 mg/dL (8-23) H 01/08/23 16:01 Creatinine 2.7 mg/dL (0.7-1.2) H 01/08/23 16:01 GFR Calculation 23.5 mL/min (90-130) L 01/08/23 16:01 Glucose 209 mg/dL (65-115) H 01/08/23 16:01 Calculated Osmolality 310 mOsm/kg (285-295) H 01/08/23 16:01 Calcium 10.8 mg/dL (8.5-10.5) H 01/08/23 16:01 Total Bilirubin 0.2 mg/dL (0.15-1.2) 01/08/23 16:01 AST 29 U/L (0-40) 01/08/23 16:01 ALT 30 U/L (0-41) 01/08/23 16:01 Alkaline Phosphatase 159 U/L (40-130) H 01/08/23 16:01 Troponin T Baseline 147 ng/L (0-15) H* 01/08/23 16:01 Troponin T 120 Minute 136.1 ng/L (0-15) H 01/08/23 17:45 Delta Troponin T -10.9 ABS# (0-10) L 01/08/23 17:45 Total Protein 7.5 g/dL (6.6-8.7) 01/08/23 16:01 Albumin 2.9 g/dL (3.5-5.2) L 01/08/23 16:01 Globulin 4.6 g/dL (1.3-4.6) 01/08/23 16:01 Lipase 27 U/L (13-60) 01/08/23 16:01 Urine Color Colorless (Yellow) 01/08/23 18:46 Urine Appearance Clear (CLEAR) 01/08/23 18:46 Urine pH 5 (5-7) 01/08/23 18:46 Ur Specific [place] 1.015 (1.005-1.030) 01/08/23 18:46 Urine Protein 2+ (Negative) H 01/08/23 18:46 Urine Glucose (UA) 1+ (Normal) H 01/08/23 18:46 Urine Ketones Negative (Negative) 01/08/23 18:46 Urine Blood 3+ (Negative) H 01/08/23 18:46 Urine Nitrate Negative (Negative) 01/08/23 18:46 Urine Bilirubin Neg (Negative) 01/08/23 18:46 Urine Urobilinogen Norm mg/dL (Negative) 01/08/23 18:46 Ur Leukocyte Esterase Negative (Negative) 01/08/23 18:46 Urine RBC >100 /hpf (0-2) H 01/08/23 18:46 Urine WBC 0-4 /hpf (0-5) H 01/08/23 18:46 Ur Squamous Epith Cells 0-4 /hpf (0-5) H 01/08/23 18:46 Amorphous Sediment Not Reportable 01/08/23 18:46 Urine Bacteria Trace /hpf (NONE) 01/08/23 18:46 Discharge Plan Discharge Patient Disposition: Home Clinical Impression: Abdominal pain, Back pain, Dehydration, mild, Hematuria Condition: Stable Prescriptions: No Action metoprolol tartrate 25 mg tablet 25 mg PO BID citalopram 20 mg tablet 20 mg PO QAM pramipexole 1.5 mg tablet 1.5 mg PO TID atorvastatin 40 mg Tablet 40 mg PO DAILY albuterol sulfate 90 mcg/actuation HFA aerosol inhaler 2 puff INHALATION Q4H PRN (Reason: Shortness Of Breath) fluticasone propionate 50 mcg/actuation Melba,Suspension 2 spray INTRANASAL DAILY PRN (Reason: Allergy Symptoms) Rx Instructions: administer into each nostril multivitamin Tablet 1 tab PO DAILY calcium carbonate-vitamin D3 600 mg-5 mcg (200 unit) Tablet 1 tab PO DAILY aspirin 81 mg Tablet,Delayed Release (Dr/Ec) 81 mg PO QAM pantoprazole 40 mg tablet,delayed release (DR/EC) 40 mg PO DAILY tamsulosin 0.4 mg capsule 0.8 mg PO DAILY 30 Days Qty: 60 0RF Discharge Orders: Discharge ED (Routine); Ordered 01/08/23 Ordered By: Heber Duarte Referrals: Melissa Boswell MD [Primary Care Provider] - Discharge Diet: Usual diet Discharge Activity: Increase activity as tolerated Patient Instructions: Dehydration (ED), Hematuria (ED), Abdominal Pain (ED), Back Pain (ED), Opioid Safety Activity Restrictions/Additional Instructions: Thank you for visiting the emergency department. You were seen and evaluated for abdominal and back pain. The exact cause your symptoms is unclear. No evidence of infection was identified. You do have blood in your urine. You have many chronic findings on your CT scan and I think the most likely cause of your pain is related to these including severe chronic spine disease. Please follow-up with your primary care provider. Please make sure that you are staying hydrated. I recommend repeat laboratory studies in 1 week for reevaluation of kidney function and hematuria. Return to the emergency department for worsening symptoms or anything else that you are concerned about and feel needs emergency department evaluation. Coding Level of Care Code ED Integration Consultant for Eliasbeth Krishnamurthy
--- NOTE | 2023-01-08 15:44 | ECG_ITS ---
[facility] Test Date: 2023-01-08 Pat Name: Phil Palumbo Department: Room: Gender: Male Massotherapist: : 1950 Requested By: Heber Duarte Order Number: [id number] Reading MD: SCOOTER NUNEZ Measurements Intervals [place] Rate: 71 P: 26 OK: 160 QRS: -44 QRSD: 99 T: 64 QT: 372 QTc: 406 Interpretive Statements SINUS RHYTHM LEFT AXIS DEVIATION [QRS AXIS < -30] ANTEROSEPTAL MYOCARDIAL INFARCTION , OF INDETERMINATE AGE [40+ ms Q WAVE IN V1-V4] Compared to ECG 09/29/2022 00:21:30 Left-axis deviation now present Sinus tachycardia no longer present Left anterior fascicular block no longer present Myocardial infarct finding still present Electronically Signed On 01-09-2023 3:07:18 CDT by SCOOTER NUNEZ [id number]
[2023-01-08] MEDS: ipratropium-albuterol 3 mL Neb INHALATION (15:54)
[2023-01-08 16:21] LABS: Basophils % 0.5 %; Eosinophils # 0.1 10^3/uL (0.0-0.8); Eosinophils % 1.3 %; Hematocrit 37.7 % (42.0-52.0); Hemoglobin 11.7 g/dL (11.7-16.6); Lymphocytes % 16.7 %; Mean Corpuscular Hemoglobin 27.7 pg (28.0-34.0); Mean Corpuscular Volume 89.1 fl (80-94); Mean Platelet Volume 10.1 fL (7.4-10.4); Monocytes # 0.5 10^3/uL (0.2-0.9); Monocytes % 7.9 %; Neutrophils # 4.34 10^3/uL (1.8-7.7); Neutrophils % 73.3 %; Nucleated Red Blood Cells % 0 %; Platelet Count 225 10^3/cmm (130-400); Red Blood Count 4.23 10^6/uL (4.1-5.3); Red Cell Distribution Width 15.7 % (12.1-15.1); White Blood Count 5.9 10^3/uL (4.0-10.0)
[2023-01-08] MEDS: morphine 4 mg/mL SDV 1 mL IVP (16:29)
[2023-01-08 16:35] LABS: Alanine Aminotransferase 30 U/L (0-41); Albumin Level 2.9 g/dL (3.5-5.2); Alkaline Phosphatase 159 U/L (40-130); Anion Gap 13.5 (5-19); Aspartate Amino Transferase 29 U/L (0-40); Blood Urea Nitrogen 67 mg/dL (8-23); Calcium 10.8 mg/dL (8.5-10.5); Carbon Dioxide 28 mmol/L (22-29); Chloride 100 mmol/L (98-107); Globulin 4.6 g/dL (1.3-4.6); Glomerular Filtration Rate 23.5 mL/min (90-130); Glucose 209 mg/dL (65-115); Lipase 27 U/L (13-60); Osmolality Calculated 310 mOsm/kg (285-295); Potassium 4.5 mmol/L (3.5-5.1); Sodium 137 mmol/L (136-145); Total Bilirubin 0.2 mg/dL (0.15-1.2); Total Protein 7.5 g/dL (6.6-8.7)
[2023-01-08] MEDS: sodium chloride 0.9% 1,000 ML 999 ML IV (16:47)
[2023-01-08 16:59] LABS: Troponin(5th) Baseline 147 ng/L (0-15)
--- NOTE | 2023-01-08 17:11 | CTR_ITS ---
PROCEDURE INFORMATION: Exam: CT Chest Without Contrast; Diagnostic Exam date and time: 01/08/2023 5:59 PM Age: 72 years old Clinical indication: Abdominal pain; Localized; Left lower quadrant (llq); Other: Llq abd and left lower back; Additional info: Back and abd pain TECHNIQUE: Imaging protocol: Diagnostic computed tomography of the chest without contrast. Sagittal and coronal reformatted images were created and reviewed. Radiation optimization: All CT scans at this facility use at least one of these dose optimization techniques: automated exposure control; mA and/or kV adjustment per patient size (includes targeted exams where dose is matched to clinical indication); or iterative reconstruction. REPORTING DATA: Count of CT and Cardiac NM exams in prior 12 months: This patient has received 4 known CTs and 0 known cardiac nuclear medicine studies in the 12 months prior to the current study. COMPARISON: [place] [id number] 09/23/2022 3:18 PM RADIATION DOSE METRICS: Total DLP (mGy-cm): 286.4 FINDINGS: Limitations: Evaluation of the mediastinum and vasculature is limited without intravenous contrast. Respiratory motion artifact on multiple images that can limit evaluation. Trachea: Tracheobronchial structures are patent. Lungs: Stable linear scarring in the right and left lower lobes. Stable moderate centrilobular emphysematous changes in the lungs. No focal consolidation. No pulmonary edema. No pulmonary parenchymal nodules or masses. Pleural spaces: No pneumothorax. No pleural effusion. Heart: Stable moderate enlargement of the heart. Coronary arteries: Stable extensive atherosclerotic calcification in the coronary arteries. Esophagus: The esophagus is unremarkable. Mediastinal space: No mediastinal hematoma. No pneumomediastinum. Lymph nodes: No lymphadenopathy. Vasculature: Stable moderate atherosclerotic changes in the visualized arteries. .No evidence for aortic aneurysm. Pulmonary arteries are unremarkable. Pulmonary veins are unremarkable. Bones/joints: Bones are diffusely osteopenic. Stable degenerative changes in the spine. Stable moderate/severe compression deformities of T10 and T12. Stable mild left lateral subluxation of T9 with respect to T10 that may be due to ligamentous laxity. Stable moderate dextroscoliosis in the spine with the apex at T12. Soft tissues: No acute abnormality in the extrathoracic soft tissues. COMMENTS: In the absence of a history or active diagnosis of lung cancer, it is recommended that this patient with emphysema be evaluated for enrollment in a low dose CT lung cancer screening program. PROCEDURE INFORMATION: Exam: CT Abdomen And Pelvis Without Contrast Exam date and time: 01/08/2023 5:59 PM Age: 72 years old Clinical indication: Abdominal pain; Localized; Left lower quadrant (llq); Other: Llq abd and left lower back; Additional info: Back and abd pain TECHNIQUE: Imaging protocol: Computed tomography of the abdomen and pelvis without contrast. Sagittal and coronal reformatted images were created and reviewed. Radiation optimization: All CT scans at this facility use at least one of these dose optimization techniques: automated exposure control; mA and/or kV adjustment per patient size (includes targeted exams where dose is matched to clinical indication); or iterative reconstruction. REPORTING DATA: Count of CT and Cardiac NM exams in prior 12 months: This patient has received 4 known CTs and 0 known cardiac nuclear medicine studies in the 12 months prior to the current study. COMPARISON: [place] [id number] 09/23/2022 3:18 PM RADIATION DOSE METRICS: Total DLP (mGy-cm): 482.3 FINDINGS: Limitations: Evaluation of solid organs and vasculature is limited without intravenous contrast. Liver: The liver is unremarkable. Gallbladder and bile ducts: The gallbladder is unremarkable. No biliary ductal dilatation. Pancreas: The pancreas is unremarkable. No pancreatic ductal dilatation. Spleen: Calcified granuloma in the spleen. Adrenal glands: The right and left adrenal glands are unremarkable. Kidneys and ureters: The right and left kidneys are unremarkable. The right and left ureters are unremarkable. Stomach and bowel: Increased fecal content in the colon. No acute abnormality in the small bowel. No acute abnormality in the stomach. Appendix: The appendix is visualized and is unremarkable. No findings to suggest acute appendicitis. Intraperitoneal space: No free intraperitoneal air. No ascites. No loculated fluid collections to suggest an abscess. Vasculature: Stable extensive atherosclerotic calcifications in the visualized arteries. No evidence for aortic aneurysm. Lymph nodes: No lymphadenopathy. Urinary bladder: Stable diffuse, mild wall thickening of the bladder. Reproductive: Stable nonspecific parenchymal calcifications in the prostate gland. Bones/joints: Degenerative changes in the spine, sacroiliac joints, and hips. Stable moderate dextroscoliosis in the spine with the apex at T12. Stable old, mild compression deformity of L1. Mild spinal canal stenosis at L1-L2 through L5-S1. Multilevel foraminal stenosis of varying severity in the lumbar spine. Soft tissues: Stable mild to moderate body wall edema, particularly over the left lateral abdomen. A loculated fluid collection in the fascial planes between the left external oblique and internal oblique musculature has decreased in size. This now measures 10.7 x 6.5 x 7.3 cm, previously measured 14.3 x 8.7 x 8.0 cm (series 12, image 9 and series 6, image 42). There are areas of increased density within the fluid collection however. CT/[place] [id number] IMPRESSION: 1. No acute cardiopulmonary process. 2. No acute cardiopulmonary process. 3. Stable moderate/severe compression deformities of T10 and T12. 4. Stable degenerative changes in the spine. 5. Stable mild left lateral subluxation of T9 with respect to T10 that may be due to ligamentous laxity. 6. Stable moderate dextroscoliosis in the spine with the apex at T12. 7. Incidental/nonacute findings are listed in the report. IMPRESSION: 1. A loculated fluid collection in the fascial planes between the left external oblique and internal oblique musculature has decreased in size. There are now areas of increased density within the fluid collection however. . Findings could represent interval hemorrhage within a seroma. Evaluation for active bleeding cannot be performed without intravenous contrast. CT scan with intravenous contrast may be obtained for further evaluation as clinically indicated. 2. Stable diffuse, mild wall thickening of the bladder. In the correct clinical setting, this may suggest cystitis. Recommend correlation with laboratory findings. Alternatively, this may be secondary to chronic outlet obstruction. 3. Increased fecal content in the colon. 4. Stable mild to moderate body wall edema, particularly over the left lateral abdomen. 5. Stable moderate dextroscoliosis in the spine with the apex at T12. 6. Stable old, mild compression deformity of L1. 7. Mild spinal canal stenosis at L1-L2 through L5-S1. Multilevel foraminal stenosis of varying severity in the lumbar spine. 8. Incidental/nonacute findings are listed in the report.
[2023-01-08 18:23] LABS: Troponin 5 2HR Delta -10.9 ABS# (0-10)
[2023-01-08 18:26] LABS: Troponin 5 2HR 136.1 ng/L (0-15)
[2023-01-08 19:04] LABS: Glucose Urine UA 1+ (Normal); Protein Urine 2+ (Negative); Specific Gravity, Urine 1.015 (1.005-1.030); Urine Appearance Clear (CLEAR); Urine Color Colorless (Yellow); pH Urine 5 (5-7)
[2023-01-08 19:05] LABS: Add Urine Culture? Yes; Add Urine Microscopic? YES; Bacteria Urine TRACE /hpf; Bilirubin Urine Neg (Negative); Blood Urine 3+ (Negative); Ketones Urine Negative (Negative); Leukocyte Esterase Urine Negative (Negative); Nitrate Urine Negative (Negative); RBC Urine >100 /hpf (0-2); Squamous Epithelial Cell Urine 0-4 /hpf (0-5); Urobilinogen Urine Norm (Negative); WBC Urine 0-4 /hpf (0-5)
--- NOTE | 2023-01-08 21:44 | ECG_ITS ---
[facility] Test Date: 2023-01-08 Pat Name: Phil Palumbo Department: Room: Gender: Male Azure Developer: : 1950 Requested By: Heber Duarte Order Number: [id number] Wes MD: SCOOTER NUNEZ Measurements Intervals [place] Rate: 72 P: 38 MS: 158 QRS: -42 QRSD: 98 T: 72 QT: 368 QTc: 405 Interpretive Statements SINUS RHYTHM LEFT AXIS DEVIATION [QRS AXIS < -30] POSSIBLE ANTERIOR MYOCARDIAL INFARCTION , OF INDETERMINATE AGE [30 ms Q WAVE IN V3/V4, OR R < 0.2 mV IN V4] Compared to ECG 01/08/2023 15:52:11 No significant changes Electronically Signed On 01-09-2023 3:08:08 CDT by SCOOTER NUNEZ [id number]
== END 2023-01-08 19:56 | disposition home or self-care (01) ==
PROVIDERS: Emergency Provider Emergency Medicine; PCP Family Medicine
DX: R10.31 Right lower quadrant pain (principal); R31.9 Hematuria, unspecified; M54.9 Dorsalgia, unspecified; E86.0 Dehydration; Z79.82 Long term (current) use of aspirin; F17.210 Nicotine dependence, cigarettes, uncomplicated; I13.0 Hypertensive heart and chronic kidney disease with heart failure and stage 1 through stage 4 chronic kidney disease, or unspecified chronic kidney disease; E11.22 Type 2 diabetes mellitus with diabetic chronic kidney disease; N18.9 Chronic kidney disease, unspecified; I50.23 Acute on chronic systolic (congestive) heart failure; J44.9 Chronic obstructive pulmonary disease, unspecified; I25.10 Atherosclerotic heart disease of native coronary artery without angina pectoris; E78.5 Hyperlipidemia, unspecified; I25.2 Old myocardial infarction
CPT/HCPCS: 71250; 74176; 80053; 81001; 83690; 84484; 85025; 87040; 87086; 93005; 94640; 96374; 99285; J2270; J7030

== ENCOUNTER 2023-01-12 17:10 | Inpatient (IN) | payer MEDICARE, SELFPAY ==
[2023-01-12 17:13] VITALS: BP 172/93; PULSE 96; RESP 18; TEMP 36.4; O2SAT 83; BMI 16.7
--- NOTE | 2023-01-12 17:29 | PC.NURSE ---
PT PLACED ON 4L NC D/T OXYGEN SATURATION OF 83%
--- NOTE | 2023-01-12 18:07 | W.ED.AMS ---
HPI - Altered Mental Status General: Chief Complaint: Altered Mental Status Stated Complaint: INCREASED CONFUSION PER FAMILY Time Seen by Provider: 01/12/23 18:07 Limitations: altered mental status History of Present Illness: Mr. Palumbo is a 72-year-old gentleman with history of CKD, COPD with chronic hypoxic respiratory failure, dementia presenting to the emergency department for?possible confusion. The patient himself feels at baseline and denies any new complaint. Apparently he was off his oxygen and room air oxygen saturation was in 80s. He is a rather poor historian and also somewhat difficult to understand which appears to be a chronic issue for him. Review of Systems General: Reports: ROS unobtainable due to mental status PFSH ED PFSH: Medical History Acute on chronic systolic heart failure Echocardiogram from 08/13 shows EF of 45%, regional wall motion abnormality, grade 1 diastolic dysfunction Atherosclerosis of coronary artery of [place] heart without angina pectoris BPH loc w urin obs/LUTS CAD (coronary artery disease) CHF (congestive heart failure) 2014, EF 40% with 2/4 diastolic dysfunction Chronic kidney disease COPD exacerbation Coronary artery disease Depression Diabetes mellitus Diabetic gastroparesis Diabetic neuropathy Elevated troponin Hyperlipidemia Hypertension NSTEMI (non-ST elevated myocardial infarction) Peripheral artery disease Pneumonia Tobacco dependency Surgical History History of angioplasty Family History Mother , in her 80's Parkinsons Father , at age 71 Epilepsy Brother CAD (coronary artery disease) [place] x 2, early 60's Diabetes Lung disease Sister Dementia Diabetes Denies family history of Clotting disorder Chronic kidney disease (CKD) Suicide Anesthesia complication Bleeding disorder Cancer Hypertension Stroke Social History Smoking and tobacco status: current every day smoker cigarettes Packs smoked per day: 2 Years cigarettes smoked: 50 Alcohol intake: never Marital status: Current occupational status: retired Physical Exam Const: COMMON NORMALS: alert GENERAL APPEARANCE: cooperative and well developed HENMT: COMMON NORMALS: normocephalic and atraumatic HEAD & SCALP: normocephalic and atraumatic THROAT: posterior oropharynx normal Eye: COMMON NORMALS: conjunctivae normal CONJUNCTIVA: Yes conjunctivae normal SCLERA: sclerae normal Neck/C-Spine: COMMON NORMALS: supple GENERAL: Yes trachea midline Resp: EFFORT & INSPECTION: Yes able to speak in complete sentences and Yes tachypneic AUSCULTATION: diminished lung sounds Cardio: COMMON NORMALS: regular rate and regular rhythm RATE: regular rate RHYTHM: regular rhythm GI: COMMON NORMALS: Soft to palpation PALPATION: Yes Soft to palpation and No Tenderness to palpation present (GI) Extremity: GENERAL: Yes normal exam except as noted and No edema Neuro: COMMON NORMALS: moves all extremities SENSORIUM/ORIENTATION: Yes alert and Yes Orientation impaired Psych: COMMON NORMALS: mental status grossly normal and Normal thought process present THOUGHT PROCESS: Normal thought process present Course Vital Signs: Vital signs: Vital Signs Temperature 98.7 F 01/15/23 08:00 Pulse Rate 64 01/15/23 08:00 Respiratory Rate 17 01/15/23 08:00 Blood Pressure 115/63 01/15/23 08:00 Pulse Oximetry 94 01/15/23 08:00 Oxygen Delivery Me thod 01/15/23 08:00 Oxygen Flow Rate 3 01/15/23 04:00 MDM - Altered Mental Status Medical Decision Making 72-year-old gentleman presenting with increased confusion. Patient provides very limited history, apparently is supposed to wear oxygen and his concentrator was not working, he presents hypoxemic with increased respiratory effort. No focal neurologic deficits and patient is nontoxic. EKG notable for sinus rhythm with normal intervals, left axis deviation, nonspecific ST segment abnormalities. Labs notable for no leukocytosis, normal hemoglobin. Metabolic panel with mild dehydration with increased creatinine. Hematuria noted. CT head negative for acute intracranial pathology. Chest x-ray with bilateral infiltrates, no pneumothorax. During ED course patient treated with antibiotics for community-acquired pneumonia. Most likely etiology of symptoms is pneumonia with altered mental status. The results of ED evaluation were discussed with the patient including plan for admission due to requirement for level of care not available if discharged to prevent significant worsening/deterioration. Patient agreeable with plan. Discussed with hospitalist service who was agreeable to admit patient. Medical Records I reviewed the patient's medical records. Lab Data I reviewed the patient's lab results. 01/15/23 03:18 01/15/23 03:18 Radiology Impressions Chest X-Ray 01/12/23 18:09 IMPRESSION: Bilateral left greater than right atelectasis versus infiltrate. Head CT 01/12/23 18:09 IMPRESSION: Negative for intracranial hemorrhage or mass effect. Shoulder X-Ray 01/13/23 06:45 IMPRESSION: No fractures or dislocations of the right shoulder. Elbow CT 01/13/23 09:40 IMPRESSION: 1. No acute fracture. 2. Diffuse osteopenia. 3. Minimal degenerative change. Shoulder CT 01/13/23 09:40 IMPRESSION: 1. No acute fracture. 2. Diffuse osteopenia. 3. Mild degenerative changes. 4. Moderate shoulder joint effusion. 5. Minimal calcific tendinopathy of the distal supraspinatus tendon. Laboratory Results WBC 6.4 10^3/uL (4.0-10.0) 01/14/23 05:21 RBC 3.73 10^6/uL (4.1-5.3) L 01/14/23 05:21 Hgb 10.2 g/dL (11.7-16.6) L 01/14/23 05:21 Hct 33.2 % (42.0-52.0) L 01/14/23 05:21 MCV 89.0 fl (80-94) 01/14/23 05:21 MCH 27.3 pg (28.0-34.0) L 01/14/23 05:21 MCHC 30.7 g/dL (30.0-36.0) 01/14/23 05:21 RDW 15.9 % (12.1-15.1) H 01/14/23 05:21 Plt Count 195 10^3/cmm (130-400) 01/14/23 05:21 MPV 9.7 fL (7.4-10.4) 01/14/23 05:21 Neut % (Auto) 78.9 % 01/14/23 05:21 Lymph % (Auto) 11.6 % 01/14/23 05:21 [place] % (Auto) 8.2 % 01/14/23 05:21 Eos % (Auto) 0.5 % 01/14/23 05:21 Baso % (Auto) 0.3 % 01/14/23 05:21 Neut # (Auto) 5.08 10^3/uL (1.8-7.7) 01/14/23 05:21 Lymph # (Auto) 0.8 10^3/uL (0.8-4.8) 01/14/23 05:21 [place] # (Auto) 0.5 10^3/uL (0.2-0.9) 01/14/23 05:21 Eos # (Auto) 0.0 10^3/uL (0.0-0.8) 01/14/23 05:21 Baso # (Auto) 0.0 10^3/uL (0.0-0.1) 01/14/23 05:21 Nucleated RBC % (auto) 0 % 01/14/23 05:21 Nucleated RBCs # 0.0 /100WBC 01/14/23 05:21 ESR 36 mm/hr (0-10) H 01/12/23 09:40 Sodium 137 mmol/L (136-145) 01/14/23 05:21 Potassium 4.3 mmol/L (3.5-5.1) 01/14/23 05:21 Chloride 106 mmol/L (98-107) 01/14/23 05:21 Carbon Dioxide 25 mmol/L (22-29) 01/14/23 05:21 Anion Gap 10.3 (5-19) 01/14/23 05:21 BUN 65 mg/dL (8-23) H 01/14/23 05:21 Creatinine 2.7 mg/dL (0.7-1.2) H 01/14/23 05:21 GFR Calculation 23.5 mL/min (90-130) L 01/14/23 05:21 Glucose 37 mg/dL (65-115) L* 01/14/23 05:21 POC Glucose 230 mg/dL (70-110) H 01/14/23 16:53 Calculated Osmolality 299 mOsm/kg (285-295) H 01/14/23 05:21 Calcium 8.7 mg/dL (8.5-10.5) 01/14/23 05:21 Total Bilirubin 0.3 mg/dL (0.15-1.2) 01/12/23 19:00 AST 39 U/L (0-40) 01/12/23 19:00 ALT 33 U/L (0-41) 01/12/23 19:00 Alkaline Phosphatase 173 U/L (40-130) H 01/12/23 19:00 C-Reactive Protein 70.4 mg/L (0.0-4.9) H 01/12/23 09:40 Total Protein 7.2 g/dL (6.6-8.7) 01/12/23 19:00 Albumin 2.7 g/dL (3.5-5.2) L 01/12/23 19:00 Globulin 4.5 g/dL (1.3-4.6) 01/12/23 19:00 Vitamin B12 1767 pg/mL (232-1245) H 01/12/23 23:50 Folate 19.5 ng/mL (4.5-32.2) 01/12/23 23:50 Procalcitonin 0.28 ng/mL (0-0.5) 01/12/23 09:40 TSH 0.85 uIU/mL (0.27-4.20) 01/12/23 23:50 Urine Color Light yellow (Yellow) 01/12/23 17:42 Urine Appearance Hazy (CLEAR) A 01/12/23 17:42 Urine pH 5 (5-7) 01/12/23 17:42 Ur Specific [place] 1.010 (1.005-1.030) 01/12/23 17:42 Urine Protein 2+ (Negative) H 01/12/23 17:42 Urine Glucose (UA) Norm (Normal) 01/12/23 17:42 Urine Ketones Negative (Negative) 01/12/23 17:42 Urine Blood 3+ (Negative) H 01/12/23 17:42 Urine Nitrate Negative (Negative) 01/12/23 17:42 Urine Bilirubin Neg (Negative) 01/12/23 17:42 Urine Urobilinogen Neg mg/dL (Negative) 01/12/23 17:42 Ur Leukocyte Esterase Negative (Negative) 01/12/23 17:42 Urine RBC 15-25 /hpf (0-2) H 01/12/23 17:42 Urine WBC 0-4 /hpf (0-5) H 01/12/23 17:42 Ur Squamous Epith Cells None /hpf (0-5) 01/12/23 17:42 Amorphous Sediment Not Reportable 01/12/23 17:42 Urine Bacteria None /hpf (NONE) 01/12/23 17:42 Discharge Plan Discharge Patient Disposition: Placed in Observation Admit Provider: Oh Mercedes Clinical Impression: Altered mental status, Pneumonia Discharge Diet: Advance as tolerated Discharge Activity: Resume usual activity Coding Level of Care Code ED Employment Assistant for Elisabeth Krishnamurthy
--- NOTE | 2023-01-12 18:09 | XRR_ITS ---
PROCEDURE INFORMATION: Exam: XR Chest Exam date and time: 01/12/2023 6:36 PM Age: 72 years old Clinical indication: Other: Abnormal lung sounds TECHNIQUE: Imaging protocol: Radiologic exam of the chest. Views: 1 view. COMPARISON: CT chest abdpel [id number] 01/08/2023 5:59 PM FINDINGS: Lungs: Bilateral left greater than right atelectasis versus infiltrate. Pleural spaces: Unremarkable. No pleural effusion. No pneumothorax. Heart/Mediastinum: Unremarkable. No cardiomegaly. Bones/joints: Unremarkable. XR/XR chest 1V portable [id number] IMPRESSION: Bilateral left greater than right atelectasis versus infiltrate.
--- NOTE | 2023-01-12 18:09 | CTR_ITS ---
PROCEDURE INFORMATION: Exam: CT Head Without Contrast Exam date and time: 01/12/2023 6:29 PM Age: 72 years old Clinical indication: Altered mental status/memory loss; Additional info: AMS TECHNIQUE: Imaging protocol: Computed tomography of the head without contrast. Radiation optimization: All CT scans at this facility use at least one of these dose optimization techniques: automated exposure control; mA and/or kV adjustment per patient size (includes targeted exams where dose is matched to clinical indication); or iterative reconstruction. REPORTING DATA: Count of CT and Cardiac NM exams in prior 12 months: This patient has received 5 known CTs and 0 known cardiac nuclear medicine studies in the 12 months prior to the current study. COMPARISON: CT head wo con* [id number] 09/29/2022 11:34 AM RADIATION DOSE METRICS: Total DLP (mGy-cm): 1252 FINDINGS: Brain: Moderate diffuse white matter disease likely reflecting chronic microvascular ischemic changes. Cerebral ventricles: No ventriculomegaly. Paranasal sinuses: Visualized sinuses are unremarkable. No fluid levels. Mastoid air cells: Visualized mastoid air cells are well aerated. Bones/joints: Unremarkable. No acute fracture. Soft tissues: Unremarkable. CT/CT head wo con* [id number] IMPRESSION: Negative for intracranial hemorrhage or mass effect.
--- NOTE | 2023-01-12 18:20 | ECG_ITS ---
[facility] Test Date: 2023-01-12 Pat Name: Phil Palumbo Department: Room: Gender: Male Juvenile Justice Officer: : 1950 Requested By: Heber Duarte Order Number: [id number] Wes MD: Malika Souza M.D. Measurements Intervals [place] Rate: 90 P: 49 SC: 139 QRS: -44 QRSD: 97 T: 77 QT: 342 QTc: 420 Interpretive Statements SINUS RHYTHM LEFT AXIS DEVIATION [QRS AXIS < -30] POSSIBLE RIGHT VENTRICULAR CONDUCTION DELAY [RSR (QR) IN V1/V2] ANTEROSEPTAL MYOCARDIAL INFARCTION , OF INDETERMINATE AGE [40+ ms Q WAVE IN V1-V4] Compared to ECG 01/08/2023 17:45:40 No significant changes Electronically Signed On 01-13-2023 23:10:06 CDT by Malika Souza M.D. [email or web address] centerBerk[facility].[employer]/store/[id number]
[2023-01-12 18:41] LABS: Add Urine Microscopic? YES; Bilirubin Urine Neg (Negative); Blood Urine 3+ (Negative); Glucose Urine UA Norm (Normal); Ketones Urine Negative (Negative); Leukocyte Esterase Urine Negative (Negative); Nitrate Urine Negative (Negative); Protein Urine 2+ (Negative); RBC Urine 15-25 /hpf (0-2); Urine Appearance Hazy (CLEAR); Urine Color Light yellow (Yellow); Urobilinogen Urine Neg (Negative); WBC Urine 0-4 /hpf (0-5); pH Urine 5 (5-7)
[2023-01-12 18:42] LABS: Add Urine Culture? Yes
[2023-01-12 19:28] LABS: Basophils % 0.2 %; Eosinophils % 0.2 %; Hematocrit 37.6 % (42.0-52.0); Hemoglobin 11.6 g/dL (11.7-16.6); Lymphocytes # 0.6 10^3/uL (0.8-4.8); Lymphocytes % 10.4 %; Mean Corpuscular HGB Conc 30.9 g/dL (30.0-36.0); Mean Corpuscular Hemoglobin 26.9 pg (28.0-34.0); Mean Platelet Volume 9.5 fL (7.4-10.4); Monocytes # 0.4 10^3/uL (0.2-0.9); Monocytes % 6.3 %; Neutrophils # 4.69 10^3/uL (1.8-7.7); Neutrophils % 82.5 %; Nucleated Red Blood Cells % 0 %; Platelet Count 235 10^3/cmm (130-400); Red Blood Count 4.32 10^6/uL (4.1-5.3); Red Cell Distribution Width 15.8 % (12.1-15.1); White Blood Count 5.7 10^3/uL (4.0-10.0)
[2023-01-12 19:49] VITALS: BP 153/91; PULSE 93; RESP 16; O2SAT 93
[2023-01-12 19:51] LABS: Alanine Aminotransferase 33 U/L (0-41); Albumin Level 2.7 g/dL (3.5-5.2); Alkaline Phosphatase 173 U/L (40-130); Anion Gap 15.5 (5-19); Aspartate Amino Transferase 39 U/L (0-40); Blood Urea Nitrogen 67 mg/dL (8-23); Calcium 9.5 mg/dL (8.5-10.5); Carbon Dioxide 25 mmol/L (22-29); Chloride 105 mmol/L (98-107); Globulin 4.5 g/dL (1.3-4.6); Glomerular Filtration Rate 24.5 mL/min (90-130); Glucose 78 mg/dL (65-115); Osmolality Calculated 310 mOsm/kg (285-295); Potassium 4.5 mmol/L (3.5-5.1); Sodium 141 mmol/L (136-145); Total Bilirubin 0.3 mg/dL (0.15-1.2); Total Protein 7.2 g/dL (6.6-8.7)
[2023-01-12 20:53] VITALS: BP 148/104; RESP 16; O2SAT 91
[2023-01-12] MEDS: cefTRIAXone 1,000 MG in sodium chloride 0.9% (plus) 50 ML 100 MG IV (21:00)
[2023-01-12] MEDS: doxycycline 100 MG in sodium chloride 0.9% (plus) 100 ML IV (21:43)
--- NOTE | 2023-01-12 23:19 | P.HP_ITS ---
Providers/Chief Complaint Admitting Physician: Oh Mercedes Primary Care Provider: Melissa Boswell MD Chief Complaint: INCREASED CONFUSION PER FAMILY History of Present Illness 72-year-old gentleman with hospitalization back in September due to respiratory infection, acute encephalopathy, enterococcal UTI, during that admission also shock requiring transient pressor support, other medical problems, please see admission, at the end of which his mental status had improved, although he is reported to have cognitive impairment/dementia, he was brought back to ER for evaluation by his family to ER currently due to confusion. In ED he himself denies any complaints, pain or discomfort. However, is not oriented. Unable to provide history. He is also hard of hearing, and and communication is difficult. Per family he has been wandering, not making sense. He is afebrile, without leukocytosis. On chest x-ray and bilateral left greater than right, atelectasis versus infiltrate. UA with 15-[address] without acute intracranial hemorrhage or mass effect. Moderate diffuse white matter disease likely reflecting chronic microvascular ischemic changes. Previous postoperative hematoma in the left abdominal wall, mass still present. Family are no longer here. He is unable to provide history, history to be obtained from ER physician and nurse and documentation. Review of Systems General: Reports: ROS unobtainable due to mental status Medications/Allergies Home Medications Medication Instructions Recorded Confirmed Last Taken Type citalopram 20 mg tablet 20 mg PO QAM 05/05/21 01/08/23 01/07/23 History pramipexole 1.5 mg tablet 1.5 mg PO TID 05/05/21 01/08/23 01/07/23 History tamsulosin 0.4 mg capsule 0.4 mg PO DAILY 05/05/21 01/08/23 01/07/23 History atorvastatin 40 mg tablet 40 mg PO DAILY 10/23/21 01/08/23 01/07/23 History albuterol sulfate 90 mcg/actuation 2 puff inhalation Q4H PRN 09/23/22 01/08/23 Unknown History aerosol inhaler Shortness Of Breath aspirin 81 mg tablet,delayed 81 mg PO QAM 09/23/22 01/08/23 01/07/23 History release calcium carbonate 600 mg-vitamin 1 tab PO DAILY 09/23/22 01/08/23 01/07/23 History D3 5 mcg (200 unit) tablet fluticasone propionate 50 2 spray intranasal DAILY PRN 09/23/22 01/08/23 Unknown History mcg/actuation nasal Allergy Symptoms spray,suspension multivitamin 1 tab PO DAILY 09/23/22 01/08/23 01/07/23 History metoprolol tartrate 25 mg tablet 25 mg PO BID 12/21/22 01/08/23 01/07/23 History insulin degludec 100 unit/mL (3 24 unit SUBCUT DAILY 01/08/23 01/08/23 01/07/23 History mL) subcutaneous pen (Tresiba FlexTouch U-100 insulin) pantoprazole 40 mg tablet,delayed 40 mg PO DAILY 01/08/23 01/08/23 01/07/23 History release Allergies Allergy/AdvReac Type Severity Reaction Status Date / Time No Known Allergies Allergy Verified 01/12/23 17:24 PFSH Acute PFSH: Medical History Acute on chronic systolic heart failure Echocardiogram from 08/13 shows EF of 45%, regional wall motion abnormality, grade 1 diastolic dysfunction Atherosclerosis of coronary artery of [place] heart without angina pectoris BPH loc w urin obs/LUTS CAD (coronary artery disease) CHF (congestive heart failure) 2014, EF 40% with 2/4 diastolic dysfunction Chronic kidney disease COPD exacerbation Coronary artery disease Depression Diabetes mellitus Diabetic gastroparesis Diabetic neuropathy Elevated troponin Hyperlipidemia Hypertension NSTEMI (non-ST elevated myocardial infarction) Peripheral artery disease Pneumonia Tobacco dependency Surgical History History of angioplasty Family History Mother , in her 80's Parkinsons Father , at age 71 Epilepsy Brother CAD (coronary artery disease) [place] x 2, early 60's Diabetes Lung disease Sister Dementia Diabetes Denies family history of Clotting disorder Chronic kidney disease (CKD) Suicide Anesthesia complication Bleeding disorder Cancer Hypertension Stroke Social History Smoking and tobacco status: current every day smoker cigarettes Packs smoked per day: 2 Years cigarettes smoked: 50 Alcohol intake: never Marital status: Current occupational status: retired Vitals/I&O/Wt Last Vital Signs Temp 97.5 F L 01/12/23 17:13 Pulse 93 01/12/23 19:49 Resp 16 01/12/23 20:53 BP 148/104 01/12/23 20:53 Pulse Ox 91 01/12/23 20:53 O2 Del Method 01/12/23 20:53 O2 Flow Rate 4 01/12/23 19:49 01/12/23 01/12/23 01/13/23 14:59 22:59 06:59 Intake Total 50 / 50 Balance 50 / 50 Weight last 48 hrs Weight 54.431 kg Physical Exam Narrative: AMBLER, Const: COMMON NORMALS: alert; negative for patient oriented x3 GENERAL APPEARANCE: cooperative ORIENTATION/CONSCIOUSNESS: Yes awake and Yes confused HENMT: COMMON NORMALS: oropharynx normal Neck/C-Spine: COMMON NORMALS: no JVD Resp: AUSCULTATION: diminished lung sounds Cardio: COMMON NORMALS: no JVD, regular rhythm, S1 normal heart sound present, S2 normal heart sound present and No murmurs present (Cardio) RHYTHM: regular rhythm HEART SOUNDS: S1 normal heart sound present and S2 normal heart sound present GI: COMMON NORMALS: Normal to inspection, nondistended, normoactive bowel sounds present, Soft to palpation and non-tender PALPATION: Yes Soft to palpation OTHER: LUQ abdominal wall firm mass Extremity: COMMON NORMALS: no joint enlargement and no pedal edema Neuro: COMMON NORMALS: moves all extremities; negative for patient oriented x3 SENSORIUM/ORIENTATION: Yes alert Skin: COMMON NORMALS: no rashes or lesions noted GENERAL SKIN EXAM: no rashes or lesions noted Data 01/12/23 19:00 01/12/23 19:00 A&P Assessment and plan (1) Altered mental status: Previously with acute encephalopathy during last admission. He is reported to have cognitive dysfunction, possible dementia, but his mental status did improve last admission. Last admission with respiratory failure, pneumonia. Currently cannot exclude possible pneumonia again with bilateral left greater than right atelectasis versus infiltrate on chest x-ray. He is unable to provide any history. His oxygen saturation is low, down to 83% on presentation. Last admission he did discharge home with 3 L of oxygen. Last admission also enterococcal UTI, currently with some microscopic hematuria, urine culture is requested. We will treat for pneumonia with ceftriaxone with additional coverage with vancomycin for possible enterococcal UTI. Fall precautions. Reorient. Reassess for improvement in mental status. Check TSH, folic acid, B12. CT head results appreciated. (2) Pneumonia: As above (3) Hematuria: Possible UTI, with acute encephalopathy, hematuria, recently enterococcal UTI. Follow-up urine culture. Follow-up for resolution of microscopic hematuria. Previously enterococcal urinary tract infection. For now empirically vancomycin. De-escalate antibiotic based on findings. During last admission also with urinary retention. We will request for bladder scan. Follow-up chemistry for reassessment of renal function. (4) Abdominal wall mass: Previously abdominal wall hematoma. Currently still abdominal mass persists in left upper quadrant. From. Does not seem to be tender. We will obtain additional assessment with ultrasound imaging. Monitor for possibility of infection of hematoma, although currently without fever/signs of sepsis. Follow-up CBC requested for assessment for anemia. Plan HTN: Cardiac diet, metoprolol. DM2: Insulin, for now decrease dose to 10 units long-acting, Accu-Cheks, SSI, CC diet BPH CAD: Aspirin held for now pending reassessment of hematoma, please resume depending on blood counts, findings. CHF CKD: Follow-up chemistry requested COPD Depression Diabetic neuropathy HLD PAD Smoking addiction Other problems Requesting medications to be confirmed, please reconcile once available. Discussed with ED physician, documentation reviewed. Attestations Medical Necessity Statement*: Place in observation for additional assessment management of acute encephalopathy, possible pneumonia, possible UTI Diagnoses Altered mental status R41.82 Pneumonia J18.9 Hematuria R31.9 Abdominal wall mass R22.2
--- NOTE | 2023-01-12 23:20 | US_ITS ---
WS: [id number] ABDOMINAL ULTRASOUND LIMITED REASON FOR EXAM: LUQ abdominal wall mass COMPARISON: CT 01/08/2023 ORDER DATE: 01/12/2023 11:58 PM TECHNIQUE: Grayscale and Doppler ultrasound examination of the mass in the left upper quadrant of the abdominal wall. FINDINGS/IMPRESSION: An ovoid mass is imaged in the subcutaneous tissue of the upper lateral left abdominal wall which con sists of ovoid fluid collection measuring 94 x 60 x 79 mm containing an echogenic avascular central c omponent which is somewhat ovoid as well measuring 61 x 30 mm in the sagittal plane surrounded by flu id. Normal vascular flow seen in the lateral abdominal wall. This is most consistent with a complex h ematoma and/or seroma corresponding to recent CT imaging.
[2023-01-12 23:23] VITALS: BP 181/81; PULSE 125; RESP 23; TEMP 37.5; O2SAT 90
[2023-01-13] VITALS (8 sets, daily range): BP systolic 111–181; BP diastolic 64–81; PULSE 50–125; RESP 12–23; TEMP 36.2–37.5; O2SAT 90–98
[2023-01-13] MEDS: haloperidol inj 5 mg/mL INJ 1 mL 1 MG IM (00:08)
[2023-01-13 00:49] LABS: Basophils % 0.3 %; Hematocrit 39.1 % (42.0-52.0); Hemoglobin 12.2 g/dL (11.7-16.6); Lymphocytes # 0.6 10^3/uL (0.8-4.8); Lymphocytes % 10.2 %; Mean Corpuscular HGB Conc 31.2 g/dL (30.0-36.0); Mean Corpuscular Hemoglobin 27.4 pg (28.0-34.0); Mean Corpuscular Volume 87.9 fl (80-94); Monocytes # 0.4 10^3/uL (0.2-0.9); Monocytes % 5.9 %; Neutrophils # 4.91 10^3/uL (1.8-7.7); Neutrophils % 83.3 %; Nucleated Red Blood Cells % 0 %; Platelet Count 248 10^3/cmm (130-400); Red Blood Count 4.45 10^6/uL (4.1-5.3); Red Cell Distribution Width 15.9 % (12.1-15.1); White Blood Count 5.9 10^3/uL (4.0-10.0)
[2023-01-13 01:07] LABS: Anion Gap 14.5 (5-19); Blood Urea Nitrogen 61 mg/dL (8-23); Calcium 9.9 mg/dL (8.5-10.5); Carbon Dioxide 24 mmol/L (22-29); Chloride 105 mmol/L (98-107); Glomerular Filtration Rate 22.5 mL/min (90-130); Glucose 64 mg/dL (65-115); Osmolality Calculated 303 mOsm/kg (285-295); Potassium 4.5 mmol/L (3.5-5.1); Sodium 139 mmol/L (136-145); Thyroid Stimulating Hormone 0.85 uIU/mL (0.27-4.20)
[2023-01-13] MEDS: acetaminophen 325 mg Tablet 650 MG PO (01:44)
[2023-01-13] MEDS: haloperidol inj 5 mg/mL INJ 1 mL 2 MG IM (01:45)
[2023-01-13 01:48] LABS: Vitamin B12 1767 pg/mL (232-1245)
[2023-01-13 01:49] LABS: Folate Level 19.5 ng/mL (4.5-32.2)
[2023-01-13] MEDS: oxyCODONE-APAP 5-325 mg Tablet 1 TAB PO ×2 (04:45→11:06)
[2023-01-13 06:43] LABS: Glucose Point of Care 93 mg/dL (70-110)
--- NOTE | 2023-01-13 06:45 | XR_ITS ---
WS: [id number] EXAMINATION: XR shoulder RT min 2V* [id number] REASON FOR EXAM: pain in the right shoulder COMPARISON: None available. ORDER DATE: 01/13/2023 6:48 AM TECHNIQUE: 3 views of the right shoulder were obtained. X-RAY FINDINGS: No fractures or dislocations. Tiny calcification near the greater tuberosity possibly due to tendinos is. Normal motion of the shoulder with internal/external rotation. No degenerative changes. Acromioclavicular joint appears unremarkable. Limited visualization of the adjacent hemithorax is unremarkable. XR/XR shoulder RT min 2V* [id number] IMPRESSION: No fractures or dislocations of the right shoulder.
--- NOTE | 2023-01-13 08:14 | PC.PHAR ---
pt unable to verify medications-called pts daughter paulina [phone] went to voicemail-called pts tayla [phone] no answer-pts nurse on med surg from last night states the family didnt bring any medications with the pt-medications entered are what ext med history shows has been filled recently and a previous med rec done on 01/08/23-notes are made in the pharmacy comments
--- NOTE | 2023-01-13 08:24 | PC.PHAR ---
pharmacy contacted floor to verify weight for dosing antibiotics, weight changed from 120# to 145.5#
--- NOTE | 2023-01-13 08:55 | PC.PHAR ---
Cefepime Adjusted per renal dosing policy: 1g q12h crcl calculated at 23.1 converts to 500 mg q24h.
--- NOTE | 2023-01-13 08:58 | PC.PHAR ---
Pharmacy to dose vancomycin ([employer] ID [id number]) Standard dosing requested (target trough 10-15) Calculated dose (rounded) 15 mg/k,000 mg Estimated frequency: pt parameters require extended time interval, will initiate at q36h but will monitor patient and make adjustments Trough values drawn before doses 3-5: trough entered before 3rd dose 01/16/23- 09
--- NOTE | 2023-01-13 09:40 | CTR_ITS ---
PROCEDURE INFORMATION: Exam: CT Right Upper Extremity Without Contrast, Elbow Exam date and time: 01/13/2023 11:23 AM Age: 72 years old Clinical indication: Injury or trauma; Fall; Blunt trauma (contusions or hematomas); Elbow; Right; Additional info: Pain, possible fall TECHNIQUE: Imaging protocol: Computed tomography of the right upper extremity without contrast. Exam focused on the elbow. Radiation optimization: All CT scans at this facility use at least one of these dose optimization techniques: automated exposure control; mA and/or kV adjustment per patient size (includes targeted exams where dose is matched to clinical indication); or iterative reconstruction. REPORTING DATA: Count of CT and Cardiac NM exams in prior 12 months: This patient has received 7 known CTs and 0 known cardiac nuclear medicine studies in the 12 months prior to the current study. COMPARISON: No relevant prior studies available. RADIATION DOSE METRICS: Total DLP (mGy-cm): 110.18 FINDINGS: Bones/joints: Diffuse osteopenia. There is a 3 mm degenerative subchondral cyst at the medial aspect of the right radial head (image 14:15). No joint space narrowing, marginal osteophytes or subchondral sclerosis. No acute fracture. Soft tissues: No soft tissue swelling. No radiopaque foreign body. CT/CT elbow RT wo con* [id number] IMPRESSION: 1. No acute fracture. 2. Diffuse osteopenia. 3. Minimal degenerative change.
--- NOTE | 2023-01-13 09:40 | CTR_ITS ---
PROCEDURE INFORMATION: Exam: CT Right Upper Extremity Without Contrast, Shoulder Exam date and time: 01/13/2023 11:17 AM Age: 72 years old Clinical indication: Injury or trauma; Fall; Blunt trauma (contusions or hematomas); Shoulder; Right; Additional info: Pain, possible fall TECHNIQUE: Imaging protocol: Computed tomography of the right upper extremity without contrast. Exam focused on the shoulder. Radiation optimization: All CT scans at this facility use at least one of these dose optimization techniques: automated exposure control; mA and/or kV adjustment per patient size (includes targeted exams where dose is matched to clinical indication); or iterative reconstruction. REPORTING DATA: Count of CT and Cardiac NM exams in prior 12 months: This patient has received 7 known CTs and 0 known cardiac nuclear medicine studies in the 12 months prior to the current study. COMPARISON: CR XR shoulder RT min 2V* [id number] 01/13/2023 5:51 AM RADIATION DOSE METRICS: Total DLP (mGy-cm): 300.9 FINDINGS: Bones/joints: No acute fracture. Diffuse osteopenia. At the right acromioclavicular joint, there is mild osteoarthritis. There small inferior marginal osteophytes. The right glenohumeral joint, there is minimal osteoarthritis. A moderate joint effusion has a density of 20 HU. There are two 2 mm intra-articular calcified loose bodies (image 6:50). There are multiple degenerative subcortical cysts at the lesser tuberosity, near the subscapularis tendon insertion. Soft tissues: A tiny platelike calcification at the superficial aspect of the distal supraspinatus tendon is 3 x 4 x 1 mm (image 8:26). It corresponds to the calcification described in the x-ray report. It is consistent with minimal calcific tendinopathy. Supraspinatus tendinopathy. No conspicuous rotator cuff tear, but MRI would be more sensitive. CT/CT shoulder RT wo con* [id number] IMPRESSION: 1. No acute fracture. 2. Diffuse osteopenia. 3. Mild degenerative changes. 4. Moderate shoulder joint effusion. 5. Minimal calcific tendinopathy of the distal supraspinatus tendon.
[2023-01-13 10:06] LABS: Erythrocyte Sedimentation Rate 36 mm/hr (0-10)
[2023-01-13 10:17] LABS: C Reactive Protein 70.4 mg/L (0.0-4.9)
[2023-01-13] MEDS: cefepime 500 MG in sodium chloride 0.9% (plus) 50 ML 100 MG IV (10:20)
[2023-01-13] MEDS: pantoprazole DR 40 mg Tablet PO (10:22)
[2023-01-13] MEDS: metoprolol tartrate 25 mg Tablet PO ×2 (10:22→18:42)
[2023-01-13] MEDS: tamsulosin 0.4 mg Capsule PO (10:22)
[2023-01-13] MEDS: sodium chloride 0.9% 1,000 ML 50 ML IV (10:23)
[2023-01-13 10:25] LABS: Procalcitonin 0.28 ng/mL (0-0.5)
[2023-01-13] MEDS: insulin glargine 100 units/1 mL 10 UNIT SUBCUT (11:09)
[2023-01-13] MEDS: vancomycin 1,000 MG in sodium chloride 0.9% 250 ML 250 MG IV (12:13)
[2023-01-13 12:20] LABS: Glucose Point of Care 158 mg/dL (70-110)
[2023-01-13] MEDS: insulin lispro 100 unit/1 mL SUBCUT ×2 (13:05→22:15)
--- NOTE | 2023-01-13 14:43 | PM.PN ---
Subjective Subjective: Patient was seen this morning, he is alert to person, not to place, not to time, he is complaining of severe right shoulder pain, Vitals/I&O/Wt Last Vital Signs Temp 98.0 F 01/13/23 04:00 Pulse 95 01/13/23 04:00 Resp 18 01/13/23 11:06 BP 152/75 01/13/23 04:00 Pulse Ox 95 01/13/23 11:06 O2 Del Method 01/13/23 04:00 O2 Flow Rate 4 01/13/23 04:00 01/12/23 01/13/23 01/13/23 22:59 06:59 14:59 Intake Total 530 / 530 580 / 1110 170 / 170 Balance 530 / 530 580 / 1110 170 / 170 Weight last 48 hrs Weight 66.451 kg Weight 54.431 kg Physical Exam Const: COMMON NORMALS: no acute distress and patient oriented x3 Neck/C-Spine: COMMON NORMALS: no JVD Resp: COMMON NORMALS: normal respiratory effort, No retractions, No use of accessory muscles and clear to auscultation bilaterally AUSCULTATION: clear to auscultation bilaterally Cardio: COMMON NORMALS: no JVD, regular rate, regular rhythm, S1 normal heart sound present and S2 normal heart sound present RATE: regular rate RHYTHM: regular rhythm HEART SOUNDS: S1 normal heart sound present and S2 normal heart sound present GI: COMMON NORMALS: Normal to inspection, nondistended, normoactive bowel sounds present and non-tender OTHER: On examination, left lower quadrant, abdominal wall density, mass, measuring 10 x 5 cm, round Extremity: COMMON NORMALS: no pedal edema NARRATIVE EXTREMITY EXAM: Right shoulder examination, slight swelling of right shoulder, no AC joint tenderness, does have hesitancy and pain with range of motion, pain above 30 degree arc, pain in left elbow no significant swelling Neuro: COMMON NORMALS: patient oriented x3 Psych: COMMON NORMALS: mental status grossly normal Data 01/12/23 23:50 01/12/23 23:50 Micro: Microbiology 01/12/23 23:53 Blood Culture - Preliminary Blood SPECIMEN COLLECTED 01/12/23 22:50 Blood Culture - Preliminary Blood SPECIMEN COLLECTED A&P Assessment and plan (1) Altered mental status: (2) Pneumonia: (3) Hematuria: (4) Abdominal wall mass: (5) Right shoulder pain: (6) Hematoma: Plan Acute encephalopathy -Has underlying dementia -Likely secondary to pneumonia -With possible UTI -Monitor mentation closely -Speech therapy eval -Aspiration precautions -Neurochecks -Follow urine cultures, blood cultures Pneumonia as above UTI as above Right shoulder pain -He denies a fall -We will do CT of right shoulder Abdominal wall mass -Likely complex hematoma, however need to be monitored for infection of hematoma -ESR, CRP, Pro-Oleg, ultrasound -Blood cultures HTN: Cardiac diet, metoprolol. DM2: Insulin, for now decrease dose to 10 units long-acting, Accu-Cheks, SSI, CC diet BPH CAD: Aspirin held for now pending reassessment of hematoma CHF CKD: Creatinine 2.8, monitor COPD Depression Diabetic neuropathy HLD PAD Smoking addiction Other problems Attestations Medical Necessity Statement*: Patient requires hospitalization for acute encephalopathy, pneumonia, UTI, right shoulder pain, abdominal mass Diagnoses Altered mental status R41.82 Pneumonia J18.9 Hematuria R31.9 Abdominal wall mass R22.2 Right shoulder pain M25.511 Hematoma T14.8XXA
[2023-01-13 17:26] LABS: Glucose Point of Care 36 mg/dL (70-110)
[2023-01-13 17:26] LABS: Glucose Point of Care 33 mg/dL (70-110)
[2023-01-13 18:00] LABS: Glucose Point of Care 194 mg/dL (70-110)
[2023-01-13 19:32] LABS: Anion Gap 13.6 (5-19); Blood Urea Nitrogen 66 mg/dL (8-23); Calcium 8.7 mg/dL (8.5-10.5); Carbon Dioxide 23 mmol/L (22-29); Chloride 106 mmol/L (98-107); Glomerular Filtration Rate 23.5 mL/min (90-130); Glucose 207 mg/dL (65-115); Osmolality Calculated 311 mOsm/kg (285-295); Potassium 4.6 mmol/L (3.5-5.1); Sodium 138 mmol/L (136-145)
[2023-01-13 21:47] LABS: Glucose Point of Care 149 mg/dL (70-110)
[2023-01-13] MEDS: OLANZapine 5 mg TABLET 2.5 MG PO (22:15)
[2023-01-14] VITALS (7 sets, daily range): BP systolic 106–134; BP diastolic 44–74; PULSE 49–79; RESP 16–18; TEMP 36.3–37.3; O2SAT 90–98
[2023-01-14 05:51] LABS: Basophils % 0.3 %; Eosinophils % 0.5 %; Hematocrit 33.2 % (42.0-52.0); Hemoglobin 10.2 g/dL (11.7-16.6); Lymphocytes # 0.8 10^3/uL (0.8-4.8); Lymphocytes % 11.6 %; Mean Corpuscular HGB Conc 30.7 g/dL (30.0-36.0); Mean Corpuscular Hemoglobin 27.3 pg (28.0-34.0); Mean Platelet Volume 9.7 fL (7.4-10.4); Monocytes # 0.5 10^3/uL (0.2-0.9); Monocytes % 8.2 %; Neutrophils # 5.08 10^3/uL (1.8-7.7); Neutrophils % 78.9 %; Nucleated Red Blood Cells % 0 %; Platelet Count 195 10^3/cmm (130-400); Red Blood Count 3.73 10^6/uL (4.1-5.3); Red Cell Distribution Width 15.9 % (12.1-15.1); White Blood Count 6.4 10^3/uL (4.0-10.0)
[2023-01-14 06:10] LABS: Anion Gap 10.3 (5-19); Blood Urea Nitrogen 65 mg/dL (8-23); Calcium 8.7 mg/dL (8.5-10.5); Carbon Dioxide 25 mmol/L (22-29); Chloride 106 mmol/L (98-107); Glomerular Filtration Rate 23.5 mL/min (90-130); Osmolality Calculated 299 mOsm/kg (285-295); Potassium 4.3 mmol/L (3.5-5.1); Sodium 137 mmol/L (136-145)
[2023-01-14 06:57] LABS: Glucose 37 mg/dL (65-115)
--- NOTE | 2023-01-14 07:03 | PC.NURSE ---
Critical lab reported to nursing home director over the phone at 01/14/23 0656 glucose was 37. Lab result verbally reported to wine pasteurizer and day shift nurse during their report at 01/14/23 0658. Accucheck done on patient with result of 65, reported to dayshift and wine pasteurizer nurse at 0700.
[2023-01-14 07:05] LABS: Glucose Point of Care 30 mg/dL (70-110)
[2023-01-14 07:05] LABS: Glucose Point of Care 65 mg/dL (70-110)
[2023-01-14 07:05] LABS: Glucose Point of Care 35 mg/dL (70-110)
[2023-01-14 07:05] LABS: Glucose Point of Care 33 mg/dL (70-110)
[2023-01-14] MEDS: cefepime 500 MG in sodium chloride 0.9% (plus) 50 ML 100 MG IV (08:49)
[2023-01-14] MEDS: metoprolol tartrate 25 mg Tablet PO ×2 (08:50→17:39)
[2023-01-14] MEDS: tamsulosin 0.4 mg Capsule PO (08:50)
[2023-01-14] MEDS: pantoprazole DR 40 mg Tablet PO (08:50)
[2023-01-14] MEDS: dextrose 5%-sod chloride 0.9% 1,000 ML 75 ML IV ×2 (09:26→23:09)
[2023-01-14 12:19] LABS: Glucose Point of Care 143 mg/dL (70-110)
[2023-01-14] MEDS: acetaminophen 325 mg Tablet 650 MG PO (14:48)
[2023-01-14 16:56] LABS: Glucose Point of Care 230 mg/dL (70-110)
--- NOTE | 2023-01-14 17:15 | PM.PN ---
Subjective Subjective: Patient was seen this morning, he had a couple of hypoglycemic episodes overnight, this morning he is enjoying breakfast alert to person, not to place, not to time but he does know that I am his doctor, denies any cough, no shortness of breath, no abdominal pain Vitals/I&O/Wt Last Vital Signs Temp 98.2 F 01/14/23 15:48 Pulse 76 01/14/23 15:48 Resp 18 01/14/23 15:48 BP 134/69 01/14/23 15:48 Pulse Ox 90 01/14/23 15:48 O2 Del Method 01/14/23 15:48 O2 Flow Rate 1 01/14/23 04:04 01/14/23 01/14/23 01/14/23 06:59 14:59 22:59 Intake Total 2012 445 / 445 Output Total 450 / 1200 500 / 500 Balance 275 / 813 -55 / -55 Weight last 48 hrs Weight 68.492 kg Weight 66.451 kg Physical Exam Const: COMMON NORMALS: no acute distress Resp: COMMON NORMALS: normal respiratory effort, No retractions, No use of accessory muscles and clear to auscultation bilaterally AUSCULTATION: clear to auscultation bilaterally Cardio: COMMON NORMALS: regular rate, regular rhythm, S1 normal heart sound present and S2 normal heart sound present RATE: regular rate RHYTHM: regular rhythm HEART SOUNDS: S1 normal heart sound present and S2 normal heart sound present GI: COMMON NORMALS: Normal to inspection, nondistended, normoactive bowel sounds present and non-tender Extremity: COMMON NORMALS: no pedal edema Urinary Catheter Management: Coude: Cath Placed During This Visit: yes Reason for Continuing Indwelling Catheter: Acute Urinary Retention or Obstruction Urinary Catheter Date of Insertion: 01/13/23 Urinary Catheter Time of Insertion: 19:25 Data 01/14/23 05:21 01/14/23 05:21 Micro: Microbiology 01/12/23 17:42 Urine Culture - Preliminary Urine,Clean Catch 01/14/23 01:39 Bacterial Antigens - Final Urine,Clean Catch 01/12/23 23:53 Blood Culture - Preliminary Blood NEGATIVE TO DATE 01/12/23 22:50 Blood Culture - Preliminary Blood NEGATIVE TO DATE A&P Assessment and plan (1) Altered mental status: (2) Pneumonia: (3) Hematuria: (4) Abdominal wall mass: (5) Right shoulder pain: (6) Hematoma: Plan Acute encephalopathy -Has underlying dementia -Likely secondary to pneumonia -With possible UTI -Monitor mentation closely -Speech therapy eval, advance to as directed -Aspiration precautions -Neurochecks -Follow urine cultures, blood cultures Pneumonia as above UTI as above Right shoulder pain -He denies a fall -CT right shoulder -1. ? No acute fracture. 2. ? Diffuse osteopenia. 3. ? Mild degenerative changes. 4. ? Moderate shoulder joint effusion. 5. ? Minimal calcific tendinopathy of the distal supraspinatus tendon. ? Abdominal wall mass -Likely complex hematoma, however need to be monitored for infection of hematoma -Blood cultures HTN: Cardiac diet, metoprolol. DM2: Insulin, for now decrease dose to 10 units long-acting, Accu-Cheks, SSI, CC diet BPH CAD: Aspirin held for now pending reassessment of hematoma CHF CKD: Creatinine 2.8, monitor COPD Depression Diabetic neuropathy HLD PAD Smoking addiction Other problems Attestations Medical Necessity Statement*: Patient requires hospitalization, for acute encephalopathy secondary to pneumonia, UTI, with abdominal wall mass Diagnoses Altered mental status R41.82 Pneumonia J18.9 Hematuria R31.9 Abdominal wall mass R22.2 Right shoulder pain M25.511 Hematoma T14.8XXA
[2023-01-14] MEDS: heparin 5,000 unit/mL INJ 1 mL 5000 UNIT SUBCUT (17:38)
[2023-01-14] MEDS: insulin lispro 100 unit/1 mL SUBCUT (17:39)
[2023-01-14] MEDS: OLANZapine 5 mg TABLET 2.5 MG PO (20:07)
[2023-01-14] MEDS: oxyCODONE-APAP 5-325 mg Tablet 1 TAB PO (20:07)
[2023-01-14 21:22] LABS: Glucose Point of Care 121 mg/dL (70-110)
[2023-01-14] MEDS: vancomycin 1,000 MG in sodium chloride 0.9% 250 ML 250 MG IV (22:04)
[2023-01-15 03:50] LABS: Basophils % 0.4 %; Eosinophils # 0.1 10^3/uL (0.0-0.8); Eosinophils % 1.6 %; Hematocrit 34.3 % (42.0-52.0); Hemoglobin 10.4 g/dL (11.7-16.6); Lymphocytes # 0.9 10^3/uL (0.8-4.8); Lymphocytes % 12.4 %; Mean Corpuscular HGB Conc 30.3 g/dL (30.0-36.0); Mean Corpuscular Hemoglobin 27.4 pg (28.0-34.0); Mean Corpuscular Volume 90.3 fl (80-94); Monocytes # 0.4 10^3/uL (0.2-0.9); Monocytes % 6.1 %; Neutrophils # 5.49 10^3/uL (1.8-7.7); Neutrophils % 79.1 %; Nucleated Red Blood Cells % 0 %; Platelet Count 202 10^3/cmm (130-400); White Blood Count 6.9 10^3/uL (4.0-10.0)
[2023-01-15 04:00] VITALS: BP 148/70; PULSE 69; RESP 17; TEMP 37.2; O2SAT 90
[2023-01-15 04:16] LABS: Anion Gap 11.6 (5-19); Blood Urea Nitrogen 63 mg/dL (8-23); Calcium 8.6 mg/dL (8.5-10.5); Carbon Dioxide 22 mmol/L (22-29); Chloride 109 mmol/L (98-107); Glomerular Filtration Rate 24.5 mL/min (90-130); Glucose 159 mg/dL (65-115); Osmolality Calculated 307 mOsm/kg (285-295); Potassium 4.6 mmol/L (3.5-5.1); Sodium 138 mmol/L (136-145)
[2023-01-15 05:36] VITALS: RESP 17
[2023-01-15] MEDS: oxyCODONE-APAP 5-325 mg Tablet 1 TAB PO (05:36)
[2023-01-15] MEDS: heparin 5,000 unit/mL INJ 1 mL 5000 UNIT SUBCUT (05:37)
[2023-01-15 06:00] VITALS: BMI 23.1
[2023-01-15 06:49] LABS: Glucose Point of Care 133 mg/dL (70-110)
[2023-01-15 08:00] VITALS: BP 115/63; PULSE 64; RESP 17; TEMP 37.1; O2SAT 94
[2023-01-15] MEDS: tamsulosin 0.4 mg Capsule PO (08:15)
[2023-01-15] MEDS: metoprolol tartrate 25 mg Tablet PO (08:15)
[2023-01-15] MEDS: pantoprazole DR 40 mg Tablet PO (08:16)
[2023-01-15 11:37] LABS: Glucose Point of Care 161 mg/dL (70-110)
--- NOTE | 2023-01-15 11:46 | P.DS_ITS ---
Discharge Providers Date of Admission: 01/14/23 20:23 Date of Discharge: January 15, 2023 Attending Provider at Admission: Oh Mercedes Attending Provider at Discharge: Malik Donis MD Primary Care Provider: Melissa Boswell MD Diagnoses at Discharge Discharge Diagnosis (1) Altered mental status: Status: Acute (2) Pneumonia: Status: Acute (3) Hematuria: Status: Acute (4) Abdominal wall mass: Status: Acute (5) Right shoulder pain: Status: Acute (6) Hematoma: Status: Acute Reason for Visit Reason for Visit: INCREASED CONFUSION PER FAMILY Hospital Course Hospital Course 72-year-old gentleman with hospitalization back in September due to respiratory infection, acute encephalopathy, enterococcal UTI, during that admission also shock requiring transient pressor support, other medical problems, please see admission, at the end of which his mental status had improved, although he is reported to have cognitive impairment/dementia, he was brought back to ER for evaluation by his family to ER currently due to confusion.? In ED he himself denies any complaints, pain or discomfort.? However, is not oriented.? Unable to provide history.? He is also hard of hearing, and and communication is difficult.? Per family he has been wandering, not making sense. He is afebrile, without leukocytosis.? On chest x-ray and bilateral left greater than right, atelectasis versus infiltrate.? UA with 15-[address] without acute intracranial hemorrhage or mass effect.? Moderate diffuse white matter disease likely reflecting chronic microvascular ischemic changes. Previous postoperative hematoma in the left abdominal wall, mass still present.? Patient was admitted to [facility] for acute encephalopathy likely secondary to pneumonia with UTI. He received antibiotic therapy overall clinically improved mentation improved, following commands, discharged on 5 remaining days of Augmentin. He had right shoulder pain, CT of right shoulder showed moderate joint shoulder effusion, follow-up with primary care Patient has a abdominal wall complex hematoma, no clinical evidence of infection, continue to monitor as outpatient Has CKD monitor creatinine as outpatient Patient 1 out of 4 blood cultures were positive for coagulase positive staphylococci, likely contamination, will await sensitivity, repeat blood cultures ordered Physical Exam Const: COMMON NORMALS: no acute distress ORIENTATION/CONSCIOUSNESS: Yes awake, Yes oriented to person and Yes oriented to place; not oriented to time Resp: COMMON NORMALS: normal respiratory effort, No retractions, No use of accessory muscles and clear to auscultation bilaterally AUSCULTATION: clear to auscultation bilaterally Cardio: COMMON NORMALS: regular rate, regular rhythm, S1 normal heart sound present and S2 normal heart sound present RATE: regular rate RHYTHM: regular rhythm HEART SOUNDS: S1 normal heart sound present and S2 normal heart sound present GI: COMMON NORMALS: Normal to inspection, nondistended, normoactive bowel sounds present and non-tender Extremity: COMMON NORMALS: no pedal edema Neuro: SENSORIUM/ORIENTATION: Yes oriented to person, Yes oriented to place and No oriented to time Urinary Catheter Management: Coude: Cath Placed During This Visit: yes Reason for Continuing Indwelling Catheter: Other Urinary Catheter Date of Insertion: 01/13/23 Urinary Catheter Time of Insertion: 19:25 Discharge Data Studies Completed and Pending Completed Studies During Hospitalization Category Date Time Status CT elbow RT wo con* [id number] Routine Cat Scan 01/13/23 09:[address] head wo con* [id number] Stat Cat Scan 01/12/23 18:[address] shoulder RT wo con* [id number] Routine Cat Scan 01/13/23 09:40 Completed XR chest 1V portable [id number] Stat Exams 01/12/23 18:09 Completed XR shoulder RT min 2V* [id number] Routine Exams 01/13/23 06:45 Completed US abdomen limited [id number] Routine Ultrasound 01/12/23 23:20 Completed Pending at discharge Category Date Time Status Blood Culture Stat Lab 01/12/23 23:53 Results Blood Culture Stat Lab 01/15/23 11:41 Ordered Respiratory Panel 2 Routine Lab 01/13/23 08:14 Uncollected Sputum Culture and Gram Stain Routine Lab 01/12/23 23:27 Uncollected Vancomycin Trough Timed Lab 01/16/23 09:00 Ordered Radiology Impressions Chest X-Ray 01/12/23 18:09 IMPRESSION: Bilateral left greater than right atelectasis versus infiltrate. Head CT 01/12/23 18:09 IMPRESSION: Negative for intracranial hemorrhage or mass effect. Shoulder X-Ray 01/13/23 06:45 IMPRESSION: No fractures or dislocations of the right shoulder. Elbow CT 01/13/23 09:40 IMPRESSION: 1. No acute fracture. 2. Diffuse osteopenia. 3. Minimal degenerative change. Shoulder CT 01/13/23 09:40 IMPRESSION: 1. No acute fracture. 2. Diffuse osteopenia. 3. Mild degenerative changes. 4. Moderate shoulder joint effusion. 5. Minimal calcific tendinopathy of the distal supraspinatus tendon. Laboratory Results WBC 6.9 10^3/uL (4.0-10.0) 01/15/23 03:18 RBC 3.80 10^6/uL (4.1-5.3) L 01/15/23 03:18 Hgb 10.4 g/dL (11.7-16.6) L 01/15/23 03:18 Hct 34.3 % (42.0-52.0) L 01/15/23 03:18 MCV 90.3 fl (80-94) 01/15/23 03:18 MCH 27.4 pg (28.0-34.0) L 01/15/23 03:18 MCHC 30.3 g/dL (30.0-36.0) 01/15/23 03:18 RDW 16.0 % (12.1-15.1) H 01/15/23 03:18 Plt Count 202 10^3/cmm (130-400) 01/15/23 03:18 MPV 10.0 fL (7.4-10.4) 01/15/23 03:18 Neut % (Auto) 79.1 % 01/15/23 03:18 Lymph % (Auto) 12.4 % 01/15/23 03:18 Fallon % (Auto) 6.1 % 01/15/23 03:18 Eos % (Auto) 1.6 % 01/15/23 03:18 Baso % (Auto) 0.4 % 01/15/23 03:18 Neut # (Auto) 5.49 10^3/uL (1.8-7.7) 01/15/23 03:18 Lymph # (Auto) 0.9 10^3/uL (0.8-4.8) 01/15/23 03:18 Fallon # (Auto) 0.4 10^3/uL (0.2-0.9) 01/15/23 03:18 Eos # (Auto) 0.1 10^3/uL (0.0-0.8) 01/15/23 03:18 Baso # (Auto) 0.0 10^3/uL (0.0-0.1) 01/15/23 03:18 Nucleated RBC % (auto) 0 % 01/15/23 03:18 Nucleated RBCs # 0.0 /100WBC 01/15/23 03:18 ESR 36 mm/hr (0-10) H 01/12/23 09:40 Sodium 138 mmol/L (136-145) 01/15/23 03:18 Potassium 4.6 mmol/L (3.5-5.1) 01/15/23 03:18 Chloride 109 mmol/L (98-107) H 01/15/23 03:18 Carbon Dioxide 22 mmol/L (22-29) 01/15/23 03:18 Anion Gap 11.6 (5-19) 01/15/23 03:18 BUN 63 mg/dL (8-23) H 01/15/23 03:18 Creatinine 2.6 mg/dL (0.7-1.2) H 01/15/23 03:18 GFR Calculation 24.5 mL/min (90-130) L 01/15/23 03:18 Glucose 159 mg/dL (65-115) H 01/15/23 03:18 POC Glucose 161 mg/dL (70-110) H 01/15/23 11:32 Calculated Osmolality 307 mOsm/kg (285-295) H 01/15/23 03:18 Calcium 8.6 mg/dL (8.5-10.5) 01/15/23 03:18 Total Bilirubin 0.3 mg/dL (0.15-1.2) 01/12/23 19:00 AST 39 U/L (0-40) 01/12/23 19:00 ALT 33 U/L (0-41) 01/12/23 19:00 Alkaline Phosphatase 173 U/L (40-130) H 01/12/23 19:00 C-Reactive Protein 70.4 mg/L (0.0-4.9) H 01/12/23 09:40 Total Protein 7.2 g/dL (6.6-8.7) 01/12/23 19:00 Albumin 2.7 g/dL (3.5-5.2) L 01/12/23 19:00 Globulin 4.5 g/dL (1.3-4.6) 01/12/23 19:00 Vitamin B12 1767 pg/mL (232-1245) H 01/12/23 23:50 Folate 19.5 ng/mL (4.5-32.2) 01/12/23 23:50 Procalcitonin 0.28 ng/mL (0-0.5) 01/12/23 09:40 TSH 0.85 uIU/mL (0.27-4.20) 01/12/23 23:50 Urine Color Light yellow (Yellow) 01/12/23 17:42 Urine Appearance Hazy (CLEAR) A 01/12/23 17:42 Urine pH 5 (5-7) 01/12/23 17:42 Ur Specific Bryce 1.010 (1.005-1.030) 01/12/23 17:42 Urine Protein 2+ (Negative) H 01/12/23 17:42 Urine Glucose (UA) Norm (Normal) 01/12/23 17:42 Urine Ketones Negative (Negative) 01/12/23 17:42 Urine Blood 3+ (Negative) H 01/12/23 17:42 Urine Nitrate Negative (Negative) 01/12/23 17:42 Urine Bilirubin Neg (Negative) 01/12/23 17:42 Urine Urobilinogen Neg mg/dL (Negative) 01/12/23 17:42 Ur Leukocyte Esterase Negative (Negative) 01/12/23 17:42 Urine RBC 15-25 /hpf (0-2) H 01/12/23 17:42 Urine WBC 0-4 /hpf (0-5) H 01/12/23 17:42 Ur Squamous Epith Cells None /hpf (0-5) 01/12/23 17:42 Amorphous Sediment Not Reportable 01/12/23 17:42 Urine Bacteria None /hpf (NONE) 01/12/23 17:42 Vitals Last Vital Signs Temp 98.7 F 01/15/23 08:00 Pulse 64 01/15/23 08:00 Resp 17 01/15/23 08:00 BP 115/63 01/15/23 08:00 Pulse Ox 94 01/15/23 08:00 O2 Del Method 01/15/23 08:00 O2 Flow Rate 3 01/15/23 04:00 Discharge Plan Discharge Patient Disposition: Home Condition: Stable Prescriptions: New amoxicillin-pot clavulanate 875-125 mg tablet 1 tab PO BID 5 Days Qty: 10 0RF Continued metoprolol tartrate 25 mg tablet 25 mg PO BID citalopram 20 mg tablet 20 mg PO QAM pramipexole 1.5 mg tablet 1.5 mg PO TID atorvastatin 40 mg Tablet 40 mg PO DAILY albuterol sulfate 90 mcg/actuation HFA aerosol inhaler 2 puff INHALATION Q4H PRN (Reason: Shortness Of Breath) fluticasone propionate 50 mcg/actuation Snyder,Suspension 2 spray INTRANASAL DAILY PRN (Reason: Allergy Symptoms) Rx Instructions: administer into each nostril multivitamin Tablet 1 tab PO DAILY calcium carbonate-vitamin D3 600 mg-5 mcg (200 unit) Tablet 1 tab PO DAILY aspirin 81 mg Tablet,Delayed Release (Dr/Ec) 81 mg PO QAM pantoprazole 40 mg tablet,delayed release (DR/EC) 40 mg PO DAILY Changed tamsulosin 0.4 mg capsule 0.8 mg PO DAILY 30 Days Qty: 60 0RF Discontinued insulin degludec [Tresiba FlexTouch U-100] 100 unit/mL (3 mL) insulin pen 24 unit SUBCUT DAILY Discharge Orders: Discharge Order (Routine); Ordered 01/15/23 Ordered By: Malik Donis Referrals: Dakota Almazan MD [Physician] - 1 week Melissa Boswell MD [Primary Care Provider] - Discharge Diet: Advance as tolerated Discharge Activity: Resume usual activity Patient Instructions: Opioid Safety Activity Restrictions/Additional Instructions: - I am discharging with Riddle catheter in place for urinary retention -Please follow-up with Dr. Almazan postvoid residual, and potential removal Discharge Attestations Time Spent in Discharge Care*: greater than 30 min Status at Discharge: Cognitive status at discharge: cognitively intact , Behavioral status at discharge: cooperative , Quality Metrics Clinical Quality Measures [ No reported AMI, CVA or VTE this stay] Coding Level of Care Code 16226 Total time (in minutes) for Discharge: 40 Diagnoses Altered mental status R41.82 Pneumonia J18.9 Hematuria R31.9 Abdominal wall mass R22.2 Right shoulder pain M25.511 Hematoma T14.8XXA
== END 2023-01-15 13:42 | disposition home health service (06) | DRG 689 ==
LOC: ER 20:45 → MEDSURG 20:58
PROVIDERS: Admitting Provider Internal Medicine; Emergency Provider Emergency Medicine; PCP Family Medicine; Visit Provider Family Medicine
DX: N39.0 Urinary tract infection, site not specified (principal); J18.9 Pneumonia, unspecified organism; F03.911 Unspecified dementia, unspecified severity, with agitation; G93.49 Other encephalopathy; L76.32 Postprocedural hematoma of skin and subcutaneous tissue following other procedure; I13.0 Hypertensive heart and chronic kidney disease with heart failure and stage 1 through stage 4 chronic kidney disease, or unspecified chronic kidney disease; J44.0 Chronic obstructive pulmonary disease with (acute) lower respiratory infection; Y83.8 Other surgical procedures as the cause of abnormal reaction of the patient, or of later complication, without mention of misadventure at the time of the procedure; I50.9 Heart failure, unspecified; E11.22 Type 2 diabetes mellitus with diabetic chronic kidney disease; N18.9 Chronic kidney disease, unspecified; M25.511 Pain in right shoulder; M25.411 Effusion, right shoulder; I25.10 Atherosclerotic heart disease of native coronary artery without angina pectoris; E11.43 Type 2 diabetes mellitus with diabetic autonomic (poly)neuropathy; K31.84 Gastroparesis; I25.2 Old myocardial infarction; E78.5 Hyperlipidemia, unspecified; E11.40 Type 2 diabetes mellitus with diabetic neuropathy, unspecified; E11.51 Type 2 diabetes mellitus with diabetic peripheral angiopathy without gangrene; R31.29 Other microscopic hematuria; F17.210 Nicotine dependence, cigarettes, uncomplicated; B95.61 Methicillin susceptible Staphylococcus aureus infection as the cause of diseases classified elsewhere; Z95.1 Presence of aortocoronary bypass graft; Z79.82 Long term (current) use of aspirin; Z79.4 Long term (current) use of insulin; Z87.440 Personal history of urinary (tract) infections
CPT/HCPCS: 36415; 36416; 51702; 70450; 71045; 73030; 73200; 76705; 80048; 80053; 81001; 82607; 82746; 82962; 84145; 84443; 85025; 85651; 86140; 86403; 87040; 87077; 87086; 87186; 87205; 92523; 92610; 93005; 96365; 96367; 96372; 99285; G0378; J0692; J0696; J1630; J1644; J1815; J3370; J3490; J7030; J7042; J7050

== ENCOUNTER → 2023-01-23 12:56 | Day surgery (SDC) | payer MEDICARE, SELFPAY ==
[2023-01-23 13:05] VITALS: BP 158/81; PULSE 66; RESP 18; TEMP 36.8; O2SAT 92
[2023-01-23] MEDS: cefTRIAXone 1,000 MG in sodium chloride 0.9% (plus) 50 ML 100 MG IV (14:00)
--- NOTE | 2023-01-23 14:20 | PC.NURSE ---
Midline to right basilic vein inserted without difficulty. Pt to receive IV Ceftriaxone 1 gm x 14 days. [facility] at [email or web address] infusion notified of infusion time and no reaction noted. [facility] to see pt tomorrow in home around 1 pm. Pt daughter taught how to flush midline and to call for any issues regarding midline or dressing. Mid-arm circumference measured 10 cm from right AC and noted at 22 cm. Trimmed cath length 11 cm with 1 cm external length noted. Pt tolerated well.
== END ==
LOC: GILAB 13:01
PROVIDERS: PCP Family Medicine; Visit Provider Family Medicine
DX: R78.81 Bacteremia (principal)
CPT/HCPCS: 36569; 36592; 87040; 96365; C1751; J0696

== ENCOUNTER → 2023-02-01 11:48 | Outpatient (BNVA) | payer MEDICARE, SELFPAY | PROVIDERS: PCP Family Medicine; Visit Provider Urology | DX: N39.0 Urinary tract infection, site not specified (principal); R33.9 Retention of urine, unspecified; N40.1 Benign prostatic hyperplasia with lower urinary tract symptoms | CPT/HCPCS: 52000; 99213 ==

== ENCOUNTER → 2023-02-23 12:42 | Outpatient (BNVA) | payer MEDICARE, SELFPAY | PROVIDERS: PCP Family Medicine; Visit Provider Internal Medicine Cardiovascular Disease | DX: I25.10 Atherosclerotic heart disease of native coronary artery without angina pectoris (principal); J44.1 Chronic obstructive pulmonary disease with (acute) exacerbation; D53.9 Nutritional anemia, unspecified; I13.0 Hypertensive heart and chronic kidney disease with heart failure and stage 1 through stage 4 chronic kidney disease, or unspecified chronic kidney disease; E11.22 Type 2 diabetes mellitus with diabetic chronic kidney disease; F17.210 Nicotine dependence, cigarettes, uncomplicated; N18.4 Chronic kidney disease, stage 4 (severe); I50.23 Acute on chronic systolic (congestive) heart failure | CPT/HCPCS: 80048; 83880; 99214 ==

== ENCOUNTER → 2023-03-09 15:01 | Outpatient (BNVA) | payer MEDICARE, SELFPAY | PROVIDERS: PCP Family Medicine; Visit Provider Internal Medicine Cardiovascular Disease | DX: D53.9 Nutritional anemia, unspecified (principal); I10 Essential (primary) hypertension; I25.10 Atherosclerotic heart disease of native coronary artery without angina pectoris; N18.9 Chronic kidney disease, unspecified | CPT/HCPCS: 80053; 83880 ==

== ENCOUNTER 2023-03-15 17:45 | Emergency (ER) | payer MEDICARE, SELFPAY ==
[2023-03-15 18:09] VITALS: BP 130/64; PULSE 69; RESP 16; TEMP 36.8; O2SAT 91; BMI 18.8
[2023-03-15 18:51] VITALS: BP 121/70; PULSE 69; RESP 17; O2SAT 90
[2023-03-15 19:37] VITALS: BP 136/73; PULSE 68; PULSE 72; RESP 18; TEMP 36.8; O2SAT 93; O2SAT 94
[2023-03-15] MEDS: sulfamethoxazole-trimeth DS 160-800 mg Tablet 1 TAB PO (19:46)
--- NOTE | 2023-03-15 19:52 | W.ED.SKABFB ---
HPI - Skin/Abscess/Foreign Bdy General: Chief complaint: Skin/Abscess/Foreign Body Stated complaint: Abscess on abd Time Seen by Provider: 03/15/23 19:32 Source: patient Mode of arrival: ambulatory Limitations: no limitations History of Present Illness: 72-year-old male states he had an area to his left lower abdomen that he noticed he states 2 years ago states it was mild and slight redness he states over the last 1 to 2 weeks it is grown did developed a head to it and today's popped and had purulent drainage. He denies any fevers states it is painful rates his pain a 5 out of 10 denies any worsening proving factors. Associated symptoms: Deny chills, fever(s), nausea or vomiting Review of Systems Const: Denies: fever(s) or chills Eyes: Denies: blurry vision Card: Denies: chest pain Resp: Denies: dyspnea GI: Denies: abdominal pain, nausea, vomiting or diarrhea Musc: Denies: neck pain or back pain Skin/Breast: Reports: erythema; Denies: rash All/Imm: Denies: urticaria PFSH ED PFSH: Medical History Acute on chronic systolic heart failure Echocardiogram from 08/13 shows EF of 45%, regional wall motion abnormality, grade 1 diastolic dysfunction Atherosclerosis of coronary artery of [place] heart without angina pectoris BPH loc w urin obs/LUTS CAD (coronary artery disease) CHF (congestive heart failure) 2014, EF 40% with 2/4 diastolic dysfunction Chronic kidney disease COPD exacerbation Coronary artery disease Depression Diabetes mellitus Diabetic gastroparesis Diabetic neuropathy Elevated troponin Hyperlipidemia Hypertension NSTEMI (non-ST elevated myocardial infarction) Peripheral artery disease Pneumonia Tobacco dependency Surgical History History of angioplasty Family History Mother , in her 80's Parkinsons Father , at age 71 Epilepsy Brother CAD (coronary artery disease) ID x 2, early 60's Diabetes Lung disease Sister Dementia Diabetes Denies family history of Clotting disorder Chronic kidney disease (CKD) Suicide Anesthesia complication Bleeding disorder Cancer Hypertension Stroke Social History Smoking and tobacco status: current every day smoker cigarettes Packs smoked per day: 2 Years cigarettes smoked: 50 Alcohol intake: never Marital status: Current occupational status: retired Physical Exam Const: COMMON NORMALS: no acute distress, patient oriented x3 and healthy appearing HENMT: COMMON NORMALS: normocephalic and atraumatic HEAD & SCALP: normocephalic and atraumatic Neck/C-Spine: COMMON NORMALS: full ROM and supple Chest: COMMONS NORMALS: normal inspection of the chest Resp: COMMON NORMALS: normal respiratory effort Cardio: COMMON NORMALS: regular rate, regular rhythm and No murmurs present (Cardio) RATE: regular rate RHYTHM: regular rhythm GI: INSPECTION: Yes normal to inspection Extremity: COMMON NORMALS: normal to inspection and full ROM Neuro: COMMON NORMALS: patient oriented x3, moves all extremities and no focal motor deficits Psych: COMMON NORMALS: mental status grossly normal, Normal thought process present and cooperative THOUGHT PROCESS: Normal thought process present Skin: NARRATIVE SKIN EXAM: Large roughly 5 to 6 cm abscess to left lower abdomen severity open and draining purulent material Course Vital Signs: Vital signs: Vital Signs Temperature 98.2 F 03/15/23 19:37 Pulse Rate 72 03/15/23 19:37 Respiratory Rate 18 03/15/23 19:37 Blood Pressure 136/73 03/15/23 19:37 Pulse Oximetry 94 03/15/23 19:37 Oxygen Delivery Me thod Room Air 03/15/23 19:37 MDM - Skin/Abscess/Foreign Bdy Medicial Decision Making Patient presents with abscess to the left lower abdomen it is already open and draining I did incise it further and got more drainage out of it did send cultures off we will place him on Bactrim he is not septic appearing he is to follow-up with PCP and return if worsening. Discharge Plan Discharge Patient Disposition: Home Clinical Impression: Abscess Condition: Stable Prescriptions: New Bactrim DS 800-160 mg tablet 1 tab PO BID 10 Days Qty: 20 0RF No Action metoprolol tartrate 25 mg tablet 25 mg PO BID furosemide 40 mg tablet 40 mg PO DAILY Qty: 30 0RF potassium chloride 8 mEq capsule, extended release 8 meq PO DAILY Qty: 30 0RF citalopram 20 mg tablet 20 mg PO QAM pramipexole 1.5 mg tablet 1.5 mg PO TID atorvastatin 40 mg Tablet 40 mg PO DAILY albuterol sulfate 90 mcg/actuation HFA aerosol inhaler 2 puff INHALATION Q4H PRN (Reason: Shortness Of Breath) fluticasone propionate 50 mcg/actuation [place],Suspension 2 spray INTRANASAL DAILY PRN (Reason: Allergy Symptoms) Rx Instructions: administer into each nostril multivitamin Tablet 1 tab PO DAILY calcium carbonate-vitamin D3 600 mg-5 mcg (200 unit) Tablet 1 tab PO DAILY aspirin 81 mg Tablet,Delayed Release (Dr/Ec) 81 mg PO QAM pantoprazole 40 mg tablet,delayed release (DR/EC) 40 mg PO DAILY tamsulosin 0.4 mg capsule 0.8 mg PO DAILY 30 Days Qty: 60 0RF Discharge Orders: Discharge ED (Routine); Ordered 03/15/23 Ordered By: Roberto Fajardo Referrals: Melissa Boswell MD [Primary Care Provider] - 1-3 days Discharge Diet: Advance as tolerated Discharge Activity: Resume usual activity Patient Instructions: Abscess (ED) Coding Level of Care Code ED [employer] Rep[employer]r for Elisabeth Krishnamurthy
[2023-03-15 19:58] VITALS: BP 147/83; PULSE 70; RESP 18; O2SAT 94
== END 2023-03-15 20:08 | disposition home or self-care (01) ==
PROVIDERS: Emergency Provider Emergency Medicine; PCP Family Medicine
DX: L02.211 Cutaneous abscess of abdominal wall (principal); Z79.82 Long term (current) use of aspirin; F17.210 Nicotine dependence, cigarettes, uncomplicated; I13.0 Hypertensive heart and chronic kidney disease with heart failure and stage 1 through stage 4 chronic kidney disease, or unspecified chronic kidney disease; E11.22 Type 2 diabetes mellitus with diabetic chronic kidney disease; N18.9 Chronic kidney disease, unspecified; I50.9 Heart failure, unspecified; I25.10 Atherosclerotic heart disease of native coronary artery without angina pectoris; E78.5 Hyperlipidemia, unspecified; I25.2 Old myocardial infarction
CPT/HCPCS: 10060; 87070; 87077; 87186; 99283